=== PATIENT | female | born 1935 | race Caucasian/White ===

== ENCOUNTER 2017-05-05 11:01 | Day surgery (SDC) | payer MEDICARE, OTHER ==
[2017-05-01 17:53] VITALS: BMI 24.1
[~2017-05-05 11:01] MED LIST: ALPRAZolam 0.25 MG TAB PO PRN; ALPRAZolam 0.5 MG TAB PO PRN; ASPIRIN 325 MG TAB PO STA; ATORVASTATIN 80 MG TAB PO STA; NITROGLYCERIN SL TABS 0.4 MG TAB SUBLINGUAL PRN; SODIUM CHLORIDE 0.9% 1,000 ML in EMPTY BAG 1 BAG IV ONE
[2017-05-05 11:21] VITALS: TEMP 98.4
[2017-05-05] MEDS ORDERED: MIDAZOLAM 2 MG/2 ML VIAL ONE (11:44)
[2017-05-05] MEDS ORDERED: MIDAZOLAM 2 MG/2 ML VIAL IV ONE ×3 (12:19→12:28)
[2017-05-05] MEDS ORDERED: diphenhydrAMINE 50 MG/ML 1 ML VIAL ONE (12:19)
[2017-05-05] MEDS ORDERED: LIDOCAINE 2% INJ 20 MG/ML (20 ML MDV) ONE (12:19)
[2017-05-05] MEDS ORDERED: BENZOCAINE SPRAY 1 CAN MUCOUS MEM ONE (12:21)
[2017-05-05] MEDS ORDERED: diphenhydrAMINE 50 MG/ML 1 ML VIAL IVP ONE (12:21)
[2017-05-05] MEDS ORDERED: VERAPAMIL 2.5 MG/ML 2 ML AMP ONE (12:24)
[2017-05-05] MEDS ORDERED: LIDOCAINE 2% INJ 20 MG/ML SQ ONE (13:00)
[2017-05-05] MEDS ORDERED: IOHEXOL 350 MG/ML 125ML BOTTLE INJ ONE (13:12)
[2017-05-05] MEDS ORDERED: RX INFO: IV CONTRAST WAS GIVEN 1 EACH MISC MISCELLANE PRN (13:21)
[2017-05-05] MEDS ORDERED: SODIUM CHLORIDE 0.9% 1,000 ML IV SCH (13:30)
--- NOTE | 2017-05-05 13:58 | ECHOT ---
TRANSESOPHAGEAL ECHOCARDIOGRAM DATE OF SERVICE: 05/05/2017 PERFORMING PHYSICIAN: Michael Leon MD, Manufacturers Service Representative. PROCEDURE PERFORMED: Transesophageal echocardiogram. INDICATION: This is a pleasant 81-year-old female patient who was diagnosed recently with symptomatic mitral regurgitation. The transthoracic echocardiogram revealed severe MR. She was brought today to undergo transesophageal echocardiogram. COMPLICATION: None. LEVEL OF SEDATION: Moderate with sedation length of 10 minutes. PROCEDURE DESCRIPTION: After obtaining an informed consent, the patient was brought to the Cardiac Associate School Psychologist. The patient was turned into left lateral position. A pulse oximetry and heart rate monitors were attached to the patient. Subsequently, I did give the patient a total of 3 mg of Versed and 25 mg of Benadryl on divided doses. After that, transesophageal echocardiogram probe was advanced to the mid esophagus where a 2D echocardiogram images as well as color Doppler images of various cardiac structures were obtained. Particular attention was paid to the mitral valve. The procedure was completed without any complication. FINDINGS: The left ventricular dimension and systolic function appeared to be within normal limits. There was mild to moderate concentric left ventricular hypertrophy. The right ventricle is of normal size and function. The left atrium appeared to be dilated. The aortic valve is trileaflet valve without stenosis or regurgitation. The aortic valve appeared to be trileaflet valve without any evidence of aortic stenosis or aortic regurgitation. 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 The tricuspid valve and pulmonic valve appear to be within normal limits. The left atrial appendage appeared to be free from any thrombus. The interatrial septum appeared to be intact. CONCLUSION: 1. 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 2. Normal left ventricular dimension and systolic function. 3. Overall normal cardiac chamber sizes. 4. Trileaflet aortic valve without stenosis or regurgitation. 5. Normal tricuspid valve and pulmonic valve. 6. Normal aortic root dimension. 7. Intact interatrial septum without any evidence of shunt. 8. Normal left atrial appendage without any evidence of thrombus. 9. No evidence of pericardial effusion. MMODL / IJN: [id number] /
--- NOTE | 2017-05-05 14:58 | CC ---
CARDIAC CATHETERIZATION REPORT DATE OF PROCEDURE: 05/05/2017 PERFORMING PHYSICIAN: Michael Leon MD, Rejector. PROCEDURE PERFORMED: 1. Selective right and left coronary angiogram. 2. Left heart catheterization. 3. Left ventriculography. INDICATION: This is a pleasant 81-year-old female patient who was diagnosed recently with severe mitral regurgitation. She underwent transesophageal echocardiogram, which revealed severe MR and she was brought today to undergo a heart catheterization looking for severe coronary artery disease to rule out any severe underlying CAD before mitral valve repair/replacement. APPROACH: Right common femoral artery. COMPLICATION: None. LEVEL OF SEDATION: Moderate with sedation length of 18 minutes. PROCEDURE DESCRIPTION: After obtaining an informed consent, the patient was brought to the Cardiac Lapel Stitcher. The right common femoral artery was cannulated using micropuncture technique. The micropuncture wire passed easily, then I placed a 6-Turkish sheath in the right common femoral artery. After that, I did selective right and left coronary angiogram using JR4 and JL4 catheters. After that, I did left heart catheterization and LV gram using 6-Turkish pigtail catheter. The procedure was completed without any complication. SELECTIVE CORONARY ANGIOGRAM: 1. The RCA is a large caliber vessel and it is a dominant vessel. The proximal and mid RCA have mild disease only. The RCA distally is tortuous but seems to be angiographically normal. It distally bifurcates into PDA and PLV branches. both are angiographically normal. 2. The left main is angiographically normal. It bifurcates into the left circumflex, ramus intermedius, and left anterior descending artery. 3. The left circumflex is a large caliber vessel and it is a nondominant vessel. The left circumflex is angiographically normal. 4. The ramus intermedius is a large caliber vessel and seems to be angiographically normal. 5. The left anterior descending artery: The LAD is angiographically normal beside being tortuous in the distal portion. In the proximal portion, it gives rise into a diagonal branch which has 50% ostial lesion. HEMODYNAMICS: The left ventricular end-diastolic pressure was 12 mmHg and no gradient was identified across the aortic valve. There was 4+ MR seen. CONCLUSION: 1. Intermediate disease involving the ostial diagonal branch of the left anterior descending artery. 2. Normal left ventricular systolic function. 3. 4+ mitral regurgitation. POSTPROCEDURE MANAGEMENT: 1. The patient will be evaluated for mitral valve repair/replacement. 2. Follow up with the patient. AIME / IJN: [id number] /
--- NOTE | 2017-05-05 14:58 | LTR ---
DATE OF SERVICE: 05/05/2017 RE: CandelarioCira patton Dear Dr. Narvaez; Ms. Cira Candelario underwent a transesophageal echocardiogram as well as a heart catheterization for further evaluation of the severe MR, which was identified on a recent transthoracic echocardiogram. The transesophageal echocardiogram revealed myxomatous mitral valve with evidence of severe MR. The heart catheterization revealed mild nonobstructive coronary artery disease. The plan at this point is to proceed with mitral valve repair/replacement down the line and in the next few months. I want to thank you for allowing me to participate in her care and please do not hesitate to call if you have any question or concern. Sincerely, Michael Leon MD MMLUKEL / IGORN: [id number] /
[2017-05-05 15:22] VITALS: PULSE 68
[2017-05-05 16:20] VITALS: BP 117/65; RESP 16
== END 2017-05-05 18:30 | disposition home or self-care (01) ==
LOC: CATHCVL 11:01
PROVIDERS: ATTEND Internal Medicine Interventional Cardiology
DX: I34.0 Nonrheumatic mitral (valve) insufficiency (principal); I25.10 Atherosclerotic heart disease of native coronary artery without angina pectoris; I51.7 Cardiomegaly; I77.1 Stricture of artery; Z87.891 Personal history of nicotine dependence; I10 Essential (primary) hypertension; E78.5 Hyperlipidemia, unspecified; Z79.82 Long term (current) use of aspirin; Z79.899 Other long term (current) drug therapy; Z88.5 Allergy status to narcotic agent
CPT/HCPCS: 93312; 93320; 93325; 93458; C1894; C1769 ×2; C1760; J2001; J2250; J1200; Q9967

== ENCOUNTER → 2017-05-16 | Outpatient (CLI) | payer MEDICARE ==
--- NOTE | 2017-05-20 09:49 | MM ---
Reason for exam: screening (asymptomatic). Last mammogram was performed 2 years ago. History: Patient is postmenopausal and has history of other cancer at age 68. Took hormonal contraceptives for 4 years beginning at age 24. Physical Findings: A clinical breast exam by your physician is recommended on an annual basis and results should be correlated with mammographic findings. MG 3D Screening Mammo W/Cad Bilateral CC and MLO view(s) were taken. Prior study comparison: May 16, 2015, bilateral MG screening mammo w CAD. May 06, 2014, bilateral MG screening mammo w CAD. The breast tissue is heterogeneously dense. This may lower the sensitivity of mammography. There is no discrete abnormality. No significant changes when compared with prior studies. ASSESSMENT: Negative, BI-RAD 1 RECOMMENDATION: Routine screening mammogram of both breasts in 1 year.
== END | disposition home or self-care (01) ==
LOC: RADMAMWWP 11:02
PROVIDERS: ATTEND Internal Medicine Geriatric Medicine
DX: Z12.31 Encounter for screening mammogram for malignant neoplasm of breast (principal)
CPT/HCPCS: 77063; G0202

== ENCOUNTER → 2017-09-25 | Outpatient (CLI) | payer MEDICARE ==
[2017-09-25 09:35] LABS: HCT 41.6 % (34.0-46.0); HGB 13.7 gm/dL (11.4-16.0); MCH 31.8 pg (25.0-35.0); MCHC 32.8 g/dL (31.0-37.0); MCV 96.9 fL (80.0-100.0); Mean Platelet Volume 7.2; Platelet Count 247 k/uL (150-450); RBC 4.29 m/uL (3.80-5.40); RDW 13.1 % (11.5-15.5)
[2017-09-25 09:37] LABS: INR 1.1 (<1.2); Partial Thromboplastin Time 23.1 sec (22.0-30.0); Prothrombin Time 10.4 sec (9.0-12.0)
[2017-09-25 09:55] LABS: Albumin 4.3 g/dL (3.5-5.0); Calcium 9.3 mg/dL (8.4-10.2); Magnesium 1.8 mg/dL (1.6-2.3); Potassium 3.8 mmol/L (3.5-5.1); Total Bilirubin 1.1 mg/dL (0.2-1.3); Total Protein 6.3 g/dL (6.3-8.2)
[2017-09-25 11:19] LABS: Appearance,Urine Cloudy (Clear); Bacteria,Urine Few /hpf; Bilirubin,Urine Negative (Negative); Blood,Urine Negative (Negative); Color,Urine Yellow; Glucose,Urine (UA) Negative (Negative); Hyaline Casts,Urine 22 /lpf (0-2); Ketones,Urine Negative (Negative); Leukocyte Esterase,Urine Large (Negative); Mucus,Urine Occasional /hpf; Nitrite,Urine Positive (Negative); PH, Urine 5.5 (5.0-8.0); Protein,Urine Negative (Negative); RBC,Urine 1 /hpf (0-5); Specific Gravity,Urine 1.007 (1.001-1.035); Squamous Epithelial Cell,Urine 5 /hpf (0-4); Urobilinogen,Urine <2.0 mg/dL (<2.0); WBC,Urine 12 /hpf (0-5)
--- NOTE | 2017-09-25 12:04 | XR ---
EXAMINATION TYPE: XR chest 2V DATE OF EXAM: 09/25/2017 COMPARISON: Chest x-ray March 18, 2017. HISTORY: Preoperative CABG. TECHNIQUE: Frontal and lateral views of the chest are obtained. FINDINGS: There is chronic parenchymal change without suspicious focal air space opacity, pleural ef fusion, or pneumothorax seen. The cardiac silhouette size is within normal limits with atherosclerot ic and slightly ectatic thoracic aorta. Multiple old left-sided rib fractures are redemonstrated. IMPRESSION: Chronic changes without acute process. No significant change from prior.
--- NOTE | 2017-09-25 13:17 | US ---
EXAMINATION TYPE: US carotid duplex BILAT DATE OF EXAM: 09/25/2017 COMPARISON: Carotid ultrasound December 13, 2011 CLINICAL HISTORY: OPEN HEART,. Pre op cardiac surgery EXAM MEASUREMENTS: RIGHT: Peak Systolic Velocity (PSV) cm/sec ----- Right CCA: 73.2 ----- Right ICA: 100.4 ----- Right ECA: 122.1 ICA/CCA ratio: 1.4 RIGHT: End Diastole cm/sec ----- Right CCA: 19.3 ----- Right ICA: 21.5 ----- Right ECA: 15.5 LEFT: Peak Systolic Velocity (PSV) cm/sec ----- Left CCA: 52.9 ----- Left ICA: 80.9 ----- Left ECA: 235.8 ICA/CCA ratio: 1.5 LEFT: End Diastole cm/sec ----- Left CCA: 14.5 ----- Left ICA: 23.7 ----- Left ECA: 18.4 VERTEBRALS (direction of flow): Right Vertebral: Antegrade Left Vertebral: Antegrade Rhythm: Normal Grayscale images redemonstrate moderate plaque at bilateral carotid bulbs. Increased peak systolic ve locity is noted in the left external carotid artery on today's study. Velocity measurements and ratio s in visualized portion of both internal carotid arteries is within normal limits. IMPRESSION: Moderate atherosclerotic change without hemodialysis significant stenosis seen in either internal carotid artery. Criteria for Assigning % of Stenosis / Diameter reduction (Estimation based on the indirect measurements of the internal carotid artery velocities (ICA PSV). 1. Normal (no stenosis)=ICA PSV < 125 cm/s: ratio < 2.0: ICA EDV<40 cm/s. 2. Less than 50% stenosis=ICA PSV < 125 cm/s: ratio < 2.0: ICA EDV<40 cm/s. 3. 50 to 69% stenosis=ICA PSV of 125 to 230 cm/s: ration 2.0 ? 4.0: ICA EDV 40-100 cm/s. 4. Greater than 70% stenosis to near occlusion= ICA PSV > 230 cm/s: ratio > 4.0: ICA EDV > 100 cm/s. 5. Near occlusion= ICA PSV velocities may be low or undetectable: variable ratio and ICA EDV. 6. Total occlusion=unable to detect flow.
[2017-09-25 17:21] LABS: Hepatitis A Antibody IgM Non-Reactive (Non-Reactive); Hepatitis B Core IgM Non-Reactive (Non-Reactive)
[2017-09-25 20:10] LABS: Hemoglobin A1C 5.4 % (4.0-6.0)
== END | disposition home or self-care (01) ==
LOC: LABPAT 08:19
PROVIDERS: ATTEND Surgery
DX: Z01.818 Encounter for other preprocedural examination (principal); I70.0 Atherosclerosis of aorta; R91.8 Other nonspecific abnormal finding of lung field; I35.1 Nonrheumatic aortic (valve) insufficiency; Z79.01 Long term (current) use of anticoagulants
CPT/HCPCS: 36415; 71046; 80053; 80061; 80074; 81001; 83036; 83735; 83880; 84443; 84484; 85027; 85610; 85730; 87070; 87086; 93005; 93880; 93970; 94150

== ENCOUNTER 2017-09-30 08:00 | Inpatient (IN) | payer MEDICARE ==
--- NOTE | 2017-10-01 13:49 | P.PN ---
Progress Note - Text Progress Note Date: 09/25/17 5 meter walk test completed 09/25/17: #1 3.96 #2 3.05 #3 3.53
[2017-10-02] MEDS ORDERED: PROPOFOL 1,000 MG/100 ML VIAL IV ONE (05:00)
[2017-10-02] MEDS ORDERED: PHENYLEPHRINE 40 MG in SODIUM CHLORIDE 0.9% 250 ML IV ONE (05:00)
[2017-10-02] MEDS ORDERED: CALCIUM CHLORIDE 100 MG/ML 10 ML SYRINGE IV ONE (05:00)
[2017-10-02] MEDS ORDERED: NITROGLYCERIN SL TABS 0.4 MG TAB SUBLINGUAL ONE (05:00)
[2017-10-02] MEDS ORDERED: ALBUMIN HUMAN 25% 50 ML IV ONE (05:00)
[2017-10-02] MEDS ORDERED: METOPROLOL TARTRATE 12.5 MG TAB PO ONE (05:00)
[2017-10-02] MEDS ORDERED: PROTAMINE SULFATE 10 MG/ML 25 ML VIAL IV ONE ×2 (05:00→08:04)
[2017-10-02] MEDS ORDERED: NITROGLYCERIN-D5W PMX 25 MG/250 ML BTL IV ONE (05:00)
[2017-10-02] MEDS ORDERED: TRANEXAMIC ACID 2,000 MG in SODIUM CHLORIDE 0.9% 180 ML IV ONE (05:00)
[2017-10-02] MEDS ORDERED: LACTATED RINGERS 1,000 ML IV ONE (05:00)
[2017-10-02] MEDS ORDERED: PHENYLEPHRINE-0.9% NACL SYG 1 MG/10 ML SYRINGE IV ONE (05:00)
[2017-10-02] MEDS ORDERED: CLEVIDIPINE BUTYRATE 25 MG in EMPTY BAG 1 BAG IV ONE (05:00)
[2017-10-02] MEDS ORDERED: HEPARIN SODIUM 1,000 UN/ML (10ML VL) IV ONE (05:00)
[2017-10-02] MEDS ORDERED: NOREPINEPHRIN 4 MG-0.9% NS PMX 4 MG/250 ML ML IV ONE (05:00)
[2017-10-02] MEDS ORDERED: ceFAZolin 1,000 MG in SODIUM CHLORIDE 0.9% IRRIGATIO 1,000 ML IRRIGATION ONE (05:00)
[2017-10-02] MEDS ORDERED: MANNITOL 25% 12.5 GM/50 ML VIAL IV ONE (05:00)
[2017-10-02] MEDS ORDERED: MAGNESIUM SULFATE MG 500 MG/ML VIAL IV ONE (05:00)
[2017-10-02] MEDS ORDERED: MUPIROCIN 2% OINT 22 GM TUBE NASAL ONE (05:00)
[2017-10-02] MEDS ORDERED: DEXTROSE 5% IN WATER 1,000 ML with POTASSIUM CHLORIDE 25 MEQ, SODIUM CHLORIDE 2.5MEQ/ML... IRRIGATION ONE ×6 (05:00)
[2017-10-02] MEDS ORDERED: ATORVASTATIN 10 MG TAB PO ONE (05:00)
[2017-10-02] MEDS ORDERED: DEXTROSE 5% IN WATER 1,000 ML with POTASSIUM CHLORIDE 110 MEQ, MAGNESIUM SULFATE 16 MEQ... IV ONE ×5 (05:00)
[2017-10-02] MEDS ORDERED: ALBUMIN HUMAN 5% 500 ML IVPB ONE (05:00)
[2017-10-02] MEDS ORDERED: CHLORHEXIDINE GLUCONATE 15 ML CUP MUCOUS MEM ONE (05:00)
[2017-10-02] MEDS ORDERED: SODIUM CHLORIDE 0.9% 1,000 ML IV ONE (05:00)
[2017-10-02] MEDS ORDERED: HEPARIN SODIUM,PORCINE 5,000 UNIT in SODIUM CHLORIDE 0.9% 500 ML IV ONE (05:00)
[2017-10-02] MEDS ORDERED: ceFAZolin 2,000 MG in SODIUM CHLORIDE 0.9% 30 ML IVPB ONE ×4 (05:00)
[2017-10-02] MEDS ORDERED: ASPIRIN 325 MG TAB PO ONE (05:00)
[2017-10-02] MEDS ORDERED: NITROGLYCERIN-D5W PMX 50 MG in DEXTROSE/WATER 1 250ML.BAG IV ONE (05:00)
[2017-10-02] MEDS ORDERED: SODIUM BICARB 8.4% 50 ML SYR (1 MEQ/ML) IV ONE (05:00)
[2017-10-02] MEDS ORDERED: INSULIN REGULAR 100 UNIT in SODIUM CHLORIDE 0.9% 100 ML IV ONE (05:00)
[2017-10-02] MEDS ORDERED: PROTAMINE SULFATE 250 MG in EMPTY BAG 1 BAG IV ONE (05:00)
[2017-10-02] MEDS ORDERED: PROPOFOL 10 MG/ML 20 ML VIAL IV ONE (08:04)
[2017-10-02] MEDS ORDERED: ALBUMIN HUMAN 5% 500 ML VIAL IVPB ONE (08:04)
[2017-10-02] MEDS ORDERED: ELECTROLYTE-R (PH 7.4) 1,000 ML IV.SOLN IV ONE (08:04)
[2017-10-02] MEDS ORDERED: SODIUM CHLORIDE 0.9% IRRIG 1,000 ML BTL IRRIGATION ONE (08:04)
[2017-10-02] MEDS ORDERED: PHENYLEPHRINE-0.9% NACL SYG 1 MG/10 ML SYRINGE ONE (08:04)
[2017-10-02] MEDS ORDERED: fentaNYL (PF) 50 MCG/ML 50 ML VIAL ONE (08:04)
[2017-10-02] MEDS ORDERED: PROTAMINE SULFATE 10 MG/ML 5 ML VIAL IV ONE (08:04)
[2017-10-02] MEDS ORDERED: SODIUM CHLORIDE 0.9% 250 ML BAG ONE (08:04)
[2017-10-02] MEDS ORDERED: LIDOCAINE 2% SYG (PF) 100 MG/5 ML ONE (08:04)
[2017-10-02] MEDS ORDERED: SODIUM BICARB 8.4% 50 ML SYR (1 MEQ/ML) ONE (08:04)
[2017-10-02] MEDS ORDERED: CALCIUM CHLORIDE 100 MG/ML 10 ML SYRINGE ONE (08:04)
[2017-10-02] MEDS ORDERED: TRANEXAMIC ACID 1,000 MG/10 ML VIAL ONE (08:04)
[2017-10-02] MEDS ORDERED: MIDAZOLAM 2 MG/2 ML VIAL ONE (08:04)
[2017-10-02] MEDS ORDERED: HEPARIN SODIUM,PORCINE 10,000 UNIT/ML 1 ML VIAL ONE (08:04)
[2017-10-02] MEDS ORDERED: VECURONIUM 10 MG VIAL IV ONE (08:04)
[2017-10-02] MEDS ORDERED: ePHEDrine SULFATE/0.9% NACL/PF 50 MG/5 ML SYRINGE IV ONE (08:04)
[2017-10-02] MEDS ORDERED: SODIUM CHLORIDE 0.9% 100 ML BAG ONE (08:04)
[2017-10-02] MEDS ORDERED: ceFAZolin 1,000 MG VIAL ONE (08:04)
[2017-10-02 08:42] LABS: ABG Base Excess 0.4 mmol/L; ABG HCO3 23 mmol/L (21-25); ABG PCO2 31 mmHg (35-45); ABG PH 7.48 (7.35-7.45); ABG PO2 236 mmHg (83-108); ABG Sodium Whole Blood 139 mmol/L (135-146); ABG TCO2 24 mmol/L (19-24)
[2017-10-02 09:33] LABS: ABG Base Excess -1.2 mmol/L; ABG HCO3 24 mmol/L (21-25); ABG Oxygen Saturation 99.8 % (94-97); ABG PCO2 42 mmHg (35-45); ABG PH 7.37 (7.35-7.45); ABG PO2 199 mmHg (83-108); ABG Potassium Whole Blood 3.6 mmol/L (3.4-4.5); ABG Sodium Whole Blood 140 mmol/L (135-146); ABG TCO2 25 mmol/L (19-24)
[2017-10-02 10:13] LABS: ABG Base Excess -2.4 mmol/L; ABG HCO3 23 mmol/L (21-25); ABG PCO2 41 mmHg (35-45); ABG PH 7.36 (7.35-7.45); ABG PO2 322 mmHg (83-108); ABG Potassium Whole Blood 4.5 mmol/L (3.4-4.5); ABG Sodium Whole Blood 135 mmol/L (135-146); ABG TCO2 24 mmol/L (19-24)
[2017-10-02 10:42] LABS: ABG Base Excess -3.1 mmol/L; ABG HCO3 24 mmol/L (21-25); ABG Oxygen Saturation 99.9 % (94-97); ABG PCO2 49 mmHg (35-45); ABG PH 7.29 (7.35-7.45); ABG PO2 285 mmHg (83-108); ABG Potassium Whole Blood 4.3 mmol/L (3.4-4.5); ABG Sodium Whole Blood 137 mmol/L (135-146); ABG TCO2 25 mmol/L (19-24)
[2017-10-02 11:09] LABS: ABG Base Excess -3.1 mmol/L; ABG HCO3 23 mmol/L (21-25); ABG PCO2 46 mmHg (35-45); ABG PH 7.31 (7.35-7.45); ABG PO2 374 mmHg (83-108); ABG Potassium Whole Blood 4.5 mmol/L (3.4-4.5); ABG Sodium Whole Blood 137 mmol/L (135-146); ABG TCO2 24 mmol/L (19-24)
[2017-10-02 12:35] LABS: ABG Base Excess -2.3 mmol/L; ABG HCO3 23 mmol/L (21-25); ABG Oxygen Saturation 99.4 % (94-97); ABG PCO2 40 mmHg (35-45); ABG PH 7.36 (7.35-7.45); ABG PO2 135 mmHg (83-108); ABG Sodium Whole Blood 140 mmol/L (135-146); ABG TCO2 24 mmol/L (19-24)
[2017-10-02] MEDS ORDERED: IPRATROPIUM-ALBUTEROL 3 ML NEB INHALATION PRN (13:30)
[2017-10-02] MEDS ORDERED: MORPHINE SULFATE 4 MG/ML SYRINGE IVP PRN (13:30)
[2017-10-02] MEDS ORDERED: DEXTROSE 5% IN WATER 100 ML with AMIODARONE 150 MG IV PRN (13:30)
[2017-10-02] MEDS ORDERED: Magnesium Replacement Protocol 1 EACH MISC MISCELLANE PRN (13:30)
[2017-10-02] MEDS ORDERED: METOCLOPRAMIDE 5 MG/ML 2 ML VIAL IVP PRN (13:30)
[2017-10-02] MEDS ORDERED: CALCIUM CHLORIDE 1,000 MG in SODIUM CHLORIDE 0.9% 100 ML IV PRN (13:30)
[2017-10-02] MEDS ORDERED: Potassium Replacement Protocol 1 EACH MISC MISCELLANE PRN (13:30)
[2017-10-02] MEDS ORDERED: Phosphorus Replacement Protoco 1 EACH MISC MISCELLANE PRN (13:30)
[2017-10-02 14:06] LABS: Glucose,Whole Blood 128 mg/dL (75-99)
[2017-10-02 14:22] LABS: ABG Base Excess -1.5 mmol/L; ABG HCO3 24 mmol/L (21-25); ABG PCO2 43 mmHg (35-45); ABG PH 7.36 (7.35-7.45); ABG PO2 215 mmHg (83-108); ABG TCO2 25 mmol/L (19-24)
[2017-10-02 14:24] LABS: Ionized Calcium 4.5 mg/dL (4.5-5.3)
--- NOTE | 2017-10-02 14:25 | XR ---
EXAMINATION TYPE: XR chest 1V portable DATE OF EXAM: 10/02/2017 CLINICAL HISTORY: Post open cardiac surgery. TECHNIQUE: Single AP portable frontal view of the chest is obtained. COMPARISON: Chest x-ray from one week earlier. FINDINGS: There is new endotracheal tube tip terminating at aortic knob level, approximately 2-3 cm above the kay. There is new orogastric tube projecting below left hemidiaphragm. There is new righ t internal jugular [place]-Manasa catheter terminating at expected level of pulmonary outflow track. There there are new right apical chest tube and mediastinal drainage catheter. New sternal wires as well as closure device superior left heart border and metallic cardiac valvular ring are present. Cardiac silhouette size is now mildly enlarged with new mild central vascular congestion and atherosc lerotic and ectatic aorta. There is chronic parenchymal change with new patchy left basilar atelectas is. No pleural effusion or sizable pneumothorax is seen bilaterally. Old posterior left apical and le ft midlung lateral rib fractures are redemonstrated. IMPRESSION: 1. New Tubes and lines overall satisfactory in position as noted above. 2. New mild cardiomegaly and central vascular congestion with patchy left basilar atelectasis on back ground of chronic parenchymal change.
[2017-10-02 14:28] LABS: Basophils % (A) 0 %; Eosinophils % (A) 1 %; HCT 23.7 % (34.0-46.0); Lymphocytes # (A) 0.9 k/uL (1.0-4.8); Lymphocytes % (A) 18 %; MCH 32.2 pg (25.0-35.0); MCHC 32.7 g/dL (31.0-37.0); MCV 98.7 fL (80.0-100.0); Mean Platelet Volume 6.9; Monocytes # (A) 0.2 k/uL (0-1.0); Monocytes % (A) 4 %; Neutrophils # (A) 3.8 k/uL (1.3-7.7); Neutrophils % (A) 77 %; RDW 13.5 % (11.5-15.5); WBC 4.9 k/uL (3.8-10.6)
[2017-10-02 14:30] LABS: HGB 7.7 gm/dL (11.4-16.0)
[2017-10-02 14:36] LABS: ALT 36 U/L (9-52); AST 38 U/L (14-36); Albumin 3.2 g/dL (3.5-5.0); Alkaline Phosphatase 33 U/L (38-126); Anion Gap 8 mmol/L; Blood Urea Nitrogen 13 mg/dL (7-17); Calcium 7.5 mg/dL (8.4-10.2); Carbon Dioxide 25 mmol/L (22-30); Chloride 108 mmol/L (98-107); Glucose 111 mg/dL (74-99); INR 1.5 (<1.2); Magnesium 2.5 mg/dL (1.6-2.3); Partial Thromboplastin Time 34.3 sec (22.0-30.0); Potassium 4.4 mmol/L (3.5-5.1); Prothrombin Time 14.3 sec (9.0-12.0); Sodium 141 mmol/L (137-145); Total Bilirubin 1.1 mg/dL (0.2-1.3); Total Protein 4.3 g/dL (6.3-8.2)
--- NOTE | 2017-10-02 14:39 | OP ---
OPERATIVE REPORT DATE OF THE PROCEDURE: 10/02/2017 SURGEON: Dr. Froy Castro. CUSTOMER ENERGY SPECIALIST: 1. MIRANDA Doss. 2. MIRANDA Chaudhary. PREOPERATIVE DIAGNOSES: 1. 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 2. Mild coronary artery disease. 3. Hypertension. 4. Hyperlipidemia. POSTOPERATIVE DIAGNOSES: 1. 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 2. Mild coronary artery disease. 3. Hypertension. 4. Hyperlipidemia. 5. Flail P3 of the mitral valve PROCEDURE: 1. Complex mitral valve repair with taylor-chord construction to P3 x2 with complete ring annuloplasty using a 30 mm physio ring. 2. Excision of the left atrial appendage using a 40 mm AtriClip. 3. Intraoperative transesophageal echocardiogram and epiaortic scanning. INDICATION FOR SURGERY: The patient is an 82-year-old lady of Dr. Leon, referred for mitral valve surgery. She has decreased functional status mainly over the last 3 months. She was found to have severe mitral valve regurgitation and myxomatous mitral valve on YARA. Cardiac catheterization showed some proximal diagonal artery disease. No history of AFIB. The STS risk was discussed with the patient and her . She understood it and agreed to proceed. DESCRIPTION OF THE PROCEDURE: Patient had a right internal jugular Bynum-Amnasa catheter and a right radial arterial line inserted in the preoperative holding area. She was brought to the operating room where general endotracheal anesthesia was induced uneventfully. The Naranjo catheter was inserted. The patient has been treated for 3 days with Bactrim for an ESBL asymptomatic bacteriuria. The chest, abdomen and both lower extremities were prepped and draped using ChloraPrep. Ioban was used to cover the skin. Transesophageal echocardiogram confirmed the preoperative finding of severe mitral valve regurgitation directed anteriorly and myxomatous mitral valve with prolapse of the posterior leaflet at the level of P2 and ? P3 . The left atrial appendage was clear. A midline sternotomy was performed and no bone wax was used. The right pleura was intentionally opened in this process and was drained with a 28-Russian chest tube. Mediastinal fat was transected between 2 ties and epiaortic scanning revealed concentric intimal thickening but no protruding atheroma. The pericardium was opened in an inverted T-fashion and a pericardial cradle was created. Findings included a normal size heart and a normal size and soft aorta except around the takeoff of the innominate artery where there was a calcified plaque. After systemic heparinization, after placement of respective pledgeted pursestring, aortic cannulation with a 21-Russian soft flow cannula, direct SVC cannulation with a 28- Russian right angle venous cannula and IVC cannulation via a right atrial appendage pursestring using a 30-Russian cannula was performed. Antegrade as well as retrograde cardioplegia catheters were placed. Both cava were encircled and not tightened. Cardioplegia bypass was initiated and patient temperature was allowed to drift down to 34 degrees Celsius. The aorta was clamped and during 85 minutes of aortic clamping, myocardial protection was achieved with initial dose of antegrade cold blood cardioplegia followed by dose of retrograde cold blood cardioplegia. All subsequent doses were given retrograde at 15 minutes interval. We initially started by excluding the left atrial appendage using a 40 mm AtriClip at its base. Subsequently, the interatrial groove was developed and a standard left atriotomy was performed. The Tripp mitral retractor was used to help in exposure. We had a reasonable exposure of the valve. In order to help examining the valve, I passed several Tycron 2-0 nonpledgeted annuloplasty suture along the posterior anulus and that helped opening the valve. At this point, exploration revealed a ruptured cord of the P3 segment. There were no prolapse of P2 or any of the segment of the anterior leaflet. The anulus was mildly dilated. Decision was made to proceed with repair of the valve by constructing taylor chords. One pair of taylor cord using GoreTex 4-0 was taken off the posterior papillary muscle and anchored to the P3 segment and another pair of cords using another Gilman-Robbie 4-0 was taken from the anterior papillary muscle and anchored more medially closer to the commissure. Those were not tied at this point. Subsequently, I completed passing the Tycron 2-0 nonpledgeted sutures all around the perimeter of the mitral ring. The anterior leaflet was sized to a 30 mm physio ring, which was selected and brought into the field. All the sutures were passed symmetrically into the ring, which seated nicely. All the needles were cut and the suture tied using the cor-knot device. Subsequently, we tested the valve and with basically no leak, we proceeded at knotting the 2 pairs of taylor cords with at least 12 knots on each. Testing of the valve again revealed excellent seal. With that, rewarming was started and the left atriotomy was closed using 3-0 pledgeted on each corner in an [id number] technique and meeting in the midline. CO2 was flowing over the field as long as the left atrial cavities were opened. De-airing maneuvers were performed before completely closing the atrium. Warm blood had been infused. Patient was given lidocaine and magnesium. De-airing maneuvers were followed before unclamping the aorta. Patient regained a very slow junctional rhythm. For that, two monopolar atrial pacing wires were affixed to the respective pledgeted pursestring on the right atrial wall and 1 bipolar ventricular pacing wires was driven via the inferior aspect of the right ventricle. We started a dual-chamber pacing. After a period of reperfusion, we were able to wean off cardiopulmonary bypass with a need for low dose of Levophed. YARA at this point, performed by Dr. Valencia from Cardiology showed basically trivial mitral valve regurgitation and no VIBHA. De-airing was adequate. With that test dose and full dose protamine was given. Decannulation followed. We had to pass several pledgeted Prolene at the level of the aortic cannulation site in view of the very thin and friable aorta at that level. But that was very satisfactory. However, I sprayed some additional CoSeal for added security. One 32F substernal chest tube was placed. Hemodynamics were good. After ensuring adequate hemostasis and hemodynamic and after correct sponge, instrument, and needle count, the sternum was approximated using a combination of 4 mnkfpa-[id number]-yjjhr stainless steel wires and 1 simple stainless steel wire after interposing fibrillar between the sternal edges. Thorough irrigation with cefazolin followed. The rest of the closure proceeded in layers. Skin glue was applied. Patient did not receive any blood bank product but received but received 750 cc of Cell Saver blood. She was transferred to the ICU on low-dose Levophed, dual chamber paced at 70 with a cardiac index of 2.3 and normal PA pressure. SPECIMEN: Sent for pathology consisted a part of the ruptured chord of P3. MMODL / IJN: [id number] / MTDD
[2017-10-02] MEDS: CLEVIDIPINE BUTYRATE 25 MG in EMPTY BAG 1 BAG IV SCH ×2 (14:45→22:42)
[2017-10-02 14:46] LABS: Platelet Count 84 k/uL (150-450)
[2017-10-02 14:55] LABS: Glucose,Whole Blood 131 mg/dL (75-99)
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
[2017-10-02] MEDS: IPRATROPIUM-ALBUTEROL 3 ML NEB INHALATION SCH ×2 (15:26→19:51)
[2017-10-02] MEDS: LACTATED RINGERS 1,000 ML IV SCH (15:29)
[2017-10-02] MEDS: ceFAZolin IN SWFI 2 GM/20 ML SYRINGE IVP SCH (15:30)
[2017-10-02] MEDS: INSULIN REGULAR 100 UNIT in SODIUM CHLORIDE 0.9% 100 ML IV SCH (15:31)
--- NOTE | 2017-10-02 15:37 | P.CONS ---
History of Present Illness - Reason for Consult Consult date: 10/02/17 Requesting physician: Froy Castro - History of Present Illness 82 years old female with past medical history mitral valve prolapse, hypertension, osteoarthritis, coronary artery disease with cath from 2017 suggested intermediate disease in the ostial diagonal branch of LAD, depression , irritable bowel syndrome, hyperlipidemia presented for an electivemitral valve repair. Patient was evaluated postoperatively. Currently intubated, and assist control mode on 100% FiO2, PEEP of 5, tidal volume 450. Patient had symptoms of dyspnea on exertion for the past few months for which she was definitely cardiothoracic surgery for mitral valve surgery. Last vital signs suggestive pulses are 139, blood pressure 141/65, FiO2 100% on mechanical ventilation. Labs suggestive hemoglobin of 7.7, platelet 84, INR 1.5. ABG suggests an oxygen of 215, CO2 25, glucose 131, calcium 7.5. Chest x-ray suggestive of mild vascular congestion, chronic parenchymal changes with new patchy left basilar atelectasis, with right apical chest tube and mediastinal drainage catheter Review of Systems ROS unobtainable: due to endotracheal tube Past Medical History Past Medical History: Cancer, Hyperlipidemia, Hypertension, Mitral Valve Prolapse (MVP), Osteoarthritis (OA) Additional Past Medical History / Comment(s): IBS, SKIN CANCER, SOB w/exertion History of Any Multi-Drug Resistant Organisms: None Reported Past Surgical History: Heart Catheterization, Joint Replacement Additional Past Surgical History / Comment(s): REGAN TOTAL KNEES. Past Anesthesia/Blood Transfusion Reactions: No Reported Reaction Smoking Status: Former smoker (Crit a year ago) - Past Family History Sister(s) Family Medical History: Cancer Additional Family Medical History / Comment(s): BOWEL CANCER Medications and Allergies Home Medications Medication Instructions Recorded Confirmed Type Aspirin [Adult Low Dose Aspirin EC] 81 mg PO HS 05/01/17 10/02/17 History L.acidoph,Paracasei, B.lactis 1 cap PO DAILY 05/01/17 10/02/17 History [Probiotic] Losartan Potassium 100 mg PO HS 05/01/17 10/02/17 History Opc Antioxidant 1 tab PO DAILY 05/01/17 10/02/17 History Simvastatin [Zocor] 20 mg PO HS 05/01/17 10/02/17 History amLODIPine [Norvasc] 5 mg PO BID 05/01/17 10/02/17 History clonazePAM [KlonoPIN] 0.5 mg PO HS 05/01/17 10/02/17 History Amitriptyline HCl [Elavil] 12.5 mg PO HS 09/25/17 10/02/17 History Mupirocin 2% Nasal Oint [Bactroban 1 applic NASAL BID 10/01/17 10/02/17 History 2% Nasal Oint] Sulfamethox-Tmp 800-160Mg [Bactrim 1 tab PO Q12HR 10/01/17 10/02/17 History DS 800-160 mg] Allergies Allergy/AdvReac Type Severity Reaction Status Date / Time fentanyl AdvReac Unknown COULDNT Verified 10/02/17 14:21 EAT. Physical Exam Vitals: Vital Signs Temp Pulse Pulse Resp BP BP Pulse Ox 10/02/17 14:15 139 H 20 100 10/02/17 14:00 139 H 20 100 10/02/17 13:30 99 10/02/17 06:10 97.7 F 79 18 142/72 148/74 94 L Intake and Output 10/02/17 10/02/17 10/02/17 06:59 14:59 22:59 Intake Total 32 Output Total 2000 Balance -1967 Intake: IV 32 Output: Urine 800 Estimated Blood Loss 1200 ABP, PAP, CO, CI - Last 8 Hours Arterial Blood Pressure 126/62 Arterial Blood Pressure 141/65 Pulmonary Artery Pressure 38/20 Pulmonary Artery Pressure 40/26 Cardiac Output 4.2 Cardiac Output 4.2 Cardiac Index 2.4 - Constitutional General appearance: Sedated, intubated - EENT Eyes: anicteric sclerae, PERRLA, normal appearance - Neck Neck: no lymphadenopathy, no JVD, ET tube intact and oral gastric tube is intact - Respiratory Respiratory: bilateral: CTA, negative: diminished, dullness, rales, rhonchi, mediastinal tissue, chest tube from suction - Cardiovascular Rhythm: regular Heart sounds: normal: S1, S2 Abnormal Heart Sounds: systolic murmur, no diastolic murmur, no rub, no S3 Gallop, no S4 Gallop, no click, no other - Gastrointestinal General gastrointestinal: normal bowel sounds, soft, nondistended - Integumentary Integumentary: no rash - Neurologic Neurologic: CNII-XII intact - Musculoskeletal Musculoskeletal: , no edema, no cyanosis no clubbing - Psychiatric Psychiatric: Could not be assessed Results CBC & Chem 7: 10/02/17 14:05 10/02/17 14:05 Labs: Abnormal Lab Results - Last 24 Hours (Table) 09/25/17 10/02/17 10/02/17 Range/Units 08:24 08:42 09:34 RBC (3.80-5.40) m/uL Hgb (11.4-16.0) gm/dL Hct (34.0-46.0) % Plt Count (150-450) k/uL Lymphocytes # (1.0-4.8) k/uL PT (9.0-12.0) sec INR (<1.2) APTT (22.0-30.0) sec ABG pH 7.48 H (7.35-7.45) ABG pCO2 31 L (35-45) mmHg ABG pO2 236 H 199 H (83-108) mmHg ABG Total CO2 25 H (19-24) mmol/L ABG O2 Saturation 100.0 H 99.8 H (94-97) % ABG Hematocrit (34.0-46.0) % ABG Ionized Calcium (4.5-5.3) mg/dL ABG Glucose 114 H (75-99) mg/dL Hemoglobin 11.0 L (11.4-16.0) gm/dL Chloride (98-107) mmol/L Glucose (74-99) mg/dL POC Glucose (mg/dL) (75-99) mg/dL Calcium (8.4-10.2) mg/dL Magnesium (1.6-2.3) mg/dL AST (14-36) U/L Alkaline Phosphatase (38-126) U/L Total Protein (6.3-8.2) g/dL Albumin (3.5-5.0) g/dL Arterial Blood Glucose 114 H (75-99) mg/dL Crossmatch See Detail 10/02/17 10/02/17 10/02/17 Range/Units 10:13 10:43 11:10 RBC (3.80-5.40) m/uL Hgb (11.4-16.0) gm/dL Hct (34.0-46.0) % Plt Count (150-450) k/uL Lymphocytes # (1.0-4.8) k/uL PT (9.0-12.0) sec INR (<1.2) APTT (22.0-30.0) sec ABG pH 7.29 L 7.31 L (7.35-7.45) ABG pCO2 49 H 46 H (35-45) mmHg ABG pO2 322 H 285 H 374 H (83-108) mmHg ABG Total CO2 25 H (19-24) mmol/L ABG O2 Saturation 100.0 H 99.9 H 100.0 H (94-97) % ABG Hematocrit 22 L 23 L 24 L (34.0-46.0) % ABG Ionized Calcium 4.0 L 4.2 L 4.1 L (4.5-5.3) mg/dL ABG Glucose 188 H 164 H 149 H (75-99) mg/dL Hemoglobin 7.2 L 7.5 L 7.8 L (11.4-16.0) gm/dL Chloride (98-107) mmol/L Glucose (74-99) mg/dL POC Glucose (mg/dL) (75-99) mg/dL Calcium (8.4-10.2) mg/dL Magnesium (1.6-2.3) mg/dL AST (14-36) U/L Alkaline Phosphatase (38-126) U/L Total Protein (6.3-8.2) g/dL Albumin (3.5-5.0) g/dL Arterial Blood Glucose 188 H 164 H 149 H (75-99) mg/dL Crossmatch 10/02/17 10/02/17 10/02/17 Range/Units 12:35 14:04 14:05 RBC 2.40 L (3.80-5.40) m/uL Hgb 7.7 L D (11.4-16.0) gm/dL Hct 23.7 L (34.0-46.0) % Plt Count 84 L D (150-450) k/uL Lymphocytes # 0.9 L (1.0-4.8) k/uL PT (9.0-12.0) sec INR (<1.2) APTT (22.0-30.0) sec ABG pH (7.35-7.45) ABG pCO2 (35-45) mmHg ABG pO2 135 H (83-108) mmHg ABG Total CO2 (19-24) mmol/L ABG O2 Saturation 99.4 H (94-97) % ABG Hematocrit 25 L (34.0-46.0) % ABG Ionized Calcium 4.3 L (4.5-5.3) mg/dL ABG Glucose 129 H (75-99) mg/dL Hemoglobin 8.0 L (11.4-16.0) gm/dL Chloride (98-107) mmol/L Glucose (74-99) mg/dL POC Glucose (mg/dL) 128 H (75-99) mg/dL Calcium (8.4-10.2) mg/dL Magnesium (1.6-2.3) mg/dL AST (14-36) U/L Alkaline Phosphatase (38-126) U/L Total Protein (6.3-8.2) g/dL Albumin (3.5-5.0) g/dL Arterial Blood Glucose 129 H (75-99) mg/dL Crossmatch 10/02/17 10/02/17 10/02/17 Range/Units 14:05 14:05 14:21 RBC (3.80-5.40) m/uL Hgb (11.4-16.0) gm/dL Hct (34.0-46.0) % Plt Count (150-450) k/uL Lymphocytes # (1.0-4.8) k/uL PT 14.3 H (9.0-12.0) sec INR 1.5 H (<1.2) APTT 34.3 H (22.0-30.0) sec ABG pH (7.35-7.45) ABG pCO2 (35-45) mmHg ABG pO2 215 H (83-108) mmHg ABG Total CO2 25 H (19-24) mmol/L ABG O2 Saturation 100.0 H (94-97) % ABG Hematocrit (34.0-46.0) % ABG Ionized Calcium (4.5-5.3) mg/dL ABG Glucose (75-99) mg/dL Hemoglobin (11.4-16.0) gm/dL Chloride 108 H (98-107) mmol/L Glucose 111 H (74-99) mg/dL POC Glucose (mg/dL) (75-99) mg/dL Calcium 7.5 L (8.4-10.2) mg/dL Magnesium 2.5 H (1.6-2.3) mg/dL AST 38 H (14-36) U/L Alkaline Phosphatase 33 L (38-126) U/L Total Protein 4.3 L (6.3-8.2) g/dL Albumin 3.2 L (3.5-5.0) g/dL Arterial Blood Glucose (75-99) mg/dL Crossmatch 10/02/17 Range/Units 14:53 RBC (3.80-5.40) m/uL Hgb (11.4-16.0) gm/dL Hct (34.0-46.0) % Plt Count (150-450) k/uL Lymphocytes # (1.0-4.8) k/uL PT (9.0-12.0) sec INR (<1.2) APTT (22.0-30.0) sec ABG pH (7.35-7.45) ABG pCO2 (35-45) mmHg ABG pO2 (83-108) mmHg ABG Total CO2 (19-24) mmol/L ABG O2 Saturation (94-97) % ABG Hematocrit (34.0-46.0) % ABG Ionized Calcium (4.5-5.3) mg/dL ABG Glucose (75-99) mg/dL Hemoglobin (11.4-16.0) gm/dL Chloride (98-107) mmol/L Glucose (74-99) mg/dL POC Glucose (mg/dL) 131 H (75-99) mg/dL Calcium (8.4-10.2) mg/dL Magnesium (1.6-2.3) mg/dL AST (14-36) U/L Alkaline Phosphatase (38-126) U/L Total Protein (6.3-8.2) g/dL Albumin (3.5-5.0) g/dL Arterial Blood Glucose (75-99) mg/dL Crossmatch Assessment and Plan Plan: #1 mitral valve prolapse with severe mitral regurgitation status post operative day 0 mitral valve repair. Currently mechanically intubated. Coronary managing the vent. Plan for extubation in the next few hours. Continue incentive spirometry. Physical therapy once patient stabilizes and is responding to commands. #2 coronary artery disease. Continue daily aspirin #3 hypertension. Hold Norvasc for losartan #4 hypercholesterolemia hold Zocor as patient is intubated. Plan to extubate, Can be resumed for swallow evaluation #5 hyperglycemia. Continue insulin drip. No history of diabetes. HbA1c ordered #6 anemia with thrombocytopenia secondary to blood loss expected outcome of the surgery. CBC daily. Transfusion for hemoglobin less than 7 postop #7 history of anxiety. Hold Klonopin as patient is sedated. #8 history of depression amitriptyline can be initiated post extubation #9 GI prophylaxis: Protonix 40 IV once a day as Patient is intubated to prevent stress ulcers #10 code status full code Thank you for letting us being part of patient's care. We will follow along to manage patient's medical needs
[2017-10-02 16:27] LABS: Glucose,Whole Blood 141 mg/dL (75-99)
[2017-10-02 17:04] LABS: Glucose,Whole Blood 143 mg/dL (75-99)
[2017-10-02] MEDS: ACETAMINOPHEN IV (For NPO) 1,000 MG in EMPTY BAG 1 BAG IVPB SCH (17:05)
[2017-10-02 17:09] LABS: Basophils % (A) 0 %; Eosinophils % (A) 0 %; HCT 25.2 % (34.0-46.0); HGB 8.3 gm/dL (11.4-16.0); Lymphocytes # (A) 0.5 k/uL (1.0-4.8); Lymphocytes % (A) 8 %; MCH 32.7 pg (25.0-35.0); MCHC 32.9 g/dL (31.0-37.0); MCV 99.5 fL (80.0-100.0); Mean Platelet Volume 6.7; Monocytes # (A) 0.3 k/uL (0-1.0); Monocytes % (A) 5 %; Neutrophils # (A) 5.9 k/uL (1.3-7.7); Neutrophils % (A) 87 %; Platelet Count 102 k/uL (150-450); RBC 2.54 m/uL (3.80-5.40); RDW 13.6 % (11.5-15.5); WBC 6.8 k/uL (3.8-10.6)
[2017-10-02 18:02] LABS: Glucose,Whole Blood 133 mg/dL (75-99)
[2017-10-02 18:03] LABS: ABG Base Excess -1.1 mmol/L; ABG HCO3 24 mmol/L (21-25); ABG Oxygen Saturation 97.2 % (94-97); ABG PCO2 43 mmHg (35-45); ABG PH 7.36 (7.35-7.45); ABG PO2 79 mmHg (83-108); ABG TCO2 26 mmol/L (19-24)
[2017-10-02 19:13] LABS: Glucose,Whole Blood 112 mg/dL (75-99)
[2017-10-02 20:11] LABS: Glucose,Whole Blood 112 mg/dL (75-99)
[2017-10-02] MEDS: SULFAMETHOX-TMP 800-160MG 1 EACH TAB PO SCH (20:17)
[2017-10-02 20:18] LABS: Basophils % (A) 0 %; Eosinophils % (A) 0 %; HCT 25.3 % (34.0-46.0); HGB 8.2 gm/dL (11.4-16.0); Lymphocytes # (A) 0.4 k/uL (1.0-4.8); Lymphocytes % (A) 6 %; MCH 31.9 pg (25.0-35.0); MCHC 32.5 g/dL (31.0-37.0); MCV 98.4 fL (80.0-100.0); Mean Platelet Volume 8.4; Monocytes # (A) 0.3 k/uL (0-1.0); Monocytes % (A) 4 %; Neutrophils # (A) 6.2 k/uL (1.3-7.7); Neutrophils % (A) 89 %; Platelet Count 101 k/uL (150-450); RBC 2.57 m/uL (3.80-5.40); RDW 13.4 % (11.5-15.5)
[2017-10-02 21:11] LABS: Glucose,Whole Blood 126 mg/dL (75-99)
[2017-10-02] MEDS: MUPIROCIN 2% OINT 22 GM TUBE NASAL SCH (22:08)
[2017-10-02 22:10] LABS: Glucose,Whole Blood 127 mg/dL (75-99)
[2017-10-02 22:59] LABS: Glucose,Whole Blood 120 mg/dL (75-99)
[2017-10-03] MEDS: ACETAMINOPHEN IV (For NPO) 1,000 MG in EMPTY BAG 1 BAG IVPB SCH ×4 (00:15→18:07)
[2017-10-03] MEDS: HEPARIN SODIUM,PORCINE 5,000 UNIT/ML 1 ML VIAL SQ SCH ×4 (00:15→23:05)
[2017-10-03] MEDS: ceFAZolin IN SWFI 2 GM/20 ML SYRINGE IVP SCH ×2 (00:15→08:28)
[2017-10-03 01:05] LABS: Glucose,Whole Blood 122 mg/dL (75-99)
[2017-10-03 01:54] LABS: Hemoglobin A1C 5.4 % (4.0-6.0)
[2017-10-03 02:12] LABS: Glucose,Whole Blood 123 mg/dL (75-99)
[2017-10-03 03:07] LABS: Glucose,Whole Blood 121 mg/dL (75-99)
[2017-10-03 04:04] LABS: Glucose,Whole Blood 111 mg/dL (75-99)
[2017-10-03 04:16] LABS: Basophils % (A) 0 %; Eosinophils % (A) 0 %; HCT 24.1 % (34.0-46.0); HGB 7.8 gm/dL (11.4-16.0); Ionized Calcium 4.8 mg/dL (4.5-5.3); Lymphocytes # (A) 0.9 k/uL (1.0-4.8); Lymphocytes % (A) 11 %; MCH 32.1 pg (25.0-35.0); MCHC 32.2 g/dL (31.0-37.0); MCV 99.8 fL (80.0-100.0); Mean Platelet Volume 8.2; Monocytes # (A) 0.3 k/uL (0-1.0); Monocytes % (A) 4 %; Neutrophils # (A) 6.3 k/uL (1.3-7.7); Neutrophils % (A) 84 %; Platelet Count 105 k/uL (150-450); RBC 2.41 m/uL (3.80-5.40); RDW 13.5 % (11.5-15.5); WBC 7.5 k/uL (3.8-10.6)
[2017-10-03 04:20] LABS: INR 1.3 (<1.2); Partial Thromboplastin Time 29.9 sec (22.0-30.0); Prothrombin Time 11.9 sec (9.0-12.0)
[2017-10-03 04:26] LABS: ALT 39 U/L (9-52); AST 56 U/L (14-36); Albumin 3.1 g/dL (3.5-5.0); Alkaline Phosphatase 33 U/L (38-126); Anion Gap 9 mmol/L; Blood Urea Nitrogen 13 mg/dL (7-17); Calcium 8.1 mg/dL (8.4-10.2); Carbon Dioxide 24 mmol/L (22-30); Chloride 106 mmol/L (98-107); Glucose 102 mg/dL (74-99); Magnesium 2.2 mg/dL (1.6-2.3); Potassium 4.3 mmol/L (3.5-5.1); Sodium 139 mmol/L (137-145); Total Bilirubin 0.8 mg/dL (0.2-1.3); Total Protein 4.4 g/dL (6.3-8.2)
[2017-10-03 05:24] LABS: Glucose,Whole Blood 107 mg/dL (75-99)
[2017-10-03] MEDS: ONDANSETRON 4 MG/2 ML VIAL IVP PRN ×2 (06:35→16:15)
[2017-10-03] MEDS: ALBUMIN HUMAN 5% 250 ML in EMPTY BAG 1 BAG IVPB PRN ×2 (06:49→11:35)
[2017-10-03 07:14] LABS: Glucose,Whole Blood 129 mg/dL (75-99)
--- NOTE | 2017-10-03 07:21 | XR ---
EXAMINATION TYPE: XR chest 1V portable DATE OF EXAM: 10/03/2017 COMPARISON: 10/02/2017 HISTORY: Postoperative cardiac surgery. Follow-up examination. TECHNIQUE: Single frontal view of the chest is obtained. FINDINGS: Orange-Manasa catheter has been advanced in the interim and appears within the right main pulm onary artery. Mediastinal drain, right apical chest tube, closure device, prosthetic cardiac valve, a nd median sternotomy wires are unchanged. There is been interval removal of the endotracheal and ente eugene tubes. There is redemonstration of patchy linear bibasilar atelectasis. Minimal pulmonary vascula r congestion. No pneumothorax. Generalized osseous demineralization with old left healed rib fracture s in probable old healed left clavicular fracture. There is mild enlargement of the cardia mediastina l silhouette. IMPRESSION: Interval extubation and removal of the enteric tube with persistent mild pulmonary vascu lar congestion and bibasilar airspace disease, likely atelectasis.
[2017-10-03] MEDS: IPRATROPIUM-ALBUTEROL 3 ML NEB INHALATION SCH ×4 (07:40→19:45)
[2017-10-03 08:07] LABS: Glucose,Whole Blood 120 mg/dL (75-99)
[2017-10-03] MEDS: SULFAMETHOX-TMP 800-160MG 1 EACH TAB PO SCH ×2 (08:25→20:40)
[2017-10-03] MEDS: MUPIROCIN 2% OINT 22 GM TUBE NASAL SCH ×2 (08:26→20:40)
[2017-10-03] MEDS: ASPIRIN 325 MG TAB PO SCH (08:26)
[2017-10-03] MEDS: ATORVASTATIN 40 MG TAB PO SCH (08:26)
[2017-10-03] MEDS: METOPROLOL TARTRATE 12.5 MG TAB PO SCH ×3 (08:26→20:36)
[2017-10-03] MEDS: KETOROLAC 30 MG/ML 1 ML VIAL IVP SCH ×3 (08:29→18:04)
[2017-10-03 08:50] LABS: Glucose,Whole Blood 110 mg/dL (75-99)
[2017-10-03] MEDS ORDERED: PANTOPRAZOLE 40 MG/10 ML VIAL IVP SCH (09:00)
[2017-10-03] MEDS ORDERED: FUROSEMIDE 10 MG/ML 2 ML VIAL IV ONE (09:08)
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
[2017-10-03 09:53] LABS: Glucose,Whole Blood 114 mg/dL (75-99)
[2017-10-03] MEDS: LOSARTAN 50 MG TAB PO SCH (09:53)
[2017-10-03 11:15] LABS: Glucose,Whole Blood 117 mg/dL (75-99)
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
[2017-10-03] MEDS: CLOPIDOGREL 75 MG TAB PO SCH (11:34)
[2017-10-03] MEDS: PANTOPRAZOLE 40 MG TABLET PO SCH (11:34)
[2017-10-03 12:01] LABS: Glucose,Whole Blood 113 mg/dL (75-99)
[2017-10-03] MEDS ORDERED: HYDROcodone/APAP 5-325MG 1 EACH TAB PO PRN ×2 (12:15)
[2017-10-03] MEDS ORDERED: BISACODYL 10 MG SUPP RECTAL PRN (12:16)
[2017-10-03] MEDS ORDERED: MAGNESIUM HYDROXIDE 2,400 MG/10 ML CUP PO PRN (12:16)
[2017-10-03 12:23] LABS: Glucose,Whole Blood 124 mg/dL (75-99)
[2017-10-03 13:09] LABS: Glucose,Whole Blood 112 mg/dL (75-99)
[2017-10-03 14:03] LABS: Glucose,Whole Blood 115 mg/dL (75-99)
--- NOTE | 2017-10-03 14:24 | P.PN ---
Subjective Progress Note Date: 10/03/17 82 years old female patient of Dr. Crain with past medical history mitral valve prolapse, hypertension, osteoarthritis, coronary artery disease with cath from 2017 suggested intermediate disease in the ostial diagonal branch of LAD, depression, irritable bowel syndrome, hyperlipidemia presented for an electivemitral valve repair. Patient was evaluated postoperatively. Currently intubated, and assist control mode on 100% FiO2, PEEP of 5, tidal volume 450. Patient had symptoms of dyspnea on exertion for the past few months for which she was definitely cardiothoracic surgery for mitral valve surgery. Last vital signs suggestive pulses are 139, blood pressure 141/65, FiO2 100% on mechanical ventilation. Labs suggestive hemoglobin of 7.7, platelet 84, INR 1.5. ABG suggests an oxygen of 215, CO2 25, glucose 131, calcium 7.5. Chest x-ray suggestive of mild vascular congestion, chronic parenchymal changes with new patchy left basilar atelectasis, with right apical chest tube and mediastinal drainage catheter. 10/03: Patient remains in intensive care unit. She has been successfully extubated. Patient does complain of some chest discomfort. No significant shortness of breath. But sugars are running 1 tender 117. Objective - Vital Signs Vital signs: Vital Signs Temp 97.7 F 10/02/17 06:10 Pulse 68 10/03/17 08:00 Resp 27 H 10/03/17 08:00 BP 148/74 10/02/17 06:10 Pulse Ox 94 L 10/03/17 08:00 Intake & Output 10/02/17 10/03/17 10/03/17 18:59 06:59 18:59 Intake Total 550.885 1993.000 138 Output Total 3476 1345 105 Balance -2846.440 -75.000 33 Weight 71.6 kg 71.6 kg Intake: IV 627 1218 138 ACETAMINOPHEN IV (For NPO 100 200 ) 1,000 mg In Empty Bag 1 bag @ 400 mls/hr IVPB Q6HR ISS[facility] Rx#:[id number] Calcium Chloride 1,000 mg 100 In Sodium Chloride 0.9% 100 ml @ 100 mls/hr IV ONCE PRN Rx#:[id number] Lactated Ringers 1,000 ml 250 600 100 @ 20 mls/hr IV .Q24H ISSAC Rx#:[id number] ceFAZolin 2,000 mg In 20 Sodium Chloride 0.9% 30 ml @ Per Protocol IVPB ONCE ONE Rx#:[id number] co/ci 100 290 20 pressure bag 45 108 18 Intake, IV Titration 2.560 52.000 0 Amount Clevidipine Butyrate 25 1.567 44.7 mg In Empty Bag 1 bag @ 1 MG/HR 2 mls/hr IV .Q24H ISSAC Rx#:[id number] Insulin Regular 100 unit 0.993 7.300 0 In Sodium Chloride 0.9% 100 ml @ Per Protocol IV .Q0M ISSAC Rx#:[id number] Output: Chest Tube Drainage 186 187 30 Chest Tube Mediastinal 76 107 10 Right Pleural Chest Tube 110 80 20 Urine 2090 1158 75 Estimated Blood Loss 1200 Other: Voiding Method Indwelling Catheter Indwelling Catheter # Bowel Movements 0 ABP, PAP, CO, CI - Last Documented Arterial Blood Pressure 123/38 Pulmonary Artery Pressure 27/9 Cardiac Output 5.9 Cardiac Index 3.3 - Exam General appearance: Awake and alert, appears comfortable - EENT Eyes: anicteric sclerae, PERRLA, normal appearance - Neck Neck: no lymphadenopathy, no JVD, ET tube intact and oral gastric tube is intact - Respiratory Respiratory: bilateral: CTA, negative: diminished, dullness, rales, rhonchi, mediastinal tissue, chest tube from suction - Cardiovascular Rhythm: regular Heart sounds: normal: S1, S2 Abnormal Heart Sounds: systolic murmur, no diastolic murmur, no rub, no S3 Gallop, no S4 Gallop, no click, no other - Gastrointestinal General gastrointestinal: normal bowel sounds, soft, nondistended - Integumentary Integumentary: no rash - Neurologic Neurologic: CNII-XII intact - Musculoskeletal Musculoskeletal: , no edema, no cyanosis no clubbing - Psychiatric Psychiatric: Alert and oriented 3, - Labs CBC & Chem 7: 10/03/17 04:00 10/03/17 04:00 Labs: Abnormal Lab Results - Last 24 Hours (Table) 09/25/17 10/02/17 10/02/17 Range/Units 08:24 08:42 09:34 RBC (3.80-5.40) m/uL Hgb (11.4-16.0) gm/dL Hct (34.0-46.0) % Plt Count (150-450) k/uL Lymphocytes # (1.0-4.8) k/uL PT (9.0-12.0) sec INR (<1.2) APTT (22.0-30.0) sec ABG pH 7.48 H (7.35-7.45) ABG pCO2 31 L (35-45) mmHg ABG pO2 236 H 199 H (83-108) mmHg ABG Total CO2 25 H (19-24) mmol/L ABG O2 Saturation 100.0 H 99.8 H (94-97) % ABG Hematocrit (34.0-46.0) % ABG Ionized Calcium (4.5-5.3) mg/dL ABG Glucose 114 H (75-99) mg/dL Hemoglobin 11.0 L (11.4-16.0) gm/dL Chloride (98-107) mmol/L Glucose (74-99) mg/dL POC Glucose (mg/dL) (75-99) mg/dL Calcium (8.4-10.2) mg/dL Magnesium (1.6-2.3) mg/dL AST (14-36) U/L Alkaline Phosphatase (38-126) U/L Total Protein (6.3-8.2) g/dL Albumin (3.5-5.0) g/dL Arterial Blood Glucose 114 H (75-99) mg/dL Crossmatch See Detail 10/02/17 10/02/17 10/02/17 Range/Units 10:13 10:43 11:10 RBC (3.80-5.40) m/uL Hgb (11.4-16.0) gm/dL Hct (34.0-46.0) % Plt Count (150-450) k/uL Lymphocytes # (1.0-4.8) k/uL PT (9.0-12.0) sec INR (<1.2) APTT (22.0-30.0) sec ABG pH 7.29 L 7.31 L (7.35-7.45) ABG pCO2 49 H 46 H (35-45) mmHg ABG pO2 322 H 285 H 374 H (83-108) mmHg ABG Total CO2 25 H (19-24) mmol/L ABG O2 Saturation 100.0 H 99.9 H 100.0 H (94-97) % ABG Hematocrit 22 L 23 L 24 L (34.0-46.0) % ABG Ionized Calcium 4.0 L 4.2 L 4.1 L (4.5-5.3) mg/dL ABG Glucose 188 H 164 H 149 H (75-99) mg/dL Hemoglobin 7.2 L 7.5 L 7.8 L (11.4-16.0) gm/dL Chloride (98-107) mmol/L Glucose (74-99) mg/dL POC Glucose (mg/dL) (75-99) mg/dL Calcium (8.4-10.2) mg/dL Magnesium (1.6-2.3) mg/dL AST (14-36) U/L Alkaline Phosphatase (38-126) U/L Total Protein (6.3-8.2) g/dL Albumin (3.5-5.0) g/dL Arterial Blood Glucose 188 H 164 H 149 H (75-99) mg/dL Crossmatch 10/02/17 10/02/17 10/02/17 Range/Units 12:35 14:04 14:05 RBC 2.40 L (3.80-5.40) m/uL Hgb 7.7 L D (11.4-16.0) gm/dL Hct 23.7 L (34.0-46.0) % Plt Count 84 L D (150-450) k/uL Lymphocytes # 0.9 L (1.0-4.8) k/uL PT (9.0-12.0) sec INR (<1.2) APTT (22.0-30.0) sec ABG pH (7.35-7.45) ABG pCO2 (35-45) mmHg ABG pO2 135 H (83-108) mmHg ABG Total CO2 (19-24) mmol/L ABG O2 Saturation 99.4 H (94-97) % ABG Hematocrit 25 L (34.0-46.0) % ABG Ionized Calcium 4.3 L (4.5-5.3) mg/dL ABG Glucose 129 H (75-99) mg/dL Hemoglobin 8.0 L (11.4-16.0) gm/dL Chloride (98-107) mmol/L Glucose (74-99) mg/dL POC Glucose (mg/dL) 128 H (75-99) mg/dL Calcium (8.4-10.2) mg/dL Magnesium (1.6-2.3) mg/dL AST (14-36) U/L Alkaline Phosphatase (38-126) U/L Total Protein (6.3-8.2) g/dL Albumin (3.5-5.0) g/dL Arterial Blood Glucose 129 H (75-99) mg/dL Crossmatch 10/02/17 10/02/17 10/02/17 Range/Units 14:05 14:05 14:21 RBC (3.80-5.40) m/uL Hgb (11.4-16.0) gm/dL Hct (34.0-46.0) % Plt Count (150-450) k/uL Lymphocytes # (1.0-4.8) k/uL PT 14.3 H (9.0-12.0) sec INR 1.5 H (<1.2) APTT 34.3 H (22.0-30.0) sec ABG pH (7.35-7.45) ABG pCO2 (35-45) mmHg ABG pO2 215 H (83-108) mmHg ABG Total CO2 25 H (19-24) mmol/L ABG O2 Saturation 100.0 H (94-97) % ABG Hematocrit (34.0-46.0) % ABG Ionized Calcium (4.5-5.3) mg/dL ABG Glucose (75-99) mg/dL Hemoglobin (11.4-16.0) gm/dL Chloride 108 H (98-107) mmol/L Glucose 111 H (74-99) mg/dL POC Glucose (mg/dL) (75-99) mg/dL Calcium 7.5 L (8.4-10.2) mg/dL Magnesium 2.5 H (1.6-2.3) mg/dL AST 38 H (14-36) U/L Alkaline Phosphatase 33 L (38-126) U/L Total Protein 4.3 L (6.3-8.2) g/dL Albumin 3.2 L (3.5-5.0) g/dL Arterial Blood Glucose (75-99) mg/dL Crossmatch 10/02/17 10/02/17 10/02/17 Range/Units 14:53 16:25 17:00 RBC 2.54 L (3.80-5.40) m/uL Hgb 8.3 L (11.4-16.0) gm/dL Hct 25.2 L (34.0-46.0) % Plt Count 102 L (150-450) k/uL Lymphocytes # 0.5 L (1.0-4.8) k/uL PT (9.0-12.0) sec INR (<1.2) APTT (22.0-30.0) sec ABG pH (7.35-7.45) ABG pCO2 (35-45) mmHg ABG pO2 (83-108) mmHg ABG Total CO2 (19-24) mmol/L ABG O2 Saturation (94-97) % ABG Hematocrit (34.0-46.0) % ABG Ionized Calcium (4.5-5.3) mg/dL ABG Glucose (75-99) mg/dL Hemoglobin (11.4-16.0) gm/dL Chloride (98-107) mmol/L Glucose (74-99) mg/dL POC Glucose (mg/dL) 131 H 141 H (75-99) mg/dL Calcium (8.4-10.2) mg/dL Magnesium (1.6-2.3) mg/dL AST (14-36) U/L Alkaline Phosphatase (38-126) U/L Total Protein (6.3-8.2) g/dL Albumin (3.5-5.0) g/dL Arterial Blood Glucose (75-99) mg/dL Crossmatch 10/02/17 10/02/17 10/02/17 Range/Units 17:02 17:55 18:00 RBC (3.80-5.40) m/uL Hgb (11.4-16.0) gm/dL Hct (34.0-46.0) % Plt Count (150-450) k/uL Lymphocytes # (1.0-4.8) k/uL PT (9.0-12.0) sec INR (<1.2) APTT (22.0-30.0) sec ABG pH (7.35-7.45) ABG pCO2 (35-45) mmHg ABG pO2 79 L (83-108) mmHg ABG Total CO2 26 H (19-24) mmol/L ABG O2 Saturation 97.2 H (94-97) % ABG Hematocrit (34.0-46.0) % ABG Ionized Calcium (4.5-5.3) mg/dL ABG Glucose (75-99) mg/dL Hemoglobin (11.4-16.0) gm/dL Chloride (98-107) mmol/L Glucose (74-99) mg/dL POC Glucose (mg/dL) 143 H 133 H (75-99) mg/dL Calcium (8.4-10.2) mg/dL Magnesium (1.6-2.3) mg/dL AST (14-36) U/L Alkaline Phosphatase (38-126) U/L Total Protein (6.3-8.2) g/dL Albumin (3.5-5.0) g/dL Arterial Blood Glucose (75-99) mg/dL Crossmatch 10/02/17 10/02/17 10/02/17 Range/Units 19:12 20:08 20:10 RBC 2.57 L (3.80-5.40) m/uL Hgb 8.2 L (11.4-16.0) gm/dL Hct 25.3 L (34.0-46.0) % Plt Count 101 L (150-450) k/uL Lymphocytes # 0.4 L (1.0-4.8) k/uL PT (9.0-12.0) sec INR (<1.2) APTT (22.0-30.0) sec ABG pH (7.35-7.45) ABG pCO2 (35-45) mmHg ABG pO2 (83-108) mmHg ABG Total CO2 (19-24) mmol/L ABG O2 Saturation (94-97) % ABG Hematocrit (34.0-46.0) % ABG Ionized Calcium (4.5-5.3) mg/dL ABG Glucose (75-99) mg/dL Hemoglobin (11.4-16.0) gm/dL Chloride (98-107) mmol/L Glucose (74-99) mg/dL POC Glucose (mg/dL) 112 H 112 H (75-99) mg/dL Calcium (8.4-10.2) mg/dL Magnesium (1.6-2.3) mg/dL AST (14-36) U/L Alkaline Phosphatase (38-126) U/L Total Protein (6.3-8.2) g/dL Albumin (3.5-5.0) g/dL Arterial Blood Glucose (75-99) mg/dL Crossmatch 10/02/17 10/02/17 10/02/17 Range/Units 21:05 22:07 22:58 RBC (3.80-5.40) m/uL Hgb (11.4-16.0) gm/dL Hct (34.0-46.0) % Plt Count (150-450) k/uL Lymphocytes # (1.0-4.8) k/uL PT (9.0-12.0) sec INR (<1.2) APTT (22.0-30.0) sec ABG pH (7.35-7.45) ABG pCO2 (35-45) mmHg ABG pO2 (83-108) mmHg ABG Total CO2 (19-24) mmol/L ABG O2 Saturation (94-97) % ABG Hematocrit (34.0-46.0) % ABG Ionized Calcium (4.5-5.3) mg/dL ABG Glucose (75-99) mg/dL Hemoglobin (11.4-16.0) gm/dL Chloride (98-107) mmol/L Glucose (74-99) mg/dL POC Glucose (mg/dL) 126 H 127 H 120 H (75-99) mg/dL Calcium (8.4-10.2) mg/dL Magnesium (1.6-2.3) mg/dL AST (14-36) U/L Alkaline Phosphatase (38-126) U/L Total Protein (6.3-8.2) g/dL Albumin (3.5-5.0) g/dL Arterial Blood Glucose (75-99) mg/dL Crossmatch 10/03/17 10/03/17 10/03/17 Range/Units 01:01 02:10 03:04 RBC (3.80-5.40) m/uL Hgb (11.4-16.0) gm/dL Hct (34.0-46.0) % Plt Count (150-450) k/uL Lymphocytes # (1.0-4.8) k/uL PT (9.0-12.0) sec INR (<1.2) APTT (22.0-30.0) sec ABG pH (7.35-7.45) ABG pCO2 (35-45) mmHg ABG pO2 (83-108) mmHg ABG Total CO2 (19-24) mmol/L ABG O2 Saturation (94-97) % ABG Hematocrit (34.0-46.0) % ABG Ionized Calcium (4.5-5.3) mg/dL ABG Glucose (75-99) mg/dL Hemoglobin (11.4-16.0) gm/dL Chloride (98-107) mmol/L Glucose (74-99) mg/dL POC Glucose (mg/dL) 122 H 123 H 121 H (75-99) mg/dL Calcium (8.4-10.2) mg/dL Magnesium (1.6-2.3) mg/dL AST (14-36) U/L Alkaline Phosphatase (38-126) U/L Total Protein (6.3-8.2) g/dL Albumin (3.5-5.0) g/dL Arterial Blood Glucose (75-99) mg/dL Crossmatch 10/03/17 10/03/17 10/03/17 Range/Units 03:59 04:00 04:00 RBC 2.41 L (3.80-5.40) m/uL Hgb 7.8 L (11.4-16.0) gm/dL Hct 24.1 L (34.0-46.0) % Plt Count 105 L (150-450) k/uL Lymphocytes # 0.9 L (1.0-4.8) k/uL PT (9.0-12.0) sec INR 1.3 H (<1.2) APTT (22.0-30.0) sec ABG pH (7.35-7.45) ABG pCO2 (35-45) mmHg ABG pO2 (83-108) mmHg ABG Total CO2 (19-24) mmol/L ABG O2 Saturation (94-97) % ABG Hematocrit (34.0-46.0) % ABG Ionized Calcium (4.5-5.3) mg/dL ABG Glucose (75-99) mg/dL Hemoglobin (11.4-16.0) gm/dL Chloride (98-107) mmol/L Glucose (74-99) mg/dL POC Glucose (mg/dL) 111 H (75-99) mg/dL Calcium (8.4-10.2) mg/dL Magnesium (1.6-2.3) mg/dL AST (14-36) U/L Alkaline Phosphatase (38-126) U/L Total Protein (6.3-8.2) g/dL Albumin (3.5-5.0) g/dL Arterial Blood Glucose (75-99) mg/dL Crossmatch 10/03/17 10/03/17 10/03/17 Range/Units 04:00 05:22 06:59 RBC (3.80-5.40) m/uL Hgb (11.4-16.0) gm/dL Hct (34.0-46.0) % Plt Count (150-450) k/uL Lymphocytes # (1.0-4.8) k/uL PT (9.0-12.0) sec INR (<1.2) APTT (22.0-30.0) sec ABG pH (7.35-7.45) ABG pCO2 (35-45) mmHg ABG pO2 (83-108) mmHg ABG Total CO2 (19-24) mmol/L ABG O2 Saturation (94-97) % ABG Hematocrit (34.0-46.0) % ABG Ionized Calcium (4.5-5.3) mg/dL ABG Glucose (75-99) mg/dL Hemoglobin (11.4-16.0) gm/dL Chloride (98-107) mmol/L Glucose 102 H (74-99) mg/dL POC Glucose (mg/dL) 107 H 129 H (75-99) mg/dL Calcium 8.1 L (8.4-10.2) mg/dL Magnesium (1.6-2.3) mg/dL AST 56 H (14-36) U/L Alkaline Phosphatase 33 L (38-126) U/L Total Protein 4.4 L (6.3-8.2) g/dL Albumin 3.1 L (3.5-5.0) g/dL Arterial Blood Glucose (75-99) mg/dL Crossmatch 05/10/03/17 10/03/17 Range/Units 08:06 08:48 09:52 RBC (3.80-5.40) m/uL Hgb (11.4-16.0) gm/dL Hct (34.0-46.0) % Plt Count (150-450) k/uL Lymphocytes # (1.0-4.8) k/uL PT (9.0-12.0) sec INR (<1.2) APTT (22.0-30.0) sec ABG pH (7.35-7.45) ABG pCO2 (35-45) mmHg ABG pO2 (83-108) mmHg ABG Total CO2 (19-24) mmol/L ABG O2 Saturation (94-97) % ABG Hematocrit (34.0-46.0) % ABG Ionized Calcium (4.5-5.3) mg/dL ABG Glucose (75-99) mg/dL Hemoglobin (11.4-16.0) gm/dL Chloride (98-107) mmol/L Glucose (74-99) mg/dL POC Glucose (mg/dL) 120 H 110 H 114 H (75-99) mg/dL Calcium (8.4-10.2) mg/dL Magnesium (1.6-2.3) mg/dL AST (14-36) U/L Alkaline Phosphatase (38-126) U/L Total Protein (6.3-8.2) g/dL Albumin (3.5-5.0) g/dL Arterial Blood Glucose (75-99) mg/dL Crossmatch Assessment and Plan Plan: #1 mitral valve prolapse with severe mitral regurgitation status post operative day 0 mitral valve repair. Successfully extubated. Continue incentive spirometry. Physical therapy once patient stabilizes and is responding to commands. #2 coronary artery disease. Continue daily aspirin #3 hypertension. Hold Norvasc for losartan #4 hypercholesterolemia hold Zocor as patient is intubated. Plan to extubate, Can be resumed for swallow evaluation #5 hyperglycemia. Continue insulin drip. No history of diabetes. HbA1c ordered #6 anemia with thrombocytopenia secondary to blood loss expected outcome of the surgery. CBC daily. Transfusion for hemoglobin less than 7 postop #7 history of anxiety. Hold Klonopin as patient is sedated. #8 history of depression amitriptyline can be initiated post extubation #9 GI prophylaxis: Protonix 40 IV once a day as Patient is intubated to prevent stress ulcers #10 code status full code Discharge plan: To be determined. Impression and plan of care have been directed as dictated by the signing physician. Dominga Pinto nurse practitioner acting as scribe for signing physician.
--- NOTE | 2017-10-03 14:58 | P.CRDCN ---
History of Present Illness Consult date: 10/03/17 History of present illness: Mrs. Candelario is a pleasant 82-year-old female past medical history significant for mitral valve prolapse with severe regurgitation, intermediate coronary artery disease involving the proximal diagonal branch of the LAD, hypertension, dyslipidemia, former nicotine dependence with mild COPD and arthritis. She follows with Dr. Leon in the office. She underwent planned mitral valve repair with taylor-chord construction with complete ring annuloplasty with Dr. Castro yesterday. She is seen and examined today in ICU. She was extubated yesterday without incident and has been tolerating on oxygen via nasal cannula. She states she has been up in the chair with minimal discomfort. She had an episode of upper back discomfort last night that has resolved. She denies symptoms of chest pain, shortness of breath, dizziness, palpitations, nausea, vomiting or diaphoresis. She also denies PND or orthopnea. EKG reveals atrial paced with underlying junctional rhythm. Laboratory data reviewed, hemoglobin 7.8, platelets 105, INR 1.3, sodium 139, potassium 4.3, creatinine 0.7. She is currently maintained on aspirin 325, atorvastatin 40 mg daily, Plavix 75 mg daily, losartan 50 mg daily and metoprolol 12.5 mg twice a day. Review of Systems At the time of my exam: CONSTITUTIONAL: Denies fever. Denies chills. EYES: Denies blurred vision. Denies vision changes. Denies eye pain. EARS, NOSE, MOUTH & THROAT: Denies headache. Complains of sore throat. Denies ear pain. CARDIOVASCULAR: Denies chest pain. Denies shortness of breath. Denies orthopnea. Denies PND. Denies palpitations. RESPIRATORY: Denies cough. GASTROINTESTINAL: Denies abdominal pain. Denies diarrhea. Denies constipation. Denies nausea. Denies vomiting. MUSCULOSKELETAL: Complains of pleuritic chest pain associated with recent sternotomy. INTEGUMENTARY: Denies pruitis. Denies rash. NEUROLOGIC: Denies numbness. Denies tingling. Denies weakness. PSYCHIATRIC: Denies anxiety. Denies depression. ENDOCRINE: Denies fatigue. Denies weight change. Denies polydipsia. Denies polyurina. GENITOURINARY: Denies burning, hematuria or urgency with micturation. HEMATOLOGIC: Denies history of anemia. Denies bleeding. Past Medical History Past Medical History: Cancer, Hyperlipidemia, Hypertension, Mitral Valve Prolapse (MVP), Osteoarthritis (OA) Additional Past Medical History / Comment(s): IBS, SKIN CANCER, SOB w/exertion History of Any Multi-Drug Resistant Organisms: None Reported Past Surgical History: Heart Catheterization, Joint Replacement Additional Past Surgical History / Comment(s): REGAN TOTAL KNEES. Past Anesthesia/Blood Transfusion Reactions: No Reported Reaction Smoking Status: Former smoker (Crit a year ago) - Past Family History Sister(s) Family Medical History: Cancer Additional Family Medical History / Comment(s): BOWEL CANCER Medications and Allergies Home Medications Medication Instructions Recorded Confirmed Type Aspirin [Adult Low Dose Aspirin EC] 81 mg PO HS 05/01/17 10/02/17 History L.acidoph,Paracasei, B.lactis 1 cap PO DAILY 05/01/17 10/02/17 History [Probiotic] Losartan Potassium 100 mg PO HS 05/01/17 10/02/17 History Opc Antioxidant 1 tab PO DAILY 05/01/17 10/02/17 History Simvastatin [Zocor] 20 mg PO HS 05/01/17 10/02/17 History amLODIPine [Norvasc] 5 mg PO BID 05/01/17 10/02/17 History clonazePAM [KlonoPIN] 0.5 mg PO HS 05/01/17 10/02/17 History Amitriptyline HCl [Elavil] 12.5 mg PO HS 09/25/17 10/02/17 History Mupirocin 2% Nasal Oint [Bactroban 1 applic NASAL BID 10/01/17 10/02/17 History 2% Nasal Oint] Sulfamethox-Tmp 800-160Mg [Bactrim 1 tab PO Q12HR 10/01/17 10/02/17 History DS 800-160 mg] Allergies Allergy/AdvReac Type Severity Reaction Status Date / Time fentanyl AdvReac Unknown COULDNT Verified 10/02/17 14:21 EAT. Physical Exam Vitals: Vital Signs Pulse Pulse Resp Pulse Ox 10/03/17 11:38 87 10/03/17 11:30 89 10/03/17 08:00 68 27 H 94 L 10/03/17 07:54 72 10/03/17 07:42 69 94 L 10/03/17 07:30 69 27 H 93 L 05/18/18 07:00 70 16 90 L 05/18/18 06:30 70 27 H 91 L 05/18/18 06:00 70 19 91 L 05/18/18 05:30 70 14 91 L 05/18/18 05:00 70 11 L 94 L 05/18/18 04:30 70 12 94 L 05/18/18 04:00 70 19 93 L 05/18/18 03:30 70 13 94 L 05/18/18 03:00 70 13 95 05/18/18 02:30 70 13 95 05/18/18 02:15 70 14 92 L 05/18/18 02:00 70 13 92 L 05/18/18 01:45 70 15 93 L 05/18/18 01:30 70 13 93 L 05/18/18 01:15 70 14 93 L 05/18/18 01:00 70 13 92 L 05/18/18 00:45 70 15 91 L 05/18/18 00:30 70 16 90 L 05/18/18 00:15 70 16 90 L 05/18/18 00:00 70 14 92 L 05/17/18 23:45 70 16 91 L 05/17/18 23:30 70 18 90 L 05/17/18 23:15 70 15 90 L 05/17/18 23:00 70 18 91 L 05/17/18 22:45 70 17 90 L 05/17/18 22:30 70 15 91 L 05/17/18 22:22 70 17 91 L 05/17/18 22:15 70 13 91 L 05/17/18 22:00 70 17 91 L 05/17/18 21:45 70 18 90 L 05/17/18 21:30 70 15 91 L 05/17/18 21:15 70 16 91 L 05/17/18 21:00 70 16 91 L 05/17/18 20:45 70 17 93 L 05/17/18 20:30 70 15 94 L 05/17/18 20:15 70 17 94 L 05/17/18 20:10 93 L 05/17/18 20:08 70 05/17/18 20:00 70 79 17 91 L 05/17/18 19:52 70 05/17/18 19:45 70 13 91 L 05/17/18 19:30 69 12 94 L 05/17/18 19:15 69 14 93 L 05/17/18 19:00 69 18 93 L 10/02/17 18:45 69 11 L 94 L 10/02/17 18:30 69 12 94 L 10/02/17 18:15 69 35 H 95 10/02/17 18:00 69 16 98 18 17:45 139 H 22 99 10/02/17 17:30 69 24 97 10/02/17 17:15 71 21 98 10/02/17 17:00 72 18 100 10/02/17 16:45 72 18 98 10/02/17 16:30 69 17 100 10/02/17 16:15 69 18 100 10/02/17 16:00 69 18 95 10/02/17 15:49 74 10/02/17 15:45 74 32 H 93 L 10/02/17 15:30 69 14 95 18 15:27 70 10/02/17 15:15 69 14 95 10/02/17 15:00 69 17 94 L 10/02/17 14:45 69 18 97 10/02/17 14:30 69 20 95 10/02/17 14:15 139 H 20 100 Intake and Output 10/02/1718 10/03/17 22:59 06:59 14:59 Intake Total 891.835 896.725 138 Output Total 1993 623 105 Balance -1101.165 273.725 33 Intake: IV 862 872 138 ACETAMINOPHEN IV (For NPO 100 200 ) 1,000 mg In Empty Bag 1 bag @ 400 mls/hr IVPB Q6HR [facility] Rx#:[id number] Calcium Chloride 1,000 mg 100 In Sodium Chloride 0.9% 100 ml @ 100 mls/hr IV ONCE PRN Rx#:[id number] Lactated Ringers 1,000 ml 400 400 100 @ 20 mls/hr IV .Q24H [facility] Rx#:[id number] ceFAZolin 2,000 mg In 20 Sodium Chloride 0.9% 30 ml @ Per Protocol IVPB ONCE ONE Rx#:[id number] co/ci 190 180 20 pressure bag 72 72 18 Intake, IV Titration 29.835 24.725 0 Amount Clevidipine Butyrate 25 25.067 21.2 mg In Empty Bag 1 bag @ 1 MG/HR 2 mls/hr IV .Q24H [facility] Rx#:[id number] Insulin Regular 100 unit 4.768 3.525 0 In Sodium Chloride 0.9% 100 ml @ Per Protocol IV .Q0M [facility] Rx#:[id number] Output: Chest Tube Drainage 248 100 30 Chest Tube Mediastinal 119 54 10 Right Pleural Chest Tube 129 46 20 Urine 1745 523 75 Other: Voiding Method Indwelling Catheter Indwelling Catheter Indwelling Catheter # Bowel Movements 0 Weight 71.6 kg 71.6 kg ABP, PAP, CO, CI - Last 8 Hours Arterial Blood Pressure 123/38 Arterial Blood Pressure 111/38 Arterial Blood Pressure 110/28 Arterial Blood Pressure 124/78 Pulmonary Artery Pressure 27/9 Pulmonary Artery Pressure 26/9 Pulmonary Artery Pressure 23/7 Pulmonary Artery Pressure 67/26 Cardiac Output 5.9 Cardiac Output 4.7 Cardiac Output 4.7 Cardiac Index 3.3 Cardiac Index 2.7 Blood pressure 123/38 heart rate 68 afebrile maintaining oxygen saturation on nasal cannula GENERAL: This is a 82-year-old female in no apparent distress at the time of my examination. HEENT: Head is atraumatic, normocephalic. Pupils are equal, round. Sclerae anicteric. Conjunctivae are clear. Mucous membranes of the mouth are moist. Neck is supple. There is no jugular venous distention. No carotid bruit is heard. LUNGS: Clear to auscultation no wheezes, rales or rhonchi. Diminished secondary to poor inspiratory effort. Mediastinal and right pleural chest tubes in place to suction. HEART: Regular rate and rhythm without murmurs, rubs or gallops. S1 and S2 heard. Heart hugger in place. ABDOMEN: Soft, nontender. Bowel sounds are heard. No organomegaly noted. EXTREMITIES: No evidence of peripheral edema and no calf tenderness noted. VASCULAR: Radial and dorsalis pedis pulses palpated, no evidence of clubbing. NEUROLOGIC: Patient is awake, alert and oriented x3. Results 10/03/17 04:00 10/03/17 04:00 Cardiac Enzymes 10/02/17 10/03/17 Range/Units 14:05 04:00 AST 38 H 56 H (14-36) U/L Coagulation 10/02/17 10/03/17 Range/Units 14:05 04:00 PT 14.3 H 11.9 (9.0-12.0) sec APTT 34.3 H 29.9 (22.0-30.0) sec CBC 10/02/17 10/02/17 10/02/17 Range/Units 14:05 17:00 20:10 WBC 4.9 6.8 7.0 (3.8-10.6) k/uL RBC 2.40 L 2.54 L 2.57 L (3.80-5.40) m/uL Hgb 7.7 L D 8.3 L 8.2 L (11.4-16.0) gm/dL Hct 23.7 L 25.2 L 25.3 L (34.0-46.0) % Plt Count 84 L D 102 L 101 L (150-450) k/uL 10/03/17 Range/Units 04:00 WBC 7.5 (3.8-10.6) k/uL RBC 2.41 L (3.80-5.40) m/uL Hgb 7.8 L (11.4-16.0) gm/dL Hct 24.1 L (34.0-46.0) % Plt Count 105 L (150-450) k/uL Comprehensive Metabolic Panel 10/02/17 10/03/17 Range/Units 14:05 04:00 Sodium 141 139 (137-145) mmol/L Potassium 4.4 4.3 (3.5-5.1) mmol/L Chloride 108 H 106 (98-107) mmol/L Carbon Dioxide 25 24 (22-30) mmol/L BUN 13 13 (7-17) mg/dL Creatinine 0.63 0.70 (0.52-1.04) mg/dL Glucose 111 H 102 H (74-99) mg/dL Calcium 7.5 L 8.1 L (8.4-10.2) mg/dL AST 38 H 56 H (14-36) U/L ALT 36 39 (9-52) U/L Alkaline Phosphatase 33 L 33 L (38-126) U/L Total Protein 4.3 L 4.4 L (6.3-8.2) g/dL Albumin 3.2 L 3.1 L (3.5-5.0) g/dL Current Medications Generic Name Dose Route Start Last Admin Trade Name Freq PRN Reason Stop Dose Admin Hydrocodone Bitart/Acetaminophen 2 each 10/03/17 12:15 [place] 5-325 PO Q4HR PRN Severe Pain Hydrocodone Bitart/Acetaminophen 1 each 10/03/17 12:15 [place] 5-325 PO Q4HR PRN Moderate Pain Albuterol/Ipratropium 3 ml 10/02/17 13:30 Duoneb 0.5 Mg-3 Mg/3 Ml Soln INHALATION RT-Q2H PRN Shortness Of Breath Or Wheezing Albuterol/Ipratropium 3 ml 10/03/17 12:00 10/03/17 11:31 Duoneb 0.5 Mg-3 Mg/3 Ml Soln INHALATION 3 ml RT-QID [facility] Administration Amitriptyline HCl 12.5 mg 10/03/17 21:00 Elavil PO HS [facility] Aspirin 325 mg 10/03/17 09:00 10/03/17 08:26 Aspirin PO 325 mg DAILY [facility] Administration Atorvastatin Calcium 40 mg 10/03/17 09:00 10/03/17 08:26 Lipitor PO 40 mg DAILY [facility] Administration Benzocaine/Menthol 1 each 10/02/17 13:30 Cepacol Lozenge MUCOUS MEM Q2H PRN Sore Throat Bisacodyl 10 mg 10/03/17 12:16 Dulcolax RECTAL DAILY PRN Constipation Clonazepam 0.5 mg 10/03/17 21:00 Klonopin PO HS [facility] Clopidogrel Bisulfate 75 mg 10/03/17 09:15 10/03/17 11:34 Plavix PO 75 mg DAILY [facility] Administration Heparin Sodium (Porcine) 5,000 unit 10/03/17 00:00 10/03/17 08:25 Heparin SQ 5,000 unit Q8HR [facility] Administration Acetaminophen 1,000 mg/ IV 100 mls @ 400 mls/hr 10/02/17 18:00 10/03/17 13:10 Solution IVPB 10/03/17 18:01 400 mls/hr Q6HR [facility] Administration Albumin Human 250 ml/ IV 250 mls @ 250 mls/hr 10/02/17 13:30 10/03/17 11:35 Solution IVPB 10/04/17 13:31 250 mls/hr Q1HR PRN Administration For Volume Amiodarone HCl 150 mg/ 103 mls @ 618 mls/hr 10/02/17 13:30 Dextrose/Water IV .Q10M PRN Per protocol Protocol Amiodarone HCl 450 mg/ 259 mls @ 34.53 mls/hr 10/02/17 13:30 Dextrose/Water IV .Q7H31M PRN Per Protocol Protocol 1 MG/MIN Clevidipine 25 mg/ IV Solution 50 mls @ 2 mls/hr 10/02/17 13:30 10/03/17 01: 57 IV 0 mg/hr .Q24H [facility] 0 mls/hr Protocol Titration 1 MG/HR Insulin Human Regular 100 unit 101 mls @ 0 mls/hr 10/02/17 13:30 10/03/17 07: 29 / Sodium Chloride IV 0 units/hr .Q0M [facility] 0 mls/hr Protocol Titration Per Protocol Lactated Ringer's 1,000 mls @ 20 mls/hr 10/02/17 13:30 10/02/17 15:29 Lactated Ringers IV 50 mls/hr .Q24H [facility] Administration Ketorolac Tromethamine 15 mg 10/03/17 08:00 10/03/17 08:29 Toradol IVP 10/07/17 07:59 15 mg Q6HR [facility] Administration Losartan Potassium 50 mg 10/03/17 09:15 10/03/17 09:53 Cozaar PO 50 mg DAILY [facility] Administration Magnesium Hydroxide 2,400 mg 10/03/17 12:16 Milk Of Magnesia PO BID PRN Constipation Metoclopramide HCl 10 mg 10/02/17 13:30 Reglan IVP Q4H PRN Nausea And Vomiting Metoprolol Tartrate 12.5 mg 10/03/17 09:00 10/03/17 08:33 Lopressor PO Not Given BID [facility] Miscellaneous Information 1 each 10/02/17 13:30 Magnesium Per Protocol MISCELLANE DAILY PRN Per Protocol Protocol Miscellaneous Information 1 each 10/02/17 13:30 Phosphorus Per Protocol MISCELLANE DAILY PRN Per Protocol Protocol Miscellaneous Information 1 each 10/02/17 13:30 Potassium Per Protocol MISCELLANE DAILY PRN Per Protocol Protocol Mupirocin 1 applic 10/02/17 21:00 10/03/17 08:26 Bactroban Oint NASAL 10/05/17 21:01 1 applic BID [facility] Administration Ondansetron HCl 4 mg 10/02/17 13:30 10/03/17 06:35 Zofran IVP 4 mg Q6HR PRN Administration Nausea And Vomiting Pantoprazole Sodium 40 mg 10/03/17 07:30 10/03/17 11:34 Protonix PO 40 mg [id number] [facility] Administration Senna/Docusate Sodium 2 each 10/03/17 21:00 Senokot-S PO HS [facility] Sodium Chloride 10 ml 10/02/17 21:00 10/03/17 08:27 Saline Flush IV 10 ml BID [facility] Administration Trimethoprim/Sulfamethoxazole 1 each 10/02/17 21:00 10/03/17 08:25 Bactrim Ds PO 1 each BID [facility] Administration Intake and Output 10/02/17 10/03/17 10/03/17 22:59 06:59 14:59 Intake Total 891.835 896.725 138 Output Total 1993 623 105 Balance -1101.165 273.725 33 Intake: IV 862 872 138 ACETAMINOPHEN IV (For NPO 100 200 ) 1,000 mg In Empty Bag 1 bag @ 400 mls/hr IVPB Q6HR [facility] Rx#:[id number] Calcium Chloride 1,000 mg 100 In Sodium Chloride 0.9% 100 ml @ 100 mls/hr IV ONCE PRN Rx#:[id number] Lactated Ringers 1,000 ml 400 400 100 @ 20 mls/hr IV .Q24H [facility] Rx#:[id number] ceFAZolin 2,000 mg In 20 Sodium Chloride 0.9% 30 ml @ Per Protocol IVPB ONCE ONE Rx#:[id number] co/ci 190 180 20 pressure bag 72 72 18 Intake, IV Titration 29.835 24.725 0 Amount Clevidipine Butyrate 25 25.067 21.2 mg In Empty Bag 1 bag @ 1 MG/HR 2 mls/hr IV .Q24H [facility] Rx#:[id number] Insulin Regular 100 unit 4.768 3.525 0 In Sodium Chloride 0.9% 100 ml @ Per Protocol IV .Q0M [facility] Rx#:[id number] Output: Chest Tube Drainage 248 100 30 Chest Tube Mediastinal 119 54 10 Right Pleural Chest Tube 129 46 20 Urine 1745 523 75 Other: Voiding Method Indwelling Catheter Indwelling Catheter Indwelling Catheter # Bowel Movements 0 Weight 71.6 kg 71.6 kg Patient Weight 10/04/17 06:59 Weight 71.6 kg 10/03/17 04:00 10/03/17 04:00 Assessment and Plan Assessment: ASSESSMENT 1. Nonrheumatic mitral valve insufficiency status post complex mitral valve repair with taylor-chord player with [place] construction to P3 2 with complete ring annuloplasty POD#1 2. History of coronary artery disease, intermittent disease in the diagonal branch of the LAD 3. Hypertension 4. Dyslipidemia 5. History of nicotine dependence, quit 2017 PLAN From cardiology's perspective we recommend continuing current medical therapy. Recommend regular use of incentive spirometer. Increase activity as tolerated. We will continue to follow. Thank you kindly for allowing us to participate in her care while in the hospital. Nurse Practitioner note has been reviewed, I agree with a documented findings and plan of care. Patient was seen and examined.
[2017-10-03 15:08] LABS: Glucose,Whole Blood 125 mg/dL (75-99)
[2017-10-03 16:06] LABS: Glucose,Whole Blood 122 mg/dL (75-99)
[2017-10-03] MEDS: LACTATED RINGERS 1,000 ML IV SCH (16:13)
[2017-10-03 16:56] LABS: Glucose,Whole Blood 122 mg/dL (75-99)
[2017-10-03 18:01] LABS: Glucose,Whole Blood 143 mg/dL (75-99)
[2017-10-03] MEDS: INSULIN REGULAR 100 UNIT in SODIUM CHLORIDE 0.9% 100 ML IV SCH (18:04)
[2017-10-03 19:21] LABS: Glucose,Whole Blood 153 mg/dL (75-99)
[2017-10-03 20:24] LABS: Glucose,Whole Blood 142 mg/dL (75-99)
[2017-10-03] MEDS: SENNOSIDES-DOCUSATE SODIUM 1 EACH TAB PO SCH (20:40)
[2017-10-03] MEDS: AMITRIPTYLINE HCL 25 MG TAB PO SCH (23:04)
[2017-10-03] MEDS: clonazePAM 0.5 MG TAB PO SCH (23:04)
[2017-10-03 23:08] LABS: Glucose,Whole Blood 131 mg/dL (75-99)
[2017-10-04 00:19] LABS: Glucose,Whole Blood 112 mg/dL (75-99)
[2017-10-04] MEDS: KETOROLAC 30 MG/ML 1 ML VIAL IVP SCH ×4 (00:35→17:02)
[2017-10-04 01:47] LABS: Glucose,Whole Blood 135 mg/dL (75-99)
[2017-10-04 02:35] LABS: Glucose,Whole Blood 124 mg/dL (75-99)
[2017-10-04 03:32] LABS: Glucose,Whole Blood 113 mg/dL (75-99)
[2017-10-04 04:33] LABS: Glucose,Whole Blood 102 mg/dL (75-99)
[2017-10-04 04:56] LABS: Basophils % (A) 0 %; Eosinophils % (A) 1 %; HCT 22.1 % (34.0-46.0); Lymphocytes # (A) 1.1 k/uL (1.0-4.8); Lymphocytes % (A) 14 %; MCH 31.7 pg (25.0-35.0); MCHC 31.4 g/dL (31.0-37.0); MCV 100.9 fL (80.0-100.0); Macrocytosis Slight; Mean Platelet Volume 7.6; Monocytes # (A) 0.3 k/uL (0-1.0); Monocytes % (A) 4 %; Neutrophils # (A) 6.5 k/uL (1.3-7.7); Neutrophils % (A) 80 %; Platelet Count 106 k/uL (150-450); RBC 2.19 m/uL (3.80-5.40); RDW 13.6 % (11.5-15.5); WBC 8.1 k/uL (3.8-10.6)
[2017-10-04 05:01] LABS: Ionized Calcium 4.9 mg/dL (4.5-5.3)
[2017-10-04 05:09] LABS: Calcium 8.4 mg/dL (8.4-10.2); Magnesium 2.3 mg/dL (1.6-2.3); Potassium 4.1 mmol/L (3.5-5.1); Total Bilirubin 0.7 mg/dL (0.2-1.3); Total Protein 4.4 g/dL (6.3-8.2)
[2017-10-04 06:26] LABS: Glucose,Whole Blood 91 mg/dL (75-99)
[2017-10-04 07:37] LABS: Glucose,Whole Blood 122 mg/dL (75-99)
--- NOTE | 2017-10-04 07:38 | XR ---
EXAMINATION TYPE: XR chest 1V portable DATE OF EXAM: 10/04/2017 COMPARISON: Prior chest x-ray 10/03/2017 HISTORY: Chest tube, postop TECHNIQUE: Single frontal view of the chest is obtained. FINDINGS: Central venous catheter has been removed, sheath remains in place overlying the internal j ugular vein. Patient is post median sternotomy and the heart remains enlarged, atrial appendage clipp ing is noted as well as probable mitral valve replacement change. Right-sided chest tube and median s ternal drain are in place, lung volumes are low. No evident pneumothorax. Interstitium is increased. Bibasilar increased density again noted. There are overlying cardiac leads. Rib deformities in the le ft upper chest are stable. IMPRESSION: Interval catheter removal. Probable basilar effusions and associated atelectasis. There may be a component of volume overload, pulmonary venous hypertension and interstitial edema. Addition al follow-up recommended.
[2017-10-04] MEDS ORDERED: METOCLOPRAMIDE 5 MG/ML 2 ML VIAL IVP STA (07:58)
[2017-10-04 08:13] LABS: Glucose,Whole Blood 174 mg/dL (75-99)
[2017-10-04] MEDS ORDERED: FUROSEMIDE 10 MG/ML 2 ML VIAL IV ONE (08:15)
[2017-10-04] MEDS: IPRATROPIUM-ALBUTEROL 3 ML NEB INHALATION SCH ×4 (08:18→20:00)
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
[2017-10-04] MEDS: MUPIROCIN 2% OINT 22 GM TUBE NASAL SCH ×2 (08:28→20:53)
[2017-10-04] MEDS: FERROUS SULFATE 325 MG TAB PO SCH ×2 (08:29→17:02)
[2017-10-04] MEDS: PANTOPRAZOLE 40 MG TABLET PO SCH (08:29)
[2017-10-04] MEDS: HEPARIN SODIUM,PORCINE 5,000 UNIT/ML 1 ML VIAL SQ SCH ×2 (08:29→15:26)
[2017-10-04] MEDS: LOSARTAN 50 MG TAB PO SCH (08:29)
[2017-10-04] MEDS: ASCORBIC ACID 500 MG TAB PO SCH ×2 (08:29→17:02)
[2017-10-04] MEDS: ATORVASTATIN 40 MG TAB PO SCH (08:29)
[2017-10-04] MEDS: ASPIRIN 325 MG TAB PO SCH (08:29)
[2017-10-04] MEDS: SULFAMETHOX-TMP 800-160MG 1 EACH TAB PO SCH ×2 (08:29→20:52)
[2017-10-04] MEDS: CLOPIDOGREL 75 MG TAB PO SCH (08:29)
[2017-10-04] MEDS: METOPROLOL TARTRATE 12.5 MG TAB PO SCH (08:30)
[2017-10-04 09:06] LABS: Glucose,Whole Blood 150 mg/dL (75-99)
[2017-10-04 10:04] LABS: Glucose,Whole Blood 112 mg/dL (75-99)
[2017-10-04 11:07] LABS: Glucose,Whole Blood 103 mg/dL (75-99)
--- NOTE | 2017-10-04 11:40 | XR ---
EXAMINATION TYPE: XR chest 1V portable DATE OF EXAM: 10/04/2017 COMPARISON: Prior chest x-ray same date earlier time. HISTORY: Status post chest tube removal TECHNIQUE: Single frontal view of the chest is obtained. FINDINGS: There is been interval removal of the median sternal drain and right chest tube. Minimal a pical pneumothorax suspected on the right. No other interval change. IMPRESSION: Minimal residual apical pneumothorax on the right. Follow-up recommended.
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
[2017-10-04 12:08] LABS: Glucose,Whole Blood 103 mg/dL (75-99)
[2017-10-04 12:59] LABS: Glucose,Whole Blood 140 mg/dL (75-99)
--- NOTE | 2017-10-04 13:40 | P.PN ---
Subjective Progress Note Date: 10/04/17 Principal diagnosis: Mitral valve repair continued to be hemodynamically stable. No major events reported by nursing staff. Chest tube was removed this morning with residual pneumothorax but patient is asymptomatic area patient is denying chest pain, shortness breath , abdominal pain, nausea, vomiting, dumping or dizziness Objective - Vital Signs Vital signs: Vital Signs Temp 99.1 F 10/04/17 12:00 Pulse 69 10/04/17 13:26 Resp 17 10/04/17 12:00 BP 148/74 10/02/17 06:10 Pulse Ox 96 10/04/17 12:00 Intake & Output 10/03/17 10/04/17 10/04/17 18:59 06:59 18:59 Intake Total 1014 536.996 612.862 Output Total 856 502 535 Balance 158 34.996 77.862 Weight 71.6 kg 68.5 kg 68.5 kg Intake: IV 764 432 210 ACETAMINOPHEN IV (For NPO 100 ) 1,000 mg In Empty Bag 1 bag @ 400 mls/hr IVPB Q6HR [facility] Rx#:[id number] Lactated Ringers 1,000 ml 520 360 180 @ 20 mls/hr IV .Q24H [facility] Rx#:[id number] co/ci 60 pressure bag 84 72 30 Intake, IV Titration 0 4.996 2.862 Amount Insulin Regular 100 unit 0 4.996 2.862 In Sodium Chloride 0.9% 100 ml @ Per Protocol IV .Q0M [facility] Rx#:[id number] Oral 250 400 Tube Feeding 100 Output: Chest Tube Drainage 180 110 40 Chest Tube Mediastinal 90 50 20 Right Pleural Chest Tube 90 60 20 Urine 676 392 495 Uretheral ([place]) 95 Other: Voiding Method Indwelling Catheter Indwelling Catheter Indwelling Catheter ABP, PAP, CO, CI - Last Documented Arterial Blood Pressure 112/37 Pulmonary Artery Pressure 45/6 Cardiac Output 5.2 Cardiac Index 2.9 - Exam Gen.: in stated age, no acute distress Heart: Normal S1-S2 Lungs: Clear to auscultation bilaterally Abdomen: Soft, no tenderness, positive bowel sounds in all 4 quadrant no guarding or rebound Skin: No new rash Psych: Alert and oriented 3 Neuro: No focal deficit Patient has arterial line and her left upper extremity in the radial area Patient has [place] catheter with clear urine in the bag - Labs CBC & Chem 7: 10/04/17 04:30 10/04/17 04:30 Labs: Abnormal Lab Results - Last 24 Hours (Table) 10/03/17 10/03/17 10/03/17 Range/Units 14:02 15:07 16:02 RBC (3.80-5.40) m/uL Hgb (11.4-16.0) gm/dL Hct (34.0-46.0) % MCV (80.0-100.0) fL Plt Count (150-450) k/uL BUN (7-17) mg/dL POC Glucose (mg/dL) 115 H 125 H 122 H (75-99) mg/dL AST (14-36) U/L Total Protein (6.3-8.2) g/dL Albumin (3.5-5.0) g/dL 10/03/17 10/03/17 10/03/17 Range/Units 16:54 17:59 19:20 RBC (3.80-5.40) m/uL Hgb (11.4-16.0) gm/dL Hct (34.0-46.0) % MCV (80.0-100.0) fL Plt Count (150-450) k/uL BUN (7-17) mg/dL POC Glucose (mg/dL) 122 H 143 H 153 H (75-99) mg/dL AST (14-36) U/L Total Protein (6.3-8.2) g/dL Albumin (3.5-5.0) g/dL 10/03/17 10/03/17 10/04/17 Range/Units 20:21 23:02 00:16 RBC (3.80-5.40) m/uL Hgb (11.4-16.0) gm/dL Hct (34.0-46.0) % MCV (80.0-100.0) fL Plt Count (150-450) k/uL BUN (7-17) mg/dL POC Glucose (mg/dL) 142 H 131 H 112 H (75-99) mg/dL AST (14-36) U/L Total Protein (6.3-8.2) g/dL Albumin (3.5-5.0) g/dL 0510/04/17 10/04/17 Range/Units 01:43 02:34 03:30 RBC (3.80-5.40) m/uL Hgb (11.4-16.0) gm/dL Hct (34.0-46.0) % MCV (80.0-100.0) fL Plt Count (150-450) k/uL BUN (7-17) mg/dL POC Glucose (mg/dL) 135 H 124 H 113 H (75-99) mg/dL AST (14-36) U/L Total Protein (6.3-8.2) g/dL Albumin (3.5-5.0) g/dL 10/04/17 10/04/17 10/04/17 Range/Units 04:30 04:30 04:31 RBC 2.19 L (3.80-5.40) m/uL Hgb 7.0 L* (11.4-16.0) gm/dL Hct 22.1 L (34.0-46.0) % MCV 100.9 H (80.0-100.0) fL Plt Count 106 L (150-450) k/uL BUN 18 H (7-17) mg/dL POC Glucose (mg/dL) 102 H (75-99) mg/dL AST 54 H (14-36) U/L Total Protein 4.4 L (6.3-8.2) g/dL Albumin 3.0 L (3.5-5.0) g/dL 10/04/17 10/04/17 10/04/17 Range/Units 07:35 08:11 09:05 RBC (3.80-5.40) m/uL Hgb (11.4-16.0) gm/dL Hct (34.0-46.0) % MCV (80.0-100.0) fL Plt Count (150-450) k/uL BUN (7-17) mg/dL POC Glucose (mg/dL) 122 H 174 H 150 H (75-99) mg/dL AST (14-36) U/L Total Protein (6.3-8.2) g/dL Albumin (3.5-5.0) g/dL 10/04/17 10/04/17 10/04/17 Range/Units 10:02 11:05 12:06 RBC (3.80-5.40) m/uL Hgb (11.4-16.0) gm/dL Hct (34.0-46.0) % MCV (80.0-100.0) fL Plt Count (150-450) k/uL BUN (7-17) mg/dL POC Glucose (mg/dL) 112 H 103 H 103 H (75-99) mg/dL AST (14-36) U/L Total Protein (6.3-8.2) g/dL Albumin (3.5-5.0) g/dL 10/04/17 Range/Units 12:57 RBC (3.80-5.40) m/uL Hgb (11.4-16.0) gm/dL Hct (34.0-46.0) % MCV (80.0-100.0) fL Plt Count (150-450) k/uL BUN (7-17) mg/dL POC Glucose (mg/dL) 140 H (75-99) mg/dL AST (14-36) U/L Total Protein (6.3-8.2) g/dL Albumin (3.5-5.0) g/dL Assessment and Plan Plan: 1. Status post mitral valve repair. 2. Minimal coronary artery disease. 3. Pneumothorax, small likely secondary to chest tube removal. 4. Hypertension. 5. Hyperlipidemia. 6. Mild hypertension. Plan discussed with the nursing staff at the bedside would like to provide patients with 500 mL bolus avoid hypertensive medication and introduce blood pressure medication only one holding parameters and we'll hold Lasix at this point encourage spirometer use and discontinue insulin drip and placed patient' s on before meals at bedtime regimen and avoid coverage unless glucoses above 180. We'll repeat blood work in the morning to ensure stability.
[2017-10-04] MEDS: LACTATED RINGERS 1,000 ML IV SCH (15:29)
--- NOTE | 2017-10-04 15:56 | P.PN ---
Subjective Progress Note Date: 10/11/17 This is a 82-year-old female who had a mitral valve repair. Patient seemed to be hemodynamically stable. Patient seemed to be either low atrial or junctional rhythm. Patient is still atrial paced. When patient is on unknown rhythm. Blood pressure is dropping. Mediastinal chest tube was taken out. Admit possibility Orrick-Manasa will pulled out later today. Denies any significant chest pain. Denies any shortness of breath. Increase activity as tolerated. Incentive spirometry Objective - Vital Signs Vital signs: Vital Signs Temp 99.1 F 10/04/17 12:00 Pulse 69 10/04/17 15:40 Resp 11 L 10/04/17 15:00 BP 95/42 10/04/17 14:00 Pulse Ox 93 L 10/04/17 15:00 Intake & Output 10/03/17 10/04/17 10/04/17 18:59 06:59 18:59 Intake Total 1014 536.996 926.862 Output Total 856 502 615 Balance 158 34.996 311.862 Weight 71.6 kg 68.5 kg 68.5 kg Intake: IV 764 432 324 0.9 NS kvo 80 ACETAMINOPHEN IV (For NPO 100 ) 1,000 mg In Empty Bag 1 bag @ 400 mls/hr IVPB Q6HR [facility] Rx#:[id number] Lactated Ringers 1,000 ml 520 360 190 @ 20 mls/hr IV .Q24H [facility] Rx#:[id number] co/ci 60 pressure bag 84 72 54 Intake, IV Titration 0 4.996 2.862 Amount Insulin Regular 100 unit 0 4.996 2.862 In Sodium Chloride 0.9% 100 ml @ Per Protocol IV .Q0M ISS[facility] Rx#:[id number] Oral 250 600 Tube Feeding 100 Output: Chest Tube Drainage 180 110 40 Chest Tube Mediastinal 90 50 20 Right Pleural Chest Tube 90 60 20 Urine 676 392 575 Uretheral ([place]) 135 Other: Voiding Method Indwelling Catheter Indwelling Catheter Indwelling Catheter ABP, PAP, CO, CI - Last Documented Arterial Blood Pressure 103/40 Pulmonary Artery Pressure 45/6 Cardiac Output 5.2 Cardiac Index 2.9 - Exam GENERAL EXAM: Patient is alert and oriented and doesn't appear to be in any acute distress HEENT: Normocephalic. Normal reaction of pupils, equal size, normal range of extraocular motion. No erythema or exudates in the throat. NECK: No masses, no nuchal rigidity. CHEST: Postsurgical LUNGS: Diminished breath sounds at bases HEART: S1 and S2 normal with no audible mumurs or gallops. Regular rhythm, femorals equal on both sides.. ABDOMEN: No hepatosplenomegaly, normal bowel sounds, no guarding or rigidity. SKIN: No rashes CENTRAL NERVOUS SYSTEM: No focal deficits. EXTREMITIES: No cyanosis, clubbing or edema. - Labs CBC & Chem 7: 10/04/17 04:30 10/04/17 04:30 Labs: Abnormal Lab Results - Last 24 Hours (Table) 10/03/17 10/03/17 10/03/17 Range/Units 16:02 16:54 17:59 RBC (3.80-5.40) m/uL Hgb (11.4-16.0) gm/dL Hct (34.0-46.0) % MCV (80.0-100.0) fL Plt Count (150-450) k/uL BUN (7-17) mg/dL POC Glucose (mg/dL) 122 H 122 H 143 H (75-99) mg/dL AST (14-36) U/L Total Protein (6.3-8.2) g/dL Albumin (3.5-5.0) g/dL 10/03/17 10/03/17 10/03/17 Range/Units 19:20 20:21 23:02 RBC (3.80-5.40) m/uL Hgb (11.4-16.0) gm/dL Hct (34.0-46.0) % MCV (80.0-100.0) fL Plt Count (150-450) k/uL BUN (7-17) mg/dL POC Glucose (mg/dL) 153 H 142 H 131 H (75-99) mg/dL AST (14-36) U/L Total Protein (6.3-8.2) g/dL Albumin (3.5-5.0) g/dL 10/04/17 10/04/17 10/04/17 Range/Units 00:16 01:43 02:34 RBC (3.80-5.40) m/uL Hgb (11.4-16.0) gm/dL Hct (34.0-46.0) % MCV (80.0-100.0) fL Plt Count (150-450) k/uL BUN (7-17) mg/dL POC Glucose (mg/dL) 112 H 135 H 124 H (75-99) mg/dL AST (14-36) U/L Total Protein (6.3-8.2) g/dL Albumin (3.5-5.0) g/dL 10/04/17 10/04/17 10/04/17 Range/Units 03:30 04:30 04:30 RBC 2.19 L (3.80-5.40) m/uL Hgb 7.0 L* (11.4-16.0) gm/dL Hct 22.1 L (34.0-46.0) % MCV 100.9 H (80.0-100.0) fL Plt Count 106 L (150-450) k/uL BUN 18 H (7-17) mg/dL POC Glucose (mg/dL) 113 H (75-99) mg/dL AST 54 H (14-36) U/L Total Protein 4.4 L (6.3-8.2) g/dL Albumin 3.0 L (3.5-5.0) g/dL 10/04/17 10/04/17 10/04/17 Range/Units 04:31 07:35 08:11 RBC (3.80-5.40) m/uL Hgb (11.4-16.0) gm/dL Hct (34.0-46.0) % MCV (80.0-100.0) fL Plt Count (150-450) k/uL BUN (7-17) mg/dL POC Glucose (mg/dL) 102 H 122 H 174 H (75-99) mg/dL AST (14-36) U/L Total Protein (6.3-8.2) g/dL Albumin (3.5-5.0) g/dL 10/04/17 10/04/17 10/04/17 Range/Units 09:05 10:02 11:05 RBC (3.80-5.40) m/uL Hgb (11.4-16.0) gm/dL Hct (34.0-46.0) % MCV (80.0-100.0) fL Plt Count (150-450) k/uL BUN (7-17) mg/dL POC Glucose (mg/dL) 150 H 112 H 103 H (75-99) mg/dL AST (14-36) U/L Total Protein (6.3-8.2) g/dL Albumin (3.5-5.0) g/dL 10/04/17 10/04/17 Range/Units 12:06 12:57 RBC (3.80-5.40) m/uL Hgb (11.4-16.0) gm/dL Hct (34.0-46.0) % MCV (80.0-100.0) fL Plt Count (150-450) k/uL BUN (7-17) mg/dL POC Glucose (mg/dL) 103 H 140 H (75-99) mg/dL AST (14-36) U/L Total Protein (6.3-8.2) g/dL Albumin (3.5-5.0) g/dL Assessment and Plan (1) Status post mitral valve repair Current Visit: Yes Status: Acute Code(s): Z98.890 - OTHER SPECIFIED POSTPROCEDURAL STATES SNOMED Code(s): 407465858 (2) CAD (coronary artery disease) Current Visit: Yes Status: Chronic Code(s): I25.10 - ATHSCL HEART DISEASE OF [place] CORONARY ARTERY W/O ANG PCTRS SNOMED Code(s): 30399815 (3) Mitral valve regurgitation Current Visit: Yes Status: Chronic Code(s): I34.0 - NONRHEUMATIC MITRAL ( VALVE) INSUFFICIENCY SNOMED Code(s): 23111903 Plan: Patient is doing very well clinically. Having some junctional rhythm and currently atrial paced. Increase activity. Incentive spirometry. Continue rest of the medical management
[2017-10-04] MEDS: INSULIN ASPART 100 UNIT/ML 1 ML 10 ML VIAL SQ SCH ×2 (17:04→20:53)
[2017-10-04 17:12] LABS: Glucose,Whole Blood 109 mg/dL (75-99)
--- NOTE | 2017-10-04 18:41 | P.CONS ---
History of Present Illness - Reason for Consult Consult date: 10/04/17 - Chief Complaint Shortness of breath - History of Present Illness Pleasant 82-year-old woman with a long-standing history of mitral valve prolapse who over the last year has been having increasing difficulties with fatigue and dyspnea on exertion. She had outpatient evaluation including a YARA showed the severe mitral valve regurgitation. Because her symptomatology she was referred to cardiovascular surgery and outpatient valuation revealed that she was a candidate for mitral valve repair. Consequently she was brought into hospital and 10/02/2017 for the elective aortic valve repair. In the days before her surgery routine evaluation revealed the patient was feeling well without fevers or chills with no urinary symptoms however she did have a positive urine culture with E. coli. It was an ESBL organism. At that time the question was posed with infectious disease as to what should be done. Given the patient had asymptomatic bacteriuria there was no specific reason to withhold her surgery and it was prudent to treat before surgery and for 3 days after surgery with appropriate antibiotic therapy. The patient is now had her mitral valve repair and is recovering well. Surprisingly she is denying any significant amounts of pain. Remains without fevers or chills. Denies any urinary symptoms. Review of Systems Patient relates that she's feeling modestly well but fatigued and tired she was sitting up a bit today. He has noted no fevers or chills. HEENT:Denies headache or acute visual change. Denies sinus or mouth discomforts. Denies neck stiffness or pain. Denies significant oral cavity pain. Denies difficulty on swallowing. Lungs: Denies significant shortness of breath, cough, sputum production, or hemoptysis. Cardiovascular: Denies significant shortness of breath, and does not have chest wall pain. Gastrointestinal:Denies nausea, vomiting, diarrhea, constipation, hematemesis, melena, hematochezia. No no significant change of bowel habit noticed. Musculoskeletal: denies significant myalgias or arthralgias. No new joint swelling. Denies new back pain. Skin: Denies new rash or lesions. No new ulcers or wounds are related.. Neuro: Denies headache or visual change. Denies any new onset weakness or difficulty with ambulation. Denies falls or seizures. Psychiatric:Denies anxiety or depression. Endocrine does have fatigue but weight has been stable Past Medical History Past Medical History: Cancer, Hyperlipidemia, Hypertension, Mitral Valve Prolapse (MVP), Osteoarthritis (OA) Additional Past Medical History / Comment(s): IBS, SKIN CANCER, SOB w/exertion History of Any Multi-Drug Resistant Organisms: None Reported Past Surgical History: Heart Catheterization, Joint Replacement Additional Past Surgical History / Comment(s): REGAN TOTAL KNEES. Past Anesthesia/Blood Transfusion Reactions: No Reported Reaction Smoking Status: Former smoker (Crit a year ago) - Past Family History Sister(s) Family Medical History: Cancer Additional Family Medical History / Comment(s): BOWEL CANCER Medications and Allergies Home Medications and Allergies Comment(s): Current Medications Hydrocodone Bitart/Acetaminophen ([place] 5-325) 2 each PO Q4HR PRN PRN Reason: Severe Pain Hydrocodone Bitart/Acetaminophen ([place] 5-325) 1 each PO Q4HR PRN PRN Reason: Moderate Pain Albuterol/Ipratropium (Duoneb 0.5 Mg-3 Mg/3 Ml Soln) 3 ml INHALATION RT-Q2H PRN PRN Reason: Shortness Of Breath Or Wheezing Albuterol/Ipratropium (Duoneb 0.5 Mg-3 Mg/3 Ml Soln) 3 ml INHALATION RT-QID [facility] Last Admin: 10/04/17 15:27 Dose: 3 ml Amitriptyline HCl (Elavil) 12.5 mg PO [facility] Last Admin: 10/03/17 23:04 Dose: 12.5 mg Ascorbic Acid (Vitamin C) 500 mg PO BID-W/MEALS [facility] Last Admin: 10/04/17 17:02 Dose: 500 mg Aspirin (Aspirin) 325 mg PO DAILY [facility] Last Admin: 10/04/17 08:29 Dose: 325 mg Atorvastatin Calcium (Lipitor) 40 mg PO DAILY [facility] Last Admin: 10/04/17 08:29 Dose: 40 mg Benzocaine/Menthol (Cepacol Lozenge) 1 each MUCOUS MEM Q2H PRN PRN Reason: Sore Throat Bisacodyl (Dulcolax) 10 mg RECTAL DAILY PRN PRN Reason: Constipation Budesonide/Formoterol Fumarate (Symbicort 160-4.5 Mcg Inhaler) 2 puff INHALATION RT-BID [facility] Clonazepam (Klonopin) 0.5 mg PO [facility] Last Admin: 10/03/17 23:04 Dose: 0.5 mg Clopidogrel Bisulfate (Plavix) 75 mg PO DAILY [facility] Last Admin: 10/04/17 08:29 Dose: 75 mg Ferrous Sulfate (Feosol) 325 mg PO BID-W/MEALS [facility] Last Admin: 10/04/17 17:02 Dose: 325 mg Heparin Sodium (Porcine) (Heparin) 5,000 unit SQ Q8HR [facility] Last Admin: 10/04/17 15:26 Dose: 5,000 unit Amiodarone HCl 150 mg/ (Dextrose/Water) 103 mls @ 618 mls/hr IV .Q10M PRN; Protocol PRN Reason: Per protocol Amiodarone HCl 450 mg/ (Dextrose/Water) 259 mls @ 34.53 mls/hr IV .Q7H31M PRN; Protocol; 1 MG/MIN PRN Reason: Per Protocol Lactated Ringer's (Lactated Ringers) 1,000 mls @ 20 mls/hr IV .Q24H [facility] Last Admin: 10/04/17 15:29 Dose: 20 mls/hr Insulin Aspart (Novolog) 0 unit SQ ACHS [facility] PRN Reason: Protocol Last Admin: 10/04/17 17:04 Dose: Not Given Ketorolac Tromethamine (Toradol) 15 mg IVP Q6HR [facility] Stop: 10/07/17 07:59 Last Admin: 10/04/17 17:02 Dose: 15 mg Losartan Potassium (Cozaar) 50 mg PO DAILY [facility] Last Admin: 10/04/17 08:29 Dose: 50 mg Magnesium Hydroxide (Milk Of Magnesia) 2,400 mg PO BID PRN PRN Reason: Constipation Metoclopramide HCl (Reglan) 10 mg IVP Q4H PRN PRN Reason: Nausea And Vomiting Miscellaneous Information (Magnesium Per Protocol) 1 each MISCELLANE DAILY PRN ; Protocol PRN Reason: Per Protocol Miscellaneous Information (Phosphorus Per Protocol) 1 each MISCELLANE DAILY PRN ; Protocol PRN Reason: Per Protocol Miscellaneous Information (Potassium Per Protocol) 1 each MISCELLANE DAILY PRN ; Protocol PRN Reason: Per Protocol Mupirocin (Bactroban Oint) 1 applic NASAL BID [facility] Stop: 10/05/17 21:01 Last Admin: 10/04/17 08:28 Dose: 1 applic Ondansetron HCl (Zofran) 4 mg IVP Q6HR PRN PRN Reason: Nausea And Vomiting Last Admin: 10/03/17 16:15 Dose: 4 mg Pantoprazole Sodium (Protonix) 40 mg PO AC-BRKFST [facility] Last Admin: 10/04/17 08:29 Dose: 40 mg Senna/Docusate Sodium (Senokot-S) 2 each PO HS [facility] Last Admin: 10/03/17 20:40 Dose: 2 each Sodium Chloride (Saline Flush) 10 ml IV BID [facility] Last Admin: 10/04/17 08:31 Dose: 10 ml Trimethoprim/Sulfamethoxazole (Bactrim Ds) 1 each PO BID [facility] Last Admin: 10/04/17 08:29 Dose: 1 each Home Medications Medication Instructions Recorded Confirmed Type Aspirin [Adult Low Dose Aspirin EC] 81 mg PO HS 05/01/17 10/02/17 History L.acidoph,Paracasei, B.lactis 1 cap PO DAILY 05/01/17 10/02/17 History [Probiotic] Losartan Potassium 100 mg PO HS 05/01/17 10/02/17 History Opc Antioxidant 1 tab PO DAILY 05/01/17 10/02/17 History Simvastatin [Zocor] 20 mg PO HS 05/01/17 10/02/17 History amLODIPine [Norvasc] 5 mg PO BID 05/01/17 10/02/17 History clonazePAM [KlonoPIN] 0.5 mg PO HS 05/01/17 10/02/17 History Amitriptyline HCl [Elavil] 12.5 mg PO HS 09/25/17 10/02/17 History Mupirocin 2% Nasal Oint [Bactroban 1 applic NASAL BID 10/01/17 10/02/17 History 2% Nasal Oint] Sulfamethox-Tmp 800-160Mg [Bactrim 1 tab PO Q12HR 10/01/17 10/02/17 History DS 800-160 mg] Allergies Allergy/AdvReac Type Severity Reaction Status Date / Time fentanyl AdvReac Unknown COULDNT Verified 10/02/17 14:21 EAT. Physical Exam Vitals: Vital Signs Temp Pulse Pulse Pulse Resp BP Pulse Ox 10/04/17 18:00 70 21 90 L 10/04/17 17:00 70 20 91 L 10/04/17 16:00 98.3 F 70 70 70 16 101/44 92 L 05/19/18 15:40 69 05/19/18 15:27 69 05/19/18 15:00 70 11 L 93 L 05/19/18 14:00 70 13 95/42 93 L 05/19/18 13:26 69 05/19/18 13:14 69 05/19/18 13:00 70 26 H 90 L 05/19/18 12:00 99.1 F 70 70 70 17 96 05/19/18 11:00 70 14 92 L 05/19/18 10:00 70 17 86 L 05/19/18 09:00 70 16 89 L 05/19/18 08:30 62 05/19/18 08:18 130 H 05/19/18 08:00 97.7 F 70 70 70 21 92 L 05/19/18 07:30 70 14 91 L 05/19/18 07:00 70 14 89 L 05/19/18 06:30 70 18 91 L 05/19/18 06:00 70 12 96 05/19/18 05:30 70 12 94 L 05/19/18 05:00 70 11 L 93 L 05/19/18 04:30 70 13 94 L 05/19/18 04:00 98.4 F 70 10 L 94 L 05/19/18 03:30 69 10 L 92 L 05/19/18 03:00 70 11 L 93 L 05/19/18 02:30 70 10 L 93 L 05/19/18 02:00 70 9 L 93 L 05/19/18 01:30 70 12 94 L 05/19/18 01:00 70 11 L 95 05/19/18 00:30 70 13 92 L 05/19/18 00:00 98.4 F 70 11 L 93 L 05/18/18 23:30 70 12 92 L 05/18/18 23:00 70 13 93 L 05/18/18 22:30 70 10 L 92 L 05/18/18 22:00 70 13 91 L 05/18/18 21:30 70 11 L 94 L 05/18/18 21:00 70 12 96 05/18/18 20:30 70 14 92 L 05/18/18 20:00 98 F 70 18 93 L 05/18/18 19:56 69 05/18/18 19:46 69 15 91 L 05/18/18 19:30 70 20 90 L 10/03/17 19:00 111 H 19 92 L 10/03/17 18:30 69 14 92 L Intake and Output 10/04/17 10/04/17 10/04/17 06:59 14:59 22:59 Intake Total 392.354 890.862 614 Output Total 322 615 Balance 70.354 275.862 614 Intake: IV 288 288 114 0.9 NS kvo 70 10 Lactated Ringers 1,000 ml 240 170 80 @ 20 mls/hr IV .Q24H [facility] Rx#:[id number] pressure bag 48 48 24 Intake, IV Titration 4.354 2.862 Amount Insulin Regular 100 unit 4.354 2.862 In Sodium Chloride 0.9% 100 ml @ Per Protocol IV .Q0M [facility] Rx#:[id number] Oral 600 500 Tube Feeding 100 Output: Chest Tube Drainage 80 40 Chest Tube Mediastinal 40 20 Right Pleural Chest Tube 40 20 Urine 242 575 Uretheral ([place]) 135 Other: Voiding Method Indwelling Catheter Indwelling Catheter Bedpan Weight 68.5 kg 68.5 kg 68.5 kg ABP, PAP, CO, CI - Last 8 Hours Arterial Blood Pressure 100/34 Arterial Blood Pressure 112/42 Arterial Blood Pressure 112/42 Arterial Blood Pressure 103/40 Arterial Blood Pressure 90/38 Arterial Blood Pressure 112/35 Arterial Blood Pressure 112/37 Arterial Blood Pressure 113/36 Pleasant 82-year-old female status post surgery is comfortable HEENT: Anicteric conjunctiva are pink and moist nasal mucosa grossly intact without significant lesions, there is no thrush. Neck: The neck is supple without significant lymphadenopathy or thyromegaly. Lungs Symmetrical air entry with few basilar crackles Heart Regular with a rate of about 70 she's being paced no significant murmur was noted Abdomen: Positive bowel sounds soft and nontender without palpable masses or organomegaly. There was no guarding or rebound.No bladder tenderness Extremities: The upper extremities have excellent pulses they are symmetric, no significant petechiae or telangiectasia. No splinter hemorrhages were noted. The lower extremities are free from significant edema. The peripheral pulses were 2+ and symmetric. Neuro: Awake alert oriented to person place and time. There are no acute new gross focal sensory motor deficits. Skin is without lesions Results CBC & Chem 7: 10/04/17 04:30 10/04/17 04:30 Labs: Abnormal Lab Results - Last 24 Hours (Table) 10/03/17 10/03/17 10/03/17 Range/Units 19:20 20:21 23:02 RBC (3.80-5.40) m/uL Hgb (11.4-16.0) gm/dL Hct (34.0-46.0) % MCV (80.0-100.0) fL Plt Count (150-450) k/uL BUN (7-17) mg/dL POC Glucose (mg/dL) 153 H 142 H 131 H (75-99) mg/dL AST (14-36) U/L Total Protein (6.3-8.2) g/dL Albumin (3.5-5.0) g/dL 10/04/17 10/04/17 10/04/17 Range/Units 00:16 01:43 02:34 RBC (3.80-5.40) m/uL Hgb (11.4-16.0) gm/dL Hct (34.0-46.0) % MCV (80.0-100.0) fL Plt Count (150-450) k/uL BUN (7-17) mg/dL POC Glucose (mg/dL) 112 H 135 H 124 H (75-99) mg/dL AST (14-36) U/L Total Protein (6.3-8.2) g/dL Albumin (3.5-5.0) g/dL 10/04/17 10/04/17 10/04/17 Range/Units 03:30 04:30 04:30 RBC 2.19 L (3.80-5.40) m/uL Hgb 7.0 L* (11.4-16.0) gm/dL Hct 22.1 L (34.0-46.0) % MCV 100.9 H (80.0-100.0) fL Plt Count 106 L (150-450) k/uL BUN 18 H (7-17) mg/dL POC Glucose (mg/dL) 113 H (75-99) mg/dL AST 54 H (14-36) U/L Total Protein 4.4 L (6.3-8.2) g/dL Albumin 3.0 L (3.5-5.0) g/dL 10/04/17 10/04/17 10/04/17 Range/Units 04:31 07:35 08:11 RBC (3.80-5.40) m/uL Hgb (11.4-16.0) gm/dL Hct (34.0-46.0) % MCV (80.0-100.0) fL Plt Count (150-450) k/uL BUN (7-17) mg/dL POC Glucose (mg/dL) 102 H 122 H 174 H (75-99) mg/dL AST (14-36) U/L Total Protein (6.3-8.2) g/dL Albumin (3.5-5.0) g/dL 10/04/17 10/04/17 10/04/17 Range/Units 09:05 10:02 11:05 RBC (3.80-5.40) m/uL Hgb (11.4-16.0) gm/dL Hct (34.0-46.0) % MCV (80.0-100.0) fL Plt Count (150-450) k/uL BUN (7-17) mg/dL POC Glucose (mg/dL) 150 H 112 H 103 H (75-99) mg/dL AST (14-36) U/L Total Protein (6.3-8.2) g/dL Albumin (3.5-5.0) g/dL 10/04/17 10/04/17 10/04/17 Range/Units 12:06 12:57 17:00 RBC (3.80-5.40) m/uL Hgb (11.4-16.0) gm/dL Hct (34.0-46.0) % MCV (80.0-100.0) fL Plt Count (150-450) k/uL BUN (7-17) mg/dL POC Glucose (mg/dL) 103 H 140 H 109 H (75-99) mg/dL AST (14-36) U/L Total Protein (6.3-8.2) g/dL Albumin (3.5-5.0) g/dL Laboratory Results WBC 8.1 k/uL (3.8-10.6) 10/04/17 04:30 RBC 2.19 m/uL (3.80-5.40) L 10/04/17 04:30 Hgb 7.0 gm/dL (11.4-16.0) L* 10/04/17 04:30 Hct 22.1 % (34.0-46.0) L 10/04/17 04:30 MCV 100.9 fL (80.0-100.0) H 10/04/17 04:30 MCH 31.7 pg (25.0-35.0) 10/04/17 04:30 MCHC 31.4 g/dL (31.0-37.0) 10/04/17 04:30 RDW 13.6 % (11.5-15.5) 10/04/17 04:30 Plt Count 106 k/uL (150-450) L 10/04/17 04:30 Neutrophils % 80 % 10/04/17 04:30 Lymphocytes % 14 % 10/04/17 04:30 Monocytes % 4 % 10/04/17 04:30 Eosinophils % 1 % 10/04/17 04:30 Basophils % 0 % 10/04/17 04:30 Neutrophils # 6.5 k/uL (1.3-7.7) 10/04/17 04:30 Lymphocytes # 1.1 k/uL (1.0-4.8) 10/04/17 04:30 Monocytes # 0.3 k/uL (0-1.0) 10/04/17 04:30 Eosinophils # 0.0 k/uL (0-0.7) 10/04/17 04:30 Basophils # 0.0 k/uL (0-0.2) 10/04/17 04:30 Manual Slide Review Performed 10/02/17 14:05 RBC Morphology Normal 10/02/17 14:05 Macrocytosis Slight 10/04/17 04:30 PT 11.9 sec (9.0-12.0) 10/03/17 04:00 INR 1.3 (<1.2) H 10/03/17 04:00 APTT 29.9 sec (22.0-30.0) 10/03/17 04:00 Sample Site [place] 10/02/17 17:55 ABG pH 7.36 (7.35-7.45) 10/02/17 17:55 ABG pCO2 43 mmHg (35-45) 10/02/17 17:55 ABG pO2 79 mmHg (83-108) L 10/02/17 17:55 ABG HCO3 24 mmol/L (21-25) 10/02/17 17:55 ABG Total CO2 26 mmol/L (19-24) H 10/02/17 17:55 ABG O2 Saturation 97.2 % (94-97) H 10/02/17 17:55 ABG Base Excess -1.1 mmol/L 10/02/17 17:55 ABG Hematocrit 25 % (34.0-46.0) L 10/02/17 12:35 Elfego Test Yes 10/02/17 17:55 ABG Sodium 140 mmol/L (135-146) 10/02/17 12:35 ABG Potassium 4.0 mmol/L (3.4-4.5) 10/02/17 12:35 ABG Ionized Calcium 4.3 mg/dL (4.5-5.3) L 10/02/17 12:35 ABG Glucose 129 mg/dL (75-99) H 10/02/17 12:35 ABG Lactic Acid 1.0 mmol/L (0.5-1.6) 10/02/17 12:35 Hemoglobin 8.0 gm/dL (11.4-16.0) L 10/02/17 12:35 FiO2 50 % 10/02/17 17:55 Sodium 137 mmol/L (137-145) 10/04/17 04:30 Potassium 4.1 mmol/L (3.5-5.1) 10/04/17 04:30 Chloride 103 mmol/L (98-107) 10/04/17 04:30 Carbon Dioxide 26 mmol/L (22-30) 10/04/17 04:30 Anion Gap 8 mmol/L 10/04/17 04:30 BUN 18 mg/dL (7-17) H 10/04/17 04:30 Creatinine 1.00 mg/dL (0.52-1.04) 10/04/17 04:30 Est GFR (CKD-EPI)AfAm 62 (>60 ml/min/1.73 sqM) 10/04/17 04:30 Est GFR (CKD-EPI)NonAf 53 (>60 ml/min/1.73 sqM) 10/04/17 04:30 Glucose 90 mg/dL (74-99) 10/04/17 04:30 POC Glucose (mg/dL) 109 mg/dL (75-99) H 10/04/17 17:00 POC Glu Mechanical Inspector ID Terri Anglin 10/04/17 17:[address] Glu mg/dL 108 10/02/17 14:05 Hemoglobin A1c 5.4 % (4.0-6.0) 10/02/17 14:05 Calcium 8.4 mg/dL (8.4-10.2) 10/04/17 04:30 Ionized Calcium Ivan 4.9 mg/dL (4.5-5.3) 10/04/17 04:30 Magnesium 2.3 mg/dL (1.6-2.3) 10/04/17 04:30 Total Bilirubin 0.7 mg/dL (0.2-1.3) 10/04/17 04:30 AST 54 U/L (14-36) H 10/04/17 04:30 ALT 29 U/L (9-52) 10/04/17 04:30 Alkaline Phosphatase 39 U/L (38-126) 10/04/17 04:30 Total Protein 4.4 g/dL (6.3-8.2) L 10/04/17 04:30 Albumin 3.0 g/dL (3.5-5.0) L 10/04/17 04:30 Arterial Blood Potassium 4.0 mmol/L (3.4-4.5) 10/02/17 12:35 Arterial Blood Glucose 129 mg/dL (75-99) H 10/02/17 12:35 Blood Type A Positive 09/25/17 08:24 Blood Type Recheck No 09/25/17 08:24 Antibody Screen NEGATIVE 09/25/17 08:24 Crossmatch See Detail 09/25/17 08:24 Transfuse Platelets 10/02/2017 09/25/17 08:24 Spec Expiration Date 10/04/2017232309/25/17 08:24 Outpatient urine culture with ESBL E. coli Assessment and Plan (1) Mitral valve regurgitation Current Visit: Yes Status: Chronic Code(s): I34.0 - NONRHEUMATIC MITRAL ( VALVE) INSUFFICIENCY SNOMED Code(s): 07887080 (2) S/P mitral valve repair Current Visit: Yes Status: Acute Code(s): Z98.890 - OTHER SPECIFIED POSTPROCEDURAL STATES SNOMED Code(s): 914459223 (3) 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 Narrative/Plan: Pleasant 82-year-old female presents to Hospital for her elective mitral valve repair for her significant and symptomatic mitral valve regurgitation. The patient's surgery is been successful and she is recovering well. Preoperatively there was evidence of a urine culture that was positive for ESBL E. coli. Fortunately the patient is asymptomatic and does have asymptomatic bacteriuria. Given the complexity of the cardiovascular surgery should be treated for 3 days after her surgery with Bactrim which fortunately the E. coli is susceptible to. Patient is improving with no evidence of any other infection at this time. Current Visit: Yes Status: Chronic Code(s): Z86.19 - PERSONAL HISTORY OF OTHER INFECTIOUS AND PARASITIC DISEASES SNOMED Code(s): 447516148
[2017-10-04] MEDS: SYMBICORT 160-4.5 MCG INHALER INHALATION SCH (19:59)
[2017-10-04 20:51] LABS: Glucose,Whole Blood 136 mg/dL (75-99)
[2017-10-04] MEDS: AMITRIPTYLINE HCL 25 MG TAB PO SCH (20:52)
[2017-10-04] MEDS: clonazePAM 0.5 MG TAB PO SCH (20:58)
[2017-10-04] MEDS: SENNOSIDES-DOCUSATE SODIUM 1 EACH TAB PO SCH (20:58)
[2017-10-05] MEDS: KETOROLAC 30 MG/ML 1 ML VIAL IVP SCH ×3 (00:11→14:07)
[2017-10-05] MEDS: HEPARIN SODIUM,PORCINE 5,000 UNIT/ML 1 ML VIAL SQ SCH ×3 (00:11→16:13)
[2017-10-05] MEDS ORDERED: ALBUMIN HUMAN 5% 250 ML IVPB ONE (01:57)
[2017-10-05 05:51] LABS: Basophils % (A) 0 %; Eosinophils # (A) 0.1 k/uL (0-0.7); Eosinophils % (A) 1 %; Lymphocytes % (A) 18 %; MCH 32.5 pg (25.0-35.0); MCHC 32.4 g/dL (31.0-37.0); MCV 100.2 fL (80.0-100.0); Macrocytosis Slight; Mean Platelet Volume 7.8; Monocytes # (A) 0.3 k/uL (0-1.0); Monocytes % (A) 5 %; Neutrophils # (A) 4.2 k/uL (1.3-7.7); Neutrophils % (A) 74 %; Platelet Count 112 k/uL (150-450); RBC 1.97 m/uL (3.80-5.40); RDW 13.6 % (11.5-15.5); WBC 5.7 k/uL (3.8-10.6)
[2017-10-05 06:01] LABS: Albumin 2.8 g/dL (3.5-5.0); Calcium 8.1 mg/dL (8.4-10.2); Magnesium 2.3 mg/dL (1.6-2.3); Phosphorus 3.2 mg/dL (2.5-4.5); Total Bilirubin 0.4 mg/dL (0.2-1.3); Total Protein 4.3 g/dL (6.3-8.2)
[2017-10-05 06:39] LABS: HGB 6.4 gm/dL (11.4-16.0)
[2017-10-05 06:42] LABS: HCT 19.7 % (34.0-46.0)
[2017-10-05 06:56] LABS: Glucose,Whole Blood 108 mg/dL (75-99)
--- NOTE | 2017-10-05 07:42 | XR ---
EXAMINATION TYPE: XR chest 1V portable DATE OF EXAM: 10/05/2017 COMPARISON: Prior chest x-ray 10/04/2017 HISTORY: Status post cardiac surgery, abnormal chest x-ray TECHNIQUE: Single frontal view of the chest is obtained. FINDINGS: Right jugular central venous sheath has been removed. There are overlying cardiac leads. P ostop changes are stable. Patchy bibasilar density persists. No evident pneumothorax. Heart remains e nlarged. Central vascularity and interstitium are increased. Perihilar atelectatic changes suspected on the right. There are overlying cardiac leads. IMPRESSION: Basilar atelectasis, correlate for volume overload, congestive heart failure with associ ated effusions, pneumonia not excluded.
[2017-10-05] MEDS: IPRATROPIUM-ALBUTEROL 3 ML NEB INHALATION SCH ×4 (08:10→20:06)
[2017-10-05] MEDS: SYMBICORT 160-4.5 MCG INHALER INHALATION SCH ×2 (08:10→20:06)
--- NOTE | 2017-10-05 08:44 | P.PN ---
Subjective Progress Note Date: 10/05/17 This is a 82-year-old female who had a mitral valve repair. Patient seemed to be hemodynamically stable. Patient seemed to be either low atrial or junctional rhythm. Patient is still atrial paced. When patient is on unknown rhythm. Blood pressure is dropping. Mediastinal chest tube was taken out. Admit possibility [place] will pulled out later today. Denies any significant chest pain. Denies any shortness of breath. Increase activity as tolerated. Incentive spiromet 10/05/2017: Patient is sitting in the chair in ICU. Complaints of being fatigued and tired. No Sigmund chest pain. Her blood pressures running about 100 systolic. Patient is atrial paced. Underlying rhythm seemed to be ectopic atrial rhythm and bradycardic. Urine output is fair. Chest x-ray showed some bilateral atelectasis. Her hemoglobin is down. Patient is getting blood transfusion. Patient is unable to urinate and has been straight cathed. No arrhythmias are noted except for bradycardia. We'll continue current medical therapy. Objective - Vital Signs Vital signs: Vital Signs Temp 98.9 F 10/05/17 04:00 Pulse 75 10/05/17 08:27 Resp 14 10/05/17 08:00 BP 103/51 10/05/17 03:30 Pulse Ox 94 L 10/05/17 08:00 Intake & Output 10/04/17 10/05/17 10/05/17 18:59 06:59 18:59 Intake Total 1504.862 532 26 Output Total 615 480 Balance 889.862 52 26 Weight 68.5 kg 67.4 kg Intake: IV 402 312 26 0.9 NS kvo 80 Lactated Ringers 1,000 ml 250 240 20 @ 20 mls/hr IV .Q24H ISSAC Rx#:[id number] pressure bag 72 72 6 Intake, IV Titration 2.862 Amount Insulin Regular 100 unit 2.862 In Sodium Chloride 0.9% 100 ml @ Per Protocol IV .Q0M ISSAC Rx#:[id number] Oral 1100 220 Output: Chest Tube Drainage 40 Chest Tube Mediastinal 20 Right Pleural Chest Tube 20 Urine 575 480 Uretheral ([place]) 135 Other: Voiding Method Bedpan ABP, PAP, CO, CI - Last Documented Arterial Blood Pressure 112/42 Pulmonary Artery Pressure 45/6 Cardiac Output 5.2 Cardiac Index 2.9 - Exam GENERAL EXAM: Patient is alert and oriented and doesn't appear to be in any acute distress HEENT: Normocephalic. Normal reaction of pupils, equal size, normal range of extraocular motion. No erythema or exudates in the throat. NECK: No masses, no nuchal rigidity. CHEST: Postsurgical LUNGS: Diminished breath sounds at bases HEART: S1 and S2 normal with no audible mumurs or gallops. Regular rhythm, femorals equal on both sides.. ABDOMEN: No hepatosplenomegaly, normal bowel sounds, no guarding or rigidity. SKIN: No rashes CENTRAL NERVOUS SYSTEM: No focal deficits. EXTREMITIES: No cyanosis, clubbing or edema. - Labs CBC & Chem 7: 10/05/17 05:26 10/05/17 05:26 Labs: Abnormal Lab Results - Last 24 Hours (Table) 10/04/17 10/04/17 10/04/17 Range/Units 09:05 10:02 11:05 RBC (3.80-5.40) m/uL Hgb (11.4-16.0) gm/dL Hct (34.0-46.0) % MCV (80.0-100.0) fL Plt Count (150-450) k/uL BUN (7-17) mg/dL Creatinine (0.52-1.04) mg/dL POC Glucose (mg/dL) 150 H 112 H 103 H (75-99) mg/dL Calcium (8.4-10.2) mg/dL Total Protein (6.3-8.2) g/dL Albumin (3.5-5.0) g/dL Crossmatch 10/04/17 10/04/17 10/04/17 Range/Units 12:06 12:57 17:00 RBC (3.80-5.40) m/uL Hgb (11.4-16.0) gm/dL Hct (34.0-46.0) % MCV (80.0-100.0) fL Plt Count (150-450) k/uL BUN (7-17) mg/dL Creatinine (0.52-1.04) mg/dL POC Glucose (mg/dL) 103 H 140 H 109 H (75-99) mg/dL Calcium (8.4-10.2) mg/dL Total Protein (6.3-8.2) g/dL Albumin (3.5-5.0) g/dL Crossmatch 10/04/17 10/05/17 10/05/17 Range/Units 20:50 05:26 05:26 RBC 1.97 L (3.80-5.40) m/uL Hgb 6.4 L* (11.4-16.0) gm/dL Hct 19.7 L* (34.0-46.0) % MCV 100.2 H (80.0-100.0) fL Plt Count 112 L (150-450) k/uL BUN 18 H (7-17) mg/dL Creatinine 1.10 H (0.52-1.04) mg/dL POC Glucose (mg/dL) 136 H (75-99) mg/dL Calcium 8.1 L (8.4-10.2) mg/dL Total Protein 4.3 L (6.3-8.2) g/dL Albumin 2.8 L (3.5-5.0) g/dL Crossmatch 10/05/17 10/05/17 Range/Units 06:54 06:55 RBC (3.80-5.40) m/uL Hgb (11.4-16.0) gm/dL Hct (34.0-46.0) % MCV (80.0-100.0) fL Plt Count (150-450) k/uL BUN (7-17) mg/dL Creatinine (0.52-1.04) mg/dL POC Glucose (mg/dL) 108 H (75-99) mg/dL Calcium (8.4-10.2) mg/dL Total Protein (6.3-8.2) g/dL Albumin (3.5-5.0) g/dL Crossmatch See Detail Assessment and Plan (1) Status post mitral valve repair Current Visit: Yes Status: Acute Code(s): Z98.890 - OTHER SPECIFIED POSTPROCEDURAL STATES SNOMED Code(s): 341499860 (2) CAD (coronary artery disease) Current Visit: Yes Status: Chronic Code(s): I25.10 - ATHSCL HEART DISEASE OF [place] CORONARY ARTERY W/O ANG PCTRS SNOMED Code(s): 08054700 (3) Mitral valve regurgitation Current Visit: Yes Status: Chronic Code(s): I34.0 - NONRHEUMATIC MITRAL ( VALVE) INSUFFICIENCY SNOMED Code(s): 35659547 Plan: Continue with current management. Continue with atrial pacing. Patient is becoming hypotensive with underlying atrial rhythm. Patient is going to get blood transfusion.
[2017-10-05] MEDS: PANTOPRAZOLE 40 MG TABLET PO SCH (09:25)
[2017-10-05] MEDS: INSULIN ASPART 100 UNIT/ML 1 ML 10 ML VIAL SQ SCH ×4 (09:25→21:09)
[2017-10-05] MEDS: ATORVASTATIN 40 MG TAB PO SCH (09:26)
[2017-10-05] MEDS: ASCORBIC ACID 500 MG TAB PO SCH ×2 (09:26→17:43)
[2017-10-05] MEDS: ASPIRIN 325 MG TAB PO SCH (09:26)
[2017-10-05] MEDS: MUPIROCIN 2% OINT 22 GM TUBE NASAL SCH ×2 (09:26→21:08)
[2017-10-05] MEDS: CLOPIDOGREL 75 MG TAB PO SCH (09:26)
[2017-10-05] MEDS: FERROUS SULFATE 325 MG TAB PO SCH ×2 (09:26→17:43)
[2017-10-05] MEDS: SULFAMETHOX-TMP 800-160MG 1 EACH TAB PO SCH (09:27)
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
[2017-10-05] MEDS ORDERED: FUROSEMIDE 10 MG/ML 2 ML VIAL IV ONE (10:00)
--- NOTE | 2017-10-05 12:17 | P.PN ---
Subjective Progress Note Date: 10/05/17 Principal diagnosis: Mitral valve repair GEN continued to have urinary retention and received straight cath 2 in the last 24 hours. Patient is at baseline mental status and has had 4 bowel movements since providing bowel regimen. No major events reported by nursing staff and this morning was decreased and patient was ordered 1 unit to be transfused per general surgery recommendation Objective - Vital Signs Vital signs: Vital Signs Temp 97.9 F 10/05/17 11:42 Pulse 69 10/05/17 12:03 Resp 17 10/05/17 11:42 BP 117/36 10/05/17 11:42 Pulse Ox 93 L 10/05/17 11:42 Intake & Output 10/04/17 10/05/17 10/05/17 18:59 06:59 18:59 Intake Total 1504.862 532 440 Output Total 615 480 Balance 889.862 52 440 Weight 68.5 kg 67.4 kg Intake: IV 402 312 130 0.9 NS kvo 80 Lactated Ringers 1,000 ml 250 240 100 @ 20 mls/hr IV .Q24H [facility] Rx#:[id number] pressure bag 72 72 30 Intake, IV Titration 2.862 Amount Insulin Regular 100 unit 2.862 In Sodium Chloride 0.9% 100 ml @ Per Protocol IV .Q0M [facility] Rx#:[id number] Oral 1100 220 Blood Product 310 Rc As-1 Unit 310 [id number] Output: Chest Tube Drainage 40 Chest Tube Mediastinal 20 Right Pleural Chest Tube 20 Urine 575 480 Uretheral ([place]) 135 Other: Voiding Method Bedpan # Bowel Movements 2 ABP, PAP, CO, CI - Last Documented Arterial Blood Pressure 120/41 Pulmonary Artery Pressure 45/6 Cardiac Output 5.2 Cardiac Index 2.9 - Exam Gen.: in stated age, no acute distress Heart: Normal S1-S2 Lungs: Clear to auscultation bilaterally Abdomen: Soft, no tenderness, positive bowel sounds in all 4 quadrant no guarding or rebound Skin: No new rash Psych: Alert and oriented 3 Neuro: No focal deficit Patient has arterial line and her left upper extremity in the radial area Patient has [place] catheter with clear urine in the bag - Labs CBC & Chem 7: 10/05/17 05:26 10/05/17 05:26 Labs: Abnormal Lab Results - Last 24 Hours (Table) 10/04/17 10/04/1710/04/18 Range/Units 12:57 17:00 20:50 RBC (3.80-5.40) m/uL Hgb (11.4-16.0) gm/dL Hct (34.0-46.0) % MCV (80.0-100.0) fL Plt Count (150-450) k/uL BUN (7-17) mg/dL Creatinine (0.52-1.04) mg/dL POC Glucose (mg/dL) 140 H 109 H 136 H (75-99) mg/dL Calcium (8.4-10.2) mg/dL Total Protein (6.3-8.2) g/dL Albumin (3.5-5.0) g/dL Crossmatch 10/05/17 10/05/17 10/05/17 Range/Units 05:26 05:26 06:54 RBC 1.97 L (3.80-5.40) m/uL Hgb 6.4 L* (11.4-16.0) gm/dL Hct 19.7 L* (34.0-46.0) % MCV 100.2 H (80.0-100.0) fL Plt Count 112 L (150-450) k/uL BUN 18 H (7-17) mg/dL Creatinine 1.10 H (0.52-1.04) mg/dL POC Glucose (mg/dL) 108 H (75-99) mg/dL Calcium 8.1 L (8.4-10.2) mg/dL Total Protein 4.3 L (6.3-8.2) g/dL Albumin 2.8 L (3.5-5.0) g/dL Crossmatch 10/05/17 Range/Units 06:55 RBC (3.80-5.40) m/uL Hgb (11.4-16.0) gm/dL Hct (34.0-46.0) % MCV (80.0-100.0) fL Plt Count (150-450) k/uL BUN (7-17) mg/dL Creatinine (0.52-1.04) mg/dL POC Glucose (mg/dL) (75-99) mg/dL Calcium (8.4-10.2) mg/dL Total Protein (6.3-8.2) g/dL Albumin (3.5-5.0) g/dL Crossmatch See Detail Assessment and Plan Plan: 1. Status post mitral valve repair. 2. Minimal coronary artery disease. 3. Pneumothorax, small likely secondary to chest tube removal. 4. Hypertension. 5. Hyperlipidemia. 6. Mild hypertension. 7. Acute urinary retention. Could be related postsurgical versus Hypotension resolved yesterday after providing the bolus and patient's currently receiving Lasix 20 mg IV push per general surgery recommendation I discussed with the nursing staff to hold Cozaar and avoid further blood pressure medication unless her systolic above 1 daily. Patient is having for bowel movement and we will hold stool softener at this point. Will encourage oral intake and have physical and acute patient will therapy evaluated the patient's continue with straight cath for retention and ambulate patients in the room as tolerated we will consider further workup for retention if patient still having the same issue in the next 24 hours. A shunt received 1 unit of packed red blood cells and we will repeat CBC in the morning.
[2017-10-05 12:35] LABS: Glucose,Whole Blood 196 mg/dL (75-99)
[2017-10-05 12:52] LABS: Glucose,Whole Blood 233 mg/dL (75-99)
[2017-10-05] MEDS: LOSARTAN 50 MG TAB PO SCH (14:05)
--- NOTE | 2017-10-05 16:11 | P.PN ---
Subjective Progress Note Date: 10/05/17 Principal diagnosis: Shortness of breath Pleasant 82-year-old woman with a long-standing history of mitral valve prolapse who over the last year has been having increasing difficulties with fatigue and dyspnea on exertion. She had outpatient evaluation including a YARA showed the severe mitral valve regurgitation. Because her symptomatology she was referred to cardiovascular surgery and outpatient valuation revealed that she was a candidate for mitral valve repair. Consequently she was brought into hospital and 10/02/2017 for the elective aortic valve repair. In the days before her surgery routine evaluation revealed the patient was feeling well without fevers or chills with no urinary symptoms however she did have a positive urine culture with E. coli. It was an ESBL organism. At that time the question was posed with infectious disease as to what should be done. Given the patient had asymptomatic bacteriuria there was no specific reason to withhold her surgery and it was prudent to treat before surgery and for 3 days after surgery with appropriate antibiotic therapy. The patient is now had her mitral valve repair and is recovering well. Surprisingly she is denying any significant amounts of pain. Remains without fevers or chills. Denies any urinary symptoms. On 10/05/2017 she sitting up in the chair, has been having some of her lunch, pain is under good control but is upset because she's had several loose stools. She relates she does have IBS and often does have bouts of diarrhea. She is very embarrassed that she's had incontinent stool, she is denying abdominal pain she has no nausea or emesis but with her diarrhea her appetite is poor. She has no urinary symptoms. Her shortness of breath is improved. Objective - Vital Signs Vital signs: Vital Signs Temp 97.9 F 10/05/17 11:42 Pulse 72 10/05/17 16:00 Resp 29 H 10/05/17 16:00 BP 122/52 10/05/17 13:00 Pulse Ox 92 L 10/05/17 16:00 Intake & Output 10/04/17 10/05/17 10/05/17 18:59 06:59 18:59 Intake Total 1504.862 532 486 Output Total 615 480 2 Balance 889.862 52 484 Weight 68.5 kg 67.4 kg Intake: IV 402 312 176 0.9 NS kvo 80 Lactated Ringers 1,000 ml 250 240 140 @ 20 mls/hr IV .Q24H [facility] Rx#:[id number] pressure bag 72 72 36 Intake, IV Titration 2.862 Amount Insulin Regular 100 unit 2.862 In Sodium Chloride 0.9% 100 ml @ Per Protocol IV .Q0M [facility] Rx#:[id number] Oral 1100 220 Blood Product 310 Rc As-1 Unit 310 [id number] Output: Chest Tube Drainage 40 Chest Tube Mediastinal 20 Right Pleural Chest Tube 20 Urine 575 480 Uretheral ([place]) 135 Stool 2 Other: Voiding Method Bedpan # Bowel Movements 2 ABP, PAP, CO, CI - Last Documented Arterial Blood Pressure 103/43 Pulmonary Artery Pressure 45/6 Cardiac Output 5.2 Cardiac Index 2.9 - Exam Pleasant 82-year-old female status post surgery is comfortable HEENT: Anicteric conjunctiva are pink and moist nasal mucosa grossly intact without significant lesions, there is no thrush. Neck: The neck is supple without significant lymphadenopathy or thyromegaly. Lungs Symmetrical air entry with few basilar crackles Heart Regular with a rate of about 70 she's being paced no significant murmur was noted Abdomen: Positive bowel sounds soft and nontender without palpable masses or organomegaly. There was no guarding or rebound.No bladder tenderness Extremities: The upper extremities have excellent pulses they are symmetric, no significant petechiae or telangiectasia. No splinter hemorrhages were noted. The lower extremities are free from significant edema. The peripheral pulses were 2+ and symmetric. Neuro: Awake alert oriented to person place and time. There are no acute new gross focal sensory motor deficits. Skin is without lesions - Labs CBC & Chem 7: 10/05/17 05:26 10/05/17 14:18 Labs: Abnormal Lab Results - Last 24 Hours (Table) 10/04/17 10/04/17 10/05/17 Range/Units 17:00 20:50 05:26 RBC (3.80-5.40) m/uL Hgb (11.4-16.0) gm/dL Hct (34.0-46.0) % MCV (80.0-100.0) fL Plt Count (150-450) k/uL BUN 18 H (7-17) mg/dL Creatinine 1.10 H (0.52-1.04) mg/dL POC Glucose (mg/dL) 109 H 136 H (75-99) mg/dL Calcium 8.1 L (8.4-10.2) mg/dL Total Protein 4.3 L (6.3-8.2) g/dL Albumin 2.8 L (3.5-5.0) g/dL Crossmatch 10/05/17 10/05/17 10/05/17 Range/Units 05:26 06:54 06:55 RBC 1.97 L (3.80-5.40) m/uL Hgb 6.4 L* (11.4-16.0) gm/dL Hct 19.7 L* (34.0-46.0) % MCV 100.2 H (80.0-100.0) fL Plt Count 112 L (150-450) k/uL BUN (7-17) mg/dL Creatinine (0.52-1.04) mg/dL POC Glucose (mg/dL) 108 H (75-99) mg/dL Calcium (8.4-10.2) mg/dL Total Protein (6.3-8.2) g/dL Albumin (3.5-5.0) g/dL Crossmatch See Detail 10/05/17 10/05/17 Range/Units 12:33 12:47 RBC (3.80-5.40) m/uL Hgb (11.4-16.0) gm/dL Hct (34.0-46.0) % MCV (80.0-100.0) fL Plt Count (150-450) k/uL BUN (7-17) mg/dL Creatinine (0.52-1.04) mg/dL POC Glucose (mg/dL) 196 H 233 H (75-99) mg/dL Calcium (8.4-10.2) mg/dL Total Protein (6.3-8.2) g/dL Albumin (3.5-5.0) g/dL Crossmatch Laboratory Results WBC 5.7 k/uL (3.8-10.6) 10/05/17 05:26 RBC 1.97 m/uL (3.80-5.40) L 10/05/17 05:26 Hgb 6.4 gm/dL (11.4-16.0) L* 10/05/17 05:26 Hct 19.7 % (34.0-46.0) L* 10/05/17 05:26 MCV 100.2 fL (80.0-100.0) H 10/05/17 05:26 MCH 32.5 pg (25.0-35.0) 10/05/17 05:26 MCHC 32.4 g/dL (31.0-37.0) 10/05/17 05:26 RDW 13.6 % (11.5-15.5) 10/05/17 05:26 Plt Count 112 k/uL (150-450) L 10/05/17 05:26 Neutrophils % 74 % 10/05/17 05:26 Lymphocytes % 18 % 10/05/17 05:26 Monocytes % 5 % 10/05/17 05:26 Eosinophils % 1 % 10/05/17 05:26 Basophils % 0 % 10/05/17 05:26 Neutrophils # 4.2 k/uL (1.3-7.7) 10/05/17 05:26 Lymphocytes # 1.0 k/uL (1.0-4.8) 10/05/17 05:26 Monocytes # 0.3 k/uL (0-1.0) 10/05/17 05:26 Eosinophils # 0.1 k/uL (0-0.7) 10/05/17 05:26 Basophils # 0.0 k/uL (0-0.2) 10/05/17 05:26 Manual Slide Review Performed 10/02/17 14:05 RBC Morphology Normal 10/02/17 14:05 Macrocytosis Slight 10/05/17 05:26 PT 11.9 sec (9.0-12.0) 10/03/17 04:00 INR 1.3 (<1.2) H 10/03/17 04:00 APTT 29.9 sec (22.0-30.0) 10/03/17 04:00 Sample Site gurpreet 10/02/17 17:55 ABG pH 7.36 (7.35-7.45) 10/02/17 17:55 ABG pCO2 43 mmHg (35-45) 10/02/17 17:55 ABG pO2 79 mmHg (83-108) L 10/02/17 17:55 ABG HCO3 24 mmol/L (21-25) 10/02/17 17:55 ABG Total CO2 26 mmol/L (19-24) H 10/02/17 17:55 ABG O2 Saturation 97.2 % (94-97) H 10/02/17 17:55 ABG Base Excess -1.1 mmol/L 10/02/17 17:55 ABG Hematocrit 25 % (34.0-46.0) L 10/02/17 12:35 Elfego Test Yes 10/02/17 17:55 ABG Sodium 140 mmol/L (135-146) 10/02/17 12:35 ABG Potassium 4.0 mmol/L (3.4-4.5) 10/02/17 12:35 ABG Ionized Calcium 4.3 mg/dL (4.5-5.3) L 10/02/17 12:35 ABG Glucose 129 mg/dL (75-99) H 10/02/17 12:35 ABG Lactic Acid 1.0 mmol/L (0.5-1.6) 10/02/17 12:35 Hemoglobin 8.0 gm/dL (11.4-16.0) L 10/02/17 12:35 FiO2 50 % 10/02/17 17:55 Sodium 138 mmol/L (137-145) 10/05/17 05:26 Potassium 3.7 mmol/L (3.5-5.1) 10/05/17 14:18 Chloride 103 mmol/L (98-107) 10/05/17 05:26 Carbon Dioxide 26 mmol/L (22-30) 10/05/17 05:26 Anion Gap 9 mmol/L 10/05/17 05:26 BUN 18 mg/dL (7-17) H 10/05/17 05:26 Creatinine 1.10 mg/dL (0.52-1.04) H 10/05/17 05:26 Est GFR (CKD-EPI)AfAm 54 (>60 ml/min/1.73 sqM) 10/05/17 05:26 Est GFR (CKD-EPI)NonAf 47 (>60 ml/min/1.73 sqM) 10/05/17 05:26 Glucose 85 mg/dL (74-99) 10/05/17 05:26 POC Glucose (mg/dL) 233 mg/dL (75-99) H 10/05/17 12:47 POC Glu Clinical Rehabilitation Aide ID Darrel Hilario 10/05/17 12:[address] Glu mg/dL 108 10/02/17 14:05 Hemoglobin A1c 5.4 % (4.0-6.0) 10/02/17 14:05 Calcium 8.1 mg/dL (8.4-10.2) L 10/05/17 05:26 Ionized Calcium Ivan 4.9 mg/dL (4.5-5.3) 10/04/17 04:30 Phosphorus 3.2 mg/dL (2.5-4.5) 10/05/17 05:26 Magnesium 2.3 mg/dL (1.6-2.3) 10/05/17 05:26 Total Bilirubin 0.4 mg/dL (0.2-1.3) 10/05/17 05:26 AST 35 U/L (14-36) 10/05/17 05:26 ALT 28 U/L (9-52) 10/05/17 05:26 Alkaline Phosphatase 45 U/L (38-126) 10/05/17 05:26 Total Protein 4.3 g/dL (6.3-8.2) L 10/05/17 05:26 Albumin 2.8 g/dL (3.5-5.0) L 10/05/17 05:26 Arterial Blood Potassium 4.0 mmol/L (3.4-4.5) 10/02/17 12:35 Arterial Blood Glucose 129 mg/dL (75-99) H 10/02/17 12:35 Blood Type A Positive 10/05/17 06:55 Blood Type Recheck No 10/05/17 06:55 Antibody Screen NEGATIVE 10/05/17 06:55 Crossmatch See Detail 10/05/17 06:55 Transfuse Platelets 10/02/2017 09/25/17 08:24 Spec Expiration Date 10/08/2017 - 8859 10/05/17 06:55 Assessment and Plan (1) Mitral valve regurgitation Current Visit: Yes Status: Chronic Code(s): I34.0 - NONRHEUMATIC MITRAL ( VALVE) INSUFFICIENCY SNOMED Code(s): 17007458 (2) S/P mitral valve repair Current Visit: Yes Status: Acute Code(s): Z98.890 - OTHER SPECIFIED POSTPROCEDURAL STATES SNOMED Code(s): 255225428 (3) 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 Narrative/Plan: Pleasant 82-year-old female presents to Hospital for her elective mitral valve repair for her significant and symptomatic mitral valve regurgitation. The patient's surgery is been successful and she is recovering well. Preoperatively there was evidence of a urine culture that was positive for ESBL E. coli. Fortunately the patient is asymptomatic and does have asymptomatic bacteriuria. Given the complexity of the cardiovascular surgery should be treated for 3 days after her surgery with Bactrim which fortunately the E. coli is susceptible to. Patient is improving with no evidence of any other infection at this time. 10/05/2017 will complete her course of oral Bactrim today. She developed multiple loose stools, nursing staff and not related at that there is characteristic C. diff stool. Patient relates that she has diarrhea like this she normally takes some probiotic and some Imodium which will be given. Hopefully discontinuation of antibiotic therapy and improved diet her gastric intestinal function will improve. She's had some worsening anemia that is potential that the trimethoprim sulfamethoxazole has impacted this and hopefully with its removal will allow rapid recovery of her hemoglobin. Current Visit: Yes Status: Chronic Code(s): Z86.19 - PERSONAL HISTORY OF OTHER INFECTIOUS AND PARASITIC DISEASES SNOMED Code(s): 322729588
[2017-10-05] MEDS ORDERED: LOPERAMIDE 2 MG CAP PO PRN (16:12)
[2017-10-05] MEDS: LACTATED RINGERS 1,000 ML IV SCH (16:13)
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
[2017-10-05] MEDS ORDERED: POTASSIUM CHLORIDE ER 20 MEQ TAB.ER PO SCH (17:00)
[2017-10-05 17:43] LABS: Glucose,Whole Blood 194 mg/dL (75-99)
[2017-10-05] MEDS: LACTOBACILLUS ACIDOPH & BULGAR 1 EACH PACKET PO SCH ×2 (17:43→21:07)
[2017-10-05] MEDS ORDERED: FUROSEMIDE 10 MG/ML 2 ML VIAL IV SCH (18:00)
[2017-10-05 20:54] LABS: Glucose,Whole Blood 116 mg/dL (75-99)
[2017-10-05] MEDS: AMITRIPTYLINE HCL 25 MG TAB PO SCH (21:08)
[2017-10-05] MEDS: clonazePAM 0.5 MG TAB PO SCH (21:08)
[2017-10-06] MEDS: HEPARIN SODIUM,PORCINE 5,000 UNIT/ML 1 ML VIAL SQ SCH ×4 (01:05→23:00)
[2017-10-06] MEDS: BENZOCAINE/MENTHOL LOZENG 1 EACH LOZENGE MUCOUS MEM PRN ×2 (02:36→15:49)
[2017-10-06 05:28] LABS: Basophils % (A) 0 %; Eosinophils # (A) 0.1 k/uL (0-0.7); Eosinophils % (A) 1 %; HCT 24.7 % (34.0-46.0); Lymphocytes # (A) 1.1 k/uL (1.0-4.8); Lymphocytes % (A) 19 %; MCH 32.4 pg (25.0-35.0); MCV 98.4 fL (80.0-100.0); Mean Platelet Volume 7.6; Monocytes # (A) 0.3 k/uL (0-1.0); Monocytes % (A) 6 %; Neutrophils # (A) 4.3 k/uL (1.3-7.7); Neutrophils % (A) 72 %; Platelet Count 157 k/uL (150-450); RBC 2.51 m/uL (3.80-5.40); RDW 14.2 % (11.5-15.5); WBC 5.9 k/uL (3.8-10.6)
[2017-10-06 05:30] LABS: HGB 8.2 gm/dL (11.4-16.0)
[2017-10-06 05:54] LABS: Albumin 2.9 g/dL (3.5-5.0); Calcium 8.4 mg/dL (8.4-10.2); Phosphorus 2.5 mg/dL (2.5-4.5); Total Bilirubin 0.7 mg/dL (0.2-1.3); Total Protein 4.6 g/dL (6.3-8.2)
[2017-10-06 07:06] LABS: Glucose,Whole Blood 118 mg/dL (75-99)
--- NOTE | 2017-10-06 07:27 | XR ---
EXAMINATION TYPE: XR chest 1V portable DATE OF EXAM: 10/06/2017 Comparison: 10/05/2017 Clinical History: 82-year-old female post cardiac surgery Findings: Median sternotomy wires. Annuloplasty ring is present. Heart borderline enlarged with elongation of t he thoracic aorta. Relative upper lung lucencies but with diffuse interstitial prominence and small b ilateral pleural effusions with prominent bibasilar opacities. Old healed left-sided rib fracture def ormities. Impression: 1. Correlate for continued mild CHF on a background of COPD. 2. Persistent small pleural effusions with prominent adjacent bibasilar atelectasis and/or consolidat ion.
[2017-10-06] MEDS: SYMBICORT 160-4.5 MCG INHALER INHALATION SCH ×2 (07:39→19:15)
[2017-10-06] MEDS: IPRATROPIUM-ALBUTEROL 3 ML NEB INHALATION SCH ×4 (07:39→19:15)
[2017-10-06] MEDS ORDERED: FUROSEMIDE 10 MG/ML 2 ML VIAL IV ONE (07:41)
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
[2017-10-06] MEDS ORDERED: POTASSIUM CHLORIDE ER 20 MEQ TAB.ER PO SCH (08:00)
[2017-10-06] MEDS: INSULIN ASPART 100 UNIT/ML 1 ML 10 ML VIAL SQ SCH ×4 (08:52→20:33)
[2017-10-06] MEDS: MAGNESIUM SULFATE-D5W PMX 1 GM in DEXTROSE/WATER 1 100ML.BAG IVPB SCH ×2 (08:52→10:43)
[2017-10-06] MEDS: ATORVASTATIN 40 MG TAB PO SCH (08:52)
[2017-10-06] MEDS: ASCORBIC ACID 500 MG TAB PO SCH ×2 (08:52→17:35)
[2017-10-06] MEDS: ASPIRIN 325 MG TAB PO SCH (08:53)
[2017-10-06] MEDS: FERROUS SULFATE 325 MG TAB PO SCH ×2 (08:53→17:35)
[2017-10-06] MEDS: PANTOPRAZOLE 40 MG TABLET PO SCH (08:53)
[2017-10-06] MEDS: CLOPIDOGREL 75 MG TAB PO SCH (08:53)
[2017-10-06] MEDS: OXYMETAZOLINE 0.05% NASL SPRAY 1 SPRAY BOTTLE NASAL SCH ×2 (08:54→20:09)
[2017-10-06] MEDS: LACTOBACILLUS ACIDOPH & BULGAR 1 EACH PACKET PO SCH ×3 (08:54→20:06)
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
--- NOTE | 2017-10-06 10:52 | P.PN ---
Subjective Progress Note Date: 10/06/17 This is a 82-year-old female status post mitral repair. Patient is doing much better. No complaints of any chest pain. Her heart rhythm is sinus. Vital signs are stable. Having difficulty with voiding and patient has Naranjo catheter. Patient most probably be transferred to telemetry unit Objective - Vital Signs Vital signs: Vital Signs Temp 98.6 F 10/06/17 08:00 Pulse 81 10/06/17 10:00 Resp 24 10/06/17 10:00 BP 122/52 10/05/17 13:00 Pulse Ox 93 L 10/06/17 10:00 Intake & Output 10/05/17 10/06/17 10/06/17 18:59 06:59 18:59 Intake Total 745 386 212 Output Total 502 1116 580 Balance 243 -170 -368 Weight 67.4 kg 70.1 kg Intake: IV 185 36 212 Lactated Ringers 1,000 ml 140 @ 20 mls/hr IV .Q24H [facility] Rx#:[id number] Magnesium Sulfate-D5w Pmx 200 1 gm In Dextrose/Water 1 100ml.bag @ 100 mls/hr IVPB Q1H [facility] Rx#: [id number] pressure bag 45 36 12 Oral 250 350 Blood Product 310 Rc As-1 Unit 310 [id number] Output: Urine 500 1115 580 Stool 2 1 Other: Voiding Method Bedpan Indwelling Catheter # Voids 1 # Bowel Movements 2 ABP, PAP, CO, CI - Last Documented Arterial Blood Pressure 124/40 Pulmonary Artery Pressure 45/6 Cardiac Output 5.2 Cardiac Index 2.9 - Exam GENERAL EXAM: Patient is alert and oriented and doesn't appear to be in any acute distress HEENT: Normocephalic. Normal reaction of pupils, equal size, normal range of extraocular motion. No erythema or exudates in the throat. NECK: No masses, no nuchal rigidity. CHEST: Postsurgical LUNGS: Diminished breath sounds at bases HEART: S1 and S2 normal with no audible mumurs or gallops. Regular rhythm, femorals equal on both sides.. ABDOMEN: No hepatosplenomegaly, normal bowel sounds, no guarding or rigidity. SKIN: No rashes CENTRAL NERVOUS SYSTEM: No focal deficits. EXTREMITIES: No cyanosis, clubbing or edema. - Labs CBC & Chem 7: 10/06/17 04:55 10/06/17 04:55 Labs: Abnormal Lab Results - Last 24 Hours (Table) 10/05/17 10/05/17 10/05/17 Range/Units 06:55 12:33 12:47 RBC (3.80-5.40) m/uL Hgb (11.4-16.0) gm/dL Hct (34.0-46.0) % Glucose (74-99) mg/dL POC Glucose (mg/dL) 196 H 233 H (75-99) mg/dL Total Protein (6.3-8.2) g/dL Albumin (3.5-5.0) g/dL Crossmatch See Detail 10/05/17 10/05/17 10/06/17 Range/Units 17:41 20:52 04:55 RBC 2.51 L (3.80-5.40) m/uL Hgb 8.2 L D (11.4-16.0) gm/dL Hct 24.7 L (34.0-46.0) % Glucose (74-99) mg/dL POC Glucose (mg/dL) 194 H 116 H (75-99) mg/dL Total Protein (6.3-8.2) g/dL Albumin (3.5-5.0) g/dL Crossmatch 10/06/17 10/06/17 Range/Units 04:55 07:03 RBC (3.80-5.40) m/uL Hgb (11.4-16.0) gm/dL Hct (34.0-46.0) % Glucose 111 H (74-99) mg/dL POC Glucose (mg/dL) 118 H (75-99) mg/dL Total Protein 4.6 L (6.3-8.2) g/dL Albumin 2.9 L (3.5-5.0) g/dL Crossmatch Assessment and Plan (1) Status post mitral valve repair Current Visit: Yes Status: Acute Code(s): Z98.890 - OTHER SPECIFIED POSTPROCEDURAL STATES SNOMED Code(s): 338138644 (2) CAD (coronary artery disease) Current Visit: Yes Status: Chronic Code(s): I25.10 - ATHSCL HEART DISEASE OF [place] CORONARY ARTERY W/O ANG PCTRS SNOMED Code(s): 50362403 (3) Mitral valve regurgitation Current Visit: Yes Status: Chronic Code(s): I34.0 - NONRHEUMATIC MITRAL ( VALVE) INSUFFICIENCY SNOMED Code(s): 72423532 Plan: Patient is stable. She has regained sinus rhythm. Heart rate in the 70s. Blood pressure stable. Patient having any difficulties with urination. Patient is being transferred to telemetry unit.
--- NOTE | 2017-10-06 12:14 | P.PN ---
Subjective Progress Note Date: 10/06/17 Principal diagnosis: Post mitral valve repair, CAD, hypertension, hyperlipidemia, hyperglycemia and anemia 82 years old female patient of Dr. Crain with past medical history mitral valve prolapse, hypertension, osteoarthritis, coronary artery disease with cath from 2017 suggested intermediate disease in the ostial diagonal branch of LAD, depression, irritable bowel syndrome, hyperlipidemia presented for an electivemitral valve repair. Patient was evaluated postoperatively. Currently intubated, and assist control mode on 100% FiO2, PEEP of 5, tidal volume 450. Patient had symptoms of dyspnea on exertion for the past few months for which she was definitely cardiothoracic surgery for mitral valve surgery. Last vital signs suggestive pulses are 139, blood pressure 141/65, FiO2 100% on mechanical ventilation. Labs suggestive hemoglobin of 7.7, platelet 84, INR 1.5. ABG suggests an oxygen of 215, CO2 25, glucose 131, calcium 7.5. Chest x-ray suggestive of mild vascular congestion, chronic parenchymal changes with new patchy left basilar atelectasis, with right apical chest tube and mediastinal drainage catheter. 10/03: Patient remains in intensive care unit. She has been successfully extubated. Patient does complain of some chest discomfort. No significant shortness of breath. But sugars are running 1 tender 117. 10/06: Patient is doing much better had to reinsert Naranjo catheter because of urinary retention otherwise patient probably stable to be out of the ICU her chest tube is out so far patient is on O2 only along with updraft treatment rating oral diet and oral medication. Objective - Vital Signs Vital signs: Vital Signs Temp 98.6 F 10/06/17 08:00 Pulse 76 10/06/17 11:04 Resp 24 10/06/17 10:00 BP 122/52 10/05/17 13:00 Pulse Ox 93 L 10/06/17 10:00 Intake & Output 10/05/17 10/06/17 10/06/17 18:59 06:59 18:59 Intake Total 745 386 212 Output Total 442 1816 668 Balance 486 -871 -580 Weight 67.4 kg 70.1 kg Intake: IV 185 36 212 Lactated Ringers 1,000 ml 140 @ 20 mls/hr IV .Q24H [facility] Rx#:[id number] Magnesium Sulfate-D5w Pmx 200 1 gm In Dextrose/Water 1 100ml.bag @ 100 mls/hr IVPB Q1H [facility] Rx#: [id number] pressure bag 45 36 12 Oral 250 350 Blood Product 310 Rc As-1 Unit 310 [id number] Output: Urine 500 1115 580 Stool 2 1 Other: Voiding Method Bedpan Indwelling Catheter # Voids 1 # Bowel Movements 2 ABP, PAP, CO, CI - Last Documented Arterial Blood Pressure 124/40 Pulmonary Artery Pressure 45/6 Cardiac Output 5.2 Cardiac Index 2.9 - Constitutional General appearance: Present: cooperative, disheveled, no acute distress. Absent : average body habitus, mild distress, morbidly obese, obese, severe distress, thin - EENT Eyes: Present: normal appearance. Absent: abnormal pupil, anicteric sclerae, disc margins sharp, edentulous, EOMI, PERRLA, fundus normal, photophobia, dentition normal, poor dentition, ptosis, scleral icterus ENT: Present: normal oropharynx, pharyngeal erythema. Absent: hard of hearing, hearing grossly normal, NA/AT, other, thrush, tonsillar exudates, tonsillar swelling Ears: bilateral: normal - Neck Neck: Present: normal ROM. Absent: lymphadenopathy, other, rigidity, stridor, thyromegaly Carotids: bilateral: upstroke normal Thyroid: bilateral: normal size - Respiratory Respiratory: left: dullness, rales, bilateral: CTA, diminished - Cardiovascular Rhythm: regular Heart sounds: normal: S1, S2 Abnormal Heart Sounds: Present: systolic murmur, S3 Gallop - Gastrointestinal General gastrointestinal: Present: distended, tenderness. Absent: absent bowel sounds, decreased bowel sounds, hepatomegaly, hyperactive bowel sounds, normal bowel sounds, organomegaly, rigid, scaphoid, soft, splenomegaly, umbilical hernia, ventral hernia - Integumentary Integumentary: Present: normal, pale. Absent: calor, cellulitis, cyanotic, decreased turgor, flushed, jaundiced, normal turgor, rash, ulcer - Neurologic Neurologic: Present: CNII-XII intact - Musculoskeletal Musculoskeletal: Present: gait normal, generalized weakness, strength equal bilaterally. Absent: right sided weakness, left sided weakness - Psychiatric Psychiatric: Present: A&O x's 3, appropriate affect - Labs CBC & Chem 7: 10/06/17 04:55 10/06/17 04:55 Labs: Abnormal Lab Results - Last 24 Hours (Table) 10/05/17 10/05/17 10/05/17 Range/Units 12:33 12:47 17:41 RBC (3.80-5.40) m/uL Hgb (11.4-16.0) gm/dL Hct (34.0-46.0) % Glucose (74-99) mg/dL POC Glucose (mg/dL) 196 H 233 H 194 H (75-99) mg/dL Total Protein (6.3-8.2) g/dL Albumin (3.5-5.0) g/dL 10/05/17 10/06/17 10/06/17 Range/Units 20:52 04:55 04:55 RBC 2.51 L (3.80-5.40) m/uL Hgb 8.2 L D (11.4-16.0) gm/dL Hct 24.7 L (34.0-46.0) % Glucose 111 H (74-99) mg/dL POC Glucose (mg/dL) 116 H (75-99) mg/dL Total Protein 4.6 L (6.3-8.2) g/dL Albumin 2.9 L (3.5-5.0) g/dL 10/06/17 Range/Units 07:03 RBC (3.80-5.40) m/uL Hgb (11.4-16.0) gm/dL Hct (34.0-46.0) % Glucose (74-99) mg/dL POC Glucose (mg/dL) 118 H (75-99) mg/dL Total Protein (6.3-8.2) g/dL Albumin (3.5-5.0) g/dL Assessment and Plan Plan: #1 mitral valve prolapse with severe mitral regurgitation status post operative day 4 , mitral valve repair, doing well still in the ICU hopefully will be transfer to the floor today, she has no NG tube ET tube or chest tube currently we'll advance activity and physical therapy. #2 coronary artery disease. Continue daily aspirin and medical management only. #3 hypertension. Hold Norvasc for losartan #4 hypercholesterolemia hold Zocor as patient is intubated. Plan to extubate, Can be resumed for swallow evaluation #5 hyperglycemia. Continue insulin drip. No history of diabetes. HbA1c ordered #6 anemia with thrombocytopenia secondary to blood loss expected outcome of the surgery. CBC daily. Transfusion for hemoglobin less than 7 postop #7 history of anxiety. Hold Klonopin as patient is sedated. #8 history of depression amitriptyline can be initiated post extubation
[2017-10-06 12:27] LABS: Glucose,Whole Blood 156 mg/dL (75-99)
[2017-10-06] MEDS: AMIODARONE 450 MG in DEXTROSE 5% IN WATER 250 ML IV PRN ×4 (15:20→23:00)
--- NOTE | 2017-10-06 16:43 | P.CONS ---
History of Present Illness - Chief Complaint Cardiac debility - History of Present Illness I had the opportunity to see patient for inpatient rehab consultation with regard to cardiac debility. She was admitted to [facility] October 02 with known mitral valve disease, elective MVR performed by Dr. Castro. Also seen and consultations by Elvia Jacobson Brooks. Dr. Snyder outpatient for ESBL E. coli. Chest x-rays followed for mild CHF and small effusions as well as COPD. PT reports two-person total assistance for functional mobility and transfer. Patient reports a 2 person assistance for transfer from bed to Claudine chair. OT prescribed. Previous functional history as elicited from patient: 63-year-old right-handed white female who is lives and 2 floor home with . Retired. Describes independent with cooking, laundry, driving, standing shower and gait without device. History smoking but doesn't smoke currently. Perhaps a nightly drink. Dr. Crain is regular doctor. Family history of cardiac disease in father. Review of Systems Review of systems: ENT: Denies sneezes or discharge. Eyes: Denies discharge or photophobia. Cardiac: Denies chest pain or palpitation. Midline or sternal chest discomfort. Pulmonary: Mild shortness of breath. Breast: Denies discharge or lumps. Gastrointestinal: Denies nausea, emesis, constipation, diarrhea. Genitourinary: Denies discharge or frequency. Musculoskeletal: Denies muscle or bone aches. Neurologic: Generalized weakness. Endocrine: Denies shakes or sweats. Oncology: Denies cancers. Dermatologic: Denies rash, itching, pruritus. ALLERGY/immunology: Denies sneezes, rashes. Past Medical History Past Medical History: Cancer, Hyperlipidemia, Hypertension, Mitral Valve Prolapse (MVP), Osteoarthritis (OA) Additional Past Medical History / Comment(s): IBS, SKIN CANCER, SOB w/exertion History of Any Multi-Drug Resistant Organisms: None Reported Past Surgical History: Heart Catheterization, Joint Replacement Additional Past Surgical History / Comment(s): REGAN TOTAL KNEES. Past Anesthesia/Blood Transfusion Reactions: No Reported Reaction Smoking Status: Former smoker (Crit a year ago) - Past Family History Sister(s) Family Medical History: Cancer Additional Family Medical History / Comment(s): BOWEL CANCER Medications and Allergies Home Medications Medication Instructions Recorded Confirmed Type Aspirin [Adult Low Dose Aspirin EC] 81 mg PO HS 05/01/17 10/02/17 History L.acidoph,Paracasei, B.lactis 1 cap PO DAILY 05/01/17 10/02/17 History [Probiotic] Losartan Potassium 100 mg PO HS 05/01/17 10/02/17 History Opc Antioxidant 1 tab PO DAILY 05/01/17 10/02/17 History Simvastatin [Zocor] 20 mg PO HS 05/01/17 10/02/17 History amLODIPine [Norvasc] 5 mg PO BID 05/01/17 10/02/17 History clonazePAM [KlonoPIN] 0.5 mg PO HS 05/01/17 10/02/17 History Amitriptyline HCl [Elavil] 12.5 mg PO HS 09/25/17 10/02/17 History Mupirocin 2% Nasal Oint [Bactroban 1 applic NASAL BID 10/01/17 10/02/17 History 2% Nasal Oint] Sulfamethox-Tmp 800-160Mg [Bactrim 1 tab PO Q12HR 10/01/17 10/02/17 History DS 800-160 mg] Allergies Allergy/AdvReac Type Severity Reaction Status Date / Time fentanyl AdvReac Unknown COULDNT Verified 10/02/17 14:21 EAT. Physical Exam Vitals: Vital Signs Temp Pulse Resp BP Pulse Ox 10/06/17 16:00 99.1 F 85 24 157/52 94 L 10/06/17 15:32 81 10/06/17 15:20 84 91 L 10/06/17 13:00 80 25 H 119/57 96 10/06/17 12:33 93 L 10/06/17 12:00 98.4 F 88 22 118/48 93 L 10/06/17 11:04 76 10/06/17 10:53 77 10/06/17 10:00 81 24 93 L 10/06/17 09:00 79 24 93 L 10/06/17 08:00 98.6 F 76 28 H 96 10/06/17 07:55 77 10/06/17 07:43 72 10/06/17 07:00 64 19 96 10/06/17 06:30 66 22 96 10/06/17 06:00 70 22 96 10/06/17 05:30 70 22 96 10/06/17 05:00 70 24 95 10/06/17 04:30 99 F 73 22 94 L 10/06/17 04:00 70 22 95 10/06/17 03:30 76 21 97 10/06/17 03:00 75 27 H 95 10/06/17 02:30 79 29 H 92 L 10/06/17 02:00 75 25 H 96 10/06/17 01:53 95 10/06/17 01:45 75 25 H 87 L 10/06/17 01:30 80 39 H 84 L 10/06/17 01:00 100 F H 92 20 90 L 10/06/17 00:01 91 L 10/06/17 00:00 77 21 91 L 10/05/17 23:00 80 22 91 L 10/05/17 22:30 80 20 90 L 10/05/17 22:00 99.4 F 80 23 91 L 10/05/17 21:00 81 24 91 L 10/05/17 20:22 82 10/05/17 20:09 76 93 L 10/05/17 20:00 99.6 F 85 24 91 L 10/05/17 19:00 70 21 88 L 10/05/17 18:00 76 21 92 L 10/05/17 17:00 97.8 F 77 25 H 90 L 10/05/17 16:49 77 10/05/17 16:42 72 Intake and Output 10/06/17 10/06/17 10/06/17 06:59 14:59 22:59 Intake Total 24 215 Output Total 490 770 Balance -466 -555 Intake: IV 24 215 Magnesium Sulfate-D5w Pmx 200 1 gm In Dextrose/Water 1 100ml.bag @ 100 mls/hr IVPB Q1H [facility] Rx#: [id number] pressure bag 24 15 Output: Urine 490 770 Other: Voiding Method Indwelling Catheter Indwelling Catheter Weight 70.1 kg ABP, PAP, CO, CI - Last 8 Hours Arterial Blood Pressure 124/40 Arterial Blood Pressure 116/34 Skin: Good color, texture, turgor. General: Medium to overweight build and comfortable appearance. Head: Normocephalic, atraumatic. Eyes: Symmetric. Pupils equal round. Ears: Symmetric. Hearing within normal limits. Mouth: Clear. Neck: Supple. Carotid without bruit. Cardiac: Regular rate and rhythm. Tenotomy scar clean and dressed. Wearing harness. Lungs: Clear anteriorly and posteriorly. Abdomen: Soft active nontender. Extremities: Normal tone. Neurological: Mental status: Alert, cooperative, pleasant. Cranial nerves: Symmetric facial tone and trapezius. Motor: Active movement all 4 limbs. Sensation: Intact throughout. DTRs: Symmetric and equal throughout. Mobility: 2 person transfer for functional mobility. Results CBC & Chem 7: 10/06/17 04:55 10/06/17 04:55 Labs: Abnormal Lab Results - Last 24 Hours (Table) 10/05/17 10/05/17 10/06/17 Range/Units 17:41 20:52 04:55 RBC 2.51 L (3.80-5.40) m/uL Hgb 8.2 L D (11.4-16.0) gm/dL Hct 24.7 L (34.0-46.0) % Glucose (74-99) mg/dL POC Glucose (mg/dL) 194 H 116 H (75-99) mg/dL Total Protein (6.3-8.2) g/dL Albumin (3.5-5.0) g/dL 10/06/17 10/06/17 10/06/17 Range/Units 04:55 07:03 12:26 RBC (3.80-5.40) m/uL Hgb (11.4-16.0) gm/dL Hct (34.0-46.0) % Glucose 111 H (74-99) mg/dL POC Glucose (mg/dL) 118 H 156 H (75-99) mg/dL Total Protein 4.6 L (6.3-8.2) g/dL Albumin 2.9 L (3.5-5.0) g/dL Chest x-ray: report reviewed (Chest x-rays followed for mild CHF and small effusions as well as COPD.) Assessment and Plan (1) S/P mitral valve repair Current Visit: Yes Status: Acute Code(s): Z98.890 - OTHER SPECIFIED POSTPROCEDURAL STATES SNOMED Code(s): 604387296 (2) 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 Medical debility. 2. Mitral valve repair. 3. ESBL E. coli. 4. Hypertension. 5. Dyslipidemia. 6. Osteoarthritis. 7. History of cancer. Comments and plan: At this time PT ongoing and OT prescribed. Follow therapies with yourself. Have discussed possible inpatient rehabilitation needed with patient.
[2017-10-06 17:28] LABS: Glucose,Whole Blood 193 mg/dL (75-99)
[2017-10-06] MEDS: FUROSEMIDE 10 MG/ML 2 ML VIAL IV SCH (17:34)
[2017-10-06] MEDS: clonazePAM 0.5 MG TAB PO SCH (20:08)
[2017-10-06] MEDS: AMITRIPTYLINE HCL 25 MG TAB PO SCH (20:09)
[2017-10-06 20:33] LABS: Glucose,Whole Blood 212 mg/dL (75-99)
--- NOTE | 2017-10-06 22:41 | P.PN ---
Subjective Progress Note Date: 10/06/17 Principal diagnosis: Shortness of breath Pleasant 82-year-old woman with a long-standing history of mitral valve prolapse who over the last year has been having increasing difficulties with fatigue and dyspnea on exertion. She had outpatient evaluation including a YARA showed the severe mitral valve regurgitation. Because her symptomatology she was referred to cardiovascular surgery and outpatient valuation revealed that she was a candidate for mitral valve repair. Consequently she was brought into hospital and 10/02/2017 for the elective aortic valve repair. In the days before her surgery routine evaluation revealed the patient was feeling well without fevers or chills with no urinary symptoms however she did have a positive urine culture with E. coli. It was an ESBL organism. At that time the question was posed with infectious disease as to what should be done. Given the patient had asymptomatic bacteriuria there was no specific reason to withhold her surgery and it was prudent to treat before surgery and for 3 days after surgery with appropriate antibiotic therapy. The patient is now had her mitral valve repair and is recovering well. Surprisingly she is denying any significant amounts of pain. Remains without fevers or chills. Denies any urinary symptoms. On 10/05/2017 she sitting up in the chair, has been having some of her lunch, pain is under good control but is upset because she's had several loose stools. She relates she does have IBS and often does have bouts of diarrhea. She is very embarrassed that she's had incontinent stool, she is denying abdominal pain she has no nausea or emesis but with her diarrhea her appetite is poor. She has no urinary symptoms. Her shortness of breath is improved. 10/06/2017 the patient is working further with and is feeling better today. Her diarrhea has now resolved and she is able to eat without difficulty.he is denying significant amounts of pain and is doing well overall and denies any urinary symptoms. Objective - Vital Signs Vital signs: Vital Signs Temp 99.1 F 10/06/17 16:00 Pulse 88 10/06/17 19:33 Resp 25 H 10/06/17 17:00 BP 114/55 10/06/17 17:00 Pulse Ox 95 10/06/17 17:00 Intake & Output 10/06/17 10/06/17 10/07/17 06:59 18:59 06:59 Intake Total 386 360 220.992 Output Total 1116 950 Balance -730 -590 220.992 Weight 70.1 kg Intake: IV 36 360 Amiodarone 450 mg In 100 Dextrose 5% in Water 250 ml @ 1 MG/MIN 34.53 mls/ hr IV .Q7H31M PRN Rx#: [id number] Lactated Ringers 1,000 ml 30 @ 20 mls/hr IV .Q24H [facility] Rx#:[id number] Magnesium Sulfate-D5w Pmx 200 1 gm In Dextrose/Water 1 100ml.bag @ 100 mls/hr IVPB Q1H [facility] Rx#: [id number] pressure bag 36 30 Intake, IV Titration 220.992 Amount Amiodarone 450 mg In 220.992 Dextrose 5% in Water 250 ml @ 1 MG/MIN 34.53 mls/ hr IV .Q7H31M PRN Rx#: [id number] Oral 350 Output: Urine 1115 950 Stool 1 Other: Voiding Method Indwelling Catheter Indwelling Catheter # Voids 1 ABP, PAP, CO, CI - Last Documented Arterial Blood Pressure 124/40 Pulmonary Artery Pressure 45/6 Cardiac Output 5.2 Cardiac Index 2.9 - Exam Pleasant 82-year-old female status post surgery is comfortable HEENT: Anicteric conjunctiva are pink and moist nasal mucosa grossly intact without significant lesions, there is no thrush. Neck: The neck is supple without significant lymphadenopathy or thyromegaly. Lungs Symmetrical air entry with few basilar crackles Heart Regular with a rate of about 70 she's being paced no significant murmur was noted Abdomen: Positive bowel sounds soft and nontender without palpable masses or organomegaly. There was no guarding or rebound.No bladder tenderness Extremities: The upper extremities have excellent pulses they are symmetric, no significant petechiae or telangiectasia. No splinter hemorrhages were noted. The lower extremities are free from significant edema. The peripheral pulses were 2+ and symmetric. Neuro: Awake alert oriented to person place and time. There are no acute new gross focal sensory motor deficits. Skin is without lesions - Labs CBC & Chem 7: 10/06/17 04:55 10/06/17 04:55 Labs: Abnormal Lab Results - Last 24 Hours (Table) 10/06/17 10/06/17 10/06/17 Range/Units 04:55 04:55 07:03 RBC 2.51 L (3.80-5.40) m/uL Hgb 8.2 L D (11.4-16.0) gm/dL Hct 24.7 L (34.0-46.0) % Glucose 111 H (74-99) mg/dL POC Glucose (mg/dL) 118 H (75-99) mg/dL Total Protein 4.6 L (6.3-8.2) g/dL Albumin 2.9 L (3.5-5.0) g/dL 10/06/17 10/06/17 10/06/17 Range/Units 12:26 17:26 20:30 RBC (3.80-5.40) m/uL Hgb (11.4-16.0) gm/dL Hct (34.0-46.0) % Glucose (74-99) mg/dL POC Glucose (mg/dL) 156 H 193 H 212 H (75-99) mg/dL Total Protein (6.3-8.2) g/dL Albumin (3.5-5.0) g/dL Laboratory Results WBC 5.9 k/uL (3.8-10.6) 10/06/17 04:55 RBC 2.51 m/uL (3.80-5.40) L 10/06/17 04:55 Hgb 8.2 gm/dL (11.4-16.0) L D 10/06/17 04:55 Hct 24.7 % (34.0-46.0) L 10/06/17 04:55 MCV 98.4 fL (80.0-100.0) 10/06/17 04:55 MCH 32.4 pg (25.0-35.0) 10/06/17 04:55 MCHC 33.0 g/dL (31.0-37.0) 10/06/17 04:55 RDW 14.2 % (11.5-15.5) 10/06/17 04:55 Plt Count 157 k/uL (150-450) 10/06/17 04:55 Neutrophils % 72 % 10/06/17 04:55 Lymphocytes % 19 % 10/06/17 04:55 Monocytes % 6 % 10/06/17 04:55 Eosinophils % 1 % 10/06/17 04:55 Basophils % 0 % 10/06/17 04:55 Neutrophils # 4.3 k/uL (1.3-7.7) 10/06/17 04:55 Lymphocytes # 1.1 k/uL (1.0-4.8) 10/06/17 04:55 Monocytes # 0.3 k/uL (0-1.0) 10/06/17 04:55 Eosinophils # 0.1 k/uL (0-0.7) 10/06/17 04:55 Basophils # 0.0 k/uL (0-0.2) 10/06/17 04:55 Manual Slide Review Performed 10/02/17 14:05 RBC Morphology Normal 10/02/17 14:05 Macrocytosis Slight 10/05/17 05:26 PT 11.9 sec (9.0-12.0) 10/03/17 04:00 INR 1.3 (<1.2) H 10/03/17 04:00 APTT 29.9 sec (22.0-30.0) 10/03/17 04:00 Sample Site [email or web address] 10/02/17 17:55 ABG pH 7.36 (7.35-7.45) 10/02/17 17:55 ABG pCO2 43 mmHg (35-45) 10/02/17 17:55 ABG pO2 79 mmHg (83-108) L 10/02/17 17:55 ABG HCO3 24 mmol/L (21-25) 10/02/17 17:55 ABG Total CO2 26 mmol/L (19-24) H 10/02/17 17:55 ABG O2 Saturation 97.2 % (94-97) H 10/02/17 17:55 ABG Base Excess -1.1 mmol/L 10/02/17 17:55 ABG Hematocrit 25 % (34.0-46.0) L 10/02/17 12:35 [place] Test Yes 10/02/17 17:55 ABG Sodium 140 mmol/L (135-146) 10/02/17 12:35 ABG Potassium 4.0 mmol/L (3.4-4.5) 10/02/17 12:35 ABG Ionized Calcium 4.3 mg/dL (4.5-5.3) L 10/02/17 12:35 ABG Glucose 129 mg/dL (75-99) H 10/02/17 12:35 ABG Lactic Acid 1.0 mmol/L (0.5-1.6) 10/02/17 12:35 Hemoglobin 8.0 gm/dL (11.4-16.0) L 10/02/17 12:35 FiO2 50 % 10/02/17 17:55 Sodium 141 mmol/L (137-145) 10/06/17 04:55 Potassium 4.0 mmol/L (3.5-5.1) 10/06/17 04:55 Chloride 104 mmol/L (98-107) 10/06/17 04:55 Carbon Dioxide 27 mmol/L (22-30) 10/06/17 04:55 Anion Gap 10 mmol/L 10/06/17 04:55 BUN 13 mg/dL (7-17) 10/06/17 04:55 Creatinine 0.90 mg/dL (0.52-1.04) 10/06/17 04:55 Est GFR (CKD-EPI)AfAm 70 (>60 ml/min/1.73 sqM) 10/06/17 04:55 Est GFR (CKD-EPI)NonAf 60 (>60 ml/min/1.73 sqM) 10/06/17 04:55 Glucose 111 mg/dL (74-99) H 10/06/17 04:55 POC Glucose (mg/dL) 212 mg/dL (75-99) H 10/06/17 20:30 POC Glu [employer] PERLITA Mary Jane Mohan 10/06/17 20:[address] Glu mg/dL 108 10/02/17 14:05 Hemoglobin A1c 5.4 % (4.0-6.0) 10/02/17 14:05 Calcium 8.4 mg/dL (8.4-10.2) 10/06/17 04:55 Ionized Calcium Ivan 4.9 mg/dL (4.5-5.3) 10/04/17 04:30 Phosphorus 2.5 mg/dL (2.5-4.5) 10/06/17 04:55 Magnesium 2.0 mg/dL (1.6-2.3) 10/06/17 04:55 Total Bilirubin 0.7 mg/dL (0.2-1.3) 10/06/17 04:55 AST 36 U/L (14-36) 10/06/17 04:55 ALT 33 U/L (9-52) 10/06/17 04:55 Alkaline Phosphatase 60 U/L (38-126) 10/06/17 04:55 Total Protein 4.6 g/dL (6.3-8.2) L 10/06/17 04:55 Albumin 2.9 g/dL (3.5-5.0) L 10/06/17 04:55 Arterial Blood Potassium 4.0 mmol/L (3.4-4.5) 10/02/17 12:35 Arterial Blood Glucose 129 mg/dL (75-99) H 10/02/17 12:35 Blood Type A Positive 10/05/17 06:55 Blood Type Recheck No 10/05/17 06:55 Antibody Screen NEGATIVE 10/05/17 06:55 Crossmatch See Detail 10/05/17 06:55 Transfuse Platelets 10/02/2017 09/25/17 08:24 Spec Expiration Date 10/08/2017235410/05/17 06:55 Assessment and Plan (1) Mitral valve regurgitation Current Visit: Yes Status: Chronic Code(s): I34.0 - NONRHEUMATIC MITRAL ( VALVE) INSUFFICIENCY SNOMED Code(s): 96966343 (2) S/P mitral valve repair Current Visit: Yes Status: Acute Code(s): Z98.890 - OTHER SPECIFIED POSTPROCEDURAL STATES SNOMED Code(s): 134122489 (3) 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 Narrative/Plan: Pleasant 82-year-old female presents to Hospital for her elective mitral valve repair for her significant and symptomatic mitral valve regurgitation. The patient's surgery is been successful and she is recovering well. Preoperatively there was evidence of a urine culture that was positive for ESBL E. coli. Fortunately the patient is asymptomatic and does have asymptomatic bacteriuria. Given the complexity of the cardiovascular surgery should be treated for 3 days after her surgery with Bactrim which fortunately the E. coli is susceptible to. Patient is improving with no evidence of any other infection at this time. 10/05/2017 will complete her course of oral Bactrim today. She developed multiple loose stools, nursing staff and not related at that there is characteristic C. diff stool. Patient relates that she has diarrhea like this she normally takes some probiotic and some Imodium which will be given. Hopefully discontinuation of antibiotic therapy and improved diet her gastric intestinal function will improve. She's had some worsening anemia that is potential that the trimethoprim sulfamethoxazole has impacted this and hopefully with its removal will allow rapid recovery of her hemoglobin. 10/06/2017 patient is now further improved and is cooperating with physical therapy There is a potential for her to be transferred to inpatient rehab in the near future.she has completed her course of antibiotic therapy today. Fortunately her diarrhea is also resolving and she is feeling better. She denies any urinary symptoms and remains without fever. She did receive packed red cells and should continue to improve now that sulfa is removed. Current Visit: Yes Status: Chronic Code(s): Z86.19 - PERSONAL HISTORY OF OTHER INFECTIOUS AND PARASITIC DISEASES SNOMED Code(s): 292213642
[2017-10-06] MEDS ORDERED: ZOLPIDEM 5 MG TAB PO PRN (22:45)
[2017-10-07 05:17] LABS: HGB 8.7 gm/dL (11.4-16.0); MCH 31.8 pg (25.0-35.0); MCHC 32.3 g/dL (31.0-37.0); MCV 98.5 fL (80.0-100.0); Mean Platelet Volume 7.2; Platelet Count 213 k/uL (150-450); RBC 2.74 m/uL (3.80-5.40); RDW 14.1 % (11.5-15.5); WBC 6.1 k/uL (3.8-10.6)
[2017-10-07 05:43] LABS: Albumin 3.1 g/dL (3.5-5.0); Calcium 8.2 mg/dL (8.4-10.2); Potassium 4.2 mmol/L (3.5-5.1); Total Bilirubin 0.8 mg/dL (0.2-1.3); Total Protein 4.9 g/dL (6.3-8.2)
[2017-10-07] MEDS: FUROSEMIDE 10 MG/ML 2 ML VIAL IV SCH ×2 (06:25→17:24)
[2017-10-07] MEDS ORDERED: MELATONIN 5 MG TABLET PO PRN (07:33)
--- NOTE | 2017-10-07 07:44 | XR ---
EXAMINATION TYPE: XR chest 1V DATE OF EXAM: 10/07/2017 COMPARISON: NONE INDICATION: Post cardiac surgery TECHNIQUE: Single frontal view of the chest is obtained. FINDINGS: The heart size is normal. The pulmonary vasculature is normal. There is a mild infiltrate at the left base. Small bilateral pleural effusions are present. Sternotom y wires are present from previous cardiac valve surgery. EKG leads overlie the chest. Some opacity ov erlies the right chest. This may be overlying artifact or an infiltrate. IMPRESSION: 1. Multiple artifacts overlie the chest limiting the evaluation. 2. Mild infiltrate is suspected at the left base and small bilateral pleural effusions are present. C ontinued follow-up is recommended.
[2017-10-07] MEDS: IPRATROPIUM-ALBUTEROL 3 ML NEB INHALATION SCH ×4 (07:52→20:16)
[2017-10-07] MEDS: SYMBICORT 160-4.5 MCG INHALER INHALATION SCH ×2 (07:52→20:16)
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
[2017-10-07] MEDS: INSULIN ASPART 100 UNIT/ML 1 ML 10 ML VIAL SQ SCH ×4 (08:11→20:45)
[2017-10-07 08:12] LABS: Glucose,Whole Blood 139 mg/dL (75-99)
[2017-10-07] MEDS: AMIODARONE 200 MG TAB PO SCH ×2 (08:12→20:44)
[2017-10-07] MEDS: HEPARIN SODIUM,PORCINE 5,000 UNIT/ML 1 ML VIAL SQ SCH ×3 (08:13→23:31)
[2017-10-07] MEDS: ATORVASTATIN 40 MG TAB PO SCH (08:13)
[2017-10-07] MEDS: OXYMETAZOLINE 0.05% NASL SPRAY 1 SPRAY BOTTLE NASAL SCH ×2 (08:13→20:46)
[2017-10-07] MEDS: PANTOPRAZOLE 40 MG TABLET PO SCH (08:13)
[2017-10-07] MEDS: ASPIRIN 325 MG TAB PO SCH (08:13)
[2017-10-07] MEDS: LACTOBACILLUS ACIDOPH & BULGAR 1 EACH PACKET PO SCH ×3 (08:13→20:46)
[2017-10-07] MEDS: CLOPIDOGREL 75 MG TAB PO SCH (08:14)
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
--- NOTE | 2017-10-07 09:19 | P.PN ---
Subjective Progress Note Date: 10/07/17 This is a 82-year-old female status post mitral repair. Patient is doing much better. No complaints of any chest pain. Her heart rhythm is sinus. Vital signs are stable. Having difficulty with voiding and patient has Naranjo catheter. Patient most probably be transferred to telemetry unit. 10/07/2017: The patient is status post mitral repair. Patient went into atrial fibrillation, yesterday. Patient was started on IV amiodarone. She is back in sinus rhythm. Her blood pressures in the range of 140. Patient is on by mouth amiodarone. Patient is also being started on beta tariq. Patient also has postoperative anemia. Having issues with the urinary retention. Waiting to have urology input. Patient also needs incentive spirometry. Increase activity as tolerated. Possible transfer to telemetry unit Objective - Vital Signs Vital signs: Vital Signs Temp 98.6 F 10/07/17 08:00 Pulse 77 10/07/17 08:05 Resp 22 10/07/17 08:00 BP 136/61 10/07/17 08:00 Pulse Ox 97 10/07/17 08:00 Intake & Output 10/06/17 10/07/17 10/07/17 18:59 06:59 18:59 Intake Total 360 412.855 276.7 Output Total 950 1600 1000 Balance -590 -1187.145 -723.3 Weight 75.1 kg Intake: IV 360 170 36.7 Amiodarone 450 mg In 100 16.7 Dextrose 5% in Water 250 ml @ 1 MG/MIN 34.53 mls/ hr IV .Q7H31M PRN Rx#: [id number] Lactated Ringers 1,000 ml 30 170 20 @ 20 mls/hr IV .Q24H [facility] Rx#:[id number] Magnesium Sulfate-D5w Pmx 200 1 gm In Dextrose/Water 1 100ml.bag @ 100 mls/hr IVPB Q1H [facility] Rx#: [id number] pressure bag 30 Intake, IV Titration 242.855 Amount Amiodarone 450 mg In 242.855 Dextrose 5% in Water 250 ml @ 1 MG/MIN 34.53 mls/ hr IV .Q7H31M PRN Rx#: [id number] Oral 240 Output: Urine 950 1600 1000 Other: Voiding Method Indwelling Catheter Indwelling Catheter ABP, PAP, CO, CI - Last Documented Arterial Blood Pressure 124/40 Pulmonary Artery Pressure 45/6 Cardiac Output 5.2 Cardiac Index 2.9 - Exam GENERAL EXAM: Patient is alert and oriented and doesn't appear to be in any acute distress HEENT: Normocephalic. Normal reaction of pupils, equal size, normal range of extraocular motion. No erythema or exudates in the throat. NECK: No masses, no nuchal rigidity. CHEST: Postsurgical LUNGS: Diminished breath sounds at bases HEART: S1 and S2 normal with no audible mumurs or gallops. Regular rhythm, femorals equal on both sides.. ABDOMEN: No hepatosplenomegaly, normal bowel sounds, no guarding or rigidity. SKIN: No rashes CENTRAL NERVOUS SYSTEM: No focal deficits. EXTREMITIES: No cyanosis, clubbing or edema. - Labs CBC & Chem 7: 10/07/17 04:27 10/07/17 04:27 Labs: Abnormal Lab Results - Last 24 Hours (Table) 10/06/17 10/06/17 10/06/17 Range/Units 12:26 17:26 20:30 RBC (3.80-5.40) m/uL Hgb (11.4-16.0) gm/dL Hct (34.0-46.0) % Carbon Dioxide (22-30) mmol/L Glucose (74-99) mg/dL POC Glucose (mg/dL) 156 H 193 H 212 H (75-99) mg/dL Calcium (8.4-10.2) mg/dL AST (14-36) U/L Total Protein (6.3-8.2) g/dL Albumin (3.5-5.0) g/dL 10/07/17 10/07/17 10/07/17 Range/Units 04:27 04:27 08:10 RBC 2.74 L (3.80-5.40) m/uL Hgb 8.7 L (11.4-16.0) gm/dL Hct 27.0 L (34.0-46.0) % Carbon Dioxide 31 H (22-30) mmol/L Glucose 129 H (74-99) mg/dL POC Glucose (mg/dL) 139 H (75-99) mg/dL Calcium 8.2 L (8.4-10.2) mg/dL AST 54 H (14-36) U/L Total Protein 4.9 L (6.3-8.2) g/dL Albumin 3.1 L (3.5-5.0) g/dL Assessment and Plan (1) Status post mitral valve repair Current Visit: Yes Status: Acute Code(s): Z98.890 - OTHER SPECIFIED POSTPROCEDURAL STATES SNOMED Code(s): 117366713 (2) CAD (coronary artery disease) Current Visit: Yes Status: Chronic Code(s): I25.10 - ATHSCL HEART DISEASE OF [place] CORONARY ARTERY W/O ANG PCTRS SNOMED Code(s): 38698639 (3) Mitral valve regurgitation Current Visit: Yes Status: Chronic Code(s): I34.0 - NONRHEUMATIC MITRAL ( VALVE) INSUFFICIENCY SNOMED Code(s): 63353390 Plan: Patient is clinically stable with sinus rhythm at this time. Being initiated on beta tariq along with by mouth amiodarone. She is also getting IV Lasix. Possible transfer to telemetry.
[2017-10-07] MEDS: METOPROLOL TARTRATE 12.5 MG TAB PO SCH ×2 (09:43→20:45)
[2017-10-07 12:03] LABS: Glucose,Whole Blood 174 mg/dL (75-99)
[2017-10-07] MEDS: ESCITALOPRAM 10 MG TAB PO SCH (12:55)
--- NOTE | 2017-10-07 14:38 | P.PN ---
Subjective Progress Note Date: 10/07/17 82 years old female patient of Dr. Crain with past medical history mitral valve prolapse, hypertension, osteoarthritis, coronary artery disease with cath from 2017 suggested intermediate disease in the ostial diagonal branch of LAD, depression, irritable bowel syndrome, hyperlipidemia presented for an electivemitral valve repair. Patient was evaluated postoperatively. Currently intubated, and assist control mode on 100% FiO2, PEEP of 5, tidal volume 450. Patient had symptoms of dyspnea on exertion for the past few months for which she was definitely cardiothoracic surgery for mitral valve surgery. Last vital signs suggestive pulses are 139, blood pressure 141/65, FiO2 100% on mechanical ventilation. Labs suggestive hemoglobin of 7.7, platelet 84, INR 1.5. ABG suggests an oxygen of 215, CO2 25, glucose 131, calcium 7.5. Chest x-ray suggestive of mild vascular congestion, chronic parenchymal changes with new patchy left basilar atelectasis, with right apical chest tube and mediastinal drainage catheter. 10/03: Patient remains in intensive care unit. She has been successfully extubated. Patient does complain of some chest discomfort. No significant shortness of breath. But sugars are running 1 tender 117. 10/06: Patient is doing much better had to reinsert Naranjo catheter because of urinary retention otherwise patient probably stable to be out of the ICU her chest tube is out so far patient is on O2 only along with updraft treatment rating oral diet and oral medication. 10/07: Patient is somewhat sleepy today and did have difficulty sleeping. She received Ambien last night and she is also on melatonin. Patient did have a short period of atrial fibrillation and started on IV amiodarone which is to be transitioned to oral. Patient is to be transferred to [facility] care today. Discharge plan will be to [facility]. Objective - Vital Signs Vital signs: Vital Signs Temp 98.6 F 10/07/17 08:00 Pulse 77 10/07/17 08:05 Resp 22 10/07/17 08:00 BP 136/61 10/07/17 08:00 Pulse Ox 97 10/07/17 08:00 Intake & Output 10/06/17 10/07/17 10/07/17 18:59 06:59 18:59 Intake Total 360 412.855 276.7 Output Total 950 1600 1000 Balance -590 -1187.145 -723.3 Weight 75.1 kg Intake: IV 360 170 36.7 Amiodarone 450 mg In 100 16.7 Dextrose 5% in Water 250 ml @ 1 MG/MIN 34.53 mls/ hr IV .Q7H31M PRN Rx#: [id number] Lactated Ringers 1,000 ml 30 170 20 @ 20 mls/hr IV .Q24H [facility] Rx#:[id number] Magnesium Sulfate-D5w Pmx 200 1 gm In Dextrose/Water 1 100ml.bag @ 100 mls/hr IVPB Q1H [facility] Rx#: [id number] pressure bag 30 Intake, IV Titration 242.855 Amount Amiodarone 450 mg In 242.855 Dextrose 5% in Water 250 ml @ 1 MG/MIN 34.53 mls/ hr IV .Q7H31M PRN Rx#: [id number] Oral 240 Output: Urine 950 1600 1000 Other: Voiding Method Indwelling Catheter Indwelling Catheter ABP, PAP, CO, CI - Last Documented Arterial Blood Pressure 124/40 Pulmonary Artery Pressure 45/6 Cardiac Output 5.2 Cardiac Index 2.9 - Exam General appearance: Present: cooperative, disheveled, no acute distress. Absent : average body habitus, mild distress, morbidly obese, obese, severe distress, thin - EENT Eyes: Present: normal appearance. Absent: abnormal pupil, anicteric sclerae, disc margins sharp, edentulous, EOMI, PERRLA, fundus normal, photophobia, dentition normal, poor dentition, ptosis, scleral icterus ENT: Present: normal oropharynx, pharyngeal erythema. Absent: hard of hearing, hearing grossly normal, NA/AT, other, thrush, tonsillar exudates, tonsillar swelling Ears: bilateral: normal - Neck Neck: Present: normal ROM. Absent: lymphadenopathy, other, rigidity, stridor, thyromegaly Carotids: bilateral: upstroke normal Thyroid: bilateral: normal size - Respiratory Respiratory: left: dullness, rales, bilateral: CTA, diminished - Cardiovascular Rhythm: regular Heart sounds: normal: S1, S2 Abnormal Heart Sounds: Present: systolic murmur, S3 Gallop - Gastrointestinal General gastrointestinal: Present: distended, tenderness. Absent: absent bowel sounds, decreased bowel sounds, hepatomegaly, hyperactive bowel sounds, normal bowel sounds, organomegaly, rigid, scaphoid, soft, splenomegaly, umbilical hernia, ventral hernia - Integumentary Integumentary: Present: normal, pale. Absent: calor, cellulitis, cyanotic, decreased turgor, flushed, jaundiced, normal turgor, rash, ulcer - Neurologic Neurologic: Present: CNII-XII intact - Musculoskeletal Musculoskeletal: Present: gait normal, generalized weakness, strength equal bilaterally. Absent: right sided weakness, left sided weakness - Psychiatric Psychiatric: Present: A&O x's 3, appropriate affect - Labs CBC & Chem 7: 10/07/17 04:27 10/07/17 04:27 Labs: Abnormal Lab Results - Last 24 Hours (Table) 10/06/17 10/06/17 10/06/17 Range/Units 12:26 17:26 20:30 RBC (3.80-5.40) m/uL Hgb (11.4-16.0) gm/dL Hct (34.0-46.0) % Carbon Dioxide (22-30) mmol/L Glucose (74-99) mg/dL POC Glucose (mg/dL) 156 H 193 H 212 H (75-99) mg/dL Calcium (8.4-10.2) mg/dL AST (14-36) U/L Total Protein (6.3-8.2) g/dL Albumin (3.5-5.0) g/dL 10/07/17 10/07/17 10/07/17 Range/Units 04:27 04:27 08:10 RBC 2.74 L (3.80-5.40) m/uL Hgb 8.7 L (11.4-16.0) gm/dL Hct 27.0 L (34.0-46.0) % Carbon Dioxide 31 H (22-30) mmol/L Glucose 129 H (74-99) mg/dL POC Glucose (mg/dL) 139 H (75-99) mg/dL Calcium 8.2 L (8.4-10.2) mg/dL AST 54 H (14-36) U/L Total Protein 4.9 L (6.3-8.2) g/dL Albumin 3.1 L (3.5-5.0) g/dL Assessment and Plan Plan: #1 mitral valve prolapse with severe mitral regurgitation status post mitral valve repair. Successfully extubated. Continue incentive spirometry. Physical therapy once patient stabilizes and is responding to commands. Continue DuoNeb treatments, Symbicort #2 coronary artery disease. Continue daily aspirin, Lipitor, Plavix, Lopressor #3 hypertension. Hold Norvasc for losartan #4 hypercholesterolemia hold Zocor as patient is intubated. Plan to extubate, Can be resumed for swallow evaluation #5 hyperglycemia. Continue insulin drip. No history of diabetes. HbA1c ordered #6 anemia with thrombocytopenia secondary to blood loss expected outcome of the surgery. CBC daily. Transfusion for hemoglobin less than 7 postop #7 history of anxiety. Hold Klonopin as patient is sedated. #8 history of depression amitriptyline can be initiated post extubation #9 GI prophylaxis: Protonix 40 once a day #10 post op paroxysmal atrial fibrillation on amiodarone. 11. Postoperative urinary retention requiring Naranjo catheter. Urology consult. code status full code Discharge plan: Most likely to [facility]. Impression and plan of care have been directed as dictated by the signing physician. Dominga Pinto nurse practitioner acting as scribe for signing physician.
[2017-10-07 16:58] LABS: Glucose,Whole Blood 122 mg/dL (75-99)
[2017-10-07 20:06] LABS: Glucose,Whole Blood 193 mg/dL (75-99)
[2017-10-07] MEDS: AMITRIPTYLINE HCL 25 MG TAB PO SCH (20:45)
[2017-10-07] MEDS: clonazePAM 0.5 MG TAB PO SCH (20:45)
[2017-10-07] MEDS ORDERED: MELATONIN 5 MG TABLET PO SCH (21:00)
--- NOTE | 2017-10-07 21:49 | P.PN ---
Subjective Progress Note Date: 10/07/17 Principal diagnosis: Shortness of breath Pleasant 82-year-old woman with a long-standing history of mitral valve prolapse who over the last year has been having increasing difficulties with fatigue and dyspnea on exertion. She had outpatient evaluation including a YARA showed the severe mitral valve regurgitation. Because her symptomatology she was referred to cardiovascular surgery and outpatient valuation revealed that she was a candidate for mitral valve repair. Consequently she was brought into hospital and 10/02/2017 for the elective aortic valve repair. In the days before her surgery routine evaluation revealed the patient was feeling well without fevers or chills with no urinary symptoms however she did have a positive urine culture with E. coli. It was an ESBL organism. At that time the question was posed with infectious disease as to what should be done. Given the patient had asymptomatic bacteriuria there was no specific reason to withhold her surgery and it was prudent to treat before surgery and for 3 days after surgery with appropriate antibiotic therapy. The patient is now had her mitral valve repair and is recovering well. Surprisingly she is denying any significant amounts of pain. Remains without fevers or chills. Denies any urinary symptoms. On 10/05/2017 she sitting up in the chair, has been having some of her lunch, pain is under good control but is upset because she's had several loose stools. She relates she does have IBS and often does have bouts of diarrhea. She is very embarrassed that she's had incontinent stool, she is denying abdominal pain she has no nausea or emesis but with her diarrhea her appetite is poor. She has no urinary symptoms. Her shortness of breath is improved. 10/06/2017 the patient is working further with and is feeling better today. Her diarrhea has now resolved and she is able to eat without difficulty.he is denying significant amounts of pain and is doing well overall and denies any urinary symptoms. 09/30/2017 the patient continues to improve. Sitting up in a chair and eating well today. She's having no pain or shortness of breath is improving. Objective - Vital Signs Vital signs: Vital Signs Temp 98.5 F 10/07/17 16:00 Pulse 78 10/07/17 20:32 Resp 21 10/07/17 16:00 BP 105/58 10/07/17 16:00 Pulse Ox 95 10/07/17 16:00 Intake & Output 10/07/17 10/07/17 10/08/17 06:59 18:59 06:59 Intake Total 412.855 350.1 Output Total 1600 1300 Balance -1187.145 -949.9 Weight 75.1 kg Intake: IV 170 110.1 Amiodarone 450 mg In 50.1 Dextrose 5% in Water 250 ml @ 1 MG/MIN 34.53 mls/ hr IV .Q7H31M PRN Rx#: [id number] Lactated Ringers 1,000 ml 170 60 @ 20 mls/hr IV .Q24H [facility] Rx#:[id number] Intake, IV Titration 242.855 Amount Amiodarone 450 mg In 242.855 Dextrose 5% in Water 250 ml @ 1 MG/MIN 34.53 mls/ hr IV .Q7H31M PRN Rx#: [id number] Oral 240 Output: Urine 1600 1300 Other: Voiding Method Indwelling Catheter Indwelling Catheter ABP, PAP, CO, CI - Last Documented Arterial Blood Pressure 124/40 Pulmonary Artery Pressure 45/6 Cardiac Output 5.2 Cardiac Index 2.9 - Exam Pleasant 82-year-old female status post surgery is comfortable HEENT: Anicteric conjunctiva are pink and moist nasal mucosa grossly intact without significant lesions, there is no thrush. Neck: The neck is supple without significant lymphadenopathy or thyromegaly. Lungs Symmetrical air entry with few basilar crackles Heart Regular with a rate of about 70 she's being paced no significant murmur was noted Abdomen: Positive bowel sounds soft and nontender without palpable masses or organomegaly. There was no guarding or rebound.No bladder tenderness Extremities: The upper extremities have excellent pulses they are symmetric, no significant petechiae or telangiectasia. No splinter hemorrhages were noted. The lower extremities are free from significant edema. The peripheral pulses were 2+ and symmetric. Neuro: Awake alert oriented to person place and time. There are no acute new gross focal sensory motor deficits. Skin is without lesions - Labs CBC & Chem 7: 10/07/17 04:27 10/07/17 04:27 Labs: Abnormal Lab Results - Last 24 Hours (Table) 10/07/17 10/07/17 10/07/17 Range/Units 04:27 04:27 08:10 RBC 2.74 L (3.80-5.40) m/uL Hgb 8.7 L (11.4-16.0) gm/dL Hct 27.0 L (34.0-46.0) % Carbon Dioxide 31 H (22-30) mmol/L Glucose 129 H (74-99) mg/dL POC Glucose (mg/dL) 139 H (75-99) mg/dL Calcium 8.2 L (8.4-10.2) mg/dL AST 54 H (14-36) U/L Total Protein 4.9 L (6.3-8.2) g/dL Albumin 3.1 L (3.5-5.0) g/dL 10/07/17 10/07/17 10/07/17 Range/Units 12:01 16:56 20:04 RBC (3.80-5.40) m/uL Hgb (11.4-16.0) gm/dL Hct (34.0-46.0) % Carbon Dioxide (22-30) mmol/L Glucose (74-99) mg/dL POC Glucose (mg/dL) 174 H 122 H 193 H (75-99) mg/dL Calcium (8.4-10.2) mg/dL AST (14-36) U/L Total Protein (6.3-8.2) g/dL Albumin (3.5-5.0) g/dL Laboratory Results WBC 6.1 k/uL (3.8-10.6) 10/07/17 04: RBC 2.74 m/uL (3.80-5.40) L 10/07/17 04:27 Hgb 8.7 gm/dL (11.4-16.0) L 10/07/17 04:27 Hct 27.0 % (34.0-46.0) L 10/07/17 04:27 MCV 98.5 fL (80.0-100.0) 10/07/17 04:27 MCH 31.8 pg (25.0-35.0) 10/07/17 04: MCHC 32.3 g/dL (31.0-37.0) 10/07/17 04:27 RDW 14.1 % (11.5-15.5) 10/07/17 04:27 Plt Count 213 k/uL (150-450) 10/07/17 04:27 Neutrophils % 72 % 10/06/17 04:55 Lymphocytes % 19 % 10/06/17 04:55 Monocytes % 6 % 10/06/17 04:55 Eosinophils % 1 % 10/06/17 04:55 Basophils % 0 % 10/06/17 04:55 Neutrophils # 4.3 k/uL (1.3-7.7) 10/06/17 04:55 Lymphocytes # 1.1 k/uL (1.0-4.8) 10/06/17 04:55 Monocytes # 0.3 k/uL (0-1.0) 10/06/17 04:55 Eosinophils # 0.1 k/uL (0-0.7) 10/06/17 04:55 Basophils # 0.0 k/uL (0-0.2) 10/06/17 04:55 Manual Slide Review Performed 10/02/17 14:05 RBC Morphology Normal 10/02/17 14:05 Macrocytosis Slight 10/05/17 05:26 PT 11.9 sec (9.0-12.0) 10/03/17 04:00 INR 1.3 (<1.2) H 10/03/17 04:00 APTT 29.9 sec (22.0-30.0) 10/03/17 04:00 Sample Site gurpreet 10/02/17 17:55 ABG pH 7.36 (7.35-7.45) 10/02/17 17:55 ABG pCO2 43 mmHg (35-45) 10/02/17 17:55 ABG pO2 79 mmHg (83-108) L 10/02/17 17:55 ABG HCO3 24 mmol/L (21-25) 10/02/17 17:55 ABG Total CO2 26 mmol/L (19-24) H 10/02/17 17:55 ABG O2 Saturation 97.2 % (94-97) H 10/02/17 17:55 ABG Base Excess -1.1 mmol/L 10/02/17 17:55 ABG Hematocrit 25 % (34.0-46.0) L 10/02/17 12:35 Elfego Test Yes 10/02/17 17:55 ABG Sodium 140 mmol/L (135-146) 10/02/17 12:35 ABG Potassium 4.0 mmol/L (3.4-4.5) 10/02/17 12:35 ABG Ionized Calcium 4.3 mg/dL (4.5-5.3) L 10/02/17 12:35 ABG Glucose 129 mg/dL (75-99) H 10/02/17 12:35 ABG Lactic Acid 1.0 mmol/L (0.5-1.6) 10/02/17 12:35 Hemoglobin 8.0 gm/dL (11.4-16.0) L 10/02/17 12:35 FiO2 50 % 10/02/17 17:55 Sodium 140 mmol/L (137-145) 10/07/17 04:27 Potassium 4.2 mmol/L (3.5-5.1) 10/07/17 04:27 Chloride 100 mmol/L (98-107) 10/07/17 04:27 Carbon Dioxide 31 mmol/L (22-30) H 10/07/17 04:27 Anion Gap 9 mmol/L 10/07/17 04:27 BUN 9 mg/dL (7-17) 10/07/17 04:27 Creatinine 0.75 mg/dL (0.52-1.04) 10/07/17 04:27 Est GFR (CKD-EPI)AfAm 87 (>60 ml/min/1.73 sqM) 10/07/17 04:27 Est GFR (CKD-EPI)NonAf 75 (>60 ml/min/1.73 sqM) 10/07/17 04:27 Glucose 129 mg/dL (74-99) H 10/07/17 04:27 POC Glucose (mg/dL) 193 mg/dL (75-99) H 10/07/17 20:04 POC Glu Senior Research Fellow ID 10/07/17 20:[address] Glu mg/dL 108 10/02/17 14:05 Hemoglobin A1c 5.4 % (4.0-6.0) 10/02/17 14:05 Calcium 8.2 mg/dL (8.4-10.2) L 10/07/17 04:27 Ionized Calcium Ivan 4.9 mg/dL (4.5-5.3) 10/04/17 04:30 Phosphorus 2.5 mg/dL (2.5-4.5) 10/06/17 04:55 Magnesium 2.0 mg/dL (1.6-2.3) 10/06/17 04:55 Total Bilirubin 0.8 mg/dL (0.2-1.3) 10/07/17 04:27 AST 54 U/L (14-36) H 10/07/17 04:27 ALT 44 U/L (9-52) 10/07/17 04:27 Alkaline Phosphatase 65 U/L (38-126) 10/07/17 04:27 Total Protein 4.9 g/dL (6.3-8.2) L 10/07/17 04:27 Albumin 3.1 g/dL (3.5-5.0) L 10/07/17 04:27 Arterial Blood Potassium 4.0 mmol/L (3.4-4.5) 10/02/17 12:35 Arterial Blood Glucose 129 mg/dL (75-99) H 10/02/17 12:35 Blood Type A Positive 10/05/17 06:55 Blood Type Recheck No 10/05/17 06:55 Antibody Screen NEGATIVE 10/05/17 06:55 Crossmatch See Detail 10/05/17 06:55 Transfuse Platelets 10/02/2017 09/25/17 08:24 Spec Expiration Date 10/08/2017 1972 10/05/17 06:55 Assessment and Plan (1) Mitral valve regurgitation Current Visit: Yes Status: Chronic Code(s): I34.0 - NONRHEUMATIC MITRAL ( VALVE) INSUFFICIENCY SNOMED Code(s): 76387237 (2) S/P mitral valve repair Current Visit: Yes Status: Acute Code(s): Z98.890 - OTHER SPECIFIED POSTPROCEDURAL STATES SNOMED Code(s): 685495069 (3) 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 Narrative/Plan: Pleasant 82-year-old female presents to Hospital for her elective mitral valve repair for her significant and symptomatic mitral valve regurgitation. The patient's surgery is been successful and she is recovering well. Preoperatively there was evidence of a urine culture that was positive for ESBL E. coli. Fortunately the patient is asymptomatic and does have asymptomatic bacteriuria. Given the complexity of the cardiovascular surgery should be treated for 3 days after her surgery with Bactrim which fortunately the E. coli is susceptible to. Patient is improving with no evidence of any other infection at this time. 10/05/2017 will complete her course of oral Bactrim today. She developed multiple loose stools, nursing staff and not related at that there is characteristic C. diff stool. Patient relates that she has diarrhea like this she normally takes some probiotic and some Imodium which will be given. Hopefully discontinuation of antibiotic therapy and improved diet her gastric intestinal function will improve. She's had some worsening anemia that is potential that the trimethoprim sulfamethoxazole has impacted this and hopefully with its removal will allow rapid recovery of her hemoglobin. 10/06/2017 patient is now further improved and is cooperating with physical therapy There is a potential for her to be transferred to inpatient rehab in the near future.she has completed her course of antibiotic therapy today. Fortunately her diarrhea is also resolving and she is feeling better. She denies any urinary symptoms and remains without fever. She did receive packed red cells and should continue to improve now that sulfa is removed. 10/05/2017 the patient has further improvement. She has completed her antibiotic therapy. She's having no urinary symptoms at all. Her anemia is resolving and overall she showing marked recovery from her valve repair. No evidence of any infections this time no need for further antibiotic therapy. Current Visit: Yes Status: Chronic Code(s): Z86.19 - PERSONAL HISTORY OF OTHER INFECTIOUS AND PARASITIC DISEASES SNOMED Code(s): 989816494
[2017-10-08 04:55] LABS: HCT 27.2 % (34.0-46.0); HGB 8.8 gm/dL (11.4-16.0); MCH 32.1 pg (25.0-35.0); MCHC 32.5 g/dL (31.0-37.0); MCV 98.8 fL (80.0-100.0); Mean Platelet Volume 7.3; Platelet Count 269 k/uL (150-450); RBC 2.75 m/uL (3.80-5.40); RDW 14.3 % (11.5-15.5); WBC 6.5 k/uL (3.8-10.6)
[2017-10-08 05:04] LABS: Albumin 3.2 g/dL (3.5-5.0); Calcium 8.6 mg/dL (8.4-10.2); Magnesium 2.1 mg/dL (1.6-2.3); Potassium 4.7 mmol/L (3.5-5.1); Total Bilirubin 0.7 mg/dL (0.2-1.3)
[2017-10-08] MEDS: FUROSEMIDE 10 MG/ML 2 ML VIAL IV SCH ×2 (06:07→17:53)
[2017-10-08 07:12] LABS: Glucose,Whole Blood 124 mg/dL (75-99)
[2017-10-08] MEDS: IPRATROPIUM-ALBUTEROL 3 ML NEB INHALATION SCH ×4 (07:27→19:06)
[2017-10-08] MEDS: SYMBICORT 160-4.5 MCG INHALER INHALATION SCH ×2 (07:27→19:06)
[2017-10-08] MEDS: INSULIN ASPART 100 UNIT/ML 1 ML 10 ML VIAL SQ SCH ×4 (07:50→23:01)
--- NOTE | 2017-10-08 07:51 | XR ---
EXAMINATION TYPE: XR chest 1V portable DATE OF EXAM: 10/08/2017 HISTORY: Shortness of breath. COMPARISON: 10/07/2017 TECHNIQUE: Single view of the chest is submitted. FINDINGS: Demonstrated are scattered senescent parenchymal change. Small bilateral pleural effusions as well as basilar patchy densities mildly improved from prior stud y. The heart is stable. Hilar and mediastinal structures are within normal limits. Degenerative changes are seen of the dorsal spine. Multiple left-sided rib deformities are chronic in nature. IMPRESSION: 1. Small bilateral pleural effusions as well as basilar patchy densities mildly improved from prior study.
[2017-10-08] MEDS: HEPARIN SODIUM,PORCINE 5,000 UNIT/ML 1 ML VIAL SQ SCH ×2 (08:45→17:28)
[2017-10-08] MEDS: PANTOPRAZOLE 40 MG TABLET PO SCH (08:45)
[2017-10-08] MEDS: ATORVASTATIN 40 MG TAB PO SCH (08:46)
[2017-10-08] MEDS: CLOPIDOGREL 75 MG TAB PO SCH (08:46)
[2017-10-08] MEDS: AMIODARONE 200 MG TAB PO SCH ×2 (08:46→20:39)
[2017-10-08] MEDS: ASPIRIN 325 MG TAB PO SCH (08:46)
[2017-10-08] MEDS: ESCITALOPRAM 10 MG TAB PO SCH (09:05)
[2017-10-08] MEDS: LACTOBACILLUS ACIDOPH & BULGAR 1 EACH PACKET PO SCH ×2 (09:05→17:28)
[2017-10-08] MEDS: OXYMETAZOLINE 0.05% NASL SPRAY 1 SPRAY BOTTLE NASAL SCH ×2 (09:05→20:38)
[2017-10-08] MEDS: METOPROLOL TARTRATE 12.5 MG TAB PO SCH ×2 (09:05→20:40)
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
[2017-10-08 12:26] LABS: Glucose,Whole Blood 149 mg/dL (75-99)
--- NOTE | 2017-10-08 15:04 | P.GSCN ---
History of Present Illness Consult date: 10/08/17 History of present illness: This is an 82-year-old female I been asked to see for urine retention. He is postop ventral valve repair. She has had 2 episodes retention most recently an approximate 500 mL. He is interviewed at the bedside. She is awake alert and oriented. He states she has a history of urgency and urgency incontinence. I saw her many years ago for the same problem but she is emptying her bladder well at that time. Also has irritable bowel syndrome. She does have a history of urinary tract infections. Review of Systems - Gastrointestinal Reports as per HPI - Genitourinary Genitourinary: Reports as per HPI - Neurological Denies headaches, Denies syncope Past Medical History Past Medical History: Cancer, Hyperlipidemia, Hypertension, Mitral Valve Prolapse (MVP), Osteoarthritis (OA) Additional Past Medical History / Comment(s): IBS, SKIN CANCER, SOB w/exertion History of Any Multi-Drug Resistant Organisms: None Reported Past Surgical History: Heart Catheterization, Joint Replacement Additional Past Surgical History / Comment(s): REGAN TOTAL KNEES. Past Anesthesia/Blood Transfusion Reactions: No Reported Reaction Smoking Status: Former smoker (Crit a year ago) - Past Family History Sister(s) Family Medical History: Cancer Additional Family Medical History / Comment(s): BOWEL CANCER Medications and Allergies Home Medications Medication Instructions Recorded Confirmed Type Aspirin [Adult Low Dose Aspirin EC] 81 mg PO HS 05/01/17 10/02/17 History L.acidoph,Paracasei, B.lactis 1 cap PO DAILY 05/01/17 10/02/17 History [Probiotic] Losartan Potassium 100 mg PO HS 05/01/17 10/02/17 History Opc Antioxidant 1 tab PO DAILY 05/01/17 10/02/17 History Simvastatin [Zocor] 20 mg PO HS 05/01/17 10/02/17 History amLODIPine [Norvasc] 5 mg PO BID 05/01/17 10/02/17 History clonazePAM [KlonoPIN] 0.5 mg PO HS 05/01/17 10/02/17 History Amitriptyline HCl [Elavil] 12.5 mg PO HS 09/25/17 10/02/17 History Mupirocin 2% Nasal Oint [Bactroban 1 applic NASAL BID 10/01/17 10/02/17 History 2% Nasal Oint] Sulfamethox-Tmp 800-160Mg [Bactrim 1 tab PO Q12HR 10/01/17 10/02/17 History DS 800-160 mg] Allergies Allergy/AdvReac Type Severity Reaction Status Date / Time fentanyl AdvReac Unknown COULDNT Verified 10/02/17 14:21 EAT. Surgical - Exam Vital Signs Temp Pulse Resp BP Pulse Ox 97.7 F 79 18 148/74 94 L 10/02/17 06:10 10/02/17 06:10 10/02/17 06:10 10/02/17 06:10 10/02/17 06:10 - General well developed, well nourished, no distress - Eyes PERRL - ENT no hearing loss - Neck trachea midline - Respiratory normal expansion, normal respiratory effort - Cardiovascular Rhythm: regular - Abdomen Abdomen: soft, non tender - Genitourinary normal external genitalia, normal perineum - Integumentary no rash, no growths - Neurologic normal coordination, normal sensation - Musculoskeletal normal posture - Psychiatric oriented to time, oriented to person, oriented to place, speech is normal, memory intact Results - Labs 10/08/17 04:04 10/08/17 04:04 Abnormal Lab Results - Last 24 Hours (Table) 10/07/17 10/07/17 10/08/17 Range/Units 16:56 20:04 04:04 RBC 2.75 L (3.80-5.40) m/uL Hgb 8.8 L (11.4-16.0) gm/dL Hct 27.2 L (34.0-46.0) % Chloride (98-107) mmol/L Carbon Dioxide (22-30) mmol/L Glucose (74-99) mg/dL POC Glucose (mg/dL) 122 H 193 H (75-99) mg/dL AST (14-36) U/L ALT (9-52) U/L Total Protein (6.3-8.2) g/dL Albumin (3.5-5.0) g/dL 10/08/17 10/08/17 10/08/17 Range/Units 04:04 07:10 12:24 RBC (3.80-5.40) m/uL Hgb (11.4-16.0) gm/dL Hct (34.0-46.0) % Chloride 97 L (98-107) mmol/L Carbon Dioxide 33 H (22-30) mmol/L Glucose 118 H (74-99) mg/dL POC Glucose (mg/dL) 124 H 149 H (75-99) mg/dL AST 84 H (14-36) U/L ALT 67 H (9-52) U/L Total Protein 5.0 L (6.3-8.2) g/dL Albumin 3.2 L (3.5-5.0) g/dL Diabetes panel 10/08/17 Range/Units 04:04 Sodium 137 (137-145) mmol/L Potassium 4.7 (3.5-5.1) mmol/L Chloride 97 L (98-107) mmol/L Carbon Dioxide 33 H (22-30) mmol/L BUN 16 (7-17) mg/dL Creatinine 0.81 (0.52-1.04) mg/dL Glucose 118 H (74-99) mg/dL Calcium 8.6 (8.4-10.2) mg/dL AST 84 H (14-36) U/L ALT 67 H (9-52) U/L Alkaline Phosphatase 61 (38-126) U/L Total Protein 5.0 L (6.3-8.2) g/dL Albumin 3.2 L (3.5-5.0) g/dL Calcium panel 10/08/17 Range/Units 04:04 Calcium 8.6 (8.4-10.2) mg/dL Albumin 3.2 L (3.5-5.0) g/dL Pituitary panel 10/08/17 Range/Units 04:04 Sodium 137 (137-145) mmol/L Potassium 4.7 (3.5-5.1) mmol/L Chloride 97 L (98-107) mmol/L Carbon Dioxide 33 H (22-30) mmol/L BUN 16 (7-17) mg/dL Creatinine 0.81 (0.52-1.04) mg/dL Glucose 118 H (74-99) mg/dL Calcium 8.6 (8.4-10.2) mg/dL Adrenal panel 10/08/17 Range/Units 04:04 Sodium 137 (137-145) mmol/L Potassium 4.7 (3.5-5.1) mmol/L Chloride 97 L (98-107) mmol/L Carbon Dioxide 33 H (22-30) mmol/L BUN 16 (7-17) mg/dL Creatinine 0.81 (0.52-1.04) mg/dL Glucose 118 H (74-99) mg/dL Calcium 8.6 (8.4-10.2) mg/dL Total Bilirubin 0.7 (0.2-1.3) mg/dL AST 84 H (14-36) U/L ALT 67 H (9-52) U/L Alkaline Phosphatase 61 (38-126) U/L Total Protein 5.0 L (6.3-8.2) g/dL Albumin 3.2 L (3.5-5.0) g/dL Assessment and Plan Assessment: Impression: Postoperative urinary retention most likely due to muscular weakness , temporary running urgency and urgency incontinence, chronic irritable bowel syndrome. Indications: I would replace the [place]jo she is unable to void this afternoon. I would wait until she is close to being discharged home and give her another voiding trial. If at that time she is unable to void on her own she'll need to learn how to self cath. Unfortunately there is nothing surgical that can be done as she does not have any vaginal prolapse that would contribute to this problem.
--- NOTE | 2017-10-08 15:27 | P.PN ---
Subjective Progress Note Date: 10/08/17 This is a 82-year-old female status post mitral repair. Patient is doing much better. No complaints of any chest pain. Her heart rhythm is sinus. Vital signs are stable. Having difficulty with voiding and patient has Naranjo catheter. Patient most probably be transferred to telemetry unit. 10/07/2017: The patient is status post mitral repair. Patient went into atrial fibrillation, yesterday. Patient was started on IV amiodarone. She is back in sinus rhythm. Her blood pressures in the range of 140. Patient is on by mouth amiodarone. Patient is also being started on beta atriq. Patient also has postoperative anemia. Having issues with the urinary retention. Waiting to have urology input. Patient also needs incentive spirometry. Increase activity as tolerated. Possible transfer to telemetry unit . 10/08/2017: This patient is status post mitral repair. Maintaining sinus rhythm. Tolerating activity. Having problem with urination and is being evaluated by urology. Patient appetite is poor. Patient was doing well. Most probably be transferred to telemetry unit. Patient may be transferred to inpatient cardiac rehab Objective - Vital Signs Vital signs: Vital Signs Temp 97.9 F 10/08/17 12:00 Pulse 75 10/08/17 15:22 Resp 20 10/08/17 12:00 BP 106/54 10/08/17 12:00 Pulse Ox 94 L 10/08/17 12:00 Intake & Output 10/07/17 10/08/17 10/08/17 18:59 06:59 18:59 Intake Total 350.1 240 480 Output Total 1300 378 440 Balance -949.9 -138 40 Weight 68.9 kg Intake: IV 110.1 Amiodarone 450 mg In 50.1 Dextrose 5% in Water 250 ml @ 1 MG/MIN 34.53 mls/ hr IV .Q7H31M PRN Rx#: [id number] Lactated Ringers 1,000 ml 60 @ 20 mls/hr IV .Q24H ISSAC Rx#:[id number] Oral 240 480 Tube Feeding 240 Output: Urine 1300 375 440 Stool 3 Other: Voiding Method Indwelling Catheter Indwelling Catheter Indwelling Catheter ABP, PAP, CO, CI - Last Documented Arterial Blood Pressure 124/40 Pulmonary Artery Pressure 45/6 Cardiac Output 5.2 Cardiac Index 2.9 - Exam GENERAL EXAM: Patient is alert and oriented and doesn't appear to be in any acute distress HEENT: Normocephalic. Normal reaction of pupils, equal size, normal range of extraocular motion. No erythema or exudates in the throat. NECK: No masses, no nuchal rigidity. CHEST: Postsurgical LUNGS: Diminished breath sounds at bases HEART: S1 and S2 normal with no audible mumurs or gallops. Regular rhythm, femorals equal on both sides.. ABDOMEN: No hepatosplenomegaly, normal bowel sounds, no guarding or rigidity. SKIN: No rashes CENTRAL NERVOUS SYSTEM: No focal deficits. EXTREMITIES: No cyanosis, clubbing or edema. - Labs CBC & Chem 7: 10/08/17 04:04 10/08/17 04:04 Labs: Abnormal Lab Results - Last 24 Hours (Table) 10/07/17 10/07/17 10/08/17 Range/Units 16:56 20:04 04:04 RBC 2.75 L (3.80-5.40) m/uL Hgb 8.8 L (11.4-16.0) gm/dL Hct 27.2 L (34.0-46.0) % Chloride (98-107) mmol/L Carbon Dioxide (22-30) mmol/L Glucose (74-99) mg/dL POC Glucose (mg/dL) 122 H 193 H (75-99) mg/dL AST (14-36) U/L ALT (9-52) U/L Total Protein (6.3-8.2) g/dL Albumin (3.5-5.0) g/dL 10/08/17 10/08/17 10/08/17 Range/Units 04:04 07:10 12:24 RBC (3.80-5.40) m/uL Hgb (11.4-16.0) gm/dL Hct (34.0-46.0) % Chloride 97 L (98-107) mmol/L Carbon Dioxide 33 H (22-30) mmol/L Glucose 118 H (74-99) mg/dL POC Glucose (mg/dL) 124 H 149 H (75-99) mg/dL AST 84 H (14-36) U/L ALT 67 H (9-52) U/L Total Protein 5.0 L (6.3-8.2) g/dL Albumin 3.2 L (3.5-5.0) g/dL Assessment and Plan (1) Status post mitral valve repair Current Visit: Yes Status: Acute Code(s): Z98.890 - OTHER SPECIFIED POSTPROCEDURAL STATES SNOMED Code(s): 462604112 (2) CAD (coronary artery disease) Current Visit: Yes Status: Chronic Code(s): I25.10 - ATHSCL HEART DISEASE OF [place] CORONARY ARTERY W/O ANG PCTRS SNOMED Code(s): 45825797 (3) Mitral valve regurgitation Current Visit: Yes Status: Chronic Code(s): I34.0 - NONRHEUMATIC MITRAL ( VALVE) INSUFFICIENCY SNOMED Code(s): 95174560 Plan: Clinically stable. Tolerating activity. Maintaining sinus rhythm. No arrhythmias. Possible transfer to inpatient rehab.
[2017-10-08 17:25] LABS: Glucose,Whole Blood 137 mg/dL (75-99)
--- NOTE | 2017-10-08 20:21 | P.PN ---
Subjective Progress Note Date: 10/08/17 82 years old female patient of Dr. Crain with past medical history mitral valve prolapse, hypertension, osteoarthritis, coronary artery disease with cath from 2017 suggested intermediate disease in the ostial diagonal branch of LAD, depression, irritable bowel syndrome, hyperlipidemia presented for an electivemitral valve repair. Patient was evaluated postoperatively. Currently intubated, and assist control mode on 100% FiO2, PEEP of 5, tidal volume 450. Patient had symptoms of dyspnea on exertion for the past few months for which she was definitely cardiothoracic surgery for mitral valve surgery. Last vital signs suggestive pulses are 139, blood pressure 141/65, FiO2 100% on mechanical ventilation. Labs suggestive hemoglobin of 7.7, platelet 84, INR 1.5. ABG suggests an oxygen of 215, CO2 25, glucose 131, calcium 7.5. Chest x-ray suggestive of mild vascular congestion, chronic parenchymal changes with new patchy left basilar atelectasis, with right apical chest tube and mediastinal drainage catheter. 10/03: Patient remains in intensive care unit. She has been successfully extubated. Patient does complain of some chest discomfort. No significant shortness of breath. But sugars are running 1 tender 117. 10/06: Patient is doing much better had to reinsert Lozano catheter because of urinary retention otherwise patient probably stable to be out of the ICU her chest tube is out so far patient is on O2 only along with updraft treatment rating oral diet and oral medication. 10/07: Patient is somewhat sleepy today and did have difficulty sleeping. She received Ambien last night and she is also on melatonin. Patient did have a short period of atrial fibrillation and started on IV amiodarone which is to be transitioned to oral. Patient is to be transferred to selective care today. Discharge plan will be to [facility]. 10/08:Patient is still waiting for a select care bed. Patient states she is less depressed today. She has been resumed on Elavil and Klonopin. She has been seen by urology for urinary retention with recommendations for lozano and voiding trial close to discharge time which can be managed at INpatient rehab. Objective - Vital Signs Vital signs: Vital Signs Temp 97.7 F 10/08/17 04:00 Pulse 72 10/08/17 07:45 Resp 18 10/08/17 04:00 BP 97/47 10/08/17 04:00 Pulse Ox 98 10/08/17 04:00 Intake & Output 10/07/17 10/08/17 10/08/17 18:59 06:59 18:59 Intake Total 350.1 240 Output Total 1300 378 Balance -949.9 -138 Weight 68.9 kg Intake: IV 110.1 Amiodarone 450 mg In 50.1 Dextrose 5% in Water 250 ml @ 1 MG/MIN 34.53 mls/ hr IV .Q7H31M PRN Rx#: [id number] Lactated Ringers 1,000 ml 60 @ 20 mls/hr IV .Q24H ISSAC Rx#:[id number] Oral 240 Tube Feeding 240 Output: Urine 1300 375 Stool 3 Other: Voiding Method Indwelling Catheter Indwelling Catheter ABP, PAP, CO, CI - Last Documented Arterial Blood Pressure 124/40 Pulmonary Artery Pressure 45/6 Cardiac Output 5.2 Cardiac Index 2.9 - Exam General appearance: Present: cooperative, disheveled, no acute distress. Absent : average body habitus, mild distress, morbidly obese, obese, severe distress, thin - EENT Eyes: Present: normal appearance. Absent: abnormal pupil, anicteric sclerae, disc margins sharp, edentulous, EOMI, PERRLA, fundus normal, photophobia, dentition normal, poor dentition, ptosis, scleral icterus ENT: Present: normal oropharynx, pharyngeal erythema. Absent: hard of hearing, hearing grossly normal, NA/AT, other, thrush, tonsillar exudates, tonsillar swelling Ears: bilateral: normal - Neck Neck: Present: normal ROM. Absent: lymphadenopathy, other, rigidity, stridor, thyromegaly Carotids: bilateral: upstroke normal Thyroid: bilateral: normal size - Respiratory Respiratory: left: dullness, rales, bilateral: CTA, diminished - Cardiovascular Rhythm: regular Heart sounds: normal: S1, S2 Abnormal Heart Sounds: Present: systolic murmur, S3 Gallop - Gastrointestinal General gastrointestinal: Present: distended, tenderness. Absent: absent bowel sounds, decreased bowel sounds, hepatomegaly, hyperactive bowel sounds, normal bowel sounds, organomegaly, rigid, scaphoid, soft, splenomegaly, umbilical hernia, ventral hernia - Integumentary Integumentary: Present: normal, pale. Absent: calor, cellulitis, cyanotic, decreased turgor, flushed, jaundiced, normal turgor, rash, ulcer - Neurologic Neurologic: Present: CNII-XII intact - Musculoskeletal Musculoskeletal: Present: gait normal, generalized weakness, strength equal bilaterally. Absent: right sided weakness, left sided weakness - Psychiatric Psychiatric: Present: A&O x's 3, appropriate affect - Labs CBC & Chem 7: 10/08/17 04:04 10/08/17 04:04 Labs: Abnormal Lab Results - Last 24 Hours (Table) 10/07/17 10/07/17 10/07/17 Range/Units 12:01 16:56 20:04 RBC (3.80-5.40) m/uL Hgb (11.4-16.0) gm/dL Hct (34.0-46.0) % Chloride (98-107) mmol/L Carbon Dioxide (22-30) mmol/L Glucose (74-99) mg/dL POC Glucose (mg/dL) 174 H 122 H 193 H (75-99) mg/dL AST (14-36) U/L ALT (9-52) U/L Total Protein (6.3-8.2) g/dL Albumin (3.5-5.0) g/dL 10/08/17 10/08/17 10/08/17 Range/Units 04:04 04:04 07:10 RBC 2.75 L (3.80-5.40) m/uL Hgb 8.8 L (11.4-16.0) gm/dL Hct 27.2 L (34.0-46.0) % Chloride 97 L (98-107) mmol/L Carbon Dioxide 33 H (22-30) mmol/L Glucose 118 H (74-99) mg/dL POC Glucose (mg/dL) 124 H (75-99) mg/dL AST 84 H (14-36) U/L ALT 67 H (9-52) U/L Total Protein 5.0 L (6.3-8.2) g/dL Albumin 3.2 L (3.5-5.0) g/dL Assessment and Plan Plan: #1 mitral valve prolapse with severe mitral regurgitation status post mitral valve repair. Successfully extubated. Continue incentive spirometry. Physical therapy once patient stabilizes and is responding to commands. Continue DuoNeb treatments, Symbicort #2 coronary artery disease. Continue daily aspirin, Lipitor, Plavix, Lopressor #3 hypertension. Hold Norvasc for losartan #4 hypercholesterolemia hold Zocor as patient is intubated. Plan to extubate, Can be resumed for swallow evaluation #5 hyperglycemia. Continue insulin drip. No history of diabetes. HbA1c ordered #6 anemia with thrombocytopenia secondary to blood loss expected outcome of the surgery. CBC daily. Transfusion for hemoglobin less than 7 postop #7 history of anxiety. Hold Klonopin as patient is sedated. #8 history of depression amitriptyline can be initiated post extubation #9 GI prophylaxis: Protonix 40 once a day #10 post op paroxysmal atrial fibrillation on amiodarone. 11. Postoperative urinary retention requiring Lozano catheter. Urology consult. code status full code Discharge plan: Most likely to [facility]. Impression and plan of care have been directed as dictated by the signing physician. Dominga Pinto nurse practitioner acting as scribe for signing physician.
[2017-10-08] MEDS: clonazePAM 0.5 MG TAB PO SCH (20:38)
[2017-10-08] MEDS: AMITRIPTYLINE HCL 25 MG TAB PO SCH (20:39)
--- NOTE | 2017-10-08 20:46 | P.PN ---
Subjective Progress Note Date: 10/08/17 Principal diagnosis: Shortness of breath Pleasant 82-year-old woman with a long-standing history of mitral valve prolapse who over the last year has been having increasing difficulties with fatigue and dyspnea on exertion. She had outpatient evaluation including a YARA showed the severe mitral valve regurgitation. Because her symptomatology she was referred to cardiovascular surgery and outpatient valuation revealed that she was a candidate for mitral valve repair. Consequently she was brought into hospital and 10/02/2017 for the elective aortic valve repair. In the days before her surgery routine evaluation revealed the patient was feeling well without fevers or chills with no urinary symptoms however she did have a positive urine culture with E. coli. It was an ESBL organism. At that time the question was posed with infectious disease as to what should be done. Given the patient had asymptomatic bacteriuria there was no specific reason to withhold her surgery and it was prudent to treat before surgery and for 3 days after surgery with appropriate antibiotic therapy. The patient is now had her mitral valve repair and is recovering well. Surprisingly she is denying any significant amounts of pain. Remains without fevers or chills. Denies any urinary symptoms. On 10/05/2017 she sitting up in the chair, has been having some of her lunch, pain is under good control but is upset because she's had several loose stools. She relates she does have IBS and often does have bouts of diarrhea. She is very embarrassed that she's had incontinent stool, she is denying abdominal pain she has no nausea or emesis but with her diarrhea her appetite is poor. She has no urinary symptoms. Her shortness of breath is improved. 10/06/2017 the patient is working further with and is feeling better today. Her diarrhea has now resolved and she is able to eat without difficulty.he is denying significant amounts of pain and is doing well overall and denies any urinary symptoms. 09/30/2017 the patient continues to improve. Sitting up in a chair and eating well today. She's having no pain or shortness of breath is improving. 10/08/2017 reveals the patient be feeling better. Sitting up in the chair having no new acute complaints. Continues to participate with therapy. Is having some ongoing intermittent difficulties with urinary retention. May require intermittent straight catheterization. Objective - Vital Signs Vital signs: Vital Signs Temp 98.5 F 10/08/17 20:00 Pulse 85 05/23/18 20:00 Resp 21 10/08/17 20:00 BP 117/47 10/08/17 20:00 Pulse Ox 92 L 10/08/17 20:00 Intake & Output 10/08/17 10/08/17 10/09/17 06:59 18:59 06:59 Intake Total 240 480 Output Total 378 440 Balance -138 40 Weight 68.9 kg 68.9 kg Intake: Oral 480 Tube Feeding 240 Output: Urine 375 440 Stool 3 Other: Voiding Method Indwelling Catheter Bedside Commode Toilet ABP, PAP, CO, CI - Last Documented Arterial Blood Pressure 124/40 Pulmonary Artery Pressure 45/6 Cardiac Output 5.2 Cardiac Index 2.9 - Exam Pleasant 82-year-old female status post surgery is comfortable HEENT: Anicteric conjunctiva are pink and moist nasal mucosa grossly intact without significant lesions, there is no thrush. Neck: The neck is supple without significant lymphadenopathy or thyromegaly. Lungs Symmetrical air entry with few basilar crackles Heart Regular with a rate of about 70 she's being paced no significant murmur was noted Abdomen: Positive bowel sounds soft and nontender without palpable masses or organomegaly. There was no guarding or rebound.No bladder tenderness Extremities: The upper extremities have excellent pulses they are symmetric, no significant petechiae or telangiectasia. No splinter hemorrhages were noted. The lower extremities are free from significant edema. The peripheral pulses were 2+ and symmetric. Neuro: Awake alert oriented to person place and time. There are no acute new gross focal sensory motor deficits. Skin is without lesions - Labs CBC & Chem 7: 10/08/17 04:04 10/08/17 04:04 Labs: Abnormal Lab Results - Last 24 Hours (Table) 10/08/17 10/08/17 10/08/17 Range/Units 04:04 04:04 07:10 RBC 2.75 L (3.80-5.40) m/uL Hgb 8.8 L (11.4-16.0) gm/dL Hct 27.2 L (34.0-46.0) % Chloride 97 L (98-107) mmol/L Carbon Dioxide 33 H (22-30) mmol/L Glucose 118 H (74-99) mg/dL POC Glucose (mg/dL) 124 H (75-99) mg/dL AST 84 H (14-36) U/L ALT 67 H (9-52) U/L Total Protein 5.0 L (6.3-8.2) g/dL Albumin 3.2 L (3.5-5.0) g/dL 10/08/17 10/08/17 Range/Units 12:24 17:24 RBC (3.80-5.40) m/uL Hgb (11.4-16.0) gm/dL Hct (34.0-46.0) % Chloride (98-107) mmol/L Carbon Dioxide (22-30) mmol/L Glucose (74-99) mg/dL POC Glucose (mg/dL) 149 H 137 H (75-99) mg/dL AST (14-36) U/L ALT (9-52) U/L Total Protein (6.3-8.2) g/dL Albumin (3.5-5.0) g/dL Laboratory Results WBC 6.5 k/uL (3.8-10.6) 10/08/17 04:04 RBC 2.75 m/uL (3.80-5.40) L 10/08/17 04:04 Hgb 8.8 gm/dL (11.4-16.0) L 10/08/17 04:04 Hct 27.2 % (34.0-46.0) L 10/08/17 04:04 MCV 98.8 fL (80.0-100.0) 10/08/17 04:04 MCH 32.1 pg (25.0-35.0) 10/08/17 04:04 MCHC 32.5 g/dL (31.0-37.0) 10/08/17 04:04 RDW 14.3 % (11.5-15.5) 10/08/17 04:04 Plt Count 269 k/uL (150-450) 10/08/17 04:04 Neutrophils % 72 % 10/06/17 04:55 Lymphocytes % 19 % 10/06/17 04:55 Monocytes % 6 % 10/06/17 04:55 Eosinophils % 1 % 10/06/17 04:55 Basophils % 0 % 10/06/17 04:55 Neutrophils # 4.3 k/uL (1.3-7.7) 10/06/17 04:55 Lymphocytes # 1.1 k/uL (1.0-4.8) 10/06/17 04:55 Monocytes # 0.3 k/uL (0-1.0) 10/06/17 04:55 Eosinophils # 0.1 k/uL (0-0.7) 10/06/17 04:55 Basophils # 0.0 k/uL (0-0.2) 10/06/17 04:55 Manual Slide Review Performed 10/02/17 14:05 RBC Morphology Normal 10/02/17 14:05 Macrocytosis Slight 10/05/17 05:26 PT 11.9 sec (9.0-12.0) 10/03/17 04:00 INR 1.3 (<1.2) H 10/03/17 04:00 APTT 29.9 sec (22.0-30.0) 10/03/17 04:00 Sample Site [place] 10/02/17 17:55 ABG pH 7.36 (7.35-7.45) 10/02/17 17:55 ABG pCO2 43 mmHg (35-45) 10/02/17 17:55 ABG pO2 79 mmHg (83-108) L 10/02/17 17:55 ABG HCO3 24 mmol/L (21-25) 10/02/17 17:55 ABG Total CO2 26 mmol/L (19-24) H 10/02/17 17:55 ABG O2 Saturation 97.2 % (94-97) H 10/02/17 17:55 ABG Base Excess -1.1 mmol/L 10/02/17 17:55 ABG Hematocrit 25 % (34.0-46.0) L 10/02/17 12:35 Elfego Test Yes 10/02/17 17:55 ABG Sodium 140 mmol/L (135-146) 10/02/17 12:35 ABG Potassium 4.0 mmol/L (3.4-4.5) 10/02/17 12:35 ABG Ionized Calcium 4.3 mg/dL (4.5-5.3) L 10/02/17 12:35 ABG Glucose 129 mg/dL (75-99) H 10/02/17 12:35 ABG Lactic Acid 1.0 mmol/L (0.5-1.6) 10/02/17 12:35 Hemoglobin 8.0 gm/dL (11.4-16.0) L 10/02/17 12:35 FiO2 50 % 10/02/17 17:55 Sodium 137 mmol/L (137-145) 10/08/17 04:04 Potassium 4.7 mmol/L (3.5-5.1) 10/08/17 04:04 Chloride 97 mmol/L (98-107) L 10/08/17 04:04 Carbon Dioxide 33 mmol/L (22-30) H 10/08/17 04:04 Anion Gap 7 mmol/L 10/08/17 04:04 BUN 16 mg/dL (7-17) 10/08/17 04:04 Creatinine 0.81 mg/dL (0.52-1.04) 10/08/17 04:04 Est GFR (CKD-EPI)AfAm 79 (>60 ml/min/1.73 sqM) 10/08/17 04:04 Est GFR (CKD-EPI)NonAf 69 (>60 ml/min/1.73 sqM) 10/08/17 04:04 Glucose 118 mg/dL (74-99) H 10/08/17 04:04 POC Glucose (mg/dL) 137 mg/dL (75-99) H 10/08/17 17:24 POC Glu Label Press Operator ID Shauna Blank 10/08/17 17:[address] Glu mg/dL 108 10/02/17 14:05 Hemoglobin A1c 5.4 % (4.0-6.0) 10/02/17 14:05 Calcium 8.6 mg/dL (8.4-10.2) 10/08/17 04:04 Ionized Calcium Ivan 4.9 mg/dL (4.5-5.3) 10/04/17 04:30 Phosphorus 2.5 mg/dL (2.5-4.5) 10/06/17 04:55 Magnesium 2.1 mg/dL (1.6-2.3) 10/08/17 04:04 Total Bilirubin 0.7 mg/dL (0.2-1.3) 10/08/17 04:04 AST 84 U/L (14-36) H 10/08/17 04:04 ALT 67 U/L (9-52) H 10/08/17 04:04 Alkaline Phosphatase 61 U/L (38-126) 10/08/17 04:04 Total Protein 5.0 g/dL (6.3-8.2) L 10/08/17 04:04 Albumin 3.2 g/dL (3.5-5.0) L 10/08/17 04:04 Arterial Blood Potassium 4.0 mmol/L (3.4-4.5) 10/02/17 12:35 Arterial Blood Glucose 129 mg/dL (75-99) H 10/02/17 12:35 Blood Type A Positive 10/05/17 06:55 Blood Type Recheck No 10/05/17 06:55 Antibody Screen NEGATIVE 10/05/17 06:55 Crossmatch See Detail 10/05/17 06:55 Transfuse Platelets 10/02/2017 09/25/17 08:24 Spec Expiration Date 10/08/2017 - 3967 10/05/17 06:55 Assessment and Plan (1) Mitral valve regurgitation Current Visit: Yes Status: Chronic Code(s): I34.0 - NONRHEUMATIC MITRAL ( VALVE) INSUFFICIENCY SNOMED Code(s): 31705692 (2) S/P mitral valve repair Current Visit: Yes Status: Acute Code(s): Z98.890 - OTHER SPECIFIED POSTPROCEDURAL STATES SNOMED Code(s): 558954714 (3) 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 Narrative/Plan: Pleasant 82-year-old female presents to Hospital for her elective mitral valve repair for her significant and symptomatic mitral valve regurgitation. The patient's surgery is been successful and she is recovering well. Preoperatively there was evidence of a urine culture that was positive for ESBL E. coli. Fortunately the patient is asymptomatic and does have asymptomatic bacteriuria. Given the complexity of the cardiovascular surgery should be treated for 3 days after her surgery with Bactrim which fortunately the E. coli is susceptible to. Patient is improving with no evidence of any other infection at this time. 10/05/2017 will complete her course of oral Bactrim today. She developed multiple loose stools, nursing staff and not related at that there is characteristic C. diff stool. Patient relates that she has diarrhea like this she normally takes some probiotic and some Imodium which will be given. Hopefully discontinuation of antibiotic therapy and improved diet her gastric intestinal function will improve. She's had some worsening anemia that is potential that the trimethoprim sulfamethoxazole has impacted this and hopefully with its removal will allow rapid recovery of her hemoglobin. 10/06/2017 patient is now further improved and is cooperating with physical therapy There is a potential for her to be transferred to inpatient rehab in the near future.she has completed her course of antibiotic therapy today. Fortunately her diarrhea is also resolving and she is feeling better. She denies any urinary symptoms and remains without fever. She did receive packed red cells and should continue to improve now that sulfa is removed. 10/05/2017 the patient has further improvement. She has completed her antibiotic therapy. She's having no urinary symptoms at all. Her anemia is resolving and overall she showing marked recovery from her valve repair. No evidence of any infections this time no need for further antibiotic therapy. 10/08/2017 shows ongoing improvement. Other than urinary retention is having no new acute symptoms. Overall showing marked improvement and likely will go to rehab. Agree that if she continues to have difficulties with urinary retention given straight catheterization is superior to maintain a [place] catheter to reduce her risk of ongoing urinary infections. No evidence of urine infection at this time. Current Visit: Yes Status: Chronic Code(s): Z86.19 - PERSONAL HISTORY OF OTHER INFECTIOUS AND PARASITIC DISEASES SNOMED Code(s): 363588588
[2017-10-08 22:43] LABS: Glucose,Whole Blood 181 mg/dL (75-99)
[2017-10-09] MEDS: LACTOBACILLUS ACIDOPH & BULGAR 1 EACH PACKET PO SCH ×4 (00:33→20:56)
[2017-10-09] MEDS: HEPARIN SODIUM,PORCINE 5,000 UNIT/ML 1 ML VIAL SQ SCH ×4 (00:34→23:58)
[2017-10-09 02:07] LABS: Glucose,Whole Blood 110 mg/dL (75-99)
[2017-10-09 04:39] LABS: HCT 28.9 % (34.0-46.0); HGB 9.3 gm/dL (11.4-16.0); MCH 31.7 pg (25.0-35.0); MCHC 32.1 g/dL (31.0-37.0); MCV 98.8 fL (80.0-100.0); Mean Platelet Volume 6.9; Platelet Count 344 k/uL (150-450); RBC 2.93 m/uL (3.80-5.40); RDW 14.1 % (11.5-15.5); WBC 7.4 k/uL (3.8-10.6)
[2017-10-09 04:54] LABS: Albumin 3.3 g/dL (3.5-5.0); Potassium 4.4 mmol/L (3.5-5.1); Total Bilirubin 0.6 mg/dL (0.2-1.3); Total Protein 5.1 g/dL (6.3-8.2)
[2017-10-09] MEDS: FUROSEMIDE 10 MG/ML 2 ML VIAL IV SCH (06:35)
[2017-10-09 07:06] LABS: Glucose,Whole Blood 129 mg/dL (75-99)
[2017-10-09] MEDS: INSULIN ASPART 100 UNIT/ML 1 ML 10 ML VIAL SQ SCH ×4 (07:07→21:04)
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
--- NOTE | 2017-10-09 07:57 | XR ---
EXAMINATION TYPE: XR chest 1V portable DATE OF EXAM: 10/09/2017 COMPARISON: 10/08/2017 HISTORY: Post cardiac surgery. Shortness of breath. Follow-up exam. TECHNIQUE: Single frontal view of the chest is obtained. FINDINGS: There is continued improvement of the trace pleural effusions and bibasilar opacities, wit h pleural effusions now radiopaque likely resolved. Chronic fracture deformities are seen of multiple left-sided ribs. Chronic right hemidiaphragm elevation is also identified. Postsurgical changes of t he chest are noted with prosthetic cardiac valvular replacement. Old left mid clavicular fracture is also seen. Epicardial pacing leads are noted. Osseous demineralization is generalized. IMPRESSION: Resolved bibasilar opacities and trace residual pleural effusions status post cardiac decker rgery. No pulmonary vascular congestion.
[2017-10-09] MEDS: SYMBICORT 160-4.5 MCG INHALER INHALATION SCH ×2 (07:58→20:15)
[2017-10-09] MEDS: IPRATROPIUM-ALBUTEROL 3 ML NEB INHALATION SCH ×4 (07:58→20:15)
[2017-10-09] MEDS: AMIODARONE 200 MG TAB PO SCH ×2 (08:50→20:51)
[2017-10-09] MEDS: PANTOPRAZOLE 40 MG TABLET PO SCH (08:51)
[2017-10-09] MEDS: ATORVASTATIN 40 MG TAB PO SCH (08:51)
[2017-10-09] MEDS: ASPIRIN 325 MG TAB PO SCH (08:51)
[2017-10-09] MEDS: CLOPIDOGREL 75 MG TAB PO SCH (08:51)
[2017-10-09] MEDS: METOPROLOL TARTRATE 12.5 MG TAB PO SCH (08:51)
[2017-10-09] MEDS: OXYMETAZOLINE 0.05% NASL SPRAY 1 SPRAY BOTTLE NASAL SCH ×2 (08:52→20:55)
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
[2017-10-09 12:15] LABS: Glucose,Whole Blood 120 mg/dL (75-99)
--- NOTE | 2017-10-09 12:42 | P.PN ---
Subjective Progress Note Date: 10/09/17 82 years old female patient of Dr. Crain with past medical history mitral valve prolapse, hypertension, osteoarthritis, coronary artery disease with cath from 2017 suggested intermediate disease in the ostial diagonal branch of LAD, depression, irritable bowel syndrome, hyperlipidemia presented for an electivemitral valve repair. Patient was evaluated postoperatively. Currently intubated, and assist control mode on 100% FiO2, PEEP of 5, tidal volume 450. Patient had symptoms of dyspnea on exertion for the past few months for which she was definitely cardiothoracic surgery for mitral valve surgery. Last vital signs suggestive pulses are 139, blood pressure 141/65, FiO2 100% on mechanical ventilation. Labs suggestive hemoglobin of 7.7, platelet 84, INR 1.5. ABG suggests an oxygen of 215, CO2 25, glucose 131, calcium 7.5. Chest x-ray suggestive of mild vascular congestion, chronic parenchymal changes with new patchy left basilar atelectasis, with right apical chest tube and mediastinal drainage catheter. 10/03: Patient remains in intensive care unit. She has been successfully extubated. Patient does complain of some chest discomfort. No significant shortness of breath. But sugars are running 1 tender 117. 10/06: Patient is doing much better had to reinsert Lozano catheter because of urinary retention otherwise patient probably stable to be out of the ICU her chest tube is out so far patient is on O2 only along with updraft treatment rating oral diet and oral medication. 10/07: Patient is somewhat sleepy today and did have difficulty sleeping. She received Ambien last night and she is also on melatonin. Patient did have a short period of atrial fibrillation and started on IV amiodarone which is to be transitioned to oral. Patient is to be transferred to selective care today. Discharge plan will be to [facility]. 10/08:Patient is still waiting for a select care bed. Patient states she is less depressed today. She has been resumed on Elavil and Klonopin. She has been seen by urology for urinary retention with recommendations for lozano discontinued retention and voiding trial close to discharge time which can be managed at INpatient rehab. 10/09: Patient did require straight cath 1 during the night. Cardiothoracic surgery is trying to transfer patient to inpatient rehab today. Patient denies any new complaints. Objective - Vital Signs Vital signs: Vital Signs Temp 98.8 F 10/09/17 08:00 Pulse 81 10/09/17 08:14 Resp 22 10/09/17 08:00 BP 107/59 10/09/17 08:00 Pulse Ox 95 10/09/17 08:00 Intake & Output 10/08/17 10/09/17 10/09/17 18:59 06:59 18:59 Intake Total 480 50 Output Total 440 100 Balance 40 -50 Weight 67.8 kg Intake: Oral 480 50 Output: Urine 440 100 Other: Voiding Method Bedside Commode Toilet Toilet # Voids 1 ABP, PAP, CO, CI - Last Documented Arterial Blood Pressure 124/40 Pulmonary Artery Pressure 45/6 Cardiac Output 5.2 Cardiac Index 2.9 - Exam General appearance: Present: cooperative, disheveled, no acute distress. Absent : average body habitus, mild distress, morbidly obese, obese, severe distress, thin - EENT Eyes: Present: normal appearance. Absent: abnormal pupil, anicteric sclerae, disc margins sharp, edentulous, EOMI, PERRLA, fundus normal, photophobia, dentition normal, poor dentition, ptosis, scleral icterus ENT: Present: normal oropharynx, pharyngeal erythema. Absent: hard of hearing, hearing grossly normal, NA/AT, other, thrush, tonsillar exudates, tonsillar swelling Ears: bilateral: normal - Neck Neck: Present: normal ROM. Absent: lymphadenopathy, other, rigidity, stridor, thyromegaly Carotids: bilateral: upstroke normal Thyroid: bilateral: normal size - Respiratory Respiratory: left: dullness, rales, bilateral: CTA, diminished - Cardiovascular Rhythm: regular Heart sounds: normal: S1, S2 Abnormal Heart Sounds: Present: systolic murmur, S3 Gallop - Gastrointestinal General gastrointestinal: Present: distended, tenderness. Absent: absent bowel sounds, decreased bowel sounds, hepatomegaly, hyperactive bowel sounds, normal bowel sounds, organomegaly, rigid, scaphoid, soft, splenomegaly, umbilical hernia, ventral hernia - Integumentary Integumentary: Present: normal, pale. Absent: calor, cellulitis, cyanotic, decreased turgor, flushed, jaundiced, normal turgor, rash, ulcer - Neurologic Neurologic: Present: CNII-XII intact - Musculoskeletal Musculoskeletal: Present: gait normal, generalized weakness, strength equal bilaterally. Absent: right sided weakness, left sided weakness - Psychiatric Psychiatric: Present: A&O x's 3, appropriate affect - Labs CBC & Chem 7: 10/09/17 04:05 10/09/17 04:05 Labs: Abnormal Lab Results - Last 24 Hours (Table) 10/08/17 10/08/17 10/08/17 Range/Units 12:24 17:24 22:40 RBC (3.80-5.40) m/uL Hgb (11.4-16.0) gm/dL Hct (34.0-46.0) % Chloride (98-107) mmol/L Carbon Dioxide (22-30) mmol/L BUN (7-17) mg/dL Glucose (74-99) mg/dL POC Glucose (mg/dL) 149 H 137 H 181 H (75-99) mg/dL AST (14-36) U/L ALT (9-52) U/L Total Protein (6.3-8.2) g/dL Albumin (3.5-5.0) g/dL 10/09/17 10/09/17 10/09/17 Range/Units 02:04 04:05 04:05 RBC 2.93 L (3.80-5.40) m/uL Hgb 9.3 L (11.4-16.0) gm/dL Hct 28.9 L (34.0-46.0) % Chloride 95 L (98-107) mmol/L Carbon Dioxide 32 H (22-30) mmol/L BUN 19 H (7-17) mg/dL Glucose 116 H (74-99) mg/dL POC Glucose (mg/dL) 110 H (75-99) mg/dL AST 91 H (14-36) U/L ALT 86 H (9-52) U/L Total Protein 5.1 L (6.3-8.2) g/dL Albumin 3.3 L (3.5-5.0) g/dL 10/09/17 Range/Units 07:05 RBC (3.80-5.40) m/uL Hgb (11.4-16.0) gm/dL Hct (34.0-46.0) % Chloride (98-107) mmol/L Carbon Dioxide (22-30) mmol/L BUN (7-17) mg/dL Glucose (74-99) mg/dL POC Glucose (mg/dL) 129 H (75-99) mg/dL AST (14-36) U/L ALT (9-52) U/L Total Protein (6.3-8.2) g/dL Albumin (3.5-5.0) g/dL Assessment and Plan Plan: #1 mitral valve prolapse with severe mitral regurgitation status post mitral valve repair. Successfully extubated. Continue incentive spirometry. Physical therapy once patient stabilizes and is responding to commands. Continue DuoNeb treatments, Symbicort #2 coronary artery disease. Continue daily aspirin, Lipitor, Plavix, Lopressor #3 hypertension. Hold Norvasc for losartan #4 hypercholesterolemia hold Zocor as patient is intubated. Plan to extubate, Can be resumed for swallow evaluation #5 hyperglycemia. Continue insulin drip. No history of diabetes. HbA1c ordered #6 anemia with thrombocytopenia secondary to blood loss expected outcome of the surgery. CBC daily. Transfusion for hemoglobin less than 7 postop #7 history of anxiety. Continue Klonopin and Elavil. #8 history of depression continue Elavil #9 GI prophylaxis: Protonix 40 once a day #10 post op paroxysmal atrial fibrillation on amiodarone. 11. Postoperative urinary retention requiring Lozano catheter. Patient is being straight cathed. Urology consult. code status full code Discharge plan: Most likely to [facility]. Impression and plan of care have been directed as dictated by the signing physician. Dominga Pinto nurse practitioner acting as scribe for signing physician.
[2017-10-09 16:51] LABS: Glucose,Whole Blood 139 mg/dL (75-99)
[2017-10-09] MEDS: AMITRIPTYLINE HCL 25 MG TAB PO SCH (20:51)
[2017-10-09] MEDS: clonazePAM 0.5 MG TAB PO SCH (20:52)
[2017-10-09] MEDS: METOPROLOL TARTRATE 25 MG TAB PO SCH (20:55)
[2017-10-09 20:58] LABS: Glucose,Whole Blood 177 mg/dL (75-99)
[2017-10-09] MEDS ORDERED: METOPROLOL TARTRATE 12.5 MG TAB PO SCH (21:00)
[2017-10-10 01:51] LABS: Glucose,Whole Blood 131 mg/dL (75-99)
[2017-10-10 06:06] LABS: HCT 29.4 % (34.0-46.0); HGB 9.6 gm/dL (11.4-16.0); MCH 31.9 pg (25.0-35.0); MCHC 32.5 g/dL (31.0-37.0); MCV 98.1 fL (80.0-100.0); Mean Platelet Volume 6.8; Platelet Count 419 k/uL (150-450); RDW 13.9 % (11.5-15.5); WBC 7.4 k/uL (3.8-10.6)
[2017-10-10 06:17] LABS: Albumin 3.5 g/dL (3.5-5.0); Calcium 8.9 mg/dL (8.4-10.2); Magnesium 2.1 mg/dL (1.6-2.3); Potassium 4.4 mmol/L (3.5-5.1); Total Bilirubin 0.6 mg/dL (0.2-1.3); Total Protein 5.6 g/dL (6.3-8.2)
[2017-10-10 06:24] LABS: Glucose,Whole Blood 123 mg/dL (75-99)
[2017-10-10] MEDS: INSULIN ASPART 100 UNIT/ML 1 ML 10 ML VIAL SQ SCH ×4 (06:26→21:44)
[2017-10-10] MEDS: PANTOPRAZOLE 40 MG TABLET PO SCH (06:54)
[2017-10-10] MEDS: IPRATROPIUM-ALBUTEROL 3 ML NEB INHALATION SCH ×4 (07:14→21:17)
[2017-10-10] MEDS: SYMBICORT 160-4.5 MCG INHALER INHALATION SCH ×2 (07:14→21:17)
[2017-10-10] MEDS: METOPROLOL TARTRATE 25 MG TAB PO SCH ×2 (07:29→21:32)
[2017-10-10] MEDS: LACTOBACILLUS ACIDOPH & BULGAR 1 EACH PACKET PO SCH ×3 (07:29→21:33)
[2017-10-10] MEDS: ATORVASTATIN 40 MG TAB PO SCH (07:29)
[2017-10-10] MEDS: CLOPIDOGREL 75 MG TAB PO SCH (07:29)
[2017-10-10] MEDS: ASPIRIN 325 MG TAB PO SCH (07:29)
[2017-10-10] MEDS: AMIODARONE 200 MG TAB PO SCH ×2 (07:29→21:32)
[2017-10-10] MEDS: HEPARIN SODIUM,PORCINE 5,000 UNIT/ML 1 ML VIAL SQ SCH ×3 (07:30→22:58)
[2017-10-10] MEDS: FUROSEMIDE 10 MG/ML 2 ML VIAL IV SCH (07:30)
[2017-10-10] MEDS: OXYMETAZOLINE 0.05% NASL SPRAY 1 SPRAY BOTTLE NASAL SCH ×2 (07:30→21:32)
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
--- NOTE | 2017-10-10 08:09 | XR ---
EXAMINATION TYPE: XR chest 2V DATE OF EXAM: 10/10/2017 COMPARISON: 10/09/2017 INDICATION: Post cardiac surgery valve replacement TECHNIQUE: Frontal and lateral views of the chest are obtained. FINDINGS: The heart size is normal. The pulmonary vasculature is normal. Some atelectasis is likely present at the right lung base. Sternotomy wires are present from cardiac valve surgery. Minimal blunting left costophrenic angle is noted. IMPRESSION: 1. Small left pleural effusion. 2. Atelectasis right lung base
[2017-10-10] MEDS: FERROUS SULFATE 325 MG TAB PO SCH (09:13)
[2017-10-10] MEDS: ASCORBIC ACID 500 MG TAB PO SCH (09:13)
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
[2017-10-10 11:19] VITALS: BMI 24.6
[2017-10-10 11:37] LABS: Glucose,Whole Blood 114 mg/dL (75-99)
--- NOTE | 2017-10-10 12:22 | P.PN ---
Subjective Progress Note Date: 10/10/17 82 years old female patient of Dr. Crain with past medical history mitral valve prolapse, hypertension, osteoarthritis, coronary artery disease with cath from 2017 suggested intermediate disease in the ostial diagonal branch of LAD, depression, irritable bowel syndrome, hyperlipidemia presented for an electivemitral valve repair. Patient was evaluated postoperatively. Currently intubated, and assist control mode on 100% FiO2, PEEP of 5, tidal volume 450. Patient had symptoms of dyspnea on exertion for the past few months for which she was definitely cardiothoracic surgery for mitral valve surgery. Last vital signs suggestive pulses are 139, blood pressure 141/65, FiO2 100% on mechanical ventilation. Labs suggestive hemoglobin of 7.7, platelet 84, INR 1.5. ABG suggests an oxygen of 215, CO2 25, glucose 131, calcium 7.5. Chest x-ray suggestive of mild vascular congestion, chronic parenchymal changes with new patchy left basilar atelectasis, with right apical chest tube and mediastinal drainage catheter. 10/03: Patient remains in intensive care unit. She has been successfully extubated. Patient does complain of some chest discomfort. No significant shortness of breath. But sugars are running 1 tender 117. 10/06: Patient is doing much better had to reinsert Lozano catheter because of urinary retention otherwise patient probably stable to be out of the ICU her chest tube is out so far patient is on O2 only along with updraft treatment rating oral diet and oral medication. 10/07: Patient is somewhat sleepy today and did have difficulty sleeping. She received Ambien last night and she is also on melatonin. Patient did have a short period of atrial fibrillation and started on IV amiodarone which is to be transitioned to oral. Patient is to be transferred to selective care today. Discharge plan will be to [facility]. 10/08:Patient is still waiting for a select care bed. Patient states she is less depressed today. She has been resumed on Elavil and Klonopin. She has been seen by urology for urinary retention with recommendations for lozano discontinued retention and voiding trial close to discharge time which can be managed at INpatient rehab. 10/09: Patient did require straight cath 1 during the night. Cardiothoracic surgery is trying to transfer patient to inpatient rehab today. Patient denies any new complaints. 10/10: Patient denies any new complaints. Her pulse ox is running 95-96% on room air at rest. Patient is scheduled for discharge to inpatient rehab today. Objective - Vital Signs Vital signs: Vital Signs Temp 97.5 F L 10/10/17 08:00 Pulse 80 10/10/17 08:00 Resp 18 10/10/17 08:00 BP 113/61 10/10/17 08:00 Pulse Ox 95 10/10/17 08:00 Intake & Output 10/09/17 10/10/17 10/10/17 18:59 06:59 18:59 Intake Total 260 Balance 260 Weight 69.2 kg Intake: Oral 260 Other: Voiding Method Toilet Toilet # Voids 0 1 ABP, PAP, CO, CI - Last Documented Arterial Blood Pressure 124/40 Pulmonary Artery Pressure 45/6 Cardiac Output 5.2 Cardiac Index 2.9 - Exam General appearance: Present: cooperative, disheveled, no acute distress. Absent : average body habitus, mild distress, morbidly obese, obese, severe distress, thin - EENT Eyes: Present: normal appearance. Absent: abnormal pupil, anicteric sclerae, disc margins sharp, edentulous, EOMI, PERRLA, fundus normal, photophobia, dentition normal, poor dentition, ptosis, scleral icterus ENT: Present: normal oropharynx, pharyngeal erythema. Absent: hard of hearing, hearing grossly normal, NA/AT, other, thrush, tonsillar exudates, tonsillar swelling Ears: bilateral: normal - Neck Neck: Present: normal ROM. Absent: lymphadenopathy, other, rigidity, stridor, thyromegaly Carotids: bilateral: upstroke normal Thyroid: bilateral: normal size - Respiratory Respiratory: left: dullness, rales, bilateral: CTA, diminished - Cardiovascular Rhythm: regular Heart sounds: normal: S1, S2 Abnormal Heart Sounds: Present: systolic murmur, S3 Gallop - Gastrointestinal General gastrointestinal: Present: distended, tenderness. Absent: absent bowel sounds, decreased bowel sounds, hepatomegaly, hyperactive bowel sounds, normal bowel sounds, organomegaly, rigid, scaphoid, soft, splenomegaly, umbilical hernia, ventral hernia - Integumentary Integumentary: Present: normal, pale. Absent: calor, cellulitis, cyanotic, decreased turgor, flushed, jaundiced, normal turgor, rash, ulcer - Neurologic Neurologic: Present: CNII-XII intact - Musculoskeletal Musculoskeletal: Present: gait normal, generalized weakness, strength equal bilaterally. Absent: right sided weakness, left sided weakness - Psychiatric Psychiatric: Present: A&O x's 3, appropriate affect - Labs CBC & Chem 7: 10/10/17 05:18 10/10/17 05:18 Labs: Abnormal Lab Results - Last 24 Hours (Table) 10/09/17 10/09/17 10/09/17 Range/Units 12:13 16:48 20:57 RBC (3.80-5.40) m/uL Hgb (11.4-16.0) gm/dL Hct (34.0-46.0) % Chloride (98-107) mmol/L Carbon Dioxide (22-30) mmol/L Glucose (74-99) mg/dL POC Glucose (mg/dL) 120 H 139 H 177 H (75-99) mg/dL AST (14-36) U/L ALT (9-52) U/L Total Protein (6.3-8.2) g/dL 10/10/17 10/10/17 10/10/17 Range/Units 01:48 05:18 05:18 RBC 3.00 L (3.80-5.40) m/uL Hgb 9.6 L (11.4-16.0) gm/dL Hct 29.4 L (34.0-46.0) % Chloride 96 L (98-107) mmol/L Carbon Dioxide 33 H (22-30) mmol/L Glucose 112 H (74-99) mg/dL POC Glucose (mg/dL) 131 H (75-99) mg/dL AST 73 H (14-36) U/L ALT 89 H (9-52) U/L Total Protein 5.6 L (6.3-8.2) g/dL 10/10/17 Range/Units 06:21 RBC (3.80-5.40) m/uL Hgb (11.4-16.0) gm/dL Hct (34.0-46.0) % Chloride (98-107) mmol/L Carbon Dioxide (22-30) mmol/L Glucose (74-99) mg/dL POC Glucose (mg/dL) 123 H (75-99) mg/dL AST (14-36) U/L ALT (9-52) U/L Total Protein (6.3-8.2) g/dL Assessment and Plan Plan: #1 mitral valve prolapse with severe mitral regurgitation status post mitral valve repair. Successfully extubated. Continue incentive spirometry. Physical therapy once patient stabilizes and is responding to commands. Continue DuoNeb treatments, Symbicort #2 coronary artery disease. Continue daily aspirin, Lipitor, Plavix, Lopressor #3 hypertension. Hold Norvasc for losartan #4 hypercholesterolemia hold Zocor as patient is intubated. Plan to extubate, Can be resumed for swallow evaluation #5 hyperglycemia. Continue insulin drip. No history of diabetes. HbA1c ordered #6 anemia with thrombocytopenia secondary to blood loss expected outcome of the surgery. CBC daily. Transfusion for hemoglobin less than 7 postop #7 history of anxiety. Continue Klonopin and Elavil. #8 history of depression continue Elavil #9 GI prophylaxis: Protonix 40 once a day #10 post op paroxysmal atrial fibrillation on amiodarone. 11. Postoperative urinary retention requiring Lozano catheter. Patient is being straight cathed. Urology consult. code status full code Discharge plan: Inpatient rehab. Impression and plan of care have been directed as dictated by the signing physician. Dominga Pinto nurse practitioner acting as scribe for signing physician.
--- NOTE | 2017-10-10 14:43 | P.PN ---
Subjective Progress Note Date: 10/10/17 Principal diagnosis: Shortness of breath Pleasant 82-year-old woman with a long-standing history of mitral valve prolapse who over the last year has been having increasing difficulties with fatigue and dyspnea on exertion. She had outpatient evaluation including a YARA showed the severe mitral valve regurgitation. Because her symptomatology she was referred to cardiovascular surgery and outpatient valuation revealed that she was a candidate for mitral valve repair. Consequently she was brought into hospital and 10/02/2017 for the elective aortic valve repair. In the days before her surgery routine evaluation revealed the patient was feeling well without fevers or chills with no urinary symptoms however she did have a positive urine culture with E. coli. It was an ESBL organism. At that time the question was posed with infectious disease as to what should be done. Given the patient had asymptomatic bacteriuria there was no specific reason to withhold her surgery and it was prudent to treat before surgery and for 3 days after surgery with appropriate antibiotic therapy. The patient is now had her mitral valve repair and is recovering well. Surprisingly she is denying any significant amounts of pain. Remains without fevers or chills. Denies any urinary symptoms. On 10/05/2017 she sitting up in the chair, has been having some of her lunch, pain is under good control but is upset because she's had several loose stools. She relates she does have IBS and often does have bouts of diarrhea. She is very embarrassed that she's had incontinent stool, she is denying abdominal pain she has no nausea or emesis but with her diarrhea her appetite is poor. She has no urinary symptoms. Her shortness of breath is improved. 10/06/2017 the patient is working further with and is feeling better today. Her diarrhea has now resolved and she is able to eat without difficulty.he is denying significant amounts of pain and is doing well overall and denies any urinary symptoms. 09/30/2017 the patient continues to improve. Sitting up in a chair and eating well today. She's having no pain or shortness of breath is improving. 10/08/2017 reveals the patient be feeling better. Sitting up in the chair having no new acute complaints. Continues to participate with therapy. Is having some ongoing intermittent difficulties with urinary retention. May require intermittent straight catheterization. 10/10/2017 patient shows remarkable improvement of her walking without difficulties. More comfortable. No fevers or chills. Denies urinary symptoms. Objective - Vital Signs Vital signs: Vital Signs Temp 97.5 F L 10/10/17 08:00 Pulse 80 10/10/17 11:07 Resp 18 10/10/17 08:00 BP 113/61 10/10/17 08:00 Pulse Ox 95 10/10/17 08:00 Intake & Output 10/09/17 10/10/17 10/10/17 18:59 06:59 18:59 Intake Total 260 240 Output Total 0 Balance 260 240 Weight 69.2 kg 69.2 kg Intake: Oral 260 240 Output: Urine 0 Other: Voiding Method Toilet Toilet # Voids 0 1 ABP, PAP, CO, CI - Last Documented Arterial Blood Pressure 124/40 Pulmonary Artery Pressure 45/6 Cardiac Output 5.2 Cardiac Index 2.9 - Exam Pleasant 82-year-old female status post surgery is comfortable HEENT: Anicteric conjunctiva are pink and moist nasal mucosa grossly intact without significant lesions, there is no thrush. Neck: The neck is supple without significant lymphadenopathy or thyromegaly. Lungs Symmetrical air entry with few basilar crackles Heart Regular with a rate of about 70 she's being paced no significant murmur was noted Abdomen: Positive bowel sounds soft and nontender without palpable masses or organomegaly. There was no guarding or rebound.No bladder tenderness Extremities: The upper extremities have excellent pulses they are symmetric, no significant petechiae or telangiectasia. No splinter hemorrhages were noted. The lower extremities are free from significant edema. The peripheral pulses were 2+ and symmetric. Neuro: Awake alert oriented to person place and time. There are no acute new gross focal sensory motor deficits. Skin is without lesions - Labs CBC & Chem 7: 10/10/17 05:18 10/10/17 05:18 Labs: Abnormal Lab Results - Last 24 Hours (Table) 10/09/17 10/09/17 10/10/17 Range/Units 16:48 20:57 01:48 RBC (3.80-5.40) m/uL Hgb (11.4-16.0) gm/dL Hct (34.0-46.0) % Chloride (98-107) mmol/L Carbon Dioxide (22-30) mmol/L Glucose (74-99) mg/dL POC Glucose (mg/dL) 139 H 177 H 131 H (75-99) mg/dL AST (14-36) U/L ALT (9-52) U/L Total Protein (6.3-8.2) g/dL 10/10/17 10/10/17 10/10/17 Range/Units 05:18 05:18 06:21 RBC 3.00 L (3.80-5.40) m/uL Hgb 9.6 L (11.4-16.0) gm/dL Hct 29.4 L (34.0-46.0) % Chloride 96 L (98-107) mmol/L Carbon Dioxide 33 H (22-30) mmol/L Glucose 112 H (74-99) mg/dL POC Glucose (mg/dL) 123 H (75-99) mg/dL AST 73 H (14-36) U/L ALT 89 H (9-52) U/L Total Protein 5.6 L (6.3-8.2) g/dL 10/10/17 Range/Units 11:36 RBC (3.80-5.40) m/uL Hgb (11.4-16.0) gm/dL Hct (34.0-46.0) % Chloride (98-107) mmol/L Carbon Dioxide (22-30) mmol/L Glucose (74-99) mg/dL POC Glucose (mg/dL) 114 H (75-99) mg/dL AST (14-36) U/L ALT (9-52) U/L Total Protein (6.3-8.2) g/dL Laboratory Results WBC 7.4 k/uL (3.8-10.6) 10/10/17:18 RBC 3.00 m/uL (3.80-5.40) L 10/10/17 05:18 Hgb 9.6 gm/dL (11.4-16.0) L 10/10/17 05:18 Hct 29.4 % (34.0-46.0) L 10/10/17:18 MCV 98.1 fL (80.0-100.0) 10/10/17 05:18 MCH 31.9 pg (25.0-35.0) 10/10/17 05:18 MCHC 32.5 g/dL (31.0-37.0) 05/25/18 05:18 RDW 13.9 % (11.5-15.5) 10/10/17 05:18 Plt Count 419 k/uL (150-450) 10/10/17 05:18 Neutrophils % 72 % 10/06/17 04:55 Lymphocytes % 19 % 10/06/17 04:55 Monocytes % 6 % 10/06/17 04:55 Eosinophils % 1 % 10/06/17 04:55 Basophils % 0 % 10/06/17 04:55 Neutrophils # 4.3 k/uL (1.3-7.7) 10/06/17 04:55 Lymphocytes # 1.1 k/uL (1.0-4.8) 10/06/17 04:55 Monocytes # 0.3 k/uL (0-1.0) 10/06/17 04:55 Eosinophils # 0.1 k/uL (0-0.7) 10/06/17 04:55 Basophils # 0.0 k/uL (0-0.2) 10/06/17 04:55 Manual Slide Review Performed 10/02/17 14:05 RBC Morphology Normal 10/02/17 14:05 Macrocytosis Slight 10/05/17 05:26 PT 11.9 sec (9.0-12.0) 10/03/17 04:00 INR 1.3 (<1.2) H 10/03/17 04:00 APTT 29.9 sec (22.0-30.0) 10/03/17 04:00 Sample Site [place] 10/02/17 17:55 ABG pH 7.36 (7.35-7.45) 10/02/17 17:55 ABG pCO2 43 mmHg (35-45) 10/02/17 17:55 ABG pO2 79 mmHg (83-108) L 10/02/17 17:55 ABG HCO3 24 mmol/L (21-25) 10/02/17 17:55 ABG Total CO2 26 mmol/L (19-24) H 10/02/17 17:55 ABG O2 Saturation 97.2 % (94-97) H 10/02/17 17:55 ABG Base Excess -1.1 mmol/L 10/02/17 17:55 ABG Hematocrit 25 % (34.0-46.0) L 10/02/17 12:35 Elfego Test Yes 10/02/17 17:55 ABG Sodium 140 mmol/L (135-146) 10/02/17 12:35 ABG Potassium 4.0 mmol/L (3.4-4.5) 10/02/17 12:35 ABG Ionized Calcium 4.3 mg/dL (4.5-5.3) L 10/02/17 12:35 ABG Glucose 129 mg/dL (75-99) H 10/02/17 12:35 ABG Lactic Acid 1.0 mmol/L (0.5-1.6) 10/02/17 12:35 Hemoglobin 8.0 gm/dL (11.4-16.0) L 10/02/17 12:35 FiO2 50 % 10/02/17 17:55 Sodium 138 mmol/L (137-145) 10/10/17 05:18 Potassium 4.4 mmol/L (3.5-5.1) 10/10/17 05:18 Chloride 96 mmol/L (98-107) L 10/10/17 05:18 Carbon Dioxide 33 mmol/L (22-30) H 10/10/17 05:18 Anion Gap 9 mmol/L 10/10/17 05:18 BUN 16 mg/dL (7-17) 10/10/17 05:18 Creatinine 0.84 mg/dL (0.52-1.04) 10/10/17 05:18 Est GFR (CKD-EPI)AfAm 75 (>60 ml/min/1.73 sqM) 10/10/17 05:18 Est GFR (CKD-EPI)NonAf 65 (>60 ml/min/1.73 sqM) 10/10/17 05:18 Glucose 112 mg/dL (74-99) H 10/10/17 05:18 POC Glucose (mg/dL) 114 mg/dL (75-99) H 10/10/17 11:36 POC Glu Alarm Mechanism Adjuster PERLITA Lacie Avery 10/10/17 11:[address] Glu mg/dL 108 10/02/17 14:05 Hemoglobin A1c 5.4 % (4.0-6.0) 10/02/17 14:05 Calcium 8.9 mg/dL (8.4-10.2) 10/10/17 05:18 Ionized Calcium Ivan 4.9 mg/dL (4.5-5.3) 10/04/17 04:30 Phosphorus 2.5 mg/dL (2.5-4.5) 10/06/17 04:55 Magnesium 2.1 mg/dL (1.6-2.3) 10/10/17 05:18 Total Bilirubin 0.6 mg/dL (0.2-1.3) 10/10/17 05:18 AST 73 U/L (14-36) H 10/10/17 05:18 ALT 89 U/L (9-52) H 10/10/17 05:18 Alkaline Phosphatase 69 U/L (38-126) 10/10/17 05:18 Total Protein 5.6 g/dL (6.3-8.2) L 10/10/17 05:18 Albumin 3.5 g/dL (3.5-5.0) 10/10/17 05:18 Arterial Blood Potassium 4.0 mmol/L (3.4-4.5) 10/02/17 12:35 Arterial Blood Glucose 129 mg/dL (75-99) H 10/02/17 12:35 Blood Type A Positive 10/05/17 06:55 Blood Type Recheck No 10/05/17 06:55 Antibody Screen NEGATIVE 10/05/17 06:55 Crossmatch See Detail 10/05/17 06:55 Transfuse Platelets 10/02/2017 09/25/17 08:24 Spec Expiration Date 10/08/2017 - 7871 10/05/17 06:55 Assessment and Plan (1) Mitral valve regurgitation Current Visit: Yes Status: Chronic Code(s): I34.0 - NONRHEUMATIC MITRAL ( VALVE) INSUFFICIENCY SNOMED Code(s): 05906641 (2) S/P mitral valve repair Current Visit: Yes Status: Acute Code(s): Z98.890 - OTHER SPECIFIED POSTPROCEDURAL STATES SNOMED Code(s): 473271904 (3) 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 Narrative/Plan: Pleasant 82-year-old female presents to Hospital for her elective mitral valve repair for her significant and symptomatic mitral valve regurgitation. The patient's surgery is been successful and she is recovering well. Preoperatively there was evidence of a urine culture that was positive for ESBL E. coli. Fortunately the patient is asymptomatic and does have asymptomatic bacteriuria. Given the complexity of the cardiovascular surgery should be treated for 3 days after her surgery with Bactrim which fortunately the E. coli is susceptible to. Patient is improving with no evidence of any other infection at this time. 10/05/2017 will complete her course of oral Bactrim today. She developed multiple loose stools, nursing staff and not related at that there is characteristic C. diff stool. Patient relates that she has diarrhea like this she normally takes some probiotic and some Imodium which will be given. Hopefully discontinuation of antibiotic therapy and improved diet her gastric intestinal function will improve. She's had some worsening anemia that is potential that the trimethoprim sulfamethoxazole has impacted this and hopefully with its removal will allow rapid recovery of her hemoglobin. 10/06/2017 patient is now further improved and is cooperating with physical therapy There is a potential for her to be transferred to inpatient rehab in the near future.she has completed her course of antibiotic therapy today. Fortunately her diarrhea is also resolving and she is feeling better. She denies any urinary symptoms and remains without fever. She did receive packed red cells and should continue to improve now that sulfa is removed. 10/05/2017 the patient has further improvement. She has completed her antibiotic therapy. She's having no urinary symptoms at all. Her anemia is resolving and overall she showing marked recovery from her valve repair. No evidence of any infections this time no need for further antibiotic therapy. 10/08/2017 shows ongoing improvement. Other than urinary retention is having no new acute symptoms. Overall showing marked improvement and likely will go to rehab. Agree that if she continues to have difficulties with urinary retention given straight catheterization is superior to maintain a Naranjo catheter to reduce her risk of ongoing urinary infections. No evidence of urine infection at this time. 10/10/2017 the patient is showing further improvement. Urinary retention is showing improvement. She is up and walking and no longer has a Naranjo in place. She's having no urinary symptoms. No fevers or chills. She'll had off to the inpatient rehabilitation unit soon. Current Visit: Yes Status: Chronic Code(s): Z86.19 - PERSONAL HISTORY OF OTHER INFECTIOUS AND PARASITIC DISEASES SNOMED Code(s): 684420185
[2017-10-10 16:37] LABS: Glucose,Whole Blood 138 mg/dL (75-99)
[2017-10-10 21:25] LABS: Glucose,Whole Blood 179 mg/dL (75-99)
[2017-10-10] MEDS: clonazePAM 0.5 MG TAB PO SCH (21:32)
[2017-10-10] MEDS: AMITRIPTYLINE HCL 25 MG TAB PO SCH (21:33)
[2017-10-11 02:22] LABS: Glucose,Whole Blood 137 mg/dL (75-99)
[2017-10-11] MEDS: INSULIN ASPART 100 UNIT/ML 1 ML 10 ML VIAL SQ SCH ×2 (07:00→12:37)
[2017-10-11 07:01] LABS: Glucose,Whole Blood 122 mg/dL (75-99)
[2017-10-11] MEDS: PANTOPRAZOLE 40 MG TABLET PO SCH (07:01)
[2017-10-11] MEDS: IPRATROPIUM-ALBUTEROL 3 ML NEB INHALATION SCH ×4 (08:32→15:39)
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
[2017-10-11] MEDS: HEPARIN SODIUM,PORCINE 5,000 UNIT/ML 1 ML VIAL SQ SCH (09:52)
[2017-10-11] MEDS: FUROSEMIDE 10 MG/ML 2 ML VIAL IV SCH (09:53)
[2017-10-11] MEDS: CLOPIDOGREL 75 MG TAB PO SCH (09:53)
[2017-10-11] MEDS: ASPIRIN 325 MG TAB PO SCH (09:53)
[2017-10-11] MEDS: AMIODARONE 200 MG TAB PO SCH (09:53)
[2017-10-11] MEDS: ATORVASTATIN 40 MG TAB PO SCH (09:53)
[2017-10-11] MEDS: LACTOBACILLUS ACIDOPH & BULGAR 1 EACH PACKET PO SCH (09:54)
[2017-10-11] MEDS: METOPROLOL TARTRATE 25 MG TAB PO SCH (09:54)
[2017-10-11] MEDS: OXYMETAZOLINE 0.05% NASL SPRAY 1 SPRAY BOTTLE NASAL SCH (09:55)
--- NOTE | 2017-10-11 11:09 | P.PN ---
Subjective Progress Note Date: 10/11/17 This is a pleasant 82-year-old female who is status post mitral valve repair with complete ring annuloplasty for severe mitral valve regurgitation. Patient was seen and examined this morning, she's been up ambulating in the hallway without any difficulty. Her blood pressure 126/68 with a heart rate in the 60s, 93% on room air, temperature 98.2. Arrangements are being made for possible transferred to rehab if insurance allows. Objective - Vital Signs Vital signs: Vital Signs Temp 98.2 F 10/11/17 04:15 Pulse 77 10/11/17 08:45 Resp 17 10/11/17 04:15 BP 126/68 10/11/17 04:15 Pulse Ox 93 L 10/11/17 04:15 Intake & Output 10/10/17 10/11/17 10/11/17 18:59 06:59 18:59 Intake Total 640 240 Output Total 0 650 Balance 640 -650 240 Weight 69.2 kg 68.8 kg Intake: Oral 640 240 Output: Urine 0 650 Other: Voiding Method Toilet # Voids 1 3 ABP, PAP, CO, CI - Last Documented Arterial Blood Pressure 124/40 Pulmonary Artery Pressure 45/6 Cardiac Output 5.2 Cardiac Index 2.9 - Exam PHYSICAL EXAMINATION: GENERAL: HEENT: Head is atraumatic, normocephalic. Pupils equal, round. Sclera anicteric. Conjunctiva are clear. Mucous membranes of the mouth are moist. Neck is supple. There is no elevated jugular venous pressure.] bruit is heard. HEART EXAMINATION: Heart S1, S2 normal. No murmur or gallop heard. CHEST EXAMINATION: Lungs are clear with diminished air entry to bilateral bases. ABDOMEN: Soft, nontender. Bowel sounds are heard. No organomegaly noted. EXTREMITIES: 2+ peripheral pulses with no evidence of peripheral edema and no calf tenderness noted. Bilateral KENNY hose in place. NEUROLOGIC patient is awake, alert and oriented -3. . - Labs CBC & Chem 7: 10/10/17 05:18 10/10/17 05:18 Labs: Abnormal Lab Results - Last 24 Hours (Table) 10/10/17 10/10/17 10/10/17 Range/Units 11:36 16:35 21:13 POC Glucose (mg/dL) 114 H 138 H 179 H (75-99) mg/dL 10/11/17 10/11/17 Range/Units 02:14 06:54 POC Glucose (mg/dL) 137 H 122 H (75-99) mg/dL Assessment and Plan Plan: Assessment and plan #1 status post mitral valve repair for severe mitral regurgitation. #2 hypertension #3 hyperlipidemia #4 prior history of smoking Plan From cardiology's perspective, we will recommend to continue the patient on her current medications. She may be able to be discharged home or to rehab from cardiology's perspective. We will make her a follow-up appointment to see Dr. Del Angel in the office post discharge. DNP note has been reviewed, I agree with a documented findings and plan of care. Patient was seen and examined.
[2017-10-11 11:20] VITALS: RESP 18
[2017-10-11] MEDS: SYMBICORT 160-4.5 MCG INHALER INHALATION SCH (11:22)
[2017-10-11 11:43] LABS: Glucose,Whole Blood 119 mg/dL (75-99)
--- NOTE | 2017-10-11 11:47 | P.PN ---
Subjective Progress Note Date: 10/11/17 Principal diagnosis: Post mitral valve repair, CAD, hypertension, hyperlipidemia, hyperglycemia and anemia 82 years old female patient of Dr. Crain with past medical history mitral valve prolapse, hypertension, osteoarthritis, coronary artery disease with cath from 2017 suggested intermediate disease in the ostial diagonal branch of LAD, depression, irritable bowel syndrome, hyperlipidemia presented for an electivemitral valve repair. Patient was evaluated postoperatively. Currently intubated, and assist control mode on 100% FiO2, PEEP of 5, tidal volume 450. Patient had symptoms of dyspnea on exertion for the past few months for which she was definitely cardiothoracic surgery for mitral valve surgery. Last vital signs suggestive pulses are 139, blood pressure 141/65, FiO2 100% on mechanical ventilation. Labs suggestive hemoglobin of 7.7, platelet 84, INR 1.5. ABG suggests an oxygen of 215, CO2 25, glucose 131, calcium 7.5. Chest x-ray suggestive of mild vascular congestion, chronic parenchymal changes with new patchy left basilar atelectasis, with right apical chest tube and mediastinal drainage catheter. 10/03: Patient remains in intensive care unit. She has been successfully extubated. Patient does complain of some chest discomfort. No significant shortness of breath. But sugars are running 1 tender 117. 10/06: Patient is doing much better had to reinsert [place]jo catheter because of urinary retention otherwise patient probably stable to be out of the ICU her chest tube is out so far patient is on O2 only along with updraft treatment rating oral diet and oral medication. 10/11/2017: Patient was post to go to rehab yesterday apparently she needed preauthorization with her insurance company, PTOT and cardiothoracic are working with the patient to see if she can go home with home care. Objective - Vital Signs Vital signs: Vital Signs Temp 98.2 F 10/11/17 04:15 Pulse 77 10/11/17 08:45 Resp 18 10/11/17 08:00 BP 117/72 10/11/17 08:00 Pulse Ox 94 L 10/11/17 08:00 Intake & Output 10/10/17 10/11/17 10/11/17 18:59 06:59 18:59 Intake Total 640 240 Output Total 0 650 Balance 640 -650 240 Weight 69.2 kg 68.8 kg Intake: Oral 640 240 Output: Urine 0 650 Other: Voiding Method Toilet Toilet # Voids 1 3 ABP, PAP, CO, CI - Last Documented Arterial Blood Pressure 124/40 Pulmonary Artery Pressure 45/6 Cardiac Output 5.2 Cardiac Index 2.9 - Constitutional General appearance: Present: cooperative, no acute distress. Absent: average body habitus, disheveled, mild distress, morbidly obese, obese, severe distress , thin - EENT Eyes: Present: normal appearance. Absent: abnormal pupil, anicteric sclerae, disc margins sharp, edentulous, EOMI, PERRLA, fundus normal, photophobia, dentition normal, poor dentition, ptosis, scleral icterus ENT: Present: hard of hearing, pharyngeal erythema. Absent: hearing grossly normal, NA/AT, normal oropharynx, other, thrush, tonsillar exudates, tonsillar swelling Ears: bilateral: normal - Neck Neck: Present: normal ROM. Absent: lymphadenopathy, other, rigidity, stridor, thyromegaly Carotids: bilateral: upstroke normal, upstroke delayed Thyroid: bilateral: normal size - Respiratory Respiratory: bilateral: diminished, dullness - Cardiovascular Rhythm: regular Heart sounds: normal: S1, S2 Abnormal Heart Sounds: Present: systolic murmur, S3 Gallop - Gastrointestinal General gastrointestinal: Present: decreased bowel sounds, normal bowel sounds. Absent: absent bowel sounds, distended, hepatomegaly, hyperactive bowel sounds , organomegaly, rigid, scaphoid, soft, splenomegaly, tenderness, umbilical hernia, ventral hernia - Integumentary Integumentary: Present: normal, pale. Absent: calor, cellulitis, cyanotic, decreased turgor, flushed, jaundiced, normal turgor, rash, ulcer - Neurologic Neurologic: Present: CNII-XII intact. Absent: focal deficits - Musculoskeletal Musculoskeletal: Present: gait normal, generalized weakness, strength equal bilaterally. Absent: right sided weakness, left sided weakness - Psychiatric Psychiatric: Present: A&O x's 3, appropriate affect - Labs CBC & Chem 7: 10/10/17 05:18 10/10/17 05:18 Labs: Abnormal Lab Results - Last 24 Hours (Table) 10/10/17 10/10/17 10/11/17 Range/Units 16:35 21:13 02:14 POC Glucose (mg/dL) 138 H 179 H 137 H (75-99) mg/dL 10/11/17 10/11/17 Range/Units 06:54 11:40 POC Glucose (mg/dL) 122 H 119 H (75-99) mg/dL Assessment and Plan Plan: #1 mitral valve prolapse with severe mitral regurgitation status post operative day 4 , mitral valve repair, doing well #2 coronary artery disease. Continue daily aspirin and medical management only. #3 hypertension. Hold Norvasc for losartan #4 hypercholesterolemia hold Zocor as patient is intubated. Plan to extubate, Can be resumed for swallow evaluation #5 hyperglycemia. Continue insulin drip. No history of diabetes. HbA1c ordered #6 anemia with thrombocytopenia secondary to blood loss expected outcome of the surgery. CBC daily. Transfusion for hemoglobin less than 7 postop #7 history of anxiety. Hold Klonopin as patient is sedated. #8 history of depression amitriptyline can be initiated post extubation Discharge planning patient is doing well will be discharged today. Patient is stable medically.
[2017-10-11] MEDS ORDERED: LISINOPRIL 2.5 MG TAB PO SCH (12:00)
[2017-10-11 17:04] VITALS: BP 143/67; PULSE 60; TEMP 98
[2017-10-14] MEDS ORDERED: AMIODARONE 200 MG TAB PO SCH (09:00)
[2017-10-21] MEDS ORDERED: AMIODARONE 200 MG TAB PO SCH (09:00)
== END 2017-10-11 18:22 | DRG 220 ==
LOC: 2ORMAIN 10-02 05:33 → 6ICU 10-02 13:28 → 6SEL 10-09 16:02
PROVIDERS: ADMIT Surgery; ATTEND Surgery
PROC: 02UG0JZ Supplement Mitral Valve with Synthetic Substitute, Open Approach (ICD-10-PCS; principal; 2017-10-05)
PROC: 30230N1 Transfusion of Nonautologous Red Blood Cells into Peripheral Vein, Open Approach (ICD-10-PCS; 2017-10-05)
PROC: 02B70ZK Excision of Left Atrial Appendage, Open Approach (ICD-10-PCS; 2017-10-05)
PROC: B246ZZ4 Ultrasonography of Right and Left Heart, Transesophageal (ICD-10-PCS; 2017-10-05)
PROC: 4A133BC Monitoring of Arterial Pressure, Coronary, Percutaneous Approach (ICD-10-PCS; 2017-10-05)
PROC: 5A1221Z Performance of Cardiac Output, Continuous (ICD-10-PCS; 2017-10-05)
DX: I34.0 Nonrheumatic mitral (valve) insufficiency (principal); F33.9 Major depressive disorder, recurrent, unspecified; J98.11 Atelectasis; D62 Acute posthemorrhagic anemia; D69.59 Other secondary thrombocytopenia; I34.1 Nonrheumatic mitral (valve) prolapse; I48.0 Paroxysmal atrial fibrillation; J44.9 Chronic obstructive pulmonary disease, unspecified; R33.8 Other retention of urine; I10 Essential (primary) hypertension; R09.02 Hypoxemia; G47.9 Sleep disorder, unspecified; E78.00 Pure hypercholesterolemia, unspecified; I25.10 Atherosclerotic heart disease of native coronary artery without angina pectoris; E78.5 Hyperlipidemia, unspecified; M19.91 Primary osteoarthritis, unspecified site; R73.9 Hyperglycemia, unspecified; F41.1 Generalized anxiety disorder; K58.0 Irritable bowel syndrome with diarrhea; N39.41 Urge incontinence; Z71.6 Tobacco abuse counseling; Z79.82 Long term (current) use of aspirin; Z79.899 Other long term (current) drug therapy; F17.201 Nicotine dependence, unspecified, in remission; Z87.81 Personal history of (healed) traumatic fracture; Z96.653 Presence of artificial knee joint, bilateral; Z85.828 Personal history of other malignant neoplasm of skin; Z86.19 Personal history of other infectious and parasitic diseases; Z87.440 Personal history of urinary (tract) infections; Z88.5 Allergy status to narcotic agent; Z80.0 Family history of malignant neoplasm of digestive organs; Z82.49 Family history of ischemic heart disease and other diseases of the circulatory system
CPT/HCPCS: 71045; 71046; 80053; 82330; 82805; 83036; 83735; 84100; 84132; 85025; 85027; 85520; 85610; 85730; 86850; 86891; 86900; 86901; 86920; 88305; 94002; 94640

== ENCOUNTER 2018-04-28 04:38 | Emergency (ER) | payer MEDICARE ==
[2018-04-28 04:45] VITALS: TEMP 98.3
[2018-04-28] MEDS ORDERED: DIPH,PERTUS(ACELL)TETVAC-LF 0.5 ML VIAL IM ONE (05:00)
--- NOTE | 2018-04-28 05:29 | CT ---
EXAM: CT Head Without Intravenous Contrast CLINICAL HISTORY: ITS.REASON CT Reason: Pain TECHNIQUE: Axial computed tomography images of the head/brain without intravenous contrast. CTDI is 0.085, 0.085, 45.2, 8.8 mGy and DLP is 1274.9 mGy-cm. This CT exam was performed using one or more of the following dose reduction techniques: automated exposure control, adjustment of the mA and/or kV according to patient size, and/or use of iterative reconstruction technique. COMPARISON: 12/13/2011 FINDINGS: Brain: No acute intracranial hemorrhage, loss of sierra-white differentiation, or significant mass effect. Nonspecific areas of hypoattenuation in the periventricular white matter likely represent the sequela of chronic small vessel ischemic disease. Ventricles: Ventricular and sulcal prominence commensurate with the patient's age. Bones/joints: Unremarkable. No acute fracture. Soft tissues: Unremarkable. Sinuses: Unremarkable as visualized. No acute sinusitis. Mastoid air cells: Unremarkable. IMPRESSION: No acute intracranial hemorrhage or calvarial fracture. EXAM: CT Cervical Spine Without Intravenous Contrast CLINICAL HISTORY: ITS.REASON CT Reason: Pain TECHNIQUE: Axial computed tomography images of the cervical spine without intravenous contrast. CTDI is 0.085, 0.085, 45.2, 8.8 mGy and DLP is 1274.9 mGy-cm. This CT exam was performed using one or more of the following dose reduction techniques: automated exposure control, adjustment of the mA and/or kV according to patient size, and/or use of iterative reconstruction technique. COMPARISON: No relevant prior studies available. FINDINGS: Vertebrae: No acute fracture or malalignment. Straightening of the normal cervical lordosis. Discs/spinal canal/neural foramina: Disc height loss, osteophytes, uncovertebral spurs, and facet arthropathy. Multilevel foraminal narrowing. No significant osseous spinal stenosis. Soft tissues: Unremarkable. IMPRESSION: No acute fracture or malalignment.
--- NOTE | 2018-04-28 05:38 | ED ---
General Adult HPI - General Chief complaint: Head Injury Stated complaint: Fall,head injury Time Seen by Provider: 04/28/18 04:49 Source: patient, family, RN notes reviewed, old records reviewed Mode of arrival: wheelchair Limitations: no limitations - History of Present Illness Initial comments: 82-year-old female presenting for evaluation of head injury and laceration. Patient states she stood to go to the bathroom in the middle the night, fell striking the top of her head on a dresser. No loss consciousness. Patient is not on any anticoagulation. She is on daily aspirin. Denies significant headache. Denies vision changes. Denies focal numbness or weakness. Denies chest pain or palpitations. She has previous history of mitral valve repair. Patient states she does get lightheaded when she stands too quickly. This is not a new symptom and she believes this is why she fell today. Denies neck pain. Denies any other injury. - Related Data Home Medications Medication Instructions Recorded Confirmed ArmondacidSilvino clement B.lactis 1 cap PO DAILY 05/01/17 04/28/18 [Probiotic] Opc Antioxidant 1 tab PO DAILY 05/01/17 04/28/18 clonazePAM [KlonoPIN] 0.5 mg PO HS 05/01/17 04/28/18 Amitriptyline HCl [Elavil] 12.5 mg PO HS 09/25/17 04/28/18 Previous Rx's Medication Instructions Recorded Acetaminophen Tab [Tylenol Tab] 650 mg PO Q4H PRN #30 tablet 10/10/17 Amiodarone [Cordarone] 200 mg PO BID tab 10/11/17 Amiodarone [Cordarone] 200 mg PO DAILY tab 10/11/17 Amiodarone [Cordarone] 400 mg PO BID tab 10/11/17 Aspirin 325 mg PO DAILY tab 10/11/17 Atorvastatin [Lipitor] 40 mg PO DAILY tab 10/11/17 Insulin Aspart [NovoLOG 0 unit SQ ACHS vial 10/11/17 (formulary)] Ipratropium-Albuterol Nebulize 3 ml INHALATION RT-Q2H PRN 10/11/17 [Duoneb 0.5 mg-3 mg/3 ml Soln] ampul.neb Ipratropium-Albuterol Nebulize 3 ml INHALATION RT-QID ampul.neb 10/11/17 [Duoneb 0.5 mg-3 mg/3 ml Soln] Lisinopril [Zestril] 2.5 mg PO DAILY@1200 tab 10/11/17 Magnesium Hydroxide [Milk of 2,400 mg PO BID PRN ml 10/11/17 Magnesia Concentrate] Metoprolol Tartrate [Lopressor] 25 mg PO BID tab 10/11/17 Oxymetazoline 0.05% Nasl [place] 2 spray NASAL BID bottle 10/11/17 [Afrin 0.05% Nasal [place]] Pantoprazole [Protonix] 40 mg PO AC-[id number] tablet. 10/11/17 Allergies Allergy/AdvReac Type Severity Reaction Status Date / Time fentanyl AdvReac Unknown COULDNT Verified 04/28/18 04:45 EAT. Review of Systems ROS Statement: Those systems with pertinent positive or pertinent negative responses have been documented in the HPI. ROS Other: All systems not noted in ROS Statement are negative. Past Medical History Past Medical History: Cancer, Hyperlipidemia, Hypertension, Mitral Valve Prolapse (MVP), Osteoarthritis (OA) Additional Past Medical History / Comment(s): PROLAPSED MITRAL VALVE, IBS, SKIN CANCER, STATES SLIGHT SOB., SEE CARDIOLOGY H & P. History of Any Multi-Drug Resistant Organisms: None Reported Past Surgical History: Joint Replacement Additional Past Surgical History / Comment(s): REGAN TOTAL KNEES. Past Anesthesia/Blood Transfusion Reactions: No Reported Reaction Past Psychological History: Anxiety, Depression Smoking Status: Former smoker Past Alcohol Use History: None Reported Past Drug Use History: None Reported - Past Family History Sister(s) Family Medical History: Cancer Additional Family Medical History / Comment(s): BOWEL CANCER General Exam Limitations: no limitations General appearance: alert, in no apparent distress Head exam: Present: normocephalic. Absent: atraumatic (V-shaped laceration central parietal scalp) Eye exam: Present: normal appearance. Absent: PERRL (Mild anisocoria, left pupil just slightly larger than right pupil, both pupils equally reactive) ENT exam: Present: normal exam Neck exam: Present: normal inspection. Absent: tenderness, meningismus Respiratory exam: Present: normal lung sounds bilaterally. Absent: respiratory distress, wheezes Cardiovascular Exam: Present: regular rate, normal rhythm GI/Abdominal exam: Present: soft. Absent: distended, tenderness Extremities exam: Present: normal inspection, full ROM, normal capillary refill. Absent: pedal edema Neurological exam: Present: alert, oriented X3, CN II-XII intact. Absent: motor sensory deficit Psychiatric exam: Present: normal affect, normal mood Skin exam: Present: warm, dry, intact. Absent: cyanosis, diaphoretic Course Vital Signs 04/28/18 04:40 Temperature 98.3 F Pulse Rate 76 Respiratory 18 Rate Blood Pressure 192/94 O2 Sat by Pulse 96 Oximetry Procedures - Laceration Laceration #1 Consent Obtained: verbal consent Time Out Performed: Yes Indication: laceration Site: scalp Description: stellate, irregular Depth: [id number] Anesthetic Used: lidocaine 1% Anesthesia Technique: local infiltration Pre-repair: wound explored, irrigated extensively Type of Sutures: other (Staple) Number of Sutures: 10 Technique: simple, interrupted Patient Tolerated Procedure: well Medical Decision Making - Medical Decision Making 82-year-old female presenting with fall and head injury. No loss consciousness. No anticoagulation. She has irregular stellate laceration parietal scalp. Head CT is obtained, negative for intracranial hemorrhage. Patient's wound is cleansed, irrigated and repaired with 10 total paul. Patient will provide local wound care. She will watch for signs of infection. Return for staple removal in 10-14 days. Disposition Clinical Impression: Closed head injury, Scalp laceration Disposition: HOME SELF-CARE Condition: Good Instructions: Laceration (ED), Concussion (ED) Additional Instructions: Please return for staple removal in 10-14 days. Is patient prescribed a controlled substance at d/c from ED?: No Referrals: Joseph Crain MD [Primary Care Provider] - 1-2 days Time of Disposition: 06:15
[2018-04-28] MEDS ORDERED: LIDOCAINE 1% INJ 10MG/ML (20 ML MDV) SQ ONE (05:47)
[2018-04-28 06:42] VITALS: BP 163/100; PULSE 70; RESP 17
== END 2018-04-28 06:47 | disposition home or self-care (01) ==
LOC: EC 04:38
DX: S01.01XA Laceration without foreign body of scalp, initial encounter (principal); M19.90 Unspecified osteoarthritis, unspecified site; F41.9 Anxiety disorder, unspecified; F32.9 Major depressive disorder, single episode, unspecified; Z23 Encounter for immunization; Z87.891 Personal history of nicotine dependence; Z85.828 Personal history of other malignant neoplasm of skin; Z96.653 Presence of artificial knee joint, bilateral; Z95.2 Presence of prosthetic heart valve; Z79.899 Other long term (current) drug therapy; Z88.5 Allergy status to narcotic agent; W01.190A Fall on same level from slipping, tripping and stumbling with subsequent striking against furniture, initial encounter; Y92.009 Unspecified place in unspecified non-institutional (private) residence as the place of occurrence of the external cause
CPT/HCPCS: 72125; 70450; 90715; 99284; 12002; 90471; J2001

== ENCOUNTER 2019-02-16 06:58 | Emergency (ER) | payer MEDICARE ==
--- NOTE | 2019-02-16 07:24 | ED ---
General Adult HPI - General Chief complaint: Fall Stated complaint: Fall, Head Lac Time Seen by Provider: 02/16/19 07:14 Source: patient, RN notes reviewed, old records reviewed Mode of arrival: wheelchair Limitations: no limitations - History of Present Illness Initial comments: Patient is an 83-year-old female presents emergency department today for e valuation after trip and fall. Patient reports that she was walking to the bathroom, tripped and lost her balance. Patient states that she hit her head on a piece of furniture causing a laceration. Patient reports that her came into the room quickly after and she was alert. The question loss consciousness. Patient is not on any blood thinners. She denies any neck pain. She does report multiple skin tears over the forearms and legs. Patient states that she was able to ambulate without difficulty. She denied any chest pain, shortness of breath. - Related Data Home Medications Medication Instructions Recorded Confirmed L.acidoph,Paracasei, B.lactis 1 cap PO DAILY 05/01/17 04/28/18 [Probiotic] Opc Antioxidant 1 tab PO DAILY 05/01/17 04/28/18 clonazePAM [KlonoPIN] 0.5 mg PO HS 05/01/17 04/28/18 Amitriptyline HCl [Elavil] 12.5 mg PO HS 09/25/17 04/28/18 Previous Rx's Medication Instructions Recorded Acetaminophen Tab [Tylenol Tab] 650 mg PO Q4H PRN #30 tablet 10/10/17 Amiodarone [Cordarone] 200 mg PO BID tab 10/11/17 Amiodarone [Cordarone] 200 mg PO DAILY tab 10/11/17 Amiodarone [Cordarone] 400 mg PO BID tab 10/11/17 Aspirin 325 mg PO DAILY tab 10/11/17 Atorvastatin [Lipitor] 40 mg PO DAILY tab 10/11/17 INSULIN ASPART (NovoLOG) [NovoLOG 0 unit SQ ACHS vial 10/11/17 (formulary)] Ipratropium-Albuterol Nebulize 3 ml INHALATION RT-Q2H PRN 10/11/17 [Duoneb 0.5 mg-3 mg/3 ml Soln] ampul.neb Ipratropium-Albuterol Nebulize 3 ml INHALATION RT-QID ampul.neb 10/11/17 [Duoneb 0.5 mg-3 mg/3 ml Soln] Lisinopril [Zestril] 2.5 mg PO DAILY@1200 tab 10/11/17 Magnesium Hydroxide [Milk of 2,400 mg PO BID PRN ml 10/11/17 Magnesia Concentrate] Metoprolol Tartrate [Lopressor] 25 mg PO BID tab 10/11/17 Oxymetazoline 0.05% Nasl [place] 2 spray NASAL BID bottle 10/11/17 [Afrin 0.05% Nasal [place]] Pantoprazole [Protonix] 40 mg PO AC-BRKFST tablet. 10/11/17 Allergies Allergy/AdvReac Type Severity Reaction Status Date / Time fentanyl AdvReac Unknown COULDNT Verified 02/16/19 07:10 EAT. Review of Systems ROS Statement: Those systems with pertinent positive or pertinent negative responses have been documented in the HPI. ROS Other: All systems not noted in ROS Statement are negative. Past Medical History Past Medical History: Cancer, Hyperlipidemia, Hypertension, Mitral Valve Prolapse (MVP), Osteoarthritis (OA) Additional Past Medical History / Comment(s): PROLAPSED MITRAL VALVE, IBS, SKIN CANCER, STATES SLIGHT SOB., SEE CARDIOLOGY H & P. History of Any Multi-Drug Resistant Organisms: None Reported Past Surgical History: Joint Replacement Additional Past Surgical History / Comment(s): REGAN TOTAL KNEES. mirtal valve repair Past Anesthesia/Blood Transfusion Reactions: No Reported Reaction Past Psychological History: Anxiety, Depression Smoking Status: Former smoker Past Alcohol Use History: None Reported Past Drug Use History: None Reported - Past Family History Sister(s) Family Medical History: Cancer Additional Family Medical History / Comment(s): BOWEL CANCER General Exam - General Exam Comments Initial Comments: 83-year-old female. Alert and oriented 3. Limitations: no limitations General appearance: alert, in no apparent distress Head exam: Present: atraumatic, normocephalic, normal inspection. Absent: other (Patient is a 5 cm anterior scalp laceration.) Eye exam: Present: normal appearance, PERRL, EOMI. Absent: scleral icterus, conjunctival injection, periorbital swelling ENT exam: Present: normal exam, mucous membranes moist Neck exam: Present: normal inspection. Absent: tenderness, meningismus, lymphadenopathy Respiratory exam: Present: normal lung sounds bilaterally. Absent: respiratory distress, wheezes, rales, rhonchi, stridor Cardiovascular Exam: Present: regular rate, normal rhythm, normal heart sounds. Absent: systolic murmur, diastolic murmur, rubs, gallop, clicks GI/Abdominal exam: Present: soft, normal bowel sounds. Absent: distended, tenderness, guarding, rebound, rigid Extremities exam: Present: normal inspection, full ROM, normal capillary refill. Absent: tenderness, pedal edema, joint swelling, calf tenderness Back exam: Present: normal inspection, full ROM Neurological exam: Present: alert, oriented X3, CN II-XII intact Expanded Patient oriented to: Present: person, place, time Speech: Present: fluid speech Cranial nerves: EOM's Intact: Normal Cerebellar function: Finger to Nose: Normal Upper motor neuron: Pronator Drift: Normal Sensory exam: Upper Extremity Light Touch: Normal, Lower Extremity Light Touch: Normal Motor strength exam: RUE: 5, LUE: 5, RLE: 5, LLE: 5 Eye Response: (4) open spontaneously Motor Response: (6) obeys commands Verbal Response: (5) oriented Orient Total: 15 Psychiatric exam: Present: normal affect, normal mood Skin exam: Present: warm, dry, intact, normal color. Absent: rash Course Vital Signs 02/16/19 07:06 Temperature 98.0 F Pulse Rate 84 Respiratory 17 Rate Blood Pressure 189/106 O2 Sat by Pulse 95 Oximetry Procedures - Laceration Laceration #1 Site: scalp Size (cm): 5 Description: linear Depth: simple, single layer Anesthetic Used: lidocaine 1% Anesthesia Technique: local infiltration Amount (mls): 5 Pre-repair: wound explored, irrigated extensively Type of Sutures: other (Paul) Number of Sutures: 6 Patient Tolerated Procedure: well, no complications Medical Decision Making - Medical Decision Making 9-year-old female presents emergency department today with trip, fall and hitting her head while walking to the bathroom. Patient has a 5 cm anterior scalp laceration. Questions loss consciousness at the injury. There is no neurological deficit this time. Not on blood thinners. Patient's also has evidence of multiple 1-2 cm abrasions over the forearms and knee. These were cleaned, and the right 2cm forearm abrasion was closed with Dermabond. Patient states computed tomography scan of the brain was reviewed negative for any acute process. Patient was laceration was closed with paul. Discussed the importance of staple care. Discussed return parameters. - Radiology Data Radiology results: report reviewed Computed tomography scan of the brain shows age-related atrophic and chronic small vessel ischemic changes on any acute processes seen at this time. C-spine shows no evidence for fracture subluxation of the cervical spine. Disposition Clinical Impression: Head injury, Scalp laceration, Abrasion, multiple sites Disposition: HOME SELF-CARE Condition: Good Instructions (If sedation given, give patient instructions): Fall Prevention (E D), Head Injury (ED), Staple Care (ED) Additional Instructions: Please return to the emergency room in 8-10 days to have paul removed. Please leave wound covered for the first 24-48 hours and then leave open to air after that time. Please use clean soap and water to clean the suture area to prevent scabbing over the top of your sutures. Please watch for any signs of i nfection which may include but not limited to increased pain, swelling, redness, fever or chills. Please return to the emergency room if any signs of infection do occur. Please return to the emergency room for any other concerns or complications. Patient is to take motrin and tylenol for pain. Is patient prescribed a controlled substance at d/c from ED?: No Referrals: Joseph Crain MD [Primary Care Provider] - 1-2 days Time of Disposition: 08:19
[2019-02-16] MEDS ORDERED: LIDOCAINE 1% INJ 10MG/ML (20 ML MDV) SQ ONE (07:27)
[2019-02-16] MEDS ORDERED: DIPH,PERTUS(ACELL)TETVAC-LF 0.5 ML VIAL IM ONE (07:27)
[2019-02-16] MEDS ORDERED: TOPICAL SKIN ADHESIVE 1 EACH AMP TOPICAL ONE (07:29)
--- NOTE | 2019-02-16 08:14 | CT ---
EXAMINATION TYPE: CT brain km holloway con DATE OF EXAM: 02/16/2019 COMPARISON: 04/28/2018 HISTORY: Fall, open wound to top of head CT DLP: 1382.[address] of the brain was performed. The ventricles, basal cisterns and sulci overlying the cerebral convexities demonstrate mild to moder ate enlargement. There is no evidence for intracranial hemorrhage or sulcal effacement. There is decreased attenuatio n about the periventricular white matter and deep white matter of both cerebral hemispheres, compatib le with chronic small vessel ischemia. No mass effects are seen. If symptoms persist consider MRI. Osseous calvarium is intact. Chronic right maxillary sinusitis. IMPRESSION: 1. Age related atrophic and chronic small vessel ischemic change without acute intracranial process seen at this time. CT Cervical Spine: Unenhanced CT of the cervical spine was performed with bone and soft tissue window settings submitted . Coronal and sagittal reconstruction is obtained. There is normal alignment and prevertebral soft tissues. No evidence for acute cervical fracture . Scattered degenerative disc disease and spondylosis. Biapical scarring. IMPRESSION: 1. No evidence for acute fracture or subluxation of the cervical spine.
[2019-02-16 08:55] VITALS: PULSE 65; RESP 18; TEMP 98.2
[2019-02-16 08:57] VITALS: BP 197/104
== END 2019-02-16 08:55 | disposition home or self-care (01) ==
LOC: EC 06:58
DX: S01.01XA Laceration without foreign body of scalp, initial encounter (principal); S50.812A Abrasion of left forearm, initial encounter; S50.811A Abrasion of right forearm, initial encounter; S80.219A Abrasion, unspecified knee, initial encounter; R40.2142 Coma scale, eyes open, spontaneous, at arrival to emergency department; R40.2362 Coma scale, best motor response, obeys commands, at arrival to emergency department; R40.2252 Coma scale, best verbal response, oriented, at arrival to emergency department; M19.90 Unspecified osteoarthritis, unspecified site; F41.9 Anxiety disorder, unspecified; F32.9 Major depressive disorder, single episode, unspecified; Z87.891 Personal history of nicotine dependence; Z96.653 Presence of artificial knee joint, bilateral; Z79.899 Other long term (current) drug therapy; Z88.5 Allergy status to narcotic agent; Z85.828 Personal history of other malignant neoplasm of skin; Z23 Encounter for immunization; W01.198A Fall on same level from slipping, tripping and stumbling with subsequent striking against other object, initial encounter; Y93.01 Activity, walking, marching and hiking; Y92.009 Unspecified place in unspecified non-institutional (private) residence as the place of occurrence of the external cause
CPT/HCPCS: 72125; 70450; 90715; 99284; 12002; 90471; J2001

== ENCOUNTER 2019-09-11 13:24 | Inpatient (IN) | payer MEDICARE ==
[2019-09-11] MEDS ORDERED: ONDANSETRON 4 MG/2 ML VIAL IVP STA (13:50)
[2019-09-11] MEDS ORDERED: FAMOTIDINE 20 MG/2 ML VIAL IV STA (13:50)
--- NOTE | 2019-09-11 13:57 | ED ---
General Adult HPI - General Source: patient, RN notes reviewed Mode of arrival: ambulatory Limitations: no limitations <Jose Alejandro Kan - Last Filed: 09/11/19 15:01> <Brice Navarro - Last Filed: 09/11/19 17:18> - General Chief complaint: Fever Stated complaint: fever, nausea, vomiting Time Seen by Provider: 09/11/19 13:42 - History of Present Illness Initial comments: Patient is a pleasant 84-year-old female presenting to the emergency Department with complaints of nausea vomiting and fever. Onset of symptoms was 2 days ago. Patient has nausea and has vomited a couple of times per day. Patient is having dry heaves. Decreased oral intake. patient diarrhea. Patient has occasional mild abdominal cramping, no pain at this time. No cough or dyspnea. No upper respiratory symptoms. No history of chronic similar problems. Patient has had fevers chills and myalgias as well as fatigue. (Jose Alejandro Kan) - Related Data Home Medications Medication Instructions Recorded Confirmed Aspirin EC [Ecotrin Low Dose] 81 mg PO DAILY 09/11/19 09/11/19 Atorvastatin [Lipitor] 10 mg PO DAILY 09/11/19 09/11/19 DULoxetine HCL [Cymbalta] 60 mg PO DAILY 09/11/19 09/11/19 Furosemide [Lasix] 20 mg PO DAILY 09/11/19 09/11/19 Metoprolol Tartrate 12.5 mg PO HS 09/11/19 09/11/19 traZODone HCL [Desyrel] 100 mg PO HS PRN 09/11/19 09/11/19 Allergies Allergy/AdvReac Type Severity Reaction Status Date / Time fentanyl AdvReac Unknown COULDNT Verified 09/11/19 16:47 EAT. Review of Systems ROS Other: All systems not noted in ROS Statement are negative. Constitutional: Reports: fever, chills Eyes: Denies: eye pain ENT: Denies: ear pain Respiratory: Denies: cough, dyspnea Cardiovascular: Denies: chest pain Endocrine: Reports: fatigue Gastrointestinal: Reports: as per HPI, nausea, vomiting. Denies: diarrhea, constipation Genitourinary: Denies: dysuria Musculoskeletal: Denies: back pain Skin: Denies: rash Neurological: Denies: headache <Jose Alejandro Kan - Last Filed: 09/11/19 15:01> ROS Other: All systems not noted in ROS Statement are negative. <Brice Navarro - Last Filed: 09/11/19 17:18> ROS Statement: Those systems with pertinent positive or pertinent negative responses have been documented in the HPI. Past Medical History Past Medical History: Cancer, Hyperlipidemia, Hypertension, Mitral Valve Prolapse (MVP), Osteoarthritis (OA) Additional Past Medical History / Comment(s): PROLAPSED MITRAL VALVE, IBS, SKIN CANCER, STATES SLIGHT SOB., SEE CARDIOLOGY H & P. History of Any Multi-Drug Resistant Organisms: None Reported Past Surgical History: Joint Replacement Additional Past Surgical History / Comment(s): REGAN TOTAL KNEES. mirtal valve repair Past Anesthesia/Blood Transfusion Reactions: No Reported Reaction Past Psychological History: Anxiety, Depression Smoking Status: Former smoker Past Alcohol Use History: None Reported Past Drug Use History: None Reported - Past Family History Sister(s) Family Medical History: Cancer Additional Family Medical History / Comment(s): BOWEL CANCER <Jose Alejandro Kan - Last Filed: 09/11/19 15:01> General Exam Limitations: no limitations General appearance: alert, in no apparent distress Head exam: Present: normocephalic Eye exam: Present: normal appearance, PERRL ENT exam: Present: normal oropharynx Neck exam: Present: normal inspection Respiratory exam: Present: normal lung sounds bilaterally Cardiovascular Exam: Present: regular rate, normal rhythm GI/Abdominal exam: Present: soft, normal bowel sounds. Absent: distended, tenderness, guarding, rebound, rigid, pulsatile mass Extremities exam: Present: normal inspection Neurological exam: Present: alert Psychiatric exam: Present: normal affect, normal mood Skin exam: Present: normal color <Jose Alejandro Kan - Last Filed: 09/11/19 15:01> Course <Brice Navarro - Last Filed: 09/11/19 17:18> Vital Signs 09/11/19 09/11/19 09/11/19 13:26 13:30 14:30 Temperature 102.9 F H Pulse Rate 122 H 102 H Respiratory 20 18 18 Rate Blood Pressure 153/88 124/70 O2 Sat by Pulse 92 L 95 Oximetry 09/11/19 09/11/19 15:00 16:00 Temperature 98.9 F Pulse Rate 92 Respiratory 18 18 Rate Blood Pressure 108/88 O2 Sat by Pulse 95 Oximetry - Reevaluation(s) Reevaluation #1: 09/11/19 17:01 Patient states that her nausea has currently improved. Patient denies development of any new symptoms while in the ED. Patient is currently alert and breathing comfortably. Patient is aware of her test results, and she agrees with hospital admission for IV antibiotic treatment for suspected pyelonephritis. 09/11/19 17:06 Case, test results and ED management thus far were discussed with Dr. Crain. He accepts hospital admission. He recommends obtaining a left renal ultrasound. He also recommends urology consultation. He has no further recommendations at this time. (Brice Navarro) EKG Findings - EKG Comments: EKG Findings:: Sinus tachycardia 1:15. IA 16. QRS 148. QT 364. QTC 503. Normal axis. Right bundle branch block. Nonspecific ST-T. <Jose Alejandro Kan - Last Filed: 09/11/19 15:01> Medical Decision Making - Lab Data Result diagrams: 09/11/19 14:13 09/11/19 14:13 - Radiology Data Radiology results: image reviewed (Dental x-ray shows nonobstructive pattern. Chest x-ray shows chronic changes. Probable atelectasis.) <Jose Alejandro Kan - Last Filed: 09/11/19 15:01> - Lab Data Result diagrams: 09/11/19 14:13 09/11/19 14:13 - Radiology Data Radiology results: report reviewed (CT angiogram chest shows extensive perinephric stranding and edema around left kidney, no significant hydronephrosis, no evidence of pulmonary embolus, small hiatal hernia ), image reviewed <Brice Navarro - Last Filed: 09/11/19 17:18> - Medical Decision Making Case endorsed to Dr Navarro (Jose Alejandro Kan) Patient was endorsed to me by Dr. Kan (secondary to shift change) with the patient's CT angiogram chest is pending. Patient's CT angiogram chest showed perinephric stranding and edema around the patient's left kidney, so a UA was ordered, which is suggestive of UTI. Suspect that the patient's fever/symptoms are likely secondary to pyelonephritis. Patient's lactic acid level is within normal limits. Patient was given IV ceftriaxone in the ED. Dr. Crain has accepted hospital admission. (Brice Navarro) - Lab Data Lab Results 09/11/19 09/11/19 09/11/19 Range/Units 14:13 14:13 14:13 WBC 13.4 H (3.8-10.6) k/uL RBC 4.38 (3.80-5.40) m/uL Hgb 14.5 (11.4-16.0) gm/dL Hct 45.3 (34.0-46.0) % MCV 103.5 H (80.0-100.0) fL MCH 33.1 (25.0-35.0) pg MCHC 32.0 (31.0-37.0) g/dL RDW 13.7 (11.5-15.5) % Plt Count 188 (150-450) k/uL Neutrophils % 95 % Lymphocytes % 2 % Monocytes % 3 % Eosinophils % 0 % Basophils % 0 % Neutrophils # 12.7 H (1.3-7.7) k/uL Lymphocytes # 0.2 L (1.0-4.8) k/uL Monocytes # 0.4 (0-1.0) k/uL Eosinophils # 0.1 (0-0.7) k/uL Basophils # 0.0 (0-0.2) k/uL Macrocytosis Slight PT 10.3 (9.0-12.0) sec INR 1.0 (<1.2) APTT 22.6 (22.0-30.0) sec D-Dimer 2.82 H (<0.60) mg/L FEU Sodium 134 L (137-145) mmol/L Potassium 3.6 (3.5-5.1) mmol/L Chloride 98 (98-107) mmol/L Carbon Dioxide 25 (22-30) mmol/L Anion Gap 11 mmol/L BUN 25 H (7-17) mg/dL Creatinine 1.15 H (0.52-1.04) mg/dL Est GFR (CKD-EPI)AfAm 51 (>60 ml/min/1.73 sqM) Est GFR (CKD-EPI)NonAf 44 (>60 ml/min/1.73 sqM) Glucose 148 H (74-99) mg/dL Plasma Lactic Acid Aayush (0.7-2.0) mmol/L Calcium 8.9 (8.4-10.2) mg/dL Magnesium 1.8 (1.6-2.3) mg/dL Total Bilirubin 1.8 H (0.2-1.3) mg/dL AST 30 (14-36) U/L ALT 19 (4-34) U/L Alkaline Phosphatase 113 (38-126) U/L Lactate Dehydrogenase 633 H (313-618) U/L Troponin I (0.000-0.034) ng/mL C-Reactive Protein 240.9 H (<10.0) mg/L Total Protein 6.6 (6.3-8.2) g/dL Albumin 4.1 (3.5-5.0) g/dL Amylase 31 (30-110) U/L Lipase 19 L (23-300) U/L Urine Color Urine Appearance (Clear) Urine pH (5.0-8.0) Ur Specific [place] (1.001-1.035) Urine Protein (Negative) Urine Glucose (UA) (Negative) Urine Ketones (Negative) Urine Blood (Negative) Urine Nitrite (Negative) Urine Bilirubin (Negative) Urine Urobilinogen (<2.0) mg/dL Ur Leukocyte Esterase (Negative) Urine RBC (0-5) /hpf Urine WBC (0-5) /hpf Ur Squamous Epith Cells (0-4) /hpf Urine Bacteria (None) /hpf Urine Mucus (None) /hpf Coronavirus (PCR) (Not Detectd) 09/11/19 09/11/19 09/11/19 Range/Units 14:13 14:13 14:13 WBC (3.8-10.6) k/uL RBC (3.80-5.40) m/uL Hgb (11.4-16.0) gm/dL Hct (34.0-46.0) % MCV (80.0-100.0) fL MCH (25.0-35.0) pg MCHC (31.0-37.0) g/dL RDW (11.5-15.5) % Plt Count (150-450) k/uL Neutrophils % % Lymphocytes % % Monocytes % % Eosinophils % % Basophils % % Neutrophils # (1.3-7.7) k/uL Lymphocytes # (1.0-4.8) k/uL Monocytes # (0-1.0) k/uL Eosinophils # (0-0.7) k/uL Basophils # (0-0.2) k/uL Macrocytosis PT (9.0-12.0) sec INR (<1.2) APTT (22.0-30.0) sec D-Dimer (<0.60) mg/L FEU Sodium (137-145) mmol/L Potassium (3.5-5.1) mmol/L Chloride (98-107) mmol/L Carbon Dioxide (22-30) mmol/L Anion Gap mmol/L BUN (7-17) mg/dL Creatinine (0.52-1.04) mg/dL Est GFR (CKD-EPI)AfAm (>60 ml/min/1.73 sqM) Est GFR (CKD-EPI)NonAf (>60 ml/min/1.73 sqM) Glucose (74-99) mg/dL Plasma Lactic Acid Aayush 1.3 (0.7-2.0) mmol/L Calcium (8.4-10.2) mg/dL Magnesium (1.6-2.3) mg/dL Total Bilirubin (0.2-1.3) mg/dL AST (14-36) U/L ALT (4-34) U/L Alkaline Phosphatase (38-126) U/L Lactate Dehydrogenase (313-618) U/L Troponin I <0.012 (0.000-0.034) ng/mL C-Reactive Protein (<10.0) mg/L Total Protein (6.3-8.2) g/dL Albumin (3.5-5.0) g/dL Amylase (30-110) U/L Lipase (23-300) U/L Urine Color Urine Appearance (Clear) Urine pH (5.0-8.0) Ur Specific [place] (1.001-1.035) Urine Protein (Negative) Urine Glucose (UA) (Negative) Urine Ketones (Negative) Urine Blood (Negative) Urine Nitrite (Negative) Urine Bilirubin (Negative) Urine Urobilinogen (<2.0) mg/dL Ur Leukocyte Esterase (Negative) Urine RBC (0-5) /hpf Urine WBC (0-5) /hpf Ur Squamous Epith Cells (0-4) /hpf Urine Bacteria (None) /hpf Urine Mucus (None) /hpf Coronavirus (PCR) Not Detected (Not Detectd) 09/11/19 Range/Units 16:08 WBC (3.8-10.6) k/uL RBC (3.80-5.40) m/uL Hgb (11.4-16.0) gm/dL Hct (34.0-46.0) % MCV (80.0-100.0) fL MCH (25.0-35.0) pg MCHC (31.0-37.0) g/dL RDW (11.5-15.5) % Plt Count (150-450) k/uL Neutrophils % % Lymphocytes % % Monocytes % % Eosinophils % % Basophils % % Neutrophils # (1.3-7.7) k/uL Lymphocytes # (1.0-4.8) k/uL Monocytes # (0-1.0) k/uL Eosinophils # (0-0.7) k/uL Basophils # (0-0.2) k/uL Macrocytosis PT (9.0-12.0) sec INR (<1.2) APTT (22.0-30.0) sec D-Dimer (<0.60) mg/L FEU Sodium (137-145) mmol/L Potassium (3.5-5.1) mmol/L Chloride (98-107) mmol/L Carbon Dioxide (22-30) mmol/L Anion Gap mmol/L BUN (7-17) mg/dL Creatinine (0.52-1.04) mg/dL Est GFR (CKD-EPI)AfAm (>60 ml/min/1.73 sqM) Est GFR (CKD-EPI)NonAf (>60 ml/min/1.73 sqM) Glucose (74-99) mg/dL Plasma Lactic Acid Aayush (0.7-2.0) mmol/L Calcium (8.4-10.2) mg/dL Magnesium (1.6-2.3) mg/dL Total Bilirubin (0.2-1.3) mg/dL AST (14-36) U/L ALT (4-34) U/L Alkaline Phosphatase (38-126) U/L Lactate Dehydrogenase (313-618) U/L Troponin I (0.000-0.034) ng/mL C-Reactive Protein (<10.0) mg/L Total Protein (6.3-8.2) g/dL Albumin (3.5-5.0) g/dL Amylase (30-110) U/L Lipase (23-300) U/L Urine Color Yellow Urine Appearance Clear (Clear) Urine pH 6.0 (5.0-8.0) Ur Specific [place] >1.050 H (1.001-1.035) Urine Protein 1+ H (Negative) Urine Glucose (UA) Negative (Negative) Urine Ketones 1+ H (Negative) Urine Blood Moderate H (Negative) Urine Nitrite Positive H (Negative) Urine Bilirubin Negative (Negative) Urine Urobilinogen <2.0 (<2.0) mg/dL Ur Leukocyte Esterase Moderate H (Negative) Urine RBC 5 (0-5) /hpf Urine WBC 18 H (0-5) /hpf Ur Squamous Epith Cells 9 H (0-4) /hpf Urine Bacteria Rare H (None) /hpf Urine Mucus Rare H (None) /hpf Coronavirus (PCR) (Not Detectd) Disposition <Jose Alejandro Kan - Last Filed: 09/11/19 15:01> Is patient prescribed a controlled substance at d/c from ED?: No Time of Disposition: 17:07 <Brice Navarro - Last Filed: 09/11/19 17:18> Clinical Impression: Acute febrile illness, Vomiting Narrative: Suspected pyelonephritis (Brice Navarro) Disposition: ADMITTED IP TO THIS HOSP Condition: Stable Referrals: Joseph Crain MD [Primary Care Provider] - 1-2 days
[2019-09-11 14:32] LABS: Basophils % (A) 0 %; Eosinophils # (A) 0.1 k/uL (0-0.7); Eosinophils % (A) 0 %; HCT 45.3 % (34.0-46.0); HGB 14.5 gm/dL (11.4-16.0); Lymphocytes # (A) 0.2 k/uL (1.0-4.8); Lymphocytes % (A) 2 %; MCH 33.1 pg (25.0-35.0); MCV 103.5 fL (80.0-100.0); Macrocytosis Slight; Mean Platelet Volume 7.8; Monocytes # (A) 0.4 k/uL (0-1.0); Monocytes % (A) 3 %; Neutrophils # (A) 12.7 k/uL (1.3-7.7); Neutrophils % (A) 95 %; Platelet Count 188 k/uL (150-450); RBC 4.38 m/uL (3.80-5.40); RDW 13.7 % (11.5-15.5); WBC 13.4 k/uL (3.8-10.6)
[2019-09-11 14:46] LABS: Albumin 4.1 g/dL (3.5-5.0); Calcium 8.9 mg/dL (8.4-10.2); Magnesium 1.8 mg/dL (1.6-2.3); Potassium 3.6 mmol/L (3.5-5.1); Total Bilirubin 1.8 mg/dL (0.2-1.3); Total Protein 6.6 g/dL (6.3-8.2)
[2019-09-11 14:49] LABS: Partial Thromboplastin Time 22.6 sec (22.0-30.0); Prothrombin Time 10.3 sec (9.0-12.0)
[2019-09-11 14:56] LABS: D-Dimer 2.82 mg/L FEU (<0.60)
--- NOTE | 2019-09-11 14:56 | XR ---
EXAMINATION TYPE: XR chest 1V portable DATE OF EXAM: 09/11/2019 Comparison: 10/10/2017 Clinical History: 84-year-old female with fever, nausea, Suspected COVID-19 pneumonia Findings: Median sternotomy wires are present with annuloplasty ring. Heart borderline in size. Some strandy op acity in the lower lungs likely atelectasis. Chronic healed rib fracture deformities along the upper left thorax. No amadeo consolidation or pleural effusion seen at this time. Impression: Borderline heart size and chronic appearing changes. Some densities at the lower lungs have a more st pino appearance suggesting atelectasis. No definite acute process at this time.
--- NOTE | 2019-09-11 14:57 | XR ---
EXAMINATION TYPE: XR abdomen 1V DATE OF EXAM: 09/11/2019 Comparison: None Clinical History: 84-year-old female Vomiting Findings: Supine imaging limited for assessment of free air. Degenerative changes of the pubic symphysis, hips, and lower lumbar spine. No dilated small bowel. No significant stool burden. Impression: Nonobstructive bowel gas pattern. No significant stool burden.
[2019-09-11 14:58] LABS: C Reactive Protein 240.9 mg/L (<10.0)
[2019-09-11] MEDS ORDERED: ACETAMINOPHEN TAB 500 MG TAB PO STA (15:04)
--- NOTE | 2019-09-11 15:41 | CT ---
EXAMINATION TYPE: CT angio chest DATE OF EXAM: 09/11/2019 COMPARISON: Radiograph same day HISTORY: 84-year-old female SOB, fever TECHNIQUE: Contiguous axial scanning of the chest performed with IV Contrast, patient injected with 6 0cc mL of Isovue 370. Coronal/sagittal MIP reconstructions performed. CT DLP: 279.7 mGycm Automated exposure control for dose reduction was used. FINDINGS: Heart normal size without pericardial effusion. There may be some left ventricular myocardial thicken ing. Mitral annuloplasty ring is present. Scattered coronary artery calcifications. Median sternotomy wires. Aorta normal caliber with mild atherosclerotic arch calcifications and bovine configuration to the ao rtic arch. Satisfactory opacification of the pulmonary arterial system. Large caliber to the main right and the pulmonary arteries measuring up to 3.1 cm suggesting underlying pulmonary arterial hypertension. No e vidence for pulmonary embolus. No thoracic lymphadenopathy by CT size criteria. Some strandy areas of atelectasis in the mid and lower lungs without consolidation or pleural effusio n. Small hiatal hernia. Nonspecific 1 cm hypodensity anterior left upper lobe. Larger 1.7 cm peripheral right liver hypodensi ty, likely cysts. Extensive left perinephric stranding and edema. No significant hydronephrosis is apparent. Moderate a therosclerotic calcifications throughout the abdominal aorta. Bones: [facility] within the mid to lower thoracic spine. Osteopenia. Hypertrophic facet arthropathy visual ized lumbar spine. Superior endplate deformity of L2 appears chronic. Multiple left-sided rib fractur e deformities. IMPRESSION: 1. PARTIALLY VISUALIZED EXTENSIVE PERINEPHRIC STRANDING AND EDEMA AROUND THE LEFT KIDNEY. CORRELATE T O EXCLUDE UNDERLYING INFECTION/PYELONEPHRITIS OR PYELOSINUS BACK FLOW RELATING TO-URETERAL OBSTRUCTIO N. NO SIGNIFICANT HYDRONEPHROSIS IS APPARENT. 2. PULMONARY ARTERIAL HYPERTENSION. NO EVIDENCE FOR PULMONARY EMBOLUS. 3. SMALL HIATAL HERNIA.
[2019-09-11 16:46] LABS: Appearance,Urine Clear (Clear); Bacteria,Urine Rare /hpf; Bilirubin,Urine Negative (Negative); Blood,Urine Moderate (Negative); Color,Urine Yellow; Glucose,Urine (UA) Negative (Negative); Ketones,Urine 1+ (Negative); Leukocyte Esterase,Urine Moderate (Negative); Mucus,Urine Rare /hpf; Nitrite,Urine Positive (Negative); Protein,Urine 1+ (Negative); RBC,Urine 5 /hpf (0-5); Squamous Epithelial Cell,Urine 9 /hpf (0-4); Urobilinogen,Urine <2.0 mg/dL (<2.0); WBC,Urine 18 /hpf (0-5)
[2019-09-11 16:47] LABS: Specific Gravity,Urine >1.050 (1.001-1.035)
[2019-09-11] MEDS ORDERED: ONDANSETRON 4 MG/2 ML VIAL IVP PRN (17:14)
[2019-09-11] MEDS ORDERED: NALOXONE 0.4 MG/ML 1 ML VIAL IV PRN (17:14)
[2019-09-11] MEDS ORDERED: MORPHINE SULFATE 4 MG/ML SYRINGE IV PRN (17:14)
[2019-09-11] MEDS: SODIUM CHLORIDE 0.9% 1,000 ML IV SCH (17:34)
--- NOTE | 2019-09-11 18:17 | US ---
EXAMINATION TYPE: US kidneys/renal and bladder DATE OF EXAM: 09/11/2019 COMPARISON: CT chest 09/11/2019 CLINICAL HISTORY: 84-year-old female with LEFT renal perinephric stranding and edema on CT. TECHNIQUE: Multiple sonographic images of the kidneys and bladder are obtained. FINDINGS: EXAM MEASUREMENTS: Right Kidney: 9.7 x 4.6 x 4.1 cm Left Kidney: 9.2 x 4.3 x 4.5 cm Costume Specialist notes: Right Kidney: No hydronephrosis. Left Kidney: Mild pelvicaliectasis. Renal cortex appears slightly edematous/thickened compared to the contralateral side Bladder: Not fully distended, wnl as visualized Bilateral Jets seen: No Costume Specialist notes: Within the right adnexa and midline, superior to the bladder there are two cystic areas visualized. I n the right adnexa, a 4.3 x 3.2 x 3.5 cm cystic area is seen. Superior to the bladder, there is a cys tic area seen measuring 4.4 x 2.8 x 3.4 cm. Patient states she does still have her ovaries. IMPRESSION: 1. Mild left-sided pelvicaliectasis. The renal cortex appears slightly edematous/thickened compared t o the contralateral side. Contrast-enhanced CT as clinically indicated. 2. Two cystic areas in the pelvis one on the right and one at the midline measuring 4.4 and 4.3 cm, p ossibly of ovarian etiology. These may also be concurrently evaluated by contrast-enhanced CT versus female pelvic ultrasound.
--- NOTE | 2019-09-11 20:24 | CT ---
EXAMINATION TYPE: CT renal stones wo con DATE OF EXAM: 09/11/2019 HISTORY: left sided abdominal pain CT DLP: 469.1 mGycm. Automated Exposure Control for Dose Reduction was Utilized. TECHNIQUE: CT scan of the abdomen and pelvis is performed without oral or IV contrast. COMPARISON: 09/11/2019 FINDINGS: Within the limitations of a non-contrast study, the following observations are made. LUNG BASES: Heart is enlarged and cardiac leads are noted. Atherosclerotic change aorta. Subsegmental changes at the lung bases suggestive of atelectasis. Degree of interstitial chronic lung disease not excluded.. LIVER/GB: Hepatic dome hypodensity noted stable from CT chest 09/11/2019 measuring 1.4 cm. Additional 1 cm or less left lobe lesion also stable. 2 small to characterize.. PANCREAS: No significant abnormality is seen. SPLEEN: No significant abnormality is seen. ADRENALS: No significant abnormality is seen. KIDNEYS: There is marked abnormal enhancement of the left kidney with a striated nephrogram. This can be seen with acute pyelonephritis. Vasculitis in the differential diagnosis. Follow to resolution to exclude underlying neoplasm. No hydronephrosis. Extensive perinephric stranding noted. Residual cont rast within the collecting system from a previous contrast exam. Correlate for renal dysfunction. No definite nephrolithiasis. BOWEL: Bowel gas pattern nonspecific. Changes of diverticulosis noted. There is either residual contr ast or calcification within the appendix which is of normal caliber and no evidence of wall thickenin g. Stranding adjacent the left colon is felt most likely related to the adjacent left renal pyeloneph ritis rather than colitis correlate clinically. Secondary involvement not excluded. Small hiatal luba ia noted. LYMPH NODES: No greater than 1cm abdominal or pelvic lymph nodes are appreciated. OSSEOUS STRUCTURES: Multilevel degenerative disc disease noted. Multilevel hypertrophic changes are n oted and there is mild superior endplate compression fractures of L3 and L4 which likely are chronic. Multilevel facet arthropathy seen. Suspect multilevel neural foraminal encroachment and canal stenos is. Arthropathy of the hips bilaterally noted. Chronic appearing deformities of the pubic rami. Corre late for history of remote trauma. OTHER: Aorta of normal caliber. Atherosclerotic change of aorta and its branch vessels. 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 This extends to the level of S4 and also extends posteriorly. There are bilateral adnexal cystic masses the largest measuring 3.5 cm which should be correlated wit h serum CEA 125) somewhat atypical given the patient's age group. Correlate for previous hysterectomy . Small fat-containing periumbilical hernia noted. No definite omental thickening. Abnormal attenuation left upper quadrant is felt to be related to the acute pyelonephritis of the left kidney. Follow-up exam could be obtained in a short-term basis. Bilateral fat-containing inguinal hernias noted. IMPRESSION: 1. There is residual contrast from the recent prior exam on this noncontrast exam within the kidneys suggesting a degree of renal dysfunction. Additionally, there is striated left nephrogram with perine phric edema and stranding most compatible with severe pyelonephritis. No hydronephrosis. Follow to re solution to exclude other etiologies including vasculitis and neoplasm. 2. Abnormal attenuation surrounding the left colon is felt to be secondary to the changes involving t he kidney and pyelonephritis. Secondary involvement of the colon with colitis not excluded correlate clinically. 3. Bilateral adnexal cystic mass is atypical for the patient's age group. Correlate clinically and wi th serum CEA 125. Follow-up short-term ultrasound the pelvis could be obtained. 4. indeterminant hepatic lesions too small to characterize by noncontrast exam.
[2019-09-11] MEDS: METOPROLOL TARTRATE 12.5 MG TAB PO SCH (21:00)
[2019-09-11] MEDS: traZODone HCL 100 MG TAB PO PRN (21:00)
[2019-09-11 23:20] LABS: Ferritin 260.7 ng/mL (10.0-291.0)
[2019-09-12] MEDS: DULoxetine HCL 60 MG CAPSULE.DR PO SCH (07:10)
[2019-09-12] MEDS: ATORVASTATIN 10 MG TAB PO SCH (07:10)
[2019-09-12] MEDS: ASPIRIN 81 MG PO SCH (07:10)
[2019-09-12] MEDS: SODIUM CHLORIDE 0.9% 1,000 ML IV SCH (07:11)
[2019-09-12 08:03] LABS: HCT 38.9 % (34.0-46.0); HGB 12.3 gm/dL (11.4-16.0); MCH 32.6 pg (25.0-35.0); MCHC 31.8 g/dL (31.0-37.0); MCV 102.8 fL (80.0-100.0); Macrocytosis Slight; Mean Platelet Volume 7.7; Platelet Count 171 k/uL (150-450); RBC 3.78 m/uL (3.80-5.40); RDW 13.6 % (11.5-15.5); WBC 13.4 k/uL (3.8-10.6)
[2019-09-12 08:11] LABS: Albumin 3.3 g/dL (3.5-5.0); Calcium 8.3 mg/dL (8.4-10.2); Potassium 4.3 mmol/L (3.5-5.1); Total Bilirubin 1.1 mg/dL (0.2-1.3); Total Protein 5.6 g/dL (6.3-8.2)
[2019-09-12 10:06] LABS: Band Neutrophils % 3 %; Monocytes # (M) 0.94 k/uL (0-1.0); Neutrophils % (M) 87 %; Nucleated Red Blood Cells 0 /100 WBC (0-0); Total Cells Counted 100
--- NOTE | 2019-09-12 10:28 | P.PN ---
Progress Note - Text Progress Note Date: 09/12/19 84 yo female admitted to the hospital with Left pyelonephritis. Patient is hemodynamically stable. I reviewed the CT renal which showed no evidence of obstruction or renal abscess. -No surgical intervention needed from urology standpoint, continue antibiotics. Will await final urine culture. Full consult note to follow.
--- NOTE | 2019-09-12 10:55 | P.HPIM ---
History of Present Illness H&P Date: 09/12/19 This is an 84 years old female with past medical history mitral valve repair in 2018, hypertension, osteoarthritis, coronary artery disease with cath from 2017 suggested intermediate disease in the ostial diagonal branch of LAD, depression, irritable bowel syndrome, and hyperlipidemia. She presented to the emergency department with complaints of nausea, vomiting, and fever for a few days. Renal CT suggests severe polynephritis. Urine and blood cultures are pending at this time. Labs are reviewed WBCs 13.4 hemoglobin 12.3, neutrophils 12.0. D-dimer was slightly elevated on admission 2.8 to patient was ruled out for PE. C- reactive protein also elevated at 240. Repeat labs this morning show sodium 135 potassium 4.3, chloride 99, CO2 32, BUN 25, creatinine 1.05. Upon today's visit patient reports that she is feeling better nausea has subsided. Peak temperature was 99.7F she is afebrile this morning, heart rate 85, blood pressure 100/63, pulse ox 98% on 2 L via nasal cannula. Ultrasound of abdomen did show 2 cystic areas in the pelvis likely ovarian etiology, plan for transvag inal ultrasound for further evaluation. Patient will be admitted to the hospital with consults to pulmonary. Review of Systems ROS Other: All systems not noted in ROS Statement are negative. Constitutional: Reports: fever, chills, and nausea HEENT: No visual changes. No eye pain. No nasal symptoms. No dysphagia.No odynophagia. No ENT pain. Respiratory: Denies: cough, dyspnea Cardiovascular: Denies: chest pain, palpatations Endocrine: Reports: fatigue Gastrointestinal: Reports: as per HPI, nausea, vomiting. Denies: diarrhea, constipation Genitourinary: Denies: dysuria Musculoskeletal: Denies: back pain Skin: Denies: rash Neurological: Denies: headache Past Medical History Past Medical History: Cancer, Hyperlipidemia, Hypertension, Mitral Valve Prolapse (MVP), Osteoarthritis (OA) Additional Past Medical History / Comment(s): PROLAPSED MITRAL VALVE, IBS, SKIN CANCER, History of Any Multi-Drug Resistant Organisms: None Reported Past Surgical History: Joint Replacement Additional Past Surgical History / Comment(s): REGAN TOTAL KNEES. mirtal valve repair, cataracts Past Anesthesia/Blood Transfusion Reactions: No Reported Reaction Past Psychological History: Anxiety, Depression Smoking Status: Former smoker Past Alcohol Use History: None Reported, Occasional Additional Past Alcohol Use History / Comment(s): QUIT SMOKING 1 YEAR AGO (2016), SMOKED 1/2 PPD OR LESS. SMOKED SINCE HER 20'S. DRINKS 1 ALCOHOL DRINK DAILY Past Drug Use History: None Reported Additional History: smoked 1ppd for 50 years - Past Family History Sister(s) Family Medical History: Cancer Additional Family Medical History / Comment(s): BOWEL CANCER Medications and Allergies Home Medications Medication Instructions Recorded Confirmed Type Aspirin EC [Ecotrin Low Dose] 81 mg PO DAILY 09/11/19 09/11/19 History Atorvastatin [Lipitor] 10 mg PO DAILY 09/11/19 09/11/19 History DULoxetine HCL [Cymbalta] 60 mg PO DAILY 09/11/19 09/11/19 History Furosemide [Lasix] 20 mg PO DAILY 09/11/19 09/11/19 History Metoprolol Tartrate 12.5 mg PO HS 09/11/19 09/11/19 History traZODone HCL [Desyrel] 100 mg PO HS PRN 09/11/19 09/11/19 History Allergies Allergy/AdvReac Type Severity Reaction Status Date / Time fentanyl AdvReac Unknown COULDNT Verified 09/11/19 16:47 EAT. Physical Exam Vitals: Vital Signs Temp Pulse Pulse Resp BP BP Pulse Ox 09/12/19 07:00 97.8 F 85 18 100/63 98 09/12/19 03:00 99.7 F H 99 114/68 97 09/12/19 00:40 89 17 09/12/19 00:28 98.7 F 95 17 164/77 95 09/11/19 20:24 96 09/11/19 20:00 17 09/11/19 18:50 98.2 F 77 98/67 98 09/11/19 18:17 98.4 F 84 17 97/60 97 09/11/19 17:41 98.9 F 92 18 108/88 95 09/11/19 16:00 98.9 F 92 18 108/88 95 09/11/19 15:00 18 09/11/19 14:30 102 H 18 124/70 95 09/11/19 13:30 18 09/11/19 13:26 102.9 F H 122 H 20 153/88 92 L Intake and Output 09/11/19 09/12/1909/11/20 22:59 06:59 14:59 Other: Voiding Method Toilet Toilet Toilet Diaper Diaper Diaper # Voids 1 1 Weight 68.039 kg General Appearance: Alert, cooperative, no distress, appears stated age, resting comfortably in bed Neck HEENT: Supple, no lymphadenopathy, no thyroid enlargement, no carotid bruits. Lungs: Clear to auscultation without crackles or wheezes no rhonchi, no deformity. Chest Wall: Chest wall normal expansion with deep inspiration no tenderness and no deformity was found on exam, no costochondral pain or discomfort. Heart: Regular rate and rhythm, S1, S2 normal, systolic murmur Abdomen: Soft, nontender, nondistended, positive bowel sounds. Extremities: Extremities normal, atraumatic, no cyanosis or edema. Pulses: 2+ and symmetric. Skin: Skin color, texture, tugor normal, no rashes or lesions. Neurologic: Alert oriented x3 cranial nerves II through XII intact, no motor deficit, no abnormal balance or gait. Results CBC & Chem 7: 09/12/19 07:13 09/12/19 07:13 Labs: Abnormal Lab Results - Last 24 Hours (Table) 09/11/19 09/11/19 09/11/19 Range/Units 14:13 14:13 14:13 WBC 13.4 H (3.8-10.6) k/uL RBC (3.80-5.40) m/uL MCV 103.5 H (80.0-100.0) fL Neutrophils # 12.7 H (1.3-7.7) k/uL Lymphocytes # 0.2 L (1.0-4.8) k/uL D-Dimer 2.82 H (<0.60) mg/L FEU Sodium 134 L (137-145) mmol/L Carbon Dioxide (22-30) mmol/L BUN 25 H (7-17) mg/dL Creatinine 1.15 H (0.52-1.04) mg/dL Glucose 148 H (74-99) mg/dL Calcium (8.4-10.2) mg/dL Total Bilirubin 1.8 H (0.2-1.3) mg/dL Lactate Dehydrogenase 633 H (313-618) U/L C-Reactive Protein 240.9 H (<10.0) mg/L Total Protein (6.3-8.2) g/dL Albumin (3.5-5.0) g/dL Lipase 19 L (23-300) U/L Procalcitonin (0.02-0.09) ng/mL Ur Specific [place] (1.001-1.035) Urine Protein (Negative) Urine Ketones (Negative) Urine Blood (Negative) Urine Nitrite (Negative) Ur Leukocyte Esterase (Negative) Urine WBC (0-5) /hpf Ur Squamous Epith Cells (0-4) /hpf Urine Bacteria (None) /hpf Urine Mucus (None) /hpf 09/11/19 09/11/19 09/12/19 Range/Units 14:13 16:08 07:13 WBC 13.4 H (3.8-10.6) k/uL RBC 3.78 L (3.80-5.40) m/uL MCV 102.8 H (80.0-100.0) fL Neutrophils # (1.3-7.7) k/uL Lymphocytes # (1.0-4.8) k/uL D-Dimer (<0.60) mg/L FEU Sodium (137-145) mmol/L Carbon Dioxide (22-30) mmol/L BUN (7-17) mg/dL Creatinine (0.52-1.04) mg/dL Glucose (74-99) mg/dL Calcium (8.4-10.2) mg/dL Total Bilirubin (0.2-1.3) mg/dL Lactate Dehydrogenase (313-618) U/L C-Reactive Protein (<10.0) mg/L Total Protein (6.3-8.2) g/dL Albumin (3.5-5.0) g/dL Lipase (23-300) U/L Procalcitonin 1.87 H (0.02-0.09) ng/mL Ur Specific [place] >1.050 H (1.001-1.035) Urine Protein 1+ H (Negative) Urine Ketones 1+ H (Negative) Urine Blood Moderate H (Negative) Urine Nitrite Positive H (Negative) Ur Leukocyte Esterase Moderate H (Negative) Urine WBC 18 H (0-5) /hpf Ur Squamous Epith Cells 9 H (0-4) /hpf Urine Bacteria Rare H (None) /hpf Urine Mucus Rare H (None) /hpf 09/12/19 Range/Units 07:13 WBC (3.8-10.6) k/uL RBC (3.80-5.40) m/uL MCV (80.0-100.0) fL Neutrophils # (1.3-7.7) k/uL Lymphocytes # (1.0-4.8) k/uL D-Dimer (<0.60) mg/L FEU Sodium 135 L (137-145) mmol/L Carbon Dioxide 32 H (22-30) mmol/L BUN 25 H (7-17) mg/dL Creatinine 1.05 H (0.52-1.04) mg/dL Glucose 123 H (74-99) mg/dL Calcium 8.3 L (8.4-10.2) mg/dL Total Bilirubin (0.2-1.3) mg/dL Lactate Dehydrogenase (313-618) U/L C-Reactive Protein (<10.0) mg/L Total Protein 5.6 L (6.3-8.2) g/dL Albumin 3.3 L (3.5-5.0) g/dL Lipase (23-300) U/L Procalcitonin (0.02-0.09) ng/mL Ur Specific [place] (1.001-1.035) Urine Protein (Negative) Urine Ketones (Negative) Urine Blood (Negative) Urine Nitrite (Negative) Ur Leukocyte Esterase (Negative) Urine WBC (0-5) /hpf Ur Squamous Epith Cells (0-4) /hpf Urine Bacteria (None) /hpf Urine Mucus (None) /hpf Microbiology - Last 24 Hours (Table) 09/11/19 14:13 Blood Culture Gram Stain - Preliminary Blood 09/11/19 14:13 Blood Culture - Final Blood 09/11/19 16:08 Urine Culture - Preliminary Urine,Voided Thrombosis Risk Factor Assmnt - DVT/VTE Prophylaxis DVT/VTE Prophylaxis: Pharmacologic Prophylaxis ordered - Choose All That Apply Any of the Below Risk Factors Present?: Yes Each Factor Represents 1 point: Medical pt on bed rest Other Risk Factors: No Other congenital or acquired thrombophilia - If yes, enter type in comment: No Thrombosis Risk Factor Assessment Total Risk Factor Score: 1 Thrombosis Risk Factor Assessment Level: Low Risk Assessment and Plan Plan: 1. Acute left polynephritis with leukocytosis. Patient on IV Rocephin and urology is on the case. Urine and blood cultures are pending, will adjust antibiotics based upon results. Renal CT showed no evidence of obstruction or renal abscess. 2. Elevated d-dimer. CT was negative for PE 3. Hyponatremia. normal saline IV fluids and place. 4. Dehydration. Normal saline infusing at 80 ML's hour. 5. hx mitral valve prolapse with repair. Stable 6. coronary artery disease. Continue daily aspirin and atorvastatin 7. hypertension. Continue metoprolol 12.5 mg at bed 8. hypercholesterolemia. On atorvastatin 9. history of anxiety. Continue Cymbalta 10. history of depression. Continue Cymbalta 11. Pelvic cyst. Possible ovarian etiology we'll obtain transvaginal ultrasound for further evaluation Patient will be admitted to the hospital for minimum of 2 night stay. CODE STATUS: Full code Discharge plan: Likely home in the next 24-48 hours. Impression and plan of care have been directed as dictated by the signing physician. Marilou Magana nurse practitioner acting as scribe for signing physician.
[2019-09-12] MEDS: METOPROLOL TARTRATE 12.5 MG TAB PO SCH (22:00)
[2019-09-12] MEDS: traZODone HCL 100 MG TAB PO PRN (22:01)
[2019-09-12] MEDS: PIPERACILLIN-TAZOBACTAM 3.375 GM in SODIUM CHLORIDE 0.9% 100 ML IVPB SCH (23:50)
[2019-09-13] MEDS: SODIUM CHLORIDE 0.9% 1,000 ML IV SCH ×3 (05:23→22:56)
[2019-09-13] MEDS: ATORVASTATIN 10 MG TAB PO SCH (08:30)
[2019-09-13] MEDS: ASPIRIN 81 MG PO SCH (08:30)
[2019-09-13] MEDS: PIPERACILLIN-TAZOBACTAM 3.375 GM in SODIUM CHLORIDE 0.9% 100 ML IVPB SCH ×3 (08:30→23:50)
[2019-09-13] MEDS: DULoxetine HCL 60 MG CAPSULE.DR PO SCH (08:30)
--- NOTE | 2019-09-13 08:56 | CDI ---
Documentation Clarification Form Date: 09/13/2019 0850 CDS: China Gusman RN, CCDS Admit Date: 09/11/2019 1714 Patient Name: Cira Candelario ATTENTION: The Clinical Documentation Specialists (CDI) and [facility] Coding Staff appreciate your assistance in clarifying documentation. Please respond to the clarification below the line at the bottom and electronically sign. The CDI & [facility] Coding staff will review the response and follow-up if needed. Please note: Queries are made part of the Legal Health Record. If you have any questions, please contact the author of this message via ITS. Dr. Crain Coronavirus (PCR) testing was performed on this patient. Documentation of significance/results is required on all patients tested. Patient history/risk factors: Clinical Indicators: Chief Complaints: Nausea, Vomiting, Fever 09/10 CXR: "Borderline heart size and chronic appearing changes. Some densities at the lower lungs have a more stranding appearance suggesting atelectasis. No definite acute process at this time." 09/10 Labs: CRP 240.9, LDH 633, Ferritin 260.7 ABGs: not preformed Viral Panel:09/10 Coronavirus (PCR) Negative 09/10 1326 Admission Vital Signs: Temp 102.9, HR 122, RR 20, B/P 153/88, Spo2 92% RA Treatment: Iv Zosyn 3.375 gm IVPB Q 8 hrs Iv ceftriaxone 1gm IVPB Q 24 hrs 0.9%NS @ 80 cc/ hr In order to capture the severity of condition, please clarify if the above treatment/clinical indicators signify: COVID-19 False negative testing, confirmed based on clinical indicators (please specify) XX COVID-19 ruled out Other, please specify Please continue to document in your progress notes and discharge summary in order to capture severity of illness and risk of mortality. Include clinical findings that support your diagnosis. MTDD
--- NOTE | 2019-09-13 09:58 | P.GSCN ---
History of Present Illness Consult date: 09/13/19 Reason for Consult: Left Pyelonephritis History of present illness: 84 yo female admitted to the hospital with 2 day history of nausea vomiting and fever. Denies any flank pain or any urinary symptoms. She underwent a CT renal stone which showed severe pyelonephritis on the left, no evidence of hydronephrosis or renal abscess. Since admission patient has been hemodynamically stable. No hx of Pyelo or renal stones in the past Review of Systems - Constitutional Reports chills, Reports fever - Cardiovascular Denies chest pain, Denies shortness of breath - Respiratory Denies cough, Denies 7 - Gastrointestinal Reports abdominal pain, Reports nausea, Reports vomiting - Genitourinary Genitourinary: Denies dysuria, Denies hematuria, Denies kidney stones - Psychiatric Denies confusion Past Medical History Past Medical History: Cancer, Hyperlipidemia, Hypertension, Mitral Valve Prolapse (MVP), Osteoarthritis (OA) Additional Past Medical History / Comment(s): PROLAPSED MITRAL VALVE, IBS, SKIN CANCER, STATES SLIGHT SOB., SEE CARDIOLOGY H & P. History of Any Multi-Drug Resistant Organisms: None Reported Past Surgical History: Joint Replacement Additional Past Surgical History / Comment(s): REGAN TOTAL KNEES. mirtal valve repair Past Anesthesia/Blood Transfusion Reactions: No Reported Reaction Past Psychological History: Anxiety, Depression Smoking Status: Former smoker Past Alcohol Use History: None Reported Additional Past Alcohol Use History / Comment(s): QUIT SMOKING 1 YEAR AGO (2015), SMOKED 1/2 PPD OR LESS. SMOKED SINCE HER 20S. DRINKS 1 ALCOHOL DRINK DAILY Past Drug Use History: None Reported - Past Family History Sister(s) Family Medical History: Cancer Additional Family Medical History / Comment(s): BOWEL CANCER Medications and Allergies Home Medications Medication Instructions Recorded Confirmed Type Aspirin EC [Ecotrin Low Dose] 81 mg PO DAILY 09/11/19 09/11/19 History Atorvastatin [Lipitor] 10 mg PO DAILY 09/11/19 09/11/19 History DULoxetine HCL [Cymbalta] 60 mg PO DAILY 09/11/19 09/11/19 History Furosemide [Lasix] 20 mg PO DAILY 09/11/19 09/11/19 History Metoprolol Tartrate 12.5 mg PO HS 09/11/19 09/11/19 History traZODone HCL [Desyrel] 100 mg PO HS PRN 09/11/19 09/11/19 History Allergies Allergy/AdvReac Type Severity Reaction Status Date / Time fentanyl AdvReac Unknown COULDNT Verified 09/11/19 16:47 EAT. Surgical - Exam Vital Signs Temp Pulse Resp BP Pulse Ox 102.9 F H 122 H 20 153/88 92 L 09/11/19 13:26 09/11/19 13:26 09/11/19 13:26 09/11/19 13:26 09/11/19 13:26 - General well developed, well nourished, no distress - Eyes normal ocular movement, no pale - ENT normal mucosa - Respiratory normal expansion, normal respiratory effort - Psychiatric oriented to time, oriented to person, oriented to place Results - Labs 09/12/19 07:13 09/12/19 07:13 Abnormal Lab Results - Last 24 Hours (Table) 09/11/19 09/11/19 09/11/19 Range/Units 14:13 14:13 14:13 WBC 13.4 H (3.8-10.6) k/uL RBC (3.80-5.40) m/uL MCV 103.5 H (80.0-100.0) fL Neutrophils # 12.7 H (1.3-7.7) k/uL Neutrophils # (Manual) (1.3-7.7) k/uL Lymphocytes # 0.2 L (1.0-4.8) k/uL Lymphocytes # (Manual) (1.0-4.8) k/uL D-Dimer 2.82 H (<0.60) mg/L FEU Sodium 134 L (137-145) mmol/L Carbon Dioxide (22-30) mmol/L BUN 25 H (7-17) mg/dL Creatinine 1.15 H (0.52-1.04) mg/dL Glucose 148 H (74-99) mg/dL Calcium (8.4-10.2) mg/dL Total Bilirubin 1.8 H (0.2-1.3) mg/dL Lactate Dehydrogenase 633 H (313-618) U/L C-Reactive Protein 240.9 H (<10.0) mg/L Total Protein (6.3-8.2) g/dL Albumin (3.5-5.0) g/dL Lipase 19 L (23-300) U/L Procalcitonin (0.02-0.09) ng/mL Ur Specific Cypress (1.001-1.035) Urine Protein (Negative) Urine Ketones (Negative) Urine Blood (Negative) Urine Nitrite (Negative) Ur Leukocyte Esterase (Negative) Urine WBC (0-5) /hpf Ur Squamous Epith Cells (0-4) /hpf Urine Bacteria (None) /hpf Urine Mucus (None) /hpf 09/11/19 09/11/19 09/12/19 Range/Units 14:13 16:08 07:13 WBC 13.4 H (3.8-10.6) k/uL RBC 3.78 L (3.80-5.40) m/uL MCV 102.8 H (80.0-100.0) fL Neutrophils # (1.3-7.7) k/uL Neutrophils # (Manual) 12.00 H (1.3-7.7) k/uL Lymphocytes # (1.0-4.8) k/uL Lymphocytes # (Manual) 0.40 L (1.0-4.8) k/uL D-Dimer (<0.60) mg/L FEU Sodium (137-145) mmol/L Carbon Dioxide (22-30) mmol/L BUN (7-17) mg/dL Creatinine (0.52-1.04) mg/dL Glucose (74-99) mg/dL Calcium (8.4-10.2) mg/dL Total Bilirubin (0.2-1.3) mg/dL Lactate Dehydrogenase (313-618) U/L C-Reactive Protein (<10.0) mg/L Total Protein (6.3-8.2) g/dL Albumin (3.5-5.0) g/dL Lipase (23-300) U/L Procalcitonin 1.87 H (0.02-0.09) ng/mL Ur Specific [place] >1.050 H (1.001-1.035) Urine Protein 1+ H (Negative) Urine Ketones 1+ H (Negative) Urine Blood Moderate H (Negative) Urine Nitrite Positive H (Negative) Ur Leukocyte Esterase Moderate H (Negative) Urine WBC 18 H (0-5) /hpf Ur Squamous Epith Cells 9 H (0-4) /hpf Urine Bacteria Rare H (None) /hpf Urine Mucus Rare H (None) /hpf 0426/20 Range/Units 07:13 WBC (3.8-10.6) k/uL RBC (3.80-5.40) m/uL MCV (80.0-100.0) fL Neutrophils # (1.3-7.7) k/uL Neutrophils # (Manual) (1.3-7.7) k/uL Lymphocytes # (1.0-4.8) k/uL Lymphocytes # (Manual) (1.0-4.8) k/uL D-Dimer (<0.60) mg/L FEU Sodium 135 L (137-145) mmol/L Carbon Dioxide 32 H (22-30) mmol/L BUN 25 H (7-17) mg/dL Creatinine 1.05 H (0.52-1.04) mg/dL Glucose 123 H (74-99) mg/dL Calcium 8.3 L (8.4-10.2) mg/dL Total Bilirubin (0.2-1.3) mg/dL Lactate Dehydrogenase (313-618) U/L C-Reactive Protein (<10.0) mg/L Total Protein 5.6 L (6.3-8.2) g/dL Albumin 3.3 L (3.5-5.0) g/dL Lipase (23-300) U/L Procalcitonin (0.02-0.09) ng/mL Ur Specific Cyp[place] (1.001-1.035) Urine Protein (Negative) Urine Ketones (Negative) Urine Blood (Negative) Urine Nitrite (Negative) Ur Leukocyte Esterase (Negative) Urine WBC (0-5) /hpf Ur Squamous Epith Cells (0-4) /hpf Urine Bacteria (None) /hpf Urine Mucus (None) /hpf Microbiology - Last 24 Hours (Table) 09/11/19 14:13 Blood Culture Gram Stain - Preliminary Blood 09/11/19 14:13 Blood Culture - Final Blood 09/11/19 16:08 Urine Culture - Preliminary Urine,Voided Diabetes panel 09/11/19 09/12/19 Range/Units 14:13 07:13 Sodium 134 L 135 L (137-145) mmol/L Potassium 3.6 4.3 (3.5-5.1) mmol/L Chloride 98 99 (98-107) mmol/L Carbon Dioxide 25 32 H (22-30) mmol/L BUN 25 H 25 H (7-17) mg/dL Creatinine 1.15 H 1.05 H (0.52-1.04) mg/dL Glucose 148 H 123 H (74-99) mg/dL Calcium 8.9 8.3 L (8.4-10.2) mg/dL AST 30 31 (14-36) U/L ALT 19 20 (4-34) U/L Alkaline Phosphatase 113 86 (38-126) U/L Total Protein 6.6 5.6 L (6.3-8.2) g/dL Albumin 4.1 3.3 L (3.5-5.0) g/dL Calcium panel 09/11/19 09/12/19 Range/Units 14:13 07:13 Calcium 8.9 8.3 L (8.4-10.2) mg/dL Albumin 4.1 3.3 L (3.5-5.0) g/dL Pituitary panel 09/11/19 09/12/19 Range/Units 14:13 07:13 Sodium 134 L 135 L (137-145) mmol/L Potassium 3.6 4.3 (3.5-5.1) mmol/L Chloride 98 99 (98-107) mmol/L Carbon Dioxide 25 32 H (22-30) mmol/L BUN 25 H 25 H (7-17) mg/dL Creatinine 1.15 H 1.05 H (0.52-1.04) mg/dL Glucose 148 H 123 H (74-99) mg/dL Calcium 8.9 8.3 L (8.4-10.2) mg/dL Adrenal panel 09/11/19 09/12/19 Range/Units 14:13 07:13 Sodium 134 L 135 L (137-145) mmol/L Potassium 3.6 4.3 (3.5-5.1) mmol/L Chloride 98 99 (98-107) mmol/L Carbon Dioxide 25 32 H (22-30) mmol/L BUN 25 H 25 H (7-17) mg/dL Creatinine 1.15 H 1.05 H (0.52-1.04) mg/dL Glucose 148 H 123 H (74-99) mg/dL Calcium 8.9 8.3 L (8.4-10.2) mg/dL Total Bilirubin 1.8 H 1.1 (0.2-1.3) mg/dL AST 30 31 (14-36) U/L ALT 19 20 (4-34) U/L Alkaline Phosphatase 113 86 (38-126) U/L Total Protein 6.6 5.6 L (6.3-8.2) g/dL Albumin 4.1 3.3 L (3.5-5.0) g/dL - Imaging CT scan - abdomen: image reviewed (No evidence of renal obstruction or renal abscess) Assessment and Plan Assessment: 84 yo female with hx of severe left sided pyelonephritis. CT abd/pelvis showed no evidence of obstrution or renal abscess Plan: -No acute surgical intervention -F/U on urine culture, patient will need minimum of 14 days of abx. Ok for discharge from urology standpoint once culture susceptibilities are available. -Can f/u In Urology clinic in 4 weeks
--- NOTE | 2019-09-13 11:01 | US ---
EXAMINATION TYPE: US transvaginal DATE OF EXAM: 09/13/2019 COMPARISON: Renal ultrasound dated 09/11/2019 CLINICAL HISTORY: abnormal CT- ovarian mass. TECHNIQUE: Transvaginal (TV). Date of LMP: Patient 84/post menopausal EXAM MEASUREMENTS: Bilateral adnexal cystic mass seen on CT. During renal sonography technologist characterized 2 cysts, one on the right and one at the midline measuring 4.4 and 4.3 cm, possibly of ovarian etiology. Uterus: not visualized Endometrial Stripe: not visualized Right Ovary: not visualized Left Ovary: not visualized Bilateral Adnexa: unable to see cystic masses by transvaginal ultrasound Posterior cul-de-sac: wnl Contact precaution patient done portably, unable to visualize masses transvaginally. If follow up needed transabdominal pelvic ultrasound would be recommended. IMPRESSION: The known bilateral adnexal cystic masses seen on the prior CT of 09/11/2019 also seen on the renal ultrasound 09/11/2019 are not visualized on today's examination possibly due to overlying angelo wel gas or inflammatory change from the patient's known pyelonephritis. The CT appearance is concerni ng in a patient of this age for ovarian neoplasm. Again correlation with serum tumor markers is recom mended. PILLOW[employer] consultation is also recommended.
--- NOTE | 2019-09-13 14:01 | P.PN ---
Subjective Progress Note Date: 09/13/19 This is an 84 years old female with past medical history mitral valve repair in 2018, hypertension, osteoarthritis, coronary artery disease with cath from 2017 suggested intermediate disease in the ostial diagonal branch of LAD, depression, irritable bowel syndrome, and hyperlipidemia. She presented to the emergency department with complaints of nausea, vomiting, and fever for a few days. Renal CT suggests severe polynephritis. Urine and blood cultures are pending at this time. Labs are reviewed WBCs 13.4 hemoglobin 12.3, neutrophils 12.0. D-dimer was slightly elevated on admission 2.8 to patient was ruled out for PE. C- reactive protein also elevated at 240. Repeat labs this morning show sodium 135 potassium 4.3, chloride 99, CO2 32, BUN 25, creatinine 1.05. Upon today's visit patient reports that she is feeling better nausea has subsided. Peak temperature was 99.7F she is afebrile this morning, heart rate 85, blood pressure 100/63, pulse ox 98% on 2 L via nasal cannula. Ultrasound of abdomen did show 2 cystic areas in the pelvis likely ovarian etiology, plan for transvaginal ultrasound for further evaluation. Patient will be admitted to the hospital with consults to pulmonary. 09/12: Patient is denying any new complaints. 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 Blood cultures positive for E. coli and urine culture is still pending. Sensitivity is pending.patient is afebrile, heart rate 88, blood pressure 151/80, pulse ox 95% on 3 L nasal cannula. transvaginal ultrasound will be ordered to evaluate possible ovarian mass/cyst found on CAT scan. Anticipate probable discharge home tomorrow. Objective - Vital Signs Vital signs: Vital Signs Temp 98.6 F 09/13/19 03:15 Pulse 83 09/13/19 03:15 Resp 18 09/12/19 20:00 BP 148/86 09/13/19 03:15 Pulse Ox 96 09/13/19 03:15 Intake & Output 09/12/19 09/13/19 09/13/19 18:59 06:59 18:59 Intake Total 1380 Balance 1380 Intake: Intake, IV Titration 1380 Amount Piperacillin-Tazobactam 3 100 .375 gm In Sodium Chloride 0.9% 100 ml @ 25 mls/hr IVPB Q8HR [facility] Rx# :[id number] Sodium Chloride 0.9% 1, 1280 000 ml @ 80 mls/hr IV . [id number] [facility] Rx#:[id number] Other: Voiding Method Toilet Toilet Diaper Diaper # Voids 3 1 - Exam Review of Systems ROS Other: All systems not noted in ROS Statement are negative.denies fever. Denies chills. Constitutional: Reports: fever, chills, and nausea HEENT: No visual changes. No eye pain. No nasal symptoms. No dysphagia.No heron nophagia. No ENT pain. Respiratory: Denies: cough, dyspnea Cardiovascular: Denies: chest pain, palpatations Endocrine: Reports: fatigue Gastrointestinal: Reports: as per HPI, nausea, vomiting. Denies: diarrhea, constipation Genitourinary: Denies: dysuria Musculoskeletal: Denies: back pain Skin: Denies: rash Neurological: Denies: headache Physical Examination General Appearance: Alert, cooperative, no distress, appears stated age, resting comfortably in bed in no acute distress Neck HEENT: Supple, no lymphadenopathy, no thyroid enlargement, no carotid bruits. Lungs: Clear to auscultation without crackles or wheezes no rhonchi, no deformity. Chest Wall: Chest wall normal expansion with deep inspiration no tenderness and no deformity was found on exam, no costochondral pain or discomfort. Heart: Regular rate and rhythm, S1, S2 normal, systolic murmur Abdomen: Soft, nontender, nondistended, positive bowel sounds. Extremities: Extremities normal, atraumatic, no cyanosis or edema. Pulses: 2+ and symmetric. Skin: Skin color, texture, tugor normal, no rashes or lesions. Neurologic: Alert oriented x3 cranial nerves II through XII intact, no motor deficit, no abnormal balance or gait. - Labs CBC & Chem 7: 09/12/19 07:13 09/12/19 07:13 Labs: Abnormal Lab Results - Last 24 Hours (Table) 09/12/19 09/12/19 Range/Units 07:13 07:13 WBC 13.4 H (3.8-10.6) k/uL RBC 3.78 L (3.80-5.40) m/uL MCV 102.8 H (80.0-100.0) fL Neutrophils # (Manual) 12.00 H (1.3-7.7) k/uL Lymphocytes # (Manual) 0.40 L (1.0-4.8) k/uL Sodium 135 L (137-145) mmol/L Carbon Dioxide 32 H (22-30) mmol/L BUN 25 H (7-17) mg/dL Creatinine 1.05 H (0.52-1.04) mg/dL Glucose 123 H (74-99) mg/dL Calcium 8.3 L (8.4-10.2) mg/dL Total Protein 5.6 L (6.3-8.2) g/dL Albumin 3.3 L (3.5-5.0) g/dL Microbiology - Last 24 Hours (Table) 09/11/19 16:08 Urine Culture - Preliminary Urine,Voided Gram Neg Bacilli 09/11/19 14:13 Blood Culture Gram Stain - Preliminary Blood Blood Culture - Preliminary Escherichia coli 09/11/19 14:13 Blood Culture - Final Blood Assessment and Plan Plan: 1. Sepsis secondary to acute left polynephritis with E coli bacteremia. Continue Zosyn. Urology consult appreciated. No plan for any intervention at this time. Urine and blood cultures are pending. Renal CT showed no evidence o f obstruction or renal abscess. 2. Elevated d-dimer. CT was negative for PE 3. Hyponatremia. normal saline IV fluids and place. 4. Dehydration. Normal saline infusing at 80 ML's hour. 5. Hx mitral valve prolapse with repair. Stable 6. Coronary artery disease. Continue daily aspirin and atorvastatin 7. Hypertension. Continue metoprolol 12.5 mg at bed 8. Hypercholesterolemia. On atorvastatin 9. History of anxiety. Continue Cymbalta 10. History of depression. Continue Cymbalta 11. Pelvic cyst. Obtain transvaginal ultrasound. 12. COVID-19 ruled out CODE STATUS: Full code Discharge plan: Likely home on Friday. Impression and plan of care have been directed as dictated by the signing physician. Dominga Pinto nurse practitioner acting as scribe for signing mónica sommers.
[2019-09-13] MEDS: METOPROLOL TARTRATE 12.5 MG TAB PO SCH (20:29)
[2019-09-13] MEDS: traZODone HCL 100 MG TAB PO PRN (20:29)
[2019-09-14 07:12] LABS: HCT 34.9 % (34.0-46.0); Hypochromasia Moderate; MCHC 31.5 g/dL (31.0-37.0); MCV 104.7 fL (80.0-100.0); Macrocytosis Slight; Mean Platelet Volume 7.6; Platelet Count 179 k/uL (150-450); RBC 3.33 m/uL (3.80-5.40); RDW 13.5 % (11.5-15.5); WBC 6.4 k/uL (3.8-10.6)
[2019-09-14 07:32] LABS: Potassium 3.9 mmol/L (3.5-5.1)
[2019-09-14] MEDS: ATORVASTATIN 10 MG TAB PO SCH (09:22)
[2019-09-14] MEDS: DULoxetine HCL 60 MG CAPSULE.DR PO SCH (09:22)
[2019-09-14] MEDS: ASPIRIN 81 MG PO SCH (09:22)
--- NOTE | 2019-09-14 09:33 | P.PN ---
Subjective Progress Note Date: 09/14/19 This is an 84 years old female with past medical history mitral valve repair in 2018, hypertension, osteoarthritis, coronary artery disease with cath from 2017 suggested intermediate disease in the ostial diagonal branch of LAD, depression, irritable bowel syndrome, and hyperlipidemia. She presented to the emergency department with complaints of nausea, vomiting, and fever for a few days. Renal CT suggests severe polynephritis. Urine and blood cultures are pending at this time. Labs are reviewed WBCs 13.4 hemoglobin 12.3, neutrophils 12.0. D-dimer was slightly elevated on admission 2.8 to patient was ruled out for PE. C- reactive protein also elevated at 240. Repeat labs this morning show sodium 135 potassium 4.3, chloride 99, CO2 32, BUN 25, creatinine 1.05. Upon today's visit patient reports that she is feeling better nausea has subsided. Peak temperature was 99.7F she is afebrile this morning, heart rate 85, blood pressure 100/63, pulse ox 98% on 2 L via nasal cannula. Ultrasound of abdomen did show 2 cystic areas in the pelvis likely ovarian etiology, plan for transvaginal ultrasound for further evaluation. Patient will be admitted to the hospital with consults to pulmonary. 09/12: Patient is denying any new complaints. 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 Blood cultures positive for E. coli and urine culture is still pending. Sensitivity is pending.patient is afebrile, heart rate 88, blood pressure 151/80, pulse ox 95% on 3 L nasal cannula. transvaginal ultrasound will be ordered to evaluate possible ovarian mass/cyst found on CAT scan. Anticipate probable discharge home tomorrow. 09/13: Urine culture and blood culture finalized with E. coli pansensitive except for ampicillin, Unasyn, Augmentin. Antibiotics changed to Rocephin. Patient is been afebrile, heart rate 84, blood pressure 171/80, pulse ox 98% on 2 L nasal cannula. Transvaginal ultrasound shows known bilateral adnexal cysts or masses are not visualized on today's examination due to overlying bowel gas or inflammatory change from known pyelonephritis. Recommend correlation with serum tumor markers. CEA [address] Hsieh has been added. Patient's has been updated via phone call by Dr. Crain. Anticipate discharge home tomorrow. Objective - Vital Signs Vital signs: Vital Signs Temp 97.5 F L 09/14/19 07:00 Pulse 84 09/14/19 07:00 Resp 14 09/14/19 07:00 BP 171/80 09/14/19 07:00 Pulse Ox 98 09/14/19 07:00 Intake & Output 09/13/19 09/14/19 09/14/19 18:59 06:59 18:59 Intake Total 660 100 Balance 660 100 Intake: Intake, IV Titration 660 Amount Piperacillin-Tazobactam 3 100 .375 gm In Sodium Chloride 0.9% 100 ml @ 25 mls/hr IVPB Q8HR [facility] Rx# :[id number] Sodium Chloride 0.9% 1, 560 000 ml @ 80 mls/hr IV . [id number] [facility] Rx#:[id number] Oral 100 Other: Voiding Method Toilet Diaper # Voids 1 3 - Exam Review of Systems ROS Other: All systems not noted in ROS Statement are negative.denies fever. Denies chills. Constitutional: Reports: fever, chills, and nausea HEENT: No visual changes. No eye pain. No nasal symptoms. No dysphagia.No odynophagia. No ENT pain. Respiratory: Denies: cough, dyspnea Cardiovascular: Denies: chest pain, palpatations Endocrine: Reports: fatigue Gastrointestinal: Denies nausea, vomiting. Denies: diarrhea, constipation, denies abdominal pain Genitourinary: Denies: dysuria Musculoskeletal: Denies: back pain Skin: Denies: rash Neurological: Denies: headache Physical Examination General Appearance: Alert, cooperative, no distress, appears stated age, resting comfortably in bed in no acute distress Neck HEENT: Supple, no lymphadenopathy, no thyroid enlargement, no carotid bruits. Lungs: Clear to auscultation without crackles or wheezes no rhonchi, no deformity. Chest Wall: Chest wall normal expansion with deep inspiration no tenderness. Heart: Regular rate and rhythm, S1, S2 normal, systolic murmur Abdomen: Soft, nontender, nondistended, positive bowel sounds. Extremities: Extremities normal, atraumatic, no cyanosis or edema. Pulses: 2+ and symmetric. Skin: Skin color, texture, tugor normal, no rashes or lesions. Neurologic: Alert oriented x3 cranial nerves II through XII intact, no motor deficit, no abnormal balance or gait. - Labs CBC & Chem 7: 09/14/19 06:55 09/14/19 06:55 Labs: Abnormal Lab Results - Last 24 Hours (Table) 09/14/19 09/14/19 Range/Units 06:55 06:55 RBC 3.33 L (3.80-5.40) m/uL Hgb 11.0 L (11.4-16.0) gm/dL MCV 104.7 H (80.0-100.0) fL Carbon Dioxide 33 H (22-30) mmol/L Calcium 8.0 L (8.4-10.2) mg/dL Microbiology - Last 24 Hours (Table) 09/11/19 14:13 Blood Culture Gram Stain - Final Blood Blood Culture - Final Escherichia coli 09/11/19 16:08 Urine Culture - Final Urine,Voided Escherichia coli Assessment and Plan Plan: 1. Sepsis secondary to acute left E. coli polynephritis with E coli bacteremia. Zosyn transitioned to Rocephin. Urology consult appreciated. No plan for any intervention at this time. Urine and blood cultures are pending. Renal CT showed no evidence of obstruction or renal abscess. 2. Elevated d-dimer. CT was negative for PE 3. Hyponatremia. normal saline IV fluids and place. 4. Dehydration. Normal saline infusing at 80 ML's hour. 5. Hx mitral valve prolapse with repair. Stable 6. Coronary artery disease. Continue daily aspirin and atorvastatin 7. Hypertension. Continue metoprolol 12.5 mg at bed 8. Hypercholesterolemia. On atorvastatin 9. History of anxiety. Continue Cymbalta 10. History of depression. Continue Cymbalta 11. Pelvic cyst. CA-[address] Hsieh 12. COVID-19 ruled out CODE STATUS: Full code Discharge plan: Likely home on Friday. Impression and plan of care have been directed as dictated by the signing physician. Dominga Pinto nurse practitioner acting as scribe for signing physician.
[2019-09-14] MEDS: PIPERACILLIN-TAZOBACTAM 3.375 GM in SODIUM CHLORIDE 0.9% 100 ML IVPB SCH (10:28)
--- NOTE | 2019-09-14 14:30 | P.CON ---
Consult Note - . Consult date: 09/14/19 Assessment/Plan:: This is an 84-year-old white female 2 para 2002 last [place]. Many years ago. Patient presented to the hospital with fever and chills as well as nausea on September 10. Workup was consistent with left pyelonephritis. Incidentally on imaging studies, there is a suggestion of bilateral pelvic masses. Vaginal ultrasound this morning, is negative for adnexal masses. Patient is status post hysterectomy years ago for benign disease. Today she is asymptomatic. Her weight has been stable. Energy level is good. Appetite has been normal. She denies bloating of the abdominal wall, pelvic pain, or any other issues. She and her are still sexually active and there is no dyspareunia. No vaginal discharge, no odor, no pelvic complaints. Past medical history significant for IBS and mild hypertension. Past surgical history mitral valve prolapse repair, melanoma of the left leg removed many years ago, vaginal hysterectomy and cystocele repair by myself. Social history patient is a previous smoker one pack per day for 50 years, quit 3 years ago. She is . 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 Family history patient's sister had colon cancer in her 40s, she is a 87-year-old brother with diabetes mellitus recent amputation of the leg noted. No history of cancers of the ovaries, breast, uterus. ALLERGIES include fentanyl to which she reports loss of taste. Home medications as in chart. On exam patient is 5 foot 6 inches, 150 pounds, 148/78, pulse 78, 98.3. HEENT examination reveals good dentition, no thyromegaly, neck soft and supple. Breast exam reveals breasts to be bilaterally symmetric to inspection with no skin dimpling, nipple discharge, at 40 and wrap the or discernible lesions or masses. Chest is clear to auscultation in all seymour anteriorly and posteriorly. Cardiac exam reveals a grade 3/6 murmur, consistent with mitral valve prolapse repair. Abdomen is soft, nontender, active bowel sounds, no rebound or guarding. No CVA tenderness. Extremities reveal no edema, good peripheral pulses. On pelvic exam the vaginal cuff is well suspended. The cuff is smooth. There is no pain to deep palpation. There are no obvious masses in the pelvis. Rectal exam reveals soft brown stool, sample sent for Hemoccult testing. No rectal lesions or masses. Impression: 84-year-old woman being treated by Dr. Crain for pyelonephritis, clinical improvement noted. CT findings discussed with Dr. Nolan, there is suggestion of a 3.7cm and a 2.8cm fluid filled cyst located in the mid-pelvis towards the posterior pelvis above the colon and bladder. Pelvic ultrasound unremarkable. No unusual findings on examination today. Patient is otherwise asymptomatic. No family history of ovarian cancer. Plan: I discussed the patient's case with Dr. Crain. My sense is that this is an incidental finding, however OVA-1 testing has been drawn to better assess patient's risk for ovarian cancer. Today on my examination she is healthy with no symptomatology or risk factors identified. Discharge patient when medically indicated. I will follow the patient up in my office in 2 weeks to review laboratory testing and provide further recommendations as appropriate. Thank you for the consultation.
[2019-09-14] MEDS: SODIUM CHLORIDE 0.9% 1,000 ML IV SCH ×2 (19:46→21:12)
[2019-09-14] MEDS: METOPROLOL TARTRATE 12.5 MG TAB PO SCH (21:11)
[2019-09-14] MEDS: traZODone HCL 100 MG TAB PO PRN (21:14)
[2019-09-15 08:09] VITALS: TEMP 98.4
[2019-09-15] MEDS ORDERED: FUROSEMIDE 10 MG/ML 4 ML VIAL IV STA (08:13)
[2019-09-15] MEDS: ATORVASTATIN 10 MG TAB PO SCH (10:06)
[2019-09-15] MEDS: DULoxetine HCL 60 MG CAPSULE.DR PO SCH (10:06)
[2019-09-15] MEDS: ASPIRIN 81 MG PO SCH (10:06)
[2019-09-15] MEDS ORDERED: ALBUTEROL NEBULIZED 2.5 MG/3 ML INHALATION SCH (12:00)
--- NOTE | 2019-09-15 13:16 | P.DS ---
Providers Date of admission: 09/11/19 17:14 Expected date of discharge: 09/15/19 Attending physician: Joseph Crain Consults: 09/11/19 17:09 Consult Physician Stat Consulting Provider: Kashmir Durbin Consult Reason/Comments: left pyelonephritis Do you want consulting provider notified?: Yes Primary care physician: [facility] Course: This is an 84 years old female with past medical history mitral valve repair in 2018, hypertension, osteoarthritis, coronary artery disease with cath from 2017 suggested intermediate disease in the ostial diagonal branch of LAD, depression, irritable bowel syndrome, and hyperlipidemia. She presented to the emergency department with complaints of nausea, vomiting, and fever for a few days. Renal CT suggests severe polynephritis. Urine and blood cultures are pending at this time. Labs are reviewed WBCs 13.4 hemoglobin 12.3, neutrophils 12.0. D-dimer was slightly elevated on admission 2.8 to patient was ruled out for PE. C-niharika ctive protein also elevated at 240. Repeat labs this morning show sodium 135 potassium 4.3, chloride 99, CO2 32, BUN 25, creatinine 1.05. Upon today's visit patient reports that she is feeling better nausea has subsided. Peak temperature was 99.7F she is afebrile this morning, heart rate 85, blood pressure 100/63, pulse ox 98% on 2 L via nasal cannula. Ultrasound of abdomen did show 2 cystic areas in the pelvis likely ovarian etiology, plan for transvaginal ultrasound for further evaluation. Patient will be admitted to the hospital with consults to pulmonary. 09/12: Patient is denying any new complaints. 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 Blood cultures positive for E. coli and urine culture is still pending. Sensitivity is pending.patient is afebrile, heart rate 88, blood pressure 151/80, pulse ox 95% on 3 L nasal cannula. transvaginal ultrasound will be ordered to evaluate possible ovarian mass/cyst found on CAT scan. Anticipate probable discharge home tomorrow. 09/13: Urine culture and blood culture finalized with E. coli pansensitive except for ampicillin, Unasyn, Augmentin. Antibiotics changed to Rocephin. Patient is been afebrile, heart rate 84, blood pressure 171/80, pulse ox 98% on 2 L nasal cannula. Transvaginal ultrasound shows known bilateral adnexal cysts or masses are not visualized on today's examination due to overlying bowel gas or inflammatory change from known pyelonephritis. Recommend correlation with serum tumor markers. CA [address] Hsieh has been added. Patient's has been updated via phone call by Dr. Crain. Anticipate discharge home tomorrow. 09/14: Patient was seen by Dr. Hsieh yesterday and feels that the imaging finding is incidental. Dr. Hsieh will order OVA-1 test as an outpatient. CA 125 came back low at 2.5. Patient has been afebrile, heart rate 72, blood pressure 150/79, pulse ox currently 97% on 3 L nasal cannula. There is a documented low pulse ox of 82% at 7 PM and patient was placed on 3 L. the patient is not has some fluid overload and Lasix 40 mg IV times one will be ordered. Patient has diuresed well following this. Pulse ox on room air at 91%. Patient will be discharged home today in stable condition. Discharge diagnoses: 1. Sepsis secondary to acute left polynephritis with E coli bacteremia. 2. Elevated d-dimer. CT was negative for PE 3. Hyponatremia. 4. Dehydration. 5. Hx mitral valve prolapse with repair. 6. Coronary artery disease. 7. Hypertension. 8. Hypercholesterolemia. 9. Generalized anxiety disorder. 10. Recurrent depression. 11. Pelvic cyst/mass, incidental finding. 12. COVID-19 ruled out Discharge plan: home Impression and plan of care have been directed as dictated by the signing physician. Dominga Pinto nurse practitioner acting as scribe for signing physician. Patient Condition at Discharge: Good Plan - Discharge Summary Discharge Rx Participant: Yes New Discharge Prescriptions: No Action Metoprolol Tartrate 12.5 mg PO HS Aspirin EC [Ecotrin Low Dose] 81 mg PO DAILY Furosemide [Lasix] 20 mg PO DAILY DULoxetine HCL [Cymbalta] 60 mg PO DAILY Atorvastatin [Lipitor] 10 mg PO DAILY traZODone HCL [Desyrel] 100 mg PO HS PRN PRN Reason: SLEEP Discharge Medication List Aspirin EC [Ecotrin Low Dose] 81 mg PO DAILY 09/11/19 [History] Atorvastatin [Lipitor] 10 mg PO DAILY 09/11/19 [History] DULoxetine HCL [Cymbalta] 60 mg PO DAILY 09/11/19 [History] Furosemide [Lasix] 20 mg PO DAILY 09/11/19 [History] Metoprolol Tartrate 12.5 mg PO HS 09/11/19 [History] traZODone HCL [Desyrel] 100 mg PO HS PRN 09/11/19 [History] Follow up Appointment(s)/Referral(s): Joseph Crain MD [Primary Care Provider] - 1 Week Muriel Hsieh MD [STAFF PHYSICIAN] - 2 Weeks Discharge Disposition: HOME SELF-CARE
[2019-09-15 15:15] VITALS: BP 128/76; PULSE 92; RESP 21
== END 2019-09-15 15:33 | disposition home or self-care (01) | DRG 872 ==
LOC: EC 13:24 → 4SSUR 17:14
PROVIDERS: ADMIT Internal Medicine Geriatric Medicine; ATTEND Internal Medicine Geriatric Medicine
DX: A41.51 Sepsis due to Escherichia coli [E. coli] (principal); E87.1 Hypo-osmolality and hyponatremia; F33.9 Major depressive disorder, recurrent, unspecified; N10 Acute pyelonephritis; E78.00 Pure hypercholesterolemia, unspecified; E78.5 Hyperlipidemia, unspecified; E86.0 Dehydration; E87.70 Fluid overload, unspecified; F41.1 Generalized anxiety disorder; I10 Essential (primary) hypertension; I25.10 Atherosclerotic heart disease of native coronary artery without angina pectoris; K58.0 Irritable bowel syndrome with diarrhea; B96.20 Unspecified Escherichia coli [E. coli] as the cause of diseases classified elsewhere; N20.0 Calculus of kidney; N94.89 Other specified conditions associated with female genital organs and menstrual cycle; Z20.828 Contact with and (suspected) exposure to other viral communicable diseases; R79.1 Abnormal coagulation profile; Z79.82 Long term (current) use of aspirin; Z79.899 Other long term (current) drug therapy; Z80.0 Family history of malignant neoplasm of digestive organs; Z83.3 Family history of diabetes mellitus; Z85.820 Personal history of malignant melanoma of skin; Z87.891 Personal history of nicotine dependence; Z90.710 Acquired absence of both cervix and uterus; Z98.42 Cataract extraction status, left eye; Z98.41 Cataract extraction status, right eye; Z96.653 Presence of artificial knee joint, bilateral; Z88.5 Allergy status to narcotic agent
CPT/HCPCS: 36415; 71045; 71275; 74018; 74150; 76770; 76830; 80048; 80053; 81001; 82150; 82272; 82728; 83605; 83615; 83690; 83735; 84145; 84484; 85025; 85027; 85379; 85610; 85730; 86140; 86304; 87040; 87077; 87086; 87186; 87635; 93005; 94760; 96374; 96375; 99285

== ENCOUNTER 2019-10-07 19:42 | Inpatient (IN) | payer MEDICARE ==
[2019-10-07] MEDS ORDERED: SODIUM CHLORIDE 0.9% 1,000 ML IV STA (20:02)
[2019-10-07] MEDS ORDERED: ACETAMINOPHEN TAB 500 MG TAB PO STA (20:02)
[2019-10-07] MEDS ORDERED: VANCOMYCIN IV PER PHARMACY 1 EACH MISC MISCELLANE PRN (20:04)
--- NOTE | 2019-10-07 20:07 | ED ---
General Adult HPI - General Chief complaint: Abdominal Pain Stated complaint: appenicitis Time Seen by Provider: 10/07/19 19:45 Source: patient, RN notes reviewed, old records reviewed Mode of arrival: ambulatory - History of Present Illness Initial comments: This is an 84-year-old female presents emergency department today complaining of abdominal pain for 2 weeks. Patient states today she had a CAT scan and was told that should acute appendicitis. Dr. rCain and called me and mentioned to me that he she had appendicitis with an abscess formation. He also wanted the patient to get Zosyn and Flagyl and his ankle. Patient states the pain is in the right lower quadrant she denies any nausea or vomiting. She denies any diarrhea. Patient states currently she does not want any pain medicines. Patient states she does not have a fever. Patient denies any chest pain difficulty breathing first breath. - Related Data Home Medications Medication Instructions Recorded Confirmed Aspirin EC [Ecotrin Low Dose] 81 mg PO DAILY 09/11/19 09/11/19 Atorvastatin [Lipitor] 10 mg PO DAILY 09/11/19 09/11/19 DULoxetine HCL [Cymbalta] 60 mg PO DAILY 09/11/19 09/11/19 Furosemide [Lasix] 20 mg PO DAILY 09/11/19 09/11/19 Metoprolol Tartrate 12.5 mg PO HS 09/11/19 09/11/19 traZODone HCL [Desyrel] 100 mg PO HS PRN 09/11/19 09/11/19 Allergies Allergy/AdvReac Type Severity Reaction Status Date / Time fentanyl AdvReac Unknown COULDNT Verified 10/07/19 19:49 EAT. Review of Systems ROS Statement: Those systems with pertinent positive or pertinent negative responses have been documented in the HPI. ROS Other: All systems not noted in ROS Statement are negative. Past Medical History Past Medical History: Cancer, Hyperlipidemia, Hypertension, Mitral Valve Prolapse (MVP), Osteoarthritis (OA) Additional Past Medical History / Comment(s): PROLAPSED MITRAL VALVE, IBS, SKIN CANCER, STATES SLIGHT SOB., SEE CARDIOLOGY H & P. History of Any Multi-Drug Resistant Organisms: None Reported Past Surgical History: Joint Replacement Additional Past Surgical History / Comment(s): REGAN TOTAL KNEES. mirtal valve repair Past Anesthesia/Blood Transfusion Reactions: No Reported Reaction Past Psychological History: Anxiety, Depression Smoking Status: Former smoker Past Alcohol Use History: Daily Past Drug Use History: None Reported - Past Family History Sister(s) Family Medical History: Cancer Additional Family Medical History / Comment(s): BOWEL CANCER General Exam - General Exam Comments Initial Comments: GENERAL: Patient is well-developed and well-nourished. Patient is nontoxic and well- hydrated and is in mild distress. ENT: Neck is soft and supple. No significant lymphadenopathy is noted. Oropharynx is clear. Moist mucous membranes. Neck has full range of motion without eliciting any pain. EYES: The sclera were anicteric and conjunctiva were pink and moist. Extraocular movements were intact and pupils were equal round and reactive to light. Eyelids were unremarkable. PULMONARY: Unlabored respirations. Good breath sounds bilaterally. No audible rales rhonchi or wheezing was noted. CARDIOVASCULAR: There is a regular rate and rhythm without any murmurs gallops or rubs. ABDOMEN: Right lower quadrant abdominal pain with rebound SKIN: Skin is clear with no lesions or rashes and otherwise unremarkable. NEUROLOGIC: Patient is alert and oriented x3. Cranial nerves II through XII are grossly intact. Motor and sensory are also intact. Normal speech, volume and content. Symmetrical smile. MUSCULOSKELETAL: Normal extremities with adequate strength and full range of motion. No lower extremity swelling or edema. No calf tenderness. LYMPHATICS: No significant lymphadenopathy is noted PSYCHIATRIC: Normal psychiatric evaluation. Course Vital Signs 10/07/19 19:45 Temperature 100.1 F H Pulse Rate 103 H Respiratory 18 Rate Blood Pressure 145/92 O2 Sat by Pulse 93 L Oximetry Medical Decision Making - Medical Decision Making I reviewed this morning's lab work as well as a CAT scan it did indicate that the patient had an abscess with appendicitis. I spoke with Dr. Bangura she agreed to admit the patient admitted the patient I wrote admitting orders. I consulted Dr. Matute. Disposition Clinical Impression: Appendicitis with abscess Disposition: ADMITTED IP TO THIS HOSP Referrals: Joseph Crain MD [Primary Care Provider] - 1-2 days Time of Disposition: 20:07
[2019-10-07] MEDS ORDERED: SODIUM CHLORIDE 0.9% 1,000 ML IV ONE (20:08)
[2019-10-07] MEDS ORDERED: VANCOMYCIN 1,250 MG in SODIUM CHLORIDE 0.9% 250 ML IVPB STA (20:09)
[2019-10-07 20:40] LABS: Basophils % (A) 0 %; Eosinophils # (A) 0.1 k/uL (0-0.7); Eosinophils % (A) 1 %; HCT 39.5 % (34.0-46.0); HGB 12.7 gm/dL (11.4-16.0); Lymphocytes # (A) 1.2 k/uL (1.0-4.8); Lymphocytes % (A) 7 %; MCH 31.8 pg (25.0-35.0); MCHC 32.2 g/dL (31.0-37.0); MCV 98.9 fL (80.0-100.0); Mean Platelet Volume 7.5; Monocytes # (A) 0.5 k/uL (0-1.0); Monocytes % (A) 3 %; Neutrophils # (A) 16.3 k/uL (1.3-7.7); Neutrophils % (A) 89 %; Platelet Count 401 k/uL (150-450); RDW 13.9 % (11.5-15.5); WBC 18.3 k/uL (3.8-10.6)
[2019-10-07 20:50] LABS: ALT 9 U/L (4-34); AST 31 U/L (14-36); African American GFR (CKD) 87 (>60 ml/min/1.73 sqM); Albumin 3.3 g/dL (3.5-5.0); Alkaline Phosphatase 94 U/L (38-126); Amylase <30 U/L (30-110); Anion Gap 9 mmol/L; Blood Urea Nitrogen 13 mg/dL (7-17); Calcium 8.3 mg/dL (8.4-10.2); Carbon Dioxide 32 mmol/L (22-30); Chloride 90 mmol/L (98-107); Glucose 101 mg/dL (74-99); Non-African American GFR(CKD) 76 (>60 ml/min/1.73 sqM); Potassium 4.9 mmol/L (3.5-5.1); Sodium 131 mmol/L (137-145); Total Protein 6.3 g/dL (6.3-8.2)
[2019-10-07 20:59] LABS: Appearance,Urine Cloudy (Clear); Bacteria,Urine Occasional /hpf; Bilirubin,Urine Negative (Negative); Blood,Urine Trace (Negative); Color,Urine Yellow; Glucose,Urine (UA) Negative (Negative); Ketones,Urine Negative (Negative); Leukocyte Esterase,Urine Small (Negative); Mucus,Urine Rare /hpf; Nitrite,Urine Negative (Negative); Protein,Urine Trace (Negative); RBC,Urine 7 /hpf (0-5); Squamous Epithelial Cell,Urine 35 /hpf (0-4); Urobilinogen,Urine <2.0 mg/dL (<2.0); WBC,Urine 15 /hpf (0-5)
[2019-10-07 21:00] LABS: Specific Gravity,Urine >1.050 (1.001-1.035)
--- NOTE | 2019-10-07 22:05 | P.GSCN ---
History of Present Illness Consult date: 10/07/19 Reason for Consult: Pelvic abscess History of present illness: 84-year-old female was in the hospital approximately 1 month ago with fevers and shortness of breath. Patient had a CT chest to rule out pulmonary embolism and it was noted that the left kidney appeared inflamed. She later had a CT abdomen to evaluate her kidney and was found to have fairly impressive left-sided pyelonephritis. Patient did have bacteremia at that time. She was treated with antibiotics and has been off and on antibiotics since discharge. She saw a control systems developer this morning because of some ovarian cysts noted on the CAT scan from August. Patient was having significant tenderness she went back to see her primary care physician ordered a third CAT scan. CAT scan today was performed revealing inflammatory changes right hemipelvis with at least 2 abscess collections containing fluid and air. The patient's appendix which was well visualized on the 09/10 CAT scan now was non-visualized for the most part. There may be a tubular structure at the apex of this abscess collection and subacute appendicitis with abscess is thought to be the likely etiology. The patient was told at one point she may have diverticulitis. No significant colonic inflammat ory changes are identified however the abscess is in proximity to the sigmoid colon. Patient has a low-grade fever. She appears comfortable. She states that she is mainly just tired of all of this. She did not really want to come to the hospital today. Currently on antibiotics. Infectious disease was consulted. Patient denies any significant change in bowel habits. Appetite is diminished. Some nausea and no vomiting. Review of Systems The patient denies any acute changes in vision or hearing, no dysphagia or odynophagia, no chest pain or shortness of breath, no dysuria or hematuria, no headache, no runny nose, no rectal bleeding or melena, no unexplained weight loss Past Medical History Past Medical History: Cancer, Hyperlipidemia, Hypertension, Mitral Valve Prolapse (MVP), Osteoarthritis (OA) Additional Past Medical History / Comment(s): PROLAPSED MITRAL VALVE, IBS, SKIN CANCER, STATES SLIGHT SOB., SEE CARDIOLOGY H & P. History of Any Multi-Drug Resistant Organisms: None Reported Past Surgical History: Joint Replacement Additional Past Surgical History / Comment(s): REGAN TOTAL KNEES. mirtal valve repair Past Anesthesia/Blood Transfusion Reactions: No Reported Reaction Past Psychological History: Anxiety, Depression Smoking Status: Former smoker Past Alcohol Use History: Daily Past Drug Use History: None Reported - Past Family History Sister(s) Family Medical History: Cancer Additional Family Medical History / Comment(s): BOWEL CANCER Medications and Allergies Home Medications Medication Instructions Recorded Confirmed Type Aspirin EC [Ecotrin Low Dose] 81 mg PO DAILY 09/11/19 10/07/19 History Atorvastatin [Lipitor] 10 mg PO DAILY 09/11/19 10/07/19 History DULoxetine HCL [Cymbalta] 60 mg PO DAILY 09/11/19 10/07/19 History Furosemide [Lasix] 20 mg PO DAILY 09/11/19 10/07/19 History Metoprolol Tartrate 12.5 mg PO HS 09/11/19 10/07/19 History traZODone HCL [Desyrel] 100 mg PO HS PRN 09/11/19 10/07/19 History Dicyclomine [Bentyl] 10 mg PO TID 10/07/19 10/07/19 History Ondansetron HCl [Zofran] 4 - 8 mg PO BID PRN 10/07/19 10/07/19 History Pantoprazole Sodium [Protonix] 40 mg PO DAILY 10/07/19 10/07/19 History metroNIDAZOLE [Flagyl] 500 mg PO TID 10/07/19 10/07/19 History Allergies Allergy/AdvReac Type Severity Reaction Status Date / Time fentanyl AdvReac Unknown COULDNT Verified 10/07/19 19:49 EAT. Surgical - Exam Vital Signs Temp Pulse Resp BP Pulse Ox 100.1 F H 103 H 18 145/92 93 L 10/07/19 19:45 10/07/19 19:45 10/07/19 19:45 10/07/19 19:45 10/07/19 19:45 Physical exam: General: Well-developed, well-nourished HEENT: Normocephalic, sclerae nonicteric Abdomen: Mild distention, moderate right lower quadrant tenderness Extremities: No edema Neuro: Alert and oriented Results - Labs 10/07/19 20:20 10/07/19 20:20 Abnormal Lab Results - Last 24 Hours (Table) 10/07/19 10/07/19 10/07/19 Range/Units 20:20 20:20 20:20 WBC 18.3 H (3.8-10.6) k/uL Neutrophils # 16.3 H (1.3-7.7) k/uL Sodium 131 L (137-145) mmol/L Chloride 90 L (98-107) mmol/L Carbon Dioxide 32 H (22-30) mmol/L Glucose 101 H (74-99) mg/dL Calcium 8.3 L (8.4-10.2) mg/dL Albumin 3.3 L (3.5-5.0) g/dL Amylase <30 L (30-110) U/L Urine Appearance Cloudy H (Clear) Ur Specific [place] >1.050 H (1.001-1.035) Urine Protein Trace H (Negative) Urine Blood Trace H (Negative) Ur Leukocyte Esterase Small H (Negative) Urine RBC 7 H (0-5) /hpf Urine WBC 15 H (0-5) /hpf Urine WBC Clumps Rare H (None) /hpf Ur Squamous Epith Cells 35 H (0-4) /hpf Urine Bacteria Occasional H (None) /hpf Urine Mucus Rare H (None) /hpf Diabetes panel 10/07/19 Range/Units 20:20 Sodium 131 L (137-145) mmol/L Potassium 4.9 (3.5-5.1) mmol/L Chloride 90 L (98-107) mmol/L Carbon Dioxide 32 H (22-30) mmol/L BUN 13 (7-17) mg/dL Creatinine 0.74 (0.52-1.04) mg/dL Glucose 101 H (74-99) mg/dL Calcium 8.3 L (8.4-10.2) mg/dL AST 31 (14-36) U/L ALT 9 (4-34) U/L Alkaline Phosphatase 94 (38-126) U/L Total Protein 6.3 (6.3-8.2) g/dL Albumin 3.3 L (3.5-5.0) g/dL Calcium panel 10/07/19 Range/Units 20:20 Calcium 8.3 L (8.4-10.2) mg/dL Albumin 3.3 L (3.5-5.0) g/dL Pituitary panel 10/07/19 Range/Units 20:20 Sodium 131 L (137-145) mmol/L Potassium 4.9 (3.5-5.1) mmol/L Chloride 90 L (98-107) mmol/L Carbon Dioxide 32 H (22-30) mmol/L BUN 13 (7-17) mg/dL Creatinine 0.74 (0.52-1.04) mg/dL Glucose 101 H (74-99) mg/dL Calcium 8.3 L (8.4-10.2) mg/dL Adrenal panel 10/07/19 Range/Units 20:20 Sodium 131 L (137-145) mmol/L Potassium 4.9 (3.5-5.1) mmol/L Chloride 90 L (98-107) mmol/L Carbon Dioxide 32 H (22-30) mmol/L BUN 13 (7-17) mg/dL Creatinine 0.74 (0.52-1.04) mg/dL Glucose 101 H (74-99) mg/dL Calcium 8.3 L (8.4-10.2) mg/dL Total Bilirubin 1.0 (0.2-1.3) mg/dL AST 31 (14-36) U/L ALT 9 (4-34) U/L Alkaline Phosphatase 94 (38-126) U/L Total Protein 6.3 (6.3-8.2) g/dL Albumin 3.3 L (3.5-5.0) g/dL Assessment and Plan (1) Appendicitis with abscess Narrative/Plan: 84-year-old female with pelvic abscess identified on CAT scan today. Does not appear amenable to CT drainage. Patient is not interested in that approach since she has been on oral antibiotics for the last few weeks. Case also discussed with the patient's by phone. At this point our plan is to proceed with exploratory laparotomy with drainage pelvic abscess. Plan appendectomy unless other etiology for the patient's pelvic abscess is identified. Potential need for right oophorectomy if ovarian abscess present. Risks of bleeding, infection, recurrent abscess, bladder ureteral and bowel injury, possible need for oophorectomy, wound formation, anesthesia related complications. They understand and wish to proceed at this time. I did offer to proceed with surgery this evening since I was here doing a laparoscopic appendectomy. The patient prefers to wait and requests that we schedule this for tomorrow. Arrangements will be made. Current Visit: Yes Status: Acute Code(s): K35.33 - ACUTE APPENDICITIS WITH PERF AND LOC PERITONITIS, WITH ABSCS SNOMED Code(s): 89782582
[2019-10-07] MEDS ORDERED: ONDANSETRON 4 MG TAB PO PRN (22:07)
[2019-10-07] MEDS: PIPERACILLIN-TAZOBACTAM 3.375 GM in SODIUM CHLORIDE 0.9% 100 ML IVPB SCH (22:22)
--- NOTE | 2019-10-07 22:24 | P.HPIM ---
History of Present Illness H&P Date: 10/07/19 Chief Complaint: Severe abdominal pain, pelvic abscess, subacute appendicitis, recent histor 84-year-old female one of my office patient with known very well for many years who was hospitalized in 09/11/2023 acute pyelonephritis her presentation to demurs department at [facility] that she was complaining of mild shortness of breath with tiredness fatigue and low-grade temperature she was tested for the Jordin 19 was negative patient C-reactive protein was elevated and d-dimer was quite elevated at the time ended up going for CTA of the chest was negative for PE but ended up showing slight abnormality around the kidney in the right side ultrasound was white blood cell was mildly elevated with left shift and urine test was positive patient was diagnosed with pyelonephritis and admitted to the hospital was seen by urology and infectious disease she had positive blood culture for E. coli was treated with IV antibiotic for total of 4 days finding watch his in the hospital consistent with large ovarian cyst in the right side Ca1 25 was performed and was negative patient ended up seen Dr. Hsieh in the hospital will review the CAT scan the transvaginal ultrasound and with the examination decided to order more blood test and to follow patient as an outpatient for possibility of ovarian mass at the time. Patient returned to the office 2 weeks ago with slight left-sided lower abdominal pain with more pelvic pain at the time CAT scan of the abdomen one more time showed sign of diverticulitis patient was placed on oral antibiotic with Cipro and Flagyl patient had felt slightly but better until the antibiotic was stopped she is declining a started feeling more sick to her stomach specially and the mid lower abdominal region and right upper lower quadrant. Patient returned to the office mildly elevated white blood cell was restarted back on Flagyl and was seen Dr. Hsieh today watch she still complaining of increased discomfort her [employer] exam apparently was consistent with benign cyst no sign of revering cancer. Patient was sent to the office from her [employer] office today her exam was more concern about possibility of abscess in the pelvic area from either ruptured diverticulitis or appendicitis had the blood work was sent for urgent CT of the abdomen and pelvis results surprisingly was consistent with appendicitis with appendiceal abscess measure 7 time 2 cm. Patient and were contacted and instructed to go to the emergency department was started on vancomycin, Zosyn, and Flagyl Dr. Matute was consulted patient might go for surgical intervention for laparoscopy appendectomy with possible abscess a drain as well. Patient will be on antibiotic through the night she is more comfortable does not require much pain management for now. Still having low- grade temperature and surprisingly white blood cell was significantly elevated at 18,300 with left shift electrolyte were normal lactic acid was 1.6 normal lipase and amylase UA was slightly but positive. Review of Systems CONSTITUTIONAL: Well-developed no acute respiratory distress. EYES: No icterus sclerae, no conjunctivitis. EARS, NOSE, MOUTH, THROAT, and FACE: No sore throat, lymphadenopathy, carotid bruits or deformity. RESPIRATORY: No SOB cough or wheezes. CARDIOVASCULAR: No CP, Palpitation, PND, Orthopnea, or angina. GASTROINTESTINAL: Positive abdominal pain with change in bowel habit with significant nausea and distention. GENITOURINARY: Recent UTI and pyelonephritis. 2 large ovarian cyst. INTEGUMENT/BREAST: Negative for any muscular injury with mild osteoarthritis.. HEMATOLOGIC/LYMPHATIC: Negative for bleed or purpura. MUSCULOSKELTAL: Negative for Myalgia or arthralgia. NEURLOGICAL: No LOC, Sz or syncope, blurred vision dizziness or abnormality.. BEHAVIORAL/PSYCH: Negative. ENDOCRINE: Negative. Past Medical History Past Medical History: Cancer, Hyperlipidemia, Hypertension, Mitral Valve Prolapse (MVP), Osteoarthritis (OA) Additional Past Medical History / Comment(s): PROLAPSED MITRAL VALVE, IBS, SKIN CANCER, STATES SLIGHT SOB., SEE CARDIOLOGY H & P. History of Any Multi-Drug Resistant Organisms: None Reported Past Surgical History: Joint Replacement Additional Past Surgical History / Comment(s): REGAN TOTAL KNEES. mirtal valve repair Past Anesthesia/Blood Transfusion Reactions: No Reported Reaction Past Psychological History: Anxiety, Depression Smoking Status: Former smoker Past Alcohol Use History: Daily Past Drug Use History: None Reported - Past Family History Sister(s) Family Medical History: Cancer Additional Family Medical History / Comment(s): BOWEL CANCER Medications and Allergies Home Medications Medication Instructions Recorded Confirmed Type Aspirin EC [Ecotrin Low Dose] 81 mg PO DAILY 09/11/19 10/07/19 History Atorvastatin [Lipitor] 10 mg PO DAILY 09/11/19 10/07/19 History DULoxetine HCL [Cymbalta] 60 mg PO DAILY 09/11/19 10/07/19 History Furosemide [Lasix] 20 mg PO DAILY 09/11/19 10/07/19 History Metoprolol Tartrate 12.5 mg PO HS 09/11/19 10/07/19 History traZODone HCL [Desyrel] 100 mg PO HS PRN 09/11/19 10/07/19 History Dicyclomine [Bentyl] 10 mg PO TID 10/07/19 10/07/19 History Ondansetron HCl [Zofran] 4 - 8 mg PO BID PRN 10/07/19 10/07/19 History Pantoprazole Sodium [Protonix] 40 mg PO DAILY 10/07/19 10/07/19 History metroNIDAZOLE [Flagyl] 500 mg PO TID 10/07/19 10/07/19 History Allergies Allergy/AdvReac Type Severity Reaction Status Date / Time fentanyl AdvReac Unknown COULDNT Verified 10/07/19 19:49 EAT. Physical Exam Vitals: Vital Signs Temp Pulse Pulse Resp BP BP Pulse Ox 10/07/19 21:19 98.6 F 86 18 146/74 94 L 10/07/19 20:51 100.1 F H 84 17 128/68 95 10/07/19 19:45 100.1 F H 103 H 18 145/92 93 L Intake and Output 10/07/19 10/07/19 10/07/19 06:59 14:59 22:59 Other: Weight 68.039 kg General Appearance: Alert, cooperative, no distress, appears stated age. Neck HEENT: Supple, no lymphadenopathy, no thyroid enlargement, no carotid bruits. Lungs: Clear to auscultation without crackles or wheezes no rhonchi, no deformity. Chest Wall: Chest wall normal expansion with deep inspiration no tenderness and no deformity was found on exam, no costochondral pain or discomfort. Heart: Regular rate and rhythm, S1, S2 normal, no murmur, rub or gallop. Back: Symmetric, no curvature, ROM normal, no CVA tenderness. Abdomen: Soft positive bowel sounds significant tenderness in the right lower quadrant area without rebound or rigidity not able to feel any mass a reactive lymph node enlargement left side slight discomfort and mid lower abdominal region area has mild discomfort with tenderness as well. Extremities: Extremities normal, atraumatic, no cyanosis or edema. Pulses: 2+ and symmetric. Skin: Skin color, texture, tugor normal, no rashes or lesions. Neurologic: Alert oriented x3 cranial nerves II through XII intact, no motor deficit, no abnormal balance or gait. Results CBC & Chem 7: 10/07/19 20:20 10/07/19 20:20 Labs: Abnormal Lab Results - Last 24 Hours (Table) 10/07/19 10/07/19 10/07/19 Range/Units 20:20 20:20 20:20 WBC 18.3 H (3.8-10.6) k/uL Neutrophils # 16.3 H (1.3-7.7) k/uL Sodium 131 L (137-145) mmol/L Chloride 90 L (98-107) mmol/L Carbon Dioxide 32 H (22-30) mmol/L Glucose 101 H (74-99) mg/dL Calcium 8.3 L (8.4-10.2) mg/dL Albumin 3.3 L (3.5-5.0) g/dL Amylase <30 L (30-110) U/L Urine Appearance Cloudy H (Clear) Ur Specific [place] >1.050 H (1.001-1.035) Urine Protein Trace H (Negative) Urine Blood Trace H (Negative) Ur Leukocyte Esterase Small H (Negative) Urine RBC 7 H (0-5) /hpf Urine WBC 15 H (0-5) /hpf Urine WBC Clumps Rare H (None) /hpf Ur Squamous Epith Cells 35 H (0-4) /hpf Urine Bacteria Occasional H (None) /hpf Urine Mucus Rare H (None) /hpf Thrombosis Risk Factor Assmnt - DVT/VTE Prophylaxis DVT/VTE Prophylaxis: Pharmacologic Prophylaxis ordered, Mechanical Prophylaxis ordered Assessment and Plan Assessment: 1 appendicitis with pelvic abscess: Patient was hospitalized will continue Vanco, Zosyn and Flagyl, surgical consultation, will keep patient nothing by mouth for possible surgery tomorrow morning also patient will be on pain control continue fluid resuscitation as well for now. 2 recent history of pyelonephritis with positive blood culture for E. coli was treated with antibiotic for total of 2 weeks. 3 recent history of diverticulitis from 2 weeks ago patient was treated with Levaquin and Flagyl at the time and Flagyl was continue until today orally. CAT scan is not supportive of any diverticulitis at this point. 4 leukocytosis and sepsis: Lactic acid was negative culture will be done culture was positive last time for E. coli. 5 coronary artery disease: Has been on metoprolol and atorvastatin. 6 chronic history of edema: Patient has been on furosemide which will be helpful tomorrow. 7 hyperlipidemia: On atorvastatin. 8 pelvic cyst/mass CVA was ruled out at this point. 9 history of mitral valve prolapse with repair: Has been doing well. 10 chronic depression: Has been on duloxetine. 11 DVT prophylaxis: Was start patient on heparin subcutaneous I tomorrow. 12 GI prophylaxis: Patient will be on pantoprazole. CODE STATUS: Full code. Admit patient to inpatient status for more than 2 nights.
[2019-10-07] MEDS: metroNIDAZOLE-NS PMX 500 MG in SALINE 1 100ML.BAG IVPB SCH (23:06)
[2019-10-08] MEDS: PIPERACILLIN-TAZOBACTAM 3.375 GM in SODIUM CHLORIDE 0.9% 100 ML IVPB SCH ×3 (03:34→20:14)
[2019-10-08] MEDS: HYDROmorphone 0.5 MG/0.5 ML SYRINGE IVP PRN ×3 (06:12→12:15)
[2019-10-08] MEDS: metroNIDAZOLE-NS PMX 500 MG in SALINE 1 100ML.BAG IVPB SCH ×3 (07:44→23:59)
[2019-10-08] MEDS: FUROSEMIDE 20 MG TAB PO SCH (09:43)
[2019-10-08] MEDS: DICYCLOMINE 10 MG CAP PO SCH ×3 (09:43→20:14)
[2019-10-08] MEDS: ATORVASTATIN 10 MG TAB PO SCH (09:43)
[2019-10-08] MEDS: PANTOPRAZOLE 40 MG TABLET PO SCH (09:43)
[2019-10-08] MEDS: DULoxetine HCL 60 MG CAPSULE.DR PO SCH (09:43)
--- NOTE | 2019-10-08 12:32 | P.PN ---
Subjective Progress Note Date: 10/08/19 84-year-old female one of my office patient with known very well for many years who was hospitalized in 09/11/2023 acute pyelonephritis her presentation to demurs department at [facility] that she was complaining of mild shortness of breath with tiredness fatigue and low-grade temperature she was tested for the Jordin 19 was negative patient C-reactive protein was elevated and d-dimer was quite elevated at the time ended up going for CTA of the chest was negative for PE but ended up showing slight abnormality around the kidney in the right side ultrasound was white blood cell was mildly elevated with left shift and urine test was positive patient was diagnosed with pyelonephritis and admitted to the hospital was seen by urology and infectious disease she had positive blood culture for E. coli was treated with IV antibiotic for total of 4 days finding watch his in the hospital consistent with large ovarian cyst in the right side Ca1 25 was performed and was negative patient ended up seen Dr. Hsieh in the hospital will review the CAT scan the transvaginal ultrasound and with the examination decided to order more blood test and to follow patient as an outpatient for possibility of ovarian mass at the time. Patient returned to the office 2 weeks ago with slight left-sided lower abdominal pain with more pelvic pain at the time CAT scan of the abdomen one more time showed sign of diverticulitis patient was placed on oral antibiotic with Cipro and Flagyl patient had felt slightly but better until the antibiotic was stopped she is declining a started feeling more sick to her stomach specially and the mid lower abdominal region and right upper lower quadrant. Patient returned to the office mildly elevated white blood cell was restarted back on Flagyl and was seen Dr. Hsieh today watch she still complaining of increased discomfort her [employer] exam apparently was consistent with benign cyst no sign of revering cancer. Patient was sent to the office from her [employer] office today her exam was more concern about possibility of abscess in the pelvic area from either ruptured diverticulitis or appendicitis had the blood work was sent for urgent CT of the abdomen and pelvis results surprisingly was consistent with appendicitis with appendiceal abscess measure 7 time 2 cm. Patient and were contacted and instructed to go to the emergency department was started on vancomycin, Zosyn, and Flagyl Dr. Matute was consulted patient might go for surgical intervention for laparoscopy appendectomy with possible abscess a drain as well. Patient will be on antibiotic through the night she is more comfortable does not require much pain management for now. Still having low- grade temperature and surprisingly white blood cell was significantly elevated at 18,300 with left shift electrolyte were normal lactic acid was 1.6 normal lipase and amylase UA was slightly but positive. 10/07: Patient has been seen by Dr. Matute and scheduled for exploratory laparotomy, drainage of pelvic abscess, tentatively scheduled for today, possibly tomorrow depending on surgical scheduling. Patient is complaining of pain today for which Dilaudid will be increased frequency to every 2 hours. She continues to have tenderness to the right lower quadrant. Patient is afebrile, heart rate 77, blood pressure 135/81, pulse ox 93% on room air. Urine culture in progress. Repeat blood work for tomorrow. Patient is currently on IV Zosyn, Flagyl and vancomycin. Dr. Grewal is on consult as well. COVID-19 testing remains pending. Objective - Vital Signs Vital signs: Vital Signs Temp 98.3 F 10/08/19 04:42 Pulse 77 10/08/19 04:42 Resp 18 10/08/19 04:42 BP 135/81 10/08/19 04:42 Pulse Ox 93 L 10/08/19 04:42 Intake & Output 10/07/19 10/08/19 10/08/19 18:59 06:59 18:59 Intake Total 200 Balance 200 Weight 67.5 kg Intake: Intake, IV Titration 200 Amount Sodium Chloride 0.9% 1, 75 000 ml @ 75 mls/hr IV . [id number] Rx#:[id number] Vancomycin 1,250 mg In 125 Sodium Chloride 0.9% 250 ml @ 125 mls/hr IVPB Q16H [facility] Rx#:[id number] Oral 0 Other: Voiding Method Toilet # Voids 3 - Exam Review of Systems CONSTITUTIONAL: Well-developed no acute respiratory distress. Denies fever, denies chills. EYES: No icterus sclerae, no conjunctivitis. EARS, NOSE, MOUTH, THROAT, and FACE: No sore throat, lymphadenopathy, carotid bruits or deformity. RESPIRATORY: No SOB cough or wheezes. CARDIOVASCULAR: No CP, Palpitation, PND, Orthopnea, or angina. GASTROINTESTINAL: Positive abdominal pain with change in bowel habit with sign ificant nausea and distention. GENITOURINARY: Recent UTI and pyelonephritis. 2 large ovarian cyst. INTEGUMENT/BREAST: Negative for any muscular injury with mild osteoarthritis. HEMATOLOGIC/LYMPHATIC: Negative for bleed or purpura. MUSCULOSKELTAL: Negative for Myalgia or arthralgia. NEURLOGICAL: No LOC, Sz or syncope, blurred vision dizziness or abnormality. BEHAVIORAL/PSYCH: Negative. ENDOCRINE: Negative. Physical Examination General Appearance: Alert, cooperative, no distress, appears stated age. Neck HEENT: Supple, no lymphadenopathy, no thyroid enlargement, no carotid bruits. Lungs: Clear to auscultation without crackles or wheezes no rhonchi, no deform ity. Chest Wall: Chest wall normal expansion with deep inspiration no tenderness and no deformity was found on exam, no costochondral pain or discomfort. Heart: Regular rate and rhythm, S1, S2 normal, no murmur, rub or gallop. Back: Symmetric, no curvature, ROM normal, no CVA tenderness. Abdomen: Soft, positive bowel sounds, significant tenderness in the right lower quadrant without rebound or rigidity not able to feel any mass a reactive lymph node enlargement left side slight discomfort and mid lower abdominal region area has mild discomfort with tenderness as well. Extremities: Extremities normal, atraumatic, no cyanosis or edema. Pulses: 2+ and symmetric. Skin: Skin color, texture, tugor normal, no rashes or lesions. Neurologic: Alert oriented x3 cranial nerves II through XII intact, no motor deficit, no abnormal balance or gait. - Labs CBC & Chem 7: 10/07/19 20:20 10/07/19 20:20 Labs: Abnormal Lab Results - Last 24 Hours (Table) 10/07/19 10/07/19 10/07/19 Range/Units 20:20 20:20 20:20 WBC 18.3 H (3.8-10.6) k/uL Neutrophils # 16.3 H (1.3-7.7) k/uL Sodium 131 L (137-145) mmol/L Chloride 90 L (98-107) mmol/L Carbon Dioxide 32 H (22-30) mmol/L Glucose 101 H (74-99) mg/dL Calcium 8.3 L (8.4-10.2) mg/dL Albumin 3.3 L (3.5-5.0) g/dL Amylase <30 L (30-110) U/L Urine Appearance Cloudy H (Clear) Ur Specific [place] >1.050 H (1.001-1.035) Urine Protein Trace H (Negative) Urine Blood Trace H (Negative) Ur Leukocyte Esterase Small H (Negative) Urine RBC 7 H (0-5) /hpf Urine WBC 15 H (0-5) /hpf Urine WBC Clumps Rare H (None) /hpf Ur Squamous Epith Cells 35 H (0-4) /hpf Urine Bacteria Occasional H (None) /hpf Urine Mucus Rare H (None) /hpf Microbiology - Last 24 Hours (Table) 10/07/19 20:20 Urine Culture - Preliminary Urine,Voided Assessment and Plan Plan: 1 appendicitis with pelvic abscess: Patient was hospitalized will continue Vanco, Zosyn and Flagyl, surgical consultation with Dr. Matute appreciated, will keep patient nothing by mouth with plan for exploratory laparotomy, drainage of pelvic abscess. 2 recent history of pyelonephritis with positive blood culture for E. coli was treated with antibiotic for total of 2 weeks. 3 recent history of diverticulitis from 2 weeks ago patient was treated with Levaquin and Flagyl at the time and Flagyl was continue until today orally. CAT scan is not supportive of any diverticulitis at this point. 4 leukocytosis and sepsis: Lactic acid was negative culture will be done culture was positive last time for E. coli. 5 coronary artery disease: Has been on metoprolol and atorvastatin. 6 chronic history of edema: Patient has been on furosemide which will be helpful tomorrow. 7 hyperlipidemia: On atorvastatin. 8 pelvic cyst/mass CVA was ruled out at this point. 9 history of mitral valve prolapse with repair: Has been doing well. 10 chronic depression: Has been on duloxetine. 11 DVT prophylaxis: Was start patient on heparin subcutaneous I tomorrow. 12 GI prophylaxis: Patient will be on pantoprazole. 13 COVID-19 testing is pending CODE STATUS: Full code. Discharge plan: Most likely return home. Impression and plan of care have been directed as dictated by the signing physician. Dominga Pinto nurse practitioner acting as scribe for signing physician.
[2019-10-08] MEDS ORDERED: VANCOMYCIN 1,250 MG in SODIUM CHLORIDE 0.9% 250 ML IVPB SCH (13:00)
--- NOTE | 2019-10-08 13:56 | P.PN ---
Progress Note - Text Progress Note Date: 10/08/19 Patient feels about the same today. White blood cell count elevated at 18. Low-grade fever last night of 100.1. Still having lower abdominal pain right greater than left. Appetite remains diminished. We'll proceed with proposed surgery today. Unlikely possibility of ostomy was once again reviewed. All questions answered.
[2019-10-08] MEDS ORDERED: PROPOFOL 10 MG/ML 20 ML VIAL IV ONE (16:44)
[2019-10-08] MEDS ORDERED: MIDAZOLAM 2 MG/2 ML VIAL ONE (16:44)
[2019-10-08] MEDS ORDERED: NEOSTIGMINE 1 MG/ML 10 ML VIAL ONE (16:44)
[2019-10-08] MEDS ORDERED: PHENYLEPHRINE-0.9% NACL SYG 1 MG/10 ML SYRINGE ONE (16:44)
[2019-10-08] MEDS ORDERED: HYDROmorphone (PF) 1 MG/ML ONE (16:44)
[2019-10-08] MEDS ORDERED: ROCURONIUM BROMIDE 10 MG/ML 5 ML VIAL IV ONE (16:44)
[2019-10-08] MEDS ORDERED: LIDOCAINE 1% INJ 10MG/ML (20 ML MDV) ONE (16:44)
[2019-10-08] MEDS ORDERED: KETOROLAC 30 MG/ML 1 ML VIAL ONE (16:44)
[2019-10-08] MEDS ORDERED: SUCCINYLCHOLINE CHLORIDE 100 MG/5 ML SYR IV ONE (16:44)
[2019-10-08] MEDS ORDERED: ALFENTANIL 500 MCG/ML 2 ML AMP IV ONE (16:44)
[2019-10-08] MEDS ORDERED: GLYCOPYRROLATE 0.2 MG/ML 2 ML VIAL ONE (16:44)
[2019-10-08] MEDS ORDERED: ONDANSETRON 4 MG/2 ML VIAL ONE (16:44)
[2019-10-08] MEDS ORDERED: LACTATED RINGERS 1,000 ML IV ONE ×2 (16:49→17:32)
[2019-10-08] MEDS ORDERED: ceFAZolin 1,000 MG VIAL IVPB ONE (17:00)
[2019-10-08] MEDS ORDERED: HYDROmorphone 1 MG/ML 1 ML SYRINGE IVP PRN (18:44)
--- NOTE | 2019-10-08 18:54 | P.OP ---
Date of Procedure: 10/08/19 Procedure(s) Performed: PREOPERATIVE DIAGNOSIS: Pelvic abscess, suspected ruptured appendix POSTOPERATIVE DIAGNOSIS: Same PROCEDURE: Exploratory laparotomy with partial colectomy, right oophorectomy, drainage pelvic abscess SURGEON: Giovani EBL: 100ML ANESTHESIA: General COMPLICATIONS: None OPERATIVE PROCEDURE: Placement placed in the operating table in the supine position. The patient was placed under general anesthesia. Abdomen was then prepped and draped sterilely. Midline incision made using the scalpel. Excision was extended from the infraumbilical location to the suprapubic location. Dissection through the subcutaneous tissues and fascia took place using electrocautery. Entrance into the peritoneal cavity occurred. Bookwalter retractor was utilized. The pelvis was inspected. There was significant inflammatory changes present that were of a chronic nature. The dissection took place by starting to bluntly dissect away a loop of the proximal ileum that was adherent to the inflammatory process. As I was bluntly dissecting and retracting the small bowel superiorly we entered into a large abscess cavity. Cultures were taken. The patient's right ovarian cyst was already draining pus. This was dissected away from the pelvic sidewall. A piece of stool thought to represent an appendicolith was identified and removed. The appendix itself was only partially visualized and appeared to be for the most part fully necrosed and no longer intact. The base of the cecum unfortunately was significantly inflamed as expected. There was not a stump that could be dissected or oversewn that was free of significant induration. For that reason I decided to proceed with a partial colectomy removing the cecum and terminal ileum. The bowel was divided proximal to the ileocecal valve using a linear 75 stapler. The bowel was then divided beyond the ileocecal valve at the cecum using a linear 75 stapler as well. The antimesenteric portion of the staple line of both the ileum and cecum was excised using electrocautery. The linear 75 stapler was fired along the antimesenteric border creating a [id number] anastomosis antiperistaltic. The defect was then closed using a TX 60 device. The TX 60 stapler line was imbricated using interrupted 3-0 GI silk sutures. A 3-0 GI silk crotch stitch was also placed. A drain was placed deep in the pelvis exiting through the right lateral abdomen. This was sutured in place using a 2- 0 silk stitch. Further irrigation took place with no evidence of bleeding or purulent fluid. The area of small bowel that had initially been dissected was again inspected. There was no evidence of serosal tear although there was significant inflammatory changes of the mesentery and the serosa. There was not felt to be any need to remove this portion of bowel at this time. The midline fascia was then reapproximated using 2 separate double-stranded looped PDS sutures. The subcutaneous tissues were closed using 3-0 Vicryl sutures. The skin was closed using paul. 2 gaps were left along the incision for wick dressings. Sterile dressings were applied. At the end of this procedure the sponge needle and ensure counts were correct. DISPOSITION: Stable to recovery room
[2019-10-08] MEDS: ONDANSETRON 4 MG/2 ML VIAL IVP PRN (19:12)
[2019-10-08] MEDS: HEPARIN SODIUM,PORCINE 5,000 UNIT/ML 1 ML VIAL SQ SCH (20:12)
[2019-10-08] MEDS: FAMOTIDINE 20 MG/2 ML VIAL IV SCH (20:12)
[2019-10-08] MEDS: METOPROLOL TARTRATE 25 MG TAB PO SCH (20:14)
[2019-10-08 20:40] LABS: African American GFR (CKD) >90 (>60 ml/min/1.73 sqM); Anion Gap 11 mmol/L; Blood Urea Nitrogen 10 mg/dL (7-17); Calcium 8.1 mg/dL (8.4-10.2); Carbon Dioxide 26 mmol/L (22-30); Chloride 100 mmol/L (98-107); Glucose 116 mg/dL (74-99); Non-African American GFR(CKD) 78 (>60 ml/min/1.73 sqM); Potassium 4.2 mmol/L (3.5-5.1); Sodium 137 mmol/L (137-145)
--- NOTE | 2019-10-09 01:17 | P.CONS ---
History of Present Illness - Reason for Consult Consult date: 10/08/19 abd abscess Requesting physician: Kimber Bangura - Chief Complaint abd pain x 2-3 weeks - History of Present Illness Patient is 84-year-old female started having a problem with right lower quadrant abdominal pain that been going on for the last 2 to 3 weeks. Marco cribed the pain to be more of a dull aching at times sharp intensity 7-8 out of 10 with no radiation the pain persisted nausea but no vomiting and no diarrhea or any constipation patient apparently did have a worsening of the pain for the patient did have a CT abdominal pelvis in the outpatient setting which was suggestive of pelvic abscess and concern for possible appendicitis patient was called in to come to the hospital for IV antibiotic therapy patient on presentation the hospital did have low-grade fever 100.1 F patient did have white count of 18,000 kidney function was normal UA was mildly positive madsen PCR was negative patient has been admitted to hospital he was started on vancomy katya and Zosyn surgery has seen the patient yesterday and this patient is scheduled for surgery this afternoon for drainage of this abscess, infectious disease was consulted for further management of antibiotic therapy Review of Systems Positive point has been mentioned in HPI rest of the systems are negative Past Medical History Past Medical History: Cancer, Hyperlipidemia, Hypertension, Mitral Valve Prolapse (MVP), Osteoarthritis (OA) Additional Past Medical History / Comment(s): PROLAPSED MITRAL VALVE, IBS, SKIN CANCER, STATES SLIGHT SOB., SEE CARDIOLOGY H & P. History of Any Multi-Drug Resistant Organisms: None Reported Past Surgical History: Joint Replacement Additional Past Surgical History / Comment(s): REGAN TOTAL KNEES. mirtal valve repair Past Anesthesia/Blood Transfusion Reactions: No Reported Reaction Past Psychological History: Anxiety, Depression Smoking Status: Former smoker Past Alcohol Use History: Daily Past Drug Use History: None Reported - Past Family History Sister(s) Family Medical History: Cancer Additional Family Medical History / Comment(s): BOWEL CANCER Medications and Allergies Home Medications Medication Instructions Recorded Confirmed Type Aspirin EC [Ecotrin Low Dose] 81 mg PO DAILY 09/11/19 10/07/19 History Atorvastatin [Lipitor] 10 mg PO DAILY 09/11/19 10/07/19 History DULoxetine HCL [Cymbalta] 60 mg PO DAILY 09/11/19 10/07/19 History Furosemide [Lasix] 20 mg PO DAILY 09/11/19 10/07/19 History Metoprolol Tartrate 12.5 mg PO HS 09/11/19 10/07/19 History traZODone HCL [Desyrel] 100 mg PO HS PRN 09/11/19 10/07/19 History Dicyclomine [Bentyl] 10 mg PO TID 10/07/19 10/07/19 History Ondansetron HCl [Zofran] 4 - 8 mg PO BID PRN 10/07/19 10/07/19 History Pantoprazole Sodium [Protonix] 40 mg PO DAILY 10/07/19 10/07/19 History metroNIDAZOLE [Flagyl] 500 mg PO TID 10/07/19 10/07/19 History Allergies Allergy/AdvReac Type Severity Reaction Status Date / Time fentanyl AdvReac Unknown COULDNT Verified 10/07/19 19:49 EAT. Physical Exam Vitals: Vital Signs Temp Pulse Resp BP BP Pulse Ox 10/08/19 21:32 99 115/73 96 10/08/19 21:02 114 H 120/69 95 10/08/19 20:32 114 H 125/79 95 10/08/19 20:17 116 H 132/81 95 10/08/19 20:12 97 10/08/19 20:02 114 H 114/47 94 L 10/08/19 19:47 97.3 F L 118 H 16 135/78 93 L 10/08/19 19:26 109 H 16 139/66 94 L 10/08/19 19:15 114 H 16 138/64 94 L 10/08/19 19:01 105 H 16 153/67 98 10/08/19 18:47 99.1 F 101 H 16 148/65 97 10/08/19 15:09 72 16 10/08/19 11:18 97.6 F 77 16 131/75 90 L 10/08/19 08:00 77 18 10/08/19 04:42 98.3 F 77 18 135/81 93 L Intake and Output 10/08/19 10/08/19 10/09/19 14:59 22:59 06:59 Intake Total 1450 1400 Output Total 600 Balance 1450 800 Intake: IV 1400 Intake, IV Titration 1450 Amount Piperacillin-Tazobactam 3 200 .375 gm In Sodium Chloride 0.9% 100 ml @ 25 mls/hr IVPB Q8H [facility] Rx#: [id number] Sodium Chloride 0.9% 1, 900 000 ml @ 75 mls/hr IV . [id number] ONE Rx#:[id number] Vancomycin 1,250 mg In 250 Sodium Chloride 0.9% 250 ml @ 125 mls/hr IVPB Q16H [facility] Rx#:[id number] metroNIDAZOLE-NS PMX 500 100 mg In Saline 1 100ml.bag @ 100 mls/hr IVPB Q8HR [facility] Rx#:[id number] Oral 0 Output: Urine 500 Estimated Blood Loss 100 Other: Voiding Method Toilet Toilet Toilet # Voids 3 GENERAL DESCRIPTION: Elderly female lying in bed, no distress. No tachypnea or accessory muscle of respiration use. HEENT: Shows Pallor , no scleral icterus. Oral mucous membrane is dry. NECK: Trachea central, no thyromegaly. LUNGS: Unlabored breathing. Clear to auscultation anteriorly. No wheeze or crackle. HEART: S1, S2, regular rate and rhythm. ABDOMEN: Soft, right lower quadrant no tenderness , no guarding or rigidity EXTREMITIES: No edema of feet. SKIN: No rash, no masses palpable. NEUROLOGICAL: The patient is awake, alert, oriented x3, mood and affect normal. Results CBC & Chem 7: 10/07/19 20:20 10/08/19 20:01 Labs: Abnormal Lab Results - Last 24 Hours (Table) 10/08/19 Range/Units 20:01 Glucose 116 H (74-99) mg/dL Calcium 8.1 L (8.4-10.2) mg/dL Microbiology - Last 24 Hours (Table) 10/07/19 21:20 Blood Culture - Preliminary Blood No Growth after 24 hours 10/07/19 20:20 Urine Culture - Final Urine,Voided Assessment and Plan Assessment: -patient presented hospital with a pelvic abscess which could be more likely related to her ruptured appendicitis in this patient history of abdominal pain of 2 to 3 weeks duration and will need to cover for the enteric gram-negative both aerobes and anaerobes, less likely a gram-positive infection (1) Appendicitis with abscess Current Visit: Yes Status: Acute Code(s): K35.33 - ACUTE APPENDICITIS WITH PERF AND LOC PERITONITIS, WITH ABSCS SNOMED Code(s): 91508235 Plan: 1-Zosyn 3.375 g every 8 hours to continue however discontinue vancomycin decrease risk of nephrotoxicity 2-await surgical drainage of this abscess and deep culture both aerobic and anaerobic 3-gentle IV fluid We will follow on clinical condition and cultures to further adjust medication if needed Thank you for this consultation we will follow the patient along with you Time with Patient: Greater than 30
[2019-10-09] MEDS: PIPERACILLIN-TAZOBACTAM 3.375 GM in SODIUM CHLORIDE 0.9% 100 ML IVPB SCH ×3 (03:56→22:39)
[2019-10-09 07:04] LABS: Basophils % (A) 0 %; Eosinophils % (A) 0 %; HGB 11.6 gm/dL (11.4-16.0); Hypochromasia Marked; Lymphocytes # (A) 0.5 k/uL (1.0-4.8); Lymphocytes % (A) 2 %; MCH 32.8 pg (25.0-35.0); MCHC 31.4 g/dL (31.0-37.0); Macrocytosis Slight; Mean Platelet Volume 7.3; Monocytes # (A) 0.5 k/uL (0-1.0); Monocytes % (A) 2 %; Neutrophils # (A) 21.1 k/uL (1.3-7.7); Neutrophils % (A) 95 %; Platelet Count 396 k/uL (150-450); RBC 3.55 m/uL (3.80-5.40); RDW 14.2 % (11.5-15.5); WBC 22.3 k/uL (3.8-10.6)
[2019-10-09 07:13] LABS: MCV 104.3 fL (80.0-100.0)
[2019-10-09 07:31] LABS: Albumin 2.4 g/dL (3.5-5.0); Calcium 7.7 mg/dL (8.4-10.2); Potassium 5.5 mmol/L (3.5-5.1); Total Bilirubin 0.6 mg/dL (0.2-1.3); Total Protein 4.7 g/dL (6.3-8.2)
[2019-10-09] MEDS: FUROSEMIDE 20 MG TAB PO SCH (09:03)
[2019-10-09] MEDS: DICYCLOMINE 10 MG CAP PO SCH ×3 (09:03→22:39)
[2019-10-09] MEDS: FAMOTIDINE 20 MG/2 ML VIAL IV SCH ×2 (09:03→22:39)
[2019-10-09] MEDS: PANTOPRAZOLE 40 MG TABLET PO SCH (09:03)
[2019-10-09] MEDS: ATORVASTATIN 10 MG TAB PO SCH (09:03)
[2019-10-09] MEDS: DULoxetine HCL 60 MG CAPSULE.DR PO SCH (09:03)
[2019-10-09] MEDS: HEPARIN SODIUM,PORCINE 5,000 UNIT/ML 1 ML VIAL SQ SCH ×2 (09:04→20:29)
[2019-10-09] MEDS: metroNIDAZOLE-NS PMX 500 MG in SALINE 1 100ML.BAG IVPB SCH ×3 (09:04→23:53)
[2019-10-09] MEDS: HYDROmorphone 0.5 MG/0.5 ML SYRINGE IVP PRN ×3 (09:05→18:21)
--- NOTE | 2019-10-09 10:29 | P.PN ---
Progress Note - Text Progress Note Date: 10/09/19 The patient's postoperative day 1 from C colectomy from ruptured appendicitis. Patient is doing fairly well per she's had no significant bowel function. She has some incisional pain. On exam her vital signs are stable. Her abdomen soft. Incisions are clean and intact. Status post bowel resection after perforated appendicitis. Patient's diet will be advanced once her bowel function improved.
--- NOTE | 2019-10-09 14:51 | P.PN ---
Subjective Progress Note Date: 10/09/19 Principal diagnosis: Severe abdominal pain, appendicitis and pelvic abscess, recent history of pyelonephritis, history of diverticulitis, leukocytosis, atherosclerotic heart disease, pelvic cyst/mass, history of CVA. 84-year-old female one of my office patient with known very well for many years who was hospitalized in 09/11/2023 acute pyelonephritis her presentation to demurs department at [facility] that she was complaining of mild shortness of breath with tiredness fatigue and low-grade temperature she was tested for the Jordin 19 was negative patient C-reactive protein was elevated and d-dimer was quite elevated at the time ended up going for CTA of the chest was negative for PE but ended up showing slight abnormality around the kidney in the right side ultrasound was white blood cell was mildly elevated with left shift and urine test was positive patient was diagnosed with pyelonephritis and admitted to the hospital was seen by urology and infectious disease she had positive blood culture for E. coli was treated with IV antibiotic for total of 4 days finding watch his in the hospital consistent with large ovarian cyst in the right side Ca1 25 was performed and was negative patient ended up seen Dr. Hsieh in the hospital will review the CAT scan the transvaginal ultrasound and with the examination decided to order more blood test and to follow patient as an outpatient for possibility of ovarian mass at the time. Patient returned to the office 2 weeks ago with slight left-sided lower abdominal pain with more pelvic pain at the time CAT scan of the abdomen one more time showed sign of diverticulitis patient was placed on oral antibiotic with Cipro and Flagyl patient had felt slightly but better until the antibiotic was stopped she is declining a started feeling more sick to her stomach specially and the mid lower abdominal region and right upper lower quadrant. Patient returned to the office mildly elevated white blood cell was restarted back on Flagyl and was seen Dr. Hsieh today watch she still complaining of increased discomfort her [employer] exam apparently was consistent with benign cyst no sign of revering cancer. Patient was sent to the office from her [employer] office today her exam was more concern about possibility of abscess in the pelvic area from either ruptured diverticulitis or appendicitis had the blood work was sent for urgent CT of the abdomen and pelvis results surprisingly was consistent with appendicitis with appendiceal abscess measure 7 time 2 cm. Patient and were contacted and instructed to go to the emergency department was started on vancomycin, Zosyn, and Flagyl Dr. Matute was consulted patient might go for surgical intervention for laparoscopy appendectomy with possible abscess a drain as well. Patient will be on antibiotic through the night she is more comfortable does not require much pain management for now. Still having low- grade temperature and surprisingly white blood cell was significantly elevated at 18,300 with left shift electrolyte were normal lactic acid was 1.6 normal lipase and amylase UA was slightly but positive. 10/07: Patient has been seen by Dr. Matute and scheduled for exploratory laparotomy, drainage of pelvic abscess, tentatively scheduled for today, possibly tomorrow depending on surgical scheduling. Patient is complaining of pain today for which Dilaudid will be increased frequency to every 2 hours. She continues to have tenderness to the right lower quadrant. Patient is afebrile, heart rate 77, blood pressure 135/81, pulse ox 93% on room air. Urine culture in progress. Repeat blood work for tomorrow. Patient is currently on IV Zosyn, Flagyl and vancomycin. Dr. Grewal is on consult as well. COVID-19 testing remains pending. 10/08: Patient ended up going for surgery with the laparoscopy ache appendectomy and ended up having out of the cecum removed, still have drainage tube and dressing had no bleeding at this point that her pain has improved significantly. Objective - Vital Signs Vital signs: Vital Signs Temp 97.1 F L 10/09/19 12:07 Pulse 77 10/09/19 12:07 Resp 17 10/09/19 12:07 BP 127/72 10/09/19 12:07 Pulse Ox 94 L 10/09/19 12:07 Intake & Output 10/08/19 10/09/19 10/09/19 18:59 06:59 18:59 Intake Total 2650 200 Output Total 600 285 200 Balance 2049200 Intake: IV 1200 200 Intake, IV Titration 1450 Amount Piperacillin-Tazobactam 3 200 .375 gm In Sodium Chloride 0.9% 100 ml @ 25 mls/hr IVPB Q8H [facility] Rx#: [id number] Sodium Chloride 0.9% 1, 900 000 ml @ 75 mls/hr IV . [id number] [facility] Rx#:[id number] Vancomycin 1,250 mg In 250 Sodium Chloride 0.9% 250 ml @ 125 mls/hr IVPB Q16H [facility] Rx#:[id number] metroNIDAZOLE-NS PMX 500 100 mg In Saline 1 100ml.bag @ 100 mls/hr IVPB Q8HR [facility] Rx#:[id number] Oral 0 0 Output: Drainage 85 Anterior Abdomen 85 Urine 500 200 200 Estimated Blood Loss 100 Other: Voiding Method Toilet Toilet # Voids 3 3 - Exam Review of Systems CONSTITUTIONAL: Well-developed no acute respiratory distress. Denies fever, denies chills. EYES: No icterus sclerae, no conjunctivitis. EARS, NOSE, MOUTH, THROAT, and FACE: No sore throat, lymphadenopathy, carotid bruits or deformity. RESPIRATORY: No SOB cough or wheezes. CARDIOVASCULAR: No CP, Palpitation, PND, Orthopnea, or angina. GASTROINTESTINAL: Positive abdominal pain with change in bowel habit with significant nausea and distention. GENITOURINARY: Recent UTI and pyelonephritis. 2 large ovarian cyst. INTEGUMENT/BREAST: Negative for any muscular injury with mild osteoarthritis. HEMATOLOGIC/LYMPHATIC: Negative for bleed or purpura. MUSCULOSKELTAL: Negative for Myalgia or arthralgia. NEURLOGICAL: No LOC, Sz or syncope, blurred vision dizziness or abnormality. BEHAVIORAL/PSYCH: Negative. ENDOCRINE: Negative. Physical Examination General Appearance: Alert, cooperative, no distress, appears stated age. Neck HEENT: Supple, no lymphadenopathy, no thyroid enlargement, no carotid bruits. Lungs: Clear to auscultation without crackles or wheezes no rhonchi, no deformity. Chest Wall: Chest wall normal expansion with deep inspiration no tenderness and no deformity was found on exam, no costochondral pain or discomfort. Heart: Regular rate and rhythm, S1, S2 normal, no murmur, rub or gallop. Back: Symmetric, no curvature, ROM normal, no CVA tenderness. Abdomen: Surgical incision on the abdominal area looks fine with no hemorrhage, no bowel sound at this point still slightly but tender in the right lower quadrant. Extremities: Extremities normal, atraumatic, no cyanosis or edema. Pulses: 2+ and symmetric. Skin: Skin color, texture, tugor normal, no rashes or lesions. Neurologic: Alert oriented x3 cranial nerves II through XII intact, no motor deficit, no abnormal balance or gait. - Labs CBC & Chem 7: 10/09/19 06:51 10/09/19 06:51 Labs: Abnormal Lab Results - Last 24 Hours (Table) 10/08/19 10/09/19 10/09/19 Range/Units 20:01 06:51 06:51 WBC 22.3 H (3.8-10.6) k/uL RBC 3.55 L (3.80-5.40) m/uL MCV 104.3 H D (80.0-100.0) fL Neutrophils # 21.1 H (1.3-7.7) k/uL Lymphocytes # 0.5 L (1.0-4.8) k/uL Potassium 5.5 H (3.5-5.1) mmol/L Glucose 116 H (74-99) mg/dL Calcium 8.1 L 7.7 L (8.4-10.2) mg/dL Total Protein 4.7 L (6.3-8.2) g/dL Albumin 2.4 L (3.5-5.0) g/dL Microbiology - Last 24 Hours (Table) 10/08/19 17:52 Gram Stain - Preliminary Other - Other Wound Culture - Preliminary 10/08/19 17:52 Anaerobic Culture - Preliminary Other - Other 10/07/19 21:20 Blood Culture - Preliminary Blood No Growth after 24 hours 10/07/19 20:20 Urine Culture - Final Urine,Voided Assessment and Plan Assessment: 1 appendicitis with pelvic abscess: Patient was hospitalized will continue Vanco, Zosyn and Flagyl, patient ended up going for surgical intervention with appendectomy and drainage of the abscess and resection of part of the cecum. 2 recent history of pyelonephritis with positive blood culture for E. coli was treated with antibiotic for total of 2 weeks. 3 recent history of diverticulitis from 2 weeks ago patient was treated with Levaquin and Flagyl at the time and Flagyl was continue until today orally. CAT scan is not supportive of any diverticulitis at this point. 4 leukocytosis and sepsis: Lactic acid was negative culture will be done culture was positive last time for E. coli. 5 coronary artery disease: Has been on metoprolol and atorvastatin. 6 chronic history of edema: Patient has been on furosemide which will be helpful tomorrow. 7 hyperlipidemia: On atorvastatin. 8 pelvic cyst/mass CA was ruled out at this point. 9 history of mitral valve prolapse with repair: Has been doing well. 10 chronic depression: Has been on duloxetine. Pain management: Patient is doing very well still on smaller dose of Dilaudid as needed. Discharge expectation: Will add PTOT in the next 24 hours patient might need to go to rehab for short time.
--- NOTE | 2019-10-09 19:49 | PN ---
PROGRESS NOTE DATE OF SERVICE: 10/09/2019 REASON FOR FOLLOWUP: Pelvic abscess from ruptured appendix. INTERVAL HISTORY: The patient taken to OR last night. The patient is status post exploratory laparotomy with partial colectomy, right oophorectomy and drainage of pelvic abscess. The patient tolerated the procedure. The patient's pain is currently controlled. Denies having any chest pain or shortness of breath. No nausea, no vomiting. PHYSICAL EXAMINATION: Blood pressure 127/72 with a pulse of 77, temperature is 97.1. She is 94% on 2 L nasal cannula. General description is an elderly female lying in bed in no distress. Respiratory system: Unlabored breathing, clear to auscultation anteriorly. Heart S1, S2. Regular rate and rhythm. Abdomen soft, no tenderness. LABS: Hemoglobin is 11.4, white count 22.3, BUN of 15, creatinine 0.94. Abdominal cultures currently pending. DIAGNOSTIC IMPRESSION AND PLAN: Patient with abdominal abscess from a ruptured appendicitis status post laparotomy, ileocolectomy and drainage of the abscess. Will await for the culture to finalize. Continue patient on Zosyn. White count slightly jumped up and it will be monitored closely and continue supportive care. MMODL / IJN: [id number] /
[2019-10-09] MEDS: METOPROLOL TARTRATE 25 MG TAB PO SCH (20:34)
[2019-10-09] MEDS: traZODone HCL 100 MG TAB PO PRN (22:43)
[2019-10-10] MEDS: HYDROmorphone 0.5 MG/0.5 ML SYRINGE IVP PRN ×3 (00:01→17:26)
[2019-10-10] MEDS: PIPERACILLIN-TAZOBACTAM 3.375 GM in SODIUM CHLORIDE 0.9% 100 ML IVPB SCH ×3 (04:34→19:33)
[2019-10-10 06:38] LABS: Basophils % (A) 0 %; Eosinophils # (A) 0.1 k/uL (0-0.7); Eosinophils % (A) 1 %; HCT 36.1 % (34.0-46.0); HGB 11.2 gm/dL (11.4-16.0); Hypochromasia Moderate; Lymphocytes # (A) 0.7 k/uL (1.0-4.8); Lymphocytes % (A) 4 %; MCH 31.9 pg (25.0-35.0); MCHC 31.1 g/dL (31.0-37.0); MCV 102.6 fL (80.0-100.0); Macrocytosis Slight; Mean Platelet Volume 7.5; Monocytes # (A) 0.5 k/uL (0-1.0); Monocytes % (A) 3 %; Neutrophils # (A) 15.8 k/uL (1.3-7.7); Neutrophils % (A) 92 %; Platelet Count 447 k/uL (150-450); RBC 3.52 m/uL (3.80-5.40); RDW 14.2 % (11.5-15.5); WBC 17.2 k/uL (3.8-10.6)
[2019-10-10 06:45] LABS: ALT 9 U/L (4-34); AST 20 U/L (14-36); African American GFR (CKD) >90 (>60 ml/min/1.73 sqM); Albumin 2.3 g/dL (3.5-5.0); Alkaline Phosphatase 75 U/L (38-126); Anion Gap 5 mmol/L; Blood Urea Nitrogen 15 mg/dL (7-17); Calcium 7.6 mg/dL (8.4-10.2); Carbon Dioxide 29 mmol/L (22-30); Chloride 104 mmol/L (98-107); Glucose 127 mg/dL (74-99); Non-African American GFR(CKD) 80 (>60 ml/min/1.73 sqM); Potassium 3.9 mmol/L (3.5-5.1); Sodium 138 mmol/L (137-145); Total Bilirubin 0.6 mg/dL (0.2-1.3); Total Protein 4.8 g/dL (6.3-8.2)
[2019-10-10] MEDS: ONDANSETRON 4 MG/2 ML VIAL IVP PRN (07:29)
[2019-10-10] MEDS: metroNIDAZOLE-NS PMX 500 MG in SALINE 1 100ML.BAG IVPB SCH ×3 (07:50→23:32)
[2019-10-10] MEDS: ATORVASTATIN 10 MG TAB PO SCH (07:51)
[2019-10-10] MEDS: PANTOPRAZOLE 40 MG TABLET PO SCH (07:52)
[2019-10-10] MEDS: DICYCLOMINE 10 MG CAP PO SCH ×3 (07:52→21:42)
[2019-10-10] MEDS: FUROSEMIDE 20 MG TAB PO SCH (07:52)
[2019-10-10] MEDS: HEPARIN SODIUM,PORCINE 5,000 UNIT/ML 1 ML VIAL SQ SCH ×2 (07:52→21:40)
[2019-10-10] MEDS: FAMOTIDINE 20 MG/2 ML VIAL IV SCH ×2 (07:52→21:40)
[2019-10-10] MEDS: DULoxetine HCL 60 MG CAPSULE.DR PO SCH (07:52)
--- NOTE | 2019-10-10 10:15 | P.PN ---
Subjective Progress Note Date: 10/10/19 Principal diagnosis: Severe abdominal pain, appendicitis and pelvic abscess, recent history of pyelonephritis, history of diverticulitis, leukocytosis, atherosclerotic heart disease, pelvic cyst/mass, history of CVA. 84-year-old female one of my office patient with known very well for many years who was hospitalized in 09/11/2023 acute pyelonephritis her presentation to demurs department at [facility] that she was complaining of mild shortness of breath with tiredness fatigue and low-grade temperature she was tested for the Jordin 19 was negative patient C-reactive protein was elevated and d-dimer was quite elevated at the time ended up going for CTA of the chest was negative for PE but ended up showing slight abnormality around the kidney in the right side ultrasound was white blood cell was mildly elevated with left shift and urine test was positive patient was diagnosed with pyelonephritis and admitted to the hospital was seen by urology and infectious disease she had positive blood culture for E. coli was treated with IV antibiotic for total of 4 days finding watch his in the hospital consistent with large ovarian cyst in the right side Ca1 25 was performed and was negative patient ended up seen Dr. Hsieh in the hospital will review the CAT scan the transvaginal ultrasound and with the examination decided to order more blood test and to follow patient as an outpatient for possibility of ovarian mass at the time. Patient returned to the office 2 weeks ago with slight left-sided lower abdominal pain with more pelvic pain at the time CAT scan of the abdomen one more time showed sign of diverticulitis patient was placed on oral antibiotic with Cipro and Flagyl patient had felt slightly but better until the antibiotic was stopped she is declining a started feeling more sick to her stomach specially and the mid lower abdominal region and right upper lower quadrant. Patient returned to the office mildly elevated white blood cell was restarted back on Flagyl and was seen Dr. 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 Patient was sent to the office from her HYDRATION PLANT OPERATOR office today her exam was more concern about possibility of abscess in the pelvic area from either ruptured diverticulitis or appendicitis had the blood work was sent for urgent CT of the abdomen and pelvis results surprisingly was consistent with appendicitis with appendiceal abscess measure 7 time 2 cm. Patient and were contacted and instructed to go to the emergency department was started on vancomycin, Zosyn, and Flagyl Dr. Matute was consulted patient might go for surgical intervention for laparoscopy appendectomy with possible abscess a drain as well. Patient will be on antibiotic through the night she is more comfortable does not require much pain management for now. Still having low- grade temperature and surprisingly white blood cell was significantly elevated at 18,300 with left shift electrolyte were normal lactic acid was 1.6 normal lipase and amylase UA was slightly but positive. 10/07: Patient has been seen by Dr. Matute and scheduled for exploratory laparotomy, drainage of pelvic abscess, tentatively scheduled for today, possibly tomorrow depending on surgical scheduling. Patient is complaining of pain today for which Dilaudid will be increased frequency to every 2 hours. She continues to have tenderness to the right lower quadrant. Patient is afebrile, heart rate 77, blood pressure 135/81, pulse ox 93% on room air. Urine culture in progress. Repeat blood work for tomorrow. Patient is currently on IV Zosyn, Flagyl and vancomycin. Dr. Grewal is on consult as well. COVID-19 testing remains pending. 10/08: Patient ended up going for surgery with the laparoscopy ache appendectomy and ended up having out of the cecum removed, still have drainage tube and dressing had no bleeding at this point that her pain has improved significantly. 10/09: Patient is doing much better, pain is under control, white blood cell improved from yesterday, hemodynamically is very stable and still passing some gas but no bowel movement yet. We'll continue PTOT continue clear liquid diet for now. Objective - Vital Signs Vital signs: Vital Signs Temp 97.9 F 10/10/19 04:30 Pulse 84 10/10/19 04:30 Resp 14 10/10/19 04:30 BP 156/71 10/10/19 04:30 Pulse Ox 95 10/10/19 04:30 Intake & Output 10/09/19 10/10/19 10/10/19 18:59 06:59 18:59 Intake Total 240 Output Total 400 725 Balance -400 -485 Intake: Oral 240 Output: Drainage 50 Anterior Abdomen 50 Urine 400 675 Uretheral (Naranjo) 675 Other: Voiding Method Toilet # Voids 3 - Exam Review of Systems CONSTITUTIONAL: Well-developed no acute respiratory distress. Denies fever, denies chills. EYES: No icterus sclerae, no conjunctivitis. EARS, NOSE, MOUTH, THROAT, and FACE: No sore throat, lymphadenopathy, carotid bruits or deformity. RESPIRATORY: No SOB cough or wheezes. CARDIOVASCULAR: No CP, Palpitation, PND, Orthopnea, or angina. GASTROINTESTINAL: Positive abdominal pain with change in bowel habit with significant nausea and distention. GENITOURINARY: Recent UTI and pyelonephritis. 2 large ovarian cyst. INTEGUMENT/BREAST: Negative for any muscular injury with mild osteoarthritis. HEMATOLOGIC/LYMPHATIC: Negative for bleed or purpura. MUSCULOSKELTAL: Negative for Myalgia or arthralgia. NEURLOGICAL: No LOC, Sz or syncope, blurred vision dizziness or abnormality. BEHAVIORAL/PSYCH: Negative. ENDOCRINE: Negative. Physical Examination General Appearance: Alert, cooperative, no distress, appears stated age. Neck HEENT: Supple, no lymphadenopathy, no thyroid enlargement, no carotid bruits. Lungs: Clear to auscultation without crackles or wheezes no rhonchi, no deformity. Chest Wall: Chest wall normal expansion with deep inspiration no tenderness and no deformity was found on exam, no costochondral pain or discomfort. Heart: Regular rate and rhythm, S1, S2 normal, no murmur, rub or gallop. Back: Symmetric, no curvature, ROM normal, no CVA tenderness. Abdomen: Surgical incision on the abdominal area looks fine with no hemorrhage, no bowel sound at this point still slightly but tender in the right lower quadrant. Extremities: Extremities normal, atraumatic, no cyanosis or edema. Pulses: 2+ and symmetric. Skin: Skin color, texture, tugor normal, no rashes or lesions. Neurologic: Alert oriented x3 cranial nerves II through XII intact, no motor deficit, no abnormal balance or gait. - Labs CBC & Chem 7: 10/10/19 06:01 10/10/19 06:01 Labs: Abnormal Lab Results - Last 24 Hours (Table) 10/10/19 10/10/19 Range/Units 06:01 06:01 WBC 17.2 H (3.8-10.6) k/uL RBC 3.52 L (3.80-5.40) m/uL Hgb 11.2 L (11.4-16.0) gm/dL MCV 102.6 H (80.0-100.0) fL Neutrophils # 15.8 H (1.3-7.7) k/uL Lymphocytes # 0.7 L (1.0-4.8) k/uL Glucose 127 H (74-99) mg/dL Calcium 7.6 L (8.4-10.2) mg/dL Total Protein 4.8 L (6.3-8.2) g/dL Albumin 2.3 L (3.5-5.0) g/dL Microbiology - Last 24 Hours (Table) 10/07/19 21:20 Blood Culture - Preliminary Blood No Growth after 48 hours 10/08/19 17:52 Gram Stain - Preliminary Other - Other Wound Culture - Preliminary Gram Neg Bacilli Assessment and Plan Assessment: 1 appendicitis with pelvic abscess: Patient was hospitalized will continue Vanco, Zosyn and Flagyl, patient ended up going for surgical intervention with appendectomy and drainage of the abscess and resection of part of the cecum. Much better today since the surgery she is more comfortable no sign of infection and culture is negative. 2 recent history of pyelonephritis with positive blood culture for E. coli was treated with antibiotic for total of 2 weeks. 3 recent history of diverticulitis from 2 weeks ago patient was treated with Levaquin and Flagyl at the time and Flagyl was continue until today orally. CAT scan is not supportive of any diverticulitis at this point. 4 leukocytosis and sepsis: Lactic acid was negative culture will be done culture was positive last time for E. coli. 5 coronary artery disease: Has been on metoprolol and atorvastatin. 6 chronic history of edema: Patient has been on furosemide which will be helpful tomorrow. 7 hyperlipidemia: On atorvastatin. 8 pelvic cyst/mass CA was ruled out at this point. 9 history of mitral valve prolapse with repair: Has been doing well. 10 chronic depression: Has been on duloxetine. Pain management: Patient is doing very well still on smaller dose of Dilaudid as needed. Patient is doing very well continue current IV antibiotic continue current management repeat lab tomorrow. Advance diet to clear and full liquid in the next 24 hours.
--- NOTE | 2019-10-10 10:43 | P.PN ---
Progress Note - Text Progress Note Date: 10/10/19 The patient feels better. She really has had no significant bowel function. On exam her vital signs are stable. Abdomen soft. Incision sites clean dry tach. Status post partial sacrectomy for chronic appendicitis with abscess. Patient will have her diet advanced once her bowel function has returned.
[2019-10-10] MEDS: METOPROLOL TARTRATE 25 MG TAB PO SCH (21:41)
--- NOTE | 2019-10-10 22:21 | PN ---
PROGRESS NOTE DATE OF SERVICE: 10/10/2019 REASON FOR FOLLOWUP: Abdominal abscess. INTERVAL HISTORY: The patient is currently afebrile. The patient is breathing comfortably. The patient denies having any chest pain. No shortness of breath or cough. Abdominal pain is currently controlled. No nausea, vomiting and no diarrhea. PHYSICAL EXAMINATION: Blood pressure 119/73 with a pulse of 80, temperature 98.7. She is 92% on 2 L nasal cannula. General description is an elderly female lying in bed in no distress. Respiratory system: Unlabored breathing, clear to auscultation anteriorly. Heart S1, S2. Regular rate and rhythm. Abdomen soft, no tenderness. LABS: White count is down to 17, 000. Abdominal culture with an E coli that is sensitive pathogen. DIAGNOSTIC IMPRESSION AND PLAN: Patient with abdominal abscess with an E coli that is sensitive. Antibiotic adjusted to Unasyn 3 grams q.6 hours and monitor clinical course closely. Continue supportive care. MMODL / IJN: [id number] /
[2019-10-11] MEDS: HYDROmorphone 0.5 MG/0.5 ML SYRINGE IVP PRN ×4 (00:05→17:50)
[2019-10-11] MEDS: AMPICILLIN-SULBACTAM 3 GM in SODIUM CHLORIDE 0.9% 100 ML IVPB SCH ×5 (00:56→23:17)
[2019-10-11 06:18] LABS: Basophils % (A) 0 %; Eosinophils # (A) 0.2 k/uL (0-0.7); Eosinophils % (A) 1 %; HCT 35.6 % (34.0-46.0); Hypochromasia Moderate; Lymphocytes # (A) 0.8 k/uL (1.0-4.8); Lymphocytes % (A) 6 %; MCH 31.9 pg (25.0-35.0); MCV 102.8 fL (80.0-100.0); Macrocytosis Slight; Mean Platelet Volume 7.1; Monocytes # (A) 0.4 k/uL (0-1.0); Monocytes % (A) 3 %; Neutrophils # (A) 11.8 k/uL (1.3-7.7); Neutrophils % (A) 89 %; Platelet Count 478 k/uL (150-450); RBC 3.46 m/uL (3.80-5.40); RDW 14.2 % (11.5-15.5); WBC 13.3 k/uL (3.8-10.6)
[2019-10-11] MEDS ORDERED: HYDROmorphone 1 MG/ML 1 ML SYRINGE IM PRN (08:51)
[2019-10-11] MEDS: metroNIDAZOLE-NS PMX 500 MG in SALINE 1 100ML.BAG IVPB SCH ×3 (08:55→23:53)
--- NOTE | 2019-10-11 08:57 | P.PN ---
Subjective Progress Note Date: 10/11/19 Principal diagnosis: Severe abdominal pain, appendicitis and pelvic abscess, recent history of pyelonephritis, history of diverticulitis, leukocytosis, atherosclerotic heart disease, pelvic cyst/mass, history of CVA. 84-year-old female one of my office patient with known very well for many years who was hospitalized in 09/11/2023 acute pyelonephritis her presentation to demurs department at [facility] that she was complaining of mild shortness of breath with tiredness fatigue and low-grade temperature she was tested for the Jordin 19 was negative patient C-reactive protein was elevated and d-dimer was quite elevated at the time ended up going for CTA of the chest was negative for PE but ended up showing slight abnormality around the kidney in the right side ultrasound was white blood cell was mildly elevated with left shift and urine test was positive patient was diagnosed with pyelonephritis and admitted to the hospital was seen by urology and infectious disease she had positive blood culture for E. coli was treated with IV antibiotic for total of 4 days finding watch his in the hospital consistent with large ovarian cyst in the right side Ca1 25 was performed and was negative patient ended up seen Dr. Hsieh in the hospital will review the CAT scan the transvaginal ultrasound and with the examination decided to order more blood test and to follow patient as an outpatient for possibility of ovarian mass at the time. Patient returned to the office 2 weeks ago with slight left-sided lower abdominal pain with more pelvic pain at the time CAT scan of the abdomen one more time showed sign of diverticulitis patient was placed on oral antibiotic with Cipro and Flagyl patient had felt slightly but better until the antibiotic was stopped she is declining a started feeling more sick to her stomach specially and the mid lower abdominal region and right upper lower quadrant. Patient returned to the office mildly elevated white blood cell was restarted back on Flagyl and was seen Dr. 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 Patient was sent to the office from her EDGE TRIMMING MACHINE OPERATOR office today her exam was more concern about possibility of abscess in the pelvic area from either ruptured diverticulitis or appendicitis had the blood work was sent for urgent CT of the abdomen and pelvis results surprisingly was consistent with appendicitis with appendiceal abscess measure 7 time 2 cm. Patient and were contacted and instructed to go to the emergency department was started on vancomycin, Zosyn, and Flagyl Dr. Matute was consulted patient might go for surgical intervention for laparoscopy appendectomy with possible abscess a drain as well. Patient will be on antibiotic through the night she is more comfortable does not require much pain management for now. Still having low- grade temperature and surprisingly white blood cell was significantly elevated at 18,300 with left shift electrolyte were normal lactic acid was 1.6 normal lipase and amylase UA was slightly but positive. 10/07: Patient has been seen by Dr. Matute and scheduled for exploratory laparotomy, drainage of pelvic abscess, tentatively scheduled for today, possibly tomorrow depending on surgical scheduling. Patient is complaining of pain today for which Dilaudid will be increased frequency to every 2 hours. She continues to have tenderness to the right lower quadrant. Patient is afebrile, heart rate 77, blood pressure 135/81, pulse ox 93% on room air. Urine culture in progress. Repeat blood work for tomorrow. Patient is currently on IV Zosyn, Flagyl and vancomycin. Dr. Grewal is on consult as well. COVID-19 testing remains pending. 10/08: Patient ended up going for surgery with the laparoscopy ache appendectomy and ended up having out of the cecum removed, still have drainage tube and dressing had no bleeding at this point that her pain has improved significantly. 10/09: Patient is doing much better, pain is under control, white blood cell improved from yesterday, hemodynamically is very stable and still passing some gas but no bowel movement yet. We'll continue PTOT continue clear liquid diet for now. 10/10: Patient is doing better, no bowel movement yet, still on full liquid diet, pain is not well-controlled will increase her Dilaudid to 1 mg every 3 hours as needed. Fully catheter will be removed today increase activity incision looks fine but with no bowel sounds and abdomen slightly bit distended causing more discomfort. Objective - Vital Signs Vital signs: Vital Signs Temp 98.8 F 10/11/19 05:00 Pulse 104 H 10/11/19 05:00 Resp 16 10/11/19 05:00 BP 120/74 10/11/19 05:00 Pulse Ox 91 L 10/11/19 05:00 Intake & Output 10/10/19 10/11/19 10/11/19 18:59 06:59 18:59 Intake Total 480 Output Total 550 800 Balance -550 -320 Intake: Oral 480 Output: Urine 550 800 Uretheral (Naranjo) 350 800 Other: Voiding Method Toilet Indwelling Catheter # Voids 3 - Exam Review of Systems CONSTITUTIONAL: Well-developed no acute respiratory distress. Denies fever, denies chills. EYES: No icterus sclerae, no conjunctivitis. EARS, NOSE, MOUTH, THROAT, and FACE: No sore throat, lymphadenopathy, carotid bruits or deformity. RESPIRATORY: No SOB cough or wheezes. CARDIOVASCULAR: No CP, Palpitation, PND, Orthopnea, or angina. GASTROINTESTINAL: Positive abdominal pain with change in bowel habit with significant nausea and distention. GENITOURINARY: Recent UTI and pyelonephritis. 2 large ovarian cyst. INTEGUMENT/BREAST: Negative for any muscular injury with mild osteoarthritis. HEMATOLOGIC/LYMPHATIC: Negative for bleed or purpura. MUSCULOSKELTAL: Negative for Myalgia or arthralgia. NEURLOGICAL: No LOC, Sz or syncope, blurred vision dizziness or abnormality. BEHAVIORAL/PSYCH: Negative. ENDOCRINE: Negative. Physical Examination General Appearance: Alert, cooperative, no distress, appears stated age. Neck HEENT: Supple, no lymphadenopathy, no thyroid enlargement, no carotid bruits. Lungs: Clear to auscultation without crackles or wheezes no rhonchi, no deformity. Chest Wall: Chest wall normal expansion with deep inspiration no tenderness and no deformity was found on exam, no costochondral pain or discomfort. Heart: Regular rate and rhythm, S1, S2 normal, no murmur, rub or gallop. Back: Symmetric, no curvature, ROM normal, no CVA tenderness. Abdomen: Surgical incision on the abdominal area looks fine with no hemorrhage, no bowel sound at this point still slightly but tender in the right lower quadrant. Extremities: Extremities normal, atraumatic, no cyanosis or edema. Pulses: 2+ and symmetric. Skin: Skin color, texture, tugor normal, no rashes or lesions. Neurologic: Alert oriented x3 cranial nerves II through XII intact, no motor deficit, no abnormal balance or gait. - Labs CBC & Chem 7: 10/11/19 05:57 10/10/19 06:01 Labs: Abnormal Lab Results - Last 24 Hours (Table) 10/11/19 Range/Units 05:57 WBC 13.3 H (3.8-10.6) k/uL RBC 3.46 L (3.80-5.40) m/uL Hgb 11.0 L (11.4-16.0) gm/dL MCV 102.8 H (80.0-100.0) fL Plt Count 478 H (150-450) k/uL Neutrophils # 11.8 H (1.3-7.7) k/uL Lymphocytes # 0.8 L (1.0-4.8) k/uL Microbiology - Last 24 Hours (Table) 10/07/19 21:20 Blood Culture - Preliminary Blood No Growth after 72 hours 10/08/19 17:52 Anaerobic Culture - Preliminary Other - Other 10/08/19 17:52 Gram Stain - Final Other - Other Wound Culture - Final Escherichia coli Assessment and Plan Assessment: 1 appendicitis with pelvic abscess: Patient was hospitalized will continue Vanco, Zosyn and Flagyl, continue IV antibiotics, continue IV hydration since surgery bowel sound has not recovered yet. 2 recent history of pyelonephritis with positive blood culture for E. coli was treated with antibiotic for total of 2 weeks. 3 recent history of diverticulitis from 2 weeks ago patient was treated with Levaquin and Flagyl at the time and Flagyl was continue until today orally. CAT scan is not supportive of any diverticulitis at this point. 4 leukocytosis and sepsis: Lactic acid was negative culture will be done culture was positive last time for E. coli. 5 coronary artery disease: Has been on metoprolol and atorvastatin. 6 chronic history of edema: Patient has been on furosemide which will be helpful tomorrow. 7 hyperlipidemia: On atorvastatin. 8 pelvic cyst/mass CA was ruled out at this point. 9 history of mitral valve prolapse with repair: Has been doing well. 10 chronic depression: Has been on duloxetine. Pain management: Increase Dilaudid up to 1 mg every 3 hours as needed and will add oral hydrocodone. Patient is doing very well continue current IV antibiotic continue current management repeat lab tomorrow. Advance diet to clear and full liquid in the next 24 hours. Family update: Has been was contacted and update about his , expected discharge in 48-72 hours.
[2019-10-11] MEDS: DICYCLOMINE 10 MG CAP PO SCH ×3 (08:59→21:30)
[2019-10-11] MEDS: PANTOPRAZOLE 40 MG TABLET PO SCH (08:59)
[2019-10-11] MEDS: DULoxetine HCL 60 MG CAPSULE.DR PO SCH (08:59)
[2019-10-11] MEDS: FAMOTIDINE 20 MG/2 ML VIAL IV SCH ×2 (08:59→21:30)
[2019-10-11] MEDS: ATORVASTATIN 10 MG TAB PO SCH (08:59)
[2019-10-11] MEDS: HEPARIN SODIUM,PORCINE 5,000 UNIT/ML 1 ML VIAL SQ SCH ×2 (08:59→21:30)
[2019-10-11] MEDS: FUROSEMIDE 20 MG TAB PO SCH (08:59)
[2019-10-11] MEDS ORDERED: HYDROmorphone 1 MG/ML 1 ML SYRINGE IVP PRN (09:08)
--- NOTE | 2019-10-11 11:34 | P.PN ---
Progress Note - Text Progress Note Date: 10/11/19 The patient feels better. She states she's not had any significant flatus. She's had some sips of clear liquids today. On exam her vital signs are stable. Abdomen soft. Incision site is clean dry intact. STEPHON drain has mainly serosanguineous fluid. Status post a colectomy for perforated appendicitis with abscess. Patient remained on clear liquid diet until her bowel function returns.
[2019-10-11] MEDS: ONDANSETRON 4 MG/2 ML VIAL IVP PRN (13:27)
--- NOTE | 2019-10-11 16:24 | PN ---
PROGRESS NOTE DATE OF SERVICE: 10/11/2019 REASON FOR FOLLOWUP: Abdominal abscess from ruptured appendicitis. INTERVAL HISTORY: The patient is currently afebrile. The patient is breathing comfortably. The patient's abdominal pain is currently controlled. No nausea, vomiting. Has been started on some clear liquids which the patient has been tolerating so far. No chest pain, shortness of breath or cough. PHYSICAL EXAMINATION: Blood pressure 128/77, pulse of 99, temperature 98.4. She is 95% on 2 L. General description is an elderly female up in the chair in no distress. Respiratory system: Unlabored breathing, clear to auscultation anteriorly. Heart S1, S2. Regular rate and rhythm. Abdomen soft, no tenderness. LABS: Hemoglobin 11.1, white count 13.3, creatinine 0.70. DIAGNOSTIC IMPRESSION AND PLAN: Patient with abdominal abscess from ruptured appendicitis, status post drainage of the abscess and colectomy. Abdominal culture positive for E coli. Patient is covered with Unasyn. White count showing a downward trend. To continue to monitor clinical course closely. MMODL / IJN: [id number] /
[2019-10-11] MEDS: METOPROLOL TARTRATE 25 MG TAB PO SCH (21:30)
[2019-10-11] MEDS: traZODone HCL 100 MG TAB PO PRN (21:34)
[2019-10-12] MEDS: AMPICILLIN-SULBACTAM 3 GM in SODIUM CHLORIDE 0.9% 100 ML IVPB SCH ×4 (05:38→23:42)
[2019-10-12 07:40] LABS: Basophils % (A) 0 %; Eosinophils # (A) 0.1 k/uL (0-0.7); Eosinophils % (A) 1 %; HCT 33.5 % (34.0-46.0); HGB 10.4 gm/dL (11.4-16.0); Hypochromasia Marked; Lymphocytes # (A) 0.8 k/uL (1.0-4.8); Lymphocytes % (A) 7 %; MCHC 31.1 g/dL (31.0-37.0); MCV 102.7 fL (80.0-100.0); Macrocytosis Slight; Mean Platelet Volume 7.2; Monocytes # (A) 0.4 k/uL (0-1.0); Monocytes % (A) 4 %; Neutrophils # (A) 9.5 k/uL (1.3-7.7); Neutrophils % (A) 87 %; Platelet Count 452 k/uL (150-450); RBC 3.27 m/uL (3.80-5.40); RDW 14.2 % (11.5-15.5); WBC 10.9 k/uL (3.8-10.6)
[2019-10-12 07:45] LABS: Albumin 2.3 g/dL (3.5-5.0); Calcium 7.6 mg/dL (8.4-10.2); Potassium 3.9 mmol/L (3.5-5.1); Total Bilirubin 0.4 mg/dL (0.2-1.3); Total Protein 4.7 g/dL (6.3-8.2)
[2019-10-12] MEDS: HEPARIN SODIUM,PORCINE 5,000 UNIT/ML 1 ML VIAL SQ SCH ×2 (08:41→21:03)
[2019-10-12] MEDS: DULoxetine HCL 60 MG CAPSULE.DR PO SCH (08:41)
[2019-10-12] MEDS: FUROSEMIDE 20 MG TAB PO SCH (08:41)
[2019-10-12] MEDS: DICYCLOMINE 10 MG CAP PO SCH ×3 (08:41→21:03)
[2019-10-12] MEDS: FAMOTIDINE 20 MG/2 ML VIAL IV SCH (08:41)
[2019-10-12] MEDS: ATORVASTATIN 10 MG TAB PO SCH (08:41)
[2019-10-12] MEDS: PANTOPRAZOLE 40 MG TABLET PO SCH (08:41)
[2019-10-12] MEDS: metroNIDAZOLE-NS PMX 500 MG in SALINE 1 100ML.BAG IVPB SCH ×2 (08:41→15:59)
--- NOTE | 2019-10-12 09:24 | P.PN ---
Subjective Progress Note Date: 10/12/19 Principal diagnosis: Severe abdominal pain, appendicitis and pelvic abscess, recent history of pyelonephritis, history of diverticulitis, leukocytosis, atherosclerotic heart disease, pelvic cyst/mass, history of CVA. 84-year-old female one of my office patient with known very well for many years who was hospitalized in 09/11/2023 acute pyelonephritis her presentation to demurs department at [facility] that she was complaining of mild shortness of breath with tiredness fatigue and low-grade temperature she was tested for the Jordin 19 was negative patient C-reactive protein was elevated and d-dimer was quite elevated at the time ended up going for CTA of the chest was negative for PE but ended up showing slight abnormality around the kidney in the right side ultrasound was white blood cell was mildly elevated with left shift and urine test was positive patient was diagnosed with pyelonephritis and admitted to the hospital was seen by urology and infectious disease she had positive blood culture for E. coli was treated with IV antibiotic for total of 4 days finding watch his in the hospital consistent with large ovarian cyst in the right side Ca1 25 was performed and was negative patient ended up seen Dr. Hsieh in the hospital will review the CAT scan the transvaginal ultrasound and with the examination decided to order more blood test and to follow patient as an outpatient for possibility of ovarian mass at the time. Patient returned to the office 2 weeks ago with slight left-sided lower abdominal pain with more pelvic pain at the time CAT scan of the abdomen one more time showed sign of diverticulitis patient was placed on oral antibiotic with Cipro and Flagyl patient had felt slightly but better until the antibiotic was stopped she is declining a started feeling more sick to her stomach specially and the mid lower abdominal region and right upper lower quadrant. Patient returned to the office mildly elevated white blood cell was restarted back on Flagyl and was seen Dr. Hsieh today watch she still complaining of increased discomfort her [facility] [employer] exam apparently was consistent with benign cyst no sign of revering cancer. Patient was sent to the office from her [facility] office today her exam was more concern about possibility of abscess in the pelvic area from either ruptured diverticulitis or appendicitis had the blood work was sent for urgent CT of the abdomen and pelvis results surprisingly was consistent with appendicitis with appendiceal abscess measure 7 time 2 cm. Patient and were contacted and instructed to go to the emergency department was started on vancomycin, Zosyn, and Flagyl Dr. Matute was consulted patient might go for surgical intervention for laparoscopy appendectomy with possible abscess a drain as well. Patient will be on antibiotic through the night she is more comfortable does not require much pain management for now. Still having low- grade temperature and surprisingly white blood cell was significantly elevated at 18,300 with left shift electrolyte were normal lactic acid was 1.6 normal lipase and amylase UA was slightly but positive. 10/07: Patient has been seen by Dr. Matute and scheduled for exploratory laparotomy, drainage of pelvic abscess, tentatively scheduled for today, possibly tomorrow depending on surgical scheduling. Patient is complaining of pain today for which Dilaudid will be increased frequency to every 2 hours. She continues to have tenderness to the right lower quadrant. Patient is afebrile, heart rate 77, blood pressure 135/81, pulse ox 93% on room air. Urine culture in progress. Repeat blood work for tomorrow. Patient is currently on IV Zosyn, Flagyl and vancomycin. Dr. Grewal is on consult as well. COVID-19 testing remains pending. 10/08: Patient ended up going for surgery with the laparoscopy ache appendectomy and ended up having out of the cecum removed, still have drainage tube and dressing had no bleeding at this point that her pain has improved significantly. 10/09: Patient is doing much better, pain is under control, white blood cell improved from yesterday, hemodynamically is very stable and still passing some gas but no bowel movement yet. We'll continue PTOT continue clear liquid diet for now. 10/10: Patient is doing better, no bowel movement yet, still on full liquid diet, pain is not well-controlled will increase her Dilaudid to 1 mg every 3 hours as needed. Fully catheter will be removed today increase activity incision looks fine but with no bowel sounds and abdomen slightly bit distended causing more discomfort. 10/11: Patient was able to make it out of bed her pain is well managed, blood oxygen level slightly bit low we'll continue O2 as needed. Talked to patient's and her about possibility of rehab which will be due probably around or Friday. Objective - Vital Signs Vital signs: Vital Signs Temp 97.8 F 10/12/19 04:15 Pulse 82 10/12/19 04:15 Resp 12 10/12/19 04:15 BP 111/67 10/12/19 04:15 Pulse Ox 94 L 10/12/19 04:15 Intake & Output 10/11/19 10/12/19 10/12/19 18:59 06:59 18:59 Output Total 200 30 Balance -200 -30 Output: Drainage 30 Anterior Abdomen 30 Urine 200 Other: Voiding Method Toilet Toilet # Voids 1 2 - Exam Review of Systems CONSTITUTIONAL: Well-developed no acute respiratory distress. Denies fever, denies chills. EYES: No icterus sclerae, no conjunctivitis. EARS, NOSE, MOUTH, THROAT, and FACE: No sore throat, lymphadenopathy, carotid bruits or deformity. RESPIRATORY: No SOB cough or wheezes. CARDIOVASCULAR: No CP, Palpitation, PND, Orthopnea, or angina. GASTROINTESTINAL: Positive abdominal pain with change in bowel habit with significant nausea and distention. GENITOURINARY: Recent UTI and pyelonephritis. 2 large ovarian cyst. INTEGUMENT/BREAST: Negative for any muscular injury with mild osteoarthritis. HEMATOLOGIC/LYMPHATIC: Negative for bleed or purpura. MUSCULOSKELTAL: Negative for Myalgia or arthralgia. NEURLOGICAL: No LOC, Sz or syncope, blurred vision dizziness or abnormality. BEHAVIORAL/PSYCH: Negative. ENDOCRINE: Negative. Physical Examination General Appearance: Alert, cooperative, no distress, appears stated age. Neck HEENT: Supple, no lymphadenopathy, no thyroid enlargement, no carotid bruits. Lungs: Clear to auscultation without crackles or wheezes no rhonchi, no deformity. Chest Wall: Chest wall normal expansion with deep inspiration no tenderness and no deformity was found on exam, no costochondral pain or discomfort. Heart: Regular rate and rhythm, S1, S2 normal, no murmur, rub or gallop. Back: Symmetric, no curvature, ROM normal, no CVA tenderness. Abdomen: Surgical incision on the abdominal area looks fine with no hemorrhage, no bowel sound at this point still slightly but tender in the right lower quadrant. Extremities: Extremities normal, atraumatic, no cyanosis or edema. Pulses: 2+ and symmetric. Skin: Skin color, texture, tugor normal, no rashes or lesions. Neurologic: Alert oriented x3 cranial nerves II through XII intact, no motor deficit, no abnormal balance or gait. - Labs CBC & Chem 7: 05/26/20 06:54 10/12/19 06:54 Labs: Abnormal Lab Results - Last 24 Hours (Table) 10/12/19 10/12/19 Range/Units 06:54 06:54 WBC 10.9 H (3.8-10.6) k/uL RBC 3.27 L (3.80-5.40) m/uL Hgb 10.4 L (11.4-16.0) gm/dL Hct 33.5 L (34.0-46.0) % MCV 102.7 H (80.0-100.0) fL Plt Count 452 H (150-450) k/uL Neutrophils # 9.5 H (1.3-7.7) k/uL Lymphocytes # 0.8 L (1.0-4.8) k/uL Glucose 123 H (74-99) mg/dL Calcium 7.6 L (8.4-10.2) mg/dL Total Protein 4.7 L (6.3-8.2) g/dL Albumin 2.3 L (3.5-5.0) g/dL Microbiology - Last 24 Hours (Table) 10/07/19 21:20 Blood Culture - Preliminary Blood No Growth after 96 hours Assessment and Plan Assessment: 1 appendicitis with pelvic abscess: Patient was hospitalized will continue Vanco, Zosyn and Flagyl, continue IV antibiotics, continue IV hydration since surgery bowel sound has not recovered yet. 2 recent history of pyelonephritis with positive blood culture for E. coli was treated with antibiotic for total of 2 weeks. 3 recent history of diverticulitis from 2 weeks ago patient was treated with L evaquin and Flagyl at the time and Flagyl was continue until today orally. CAT scan is not supportive of any diverticulitis at this point. 4 leukocytosis and sepsis: Lactic acid was negative culture will be done culture was positive last time for E. coli. 5 coronary artery disease: Has been on metoprolol and atorvastatin. 6 chronic history of edema: Patient has been on furosemide which will be helpful tomorrow. 7 hyperlipidemia: On atorvastatin. 8 pelvic cyst/mass CA was ruled out at this point. 9 history of mitral valve prolapse with repair: Has been doing well. 10 chronic depression: Has been on duloxetine. Pain management: Increase Dilaudid up to 1 mg every 3 hours as needed and will add oral hydrocodone. Patient is doing very well continue current IV antibiotic continue current management repeat lab tomorrow. Advance diet to clear and full liquid in the next 24 hours. Family update: Has been was contacted and update about his , expected discharge in 48-72 hours.
--- NOTE | 2019-10-12 09:56 | P.PN ---
<VilledaGloria Frantz - Last Filed: 10/12/19 09:49> Subjective Progress Note Date: 10/12/19 CHIEF COMPLAINT: Abdominal pain HISTORY OF PRESENT ILLNESS: 84-year-old female who is status post exploratory laparotomy with partial colectomy, right nephrectomy, and drainage of pelvic abscess with Dr. Matute on 10/08/2019. Patient examined this morning. She is sitting up in the chair. Patient was placed on a full liquid diet. She denies passing any flatus. She does report occasional nausea. Denies vomiting. Her abdomen appears distended this morning. She states her pain is tolerable. PHYSICAL EXAM: VITAL SIGNS: Reviewed. GENERAL: Well-developed in no acute distress. HEENT: No sclera icterus. Extraocular movements grossly intact. Moist buccal mucosa. Head is atraumatic, normocephalic. ABDOMEN: Soft. Distended. Dressing clean dry intact. STEPHON intact with serosanguineous drainage. NEUROLOGIC: Alert and oriented. Cranial nerves II through XII grossly intact. ASSESSMENT: 1. Ruptured appendicitis, status post exploratory laparotomy with partial colectomy, right nephrectomy, and drainage of pelvic abscess PLAN: -Downgrade diet back to clear liquids as patient is not passing any flatus, has occasional nausea, and has abdominal distention this morning -Begin reglan 10mg IV Q 6 hours -Increase activity as tolerated. PT/OT has been added -Pain control -Incentive spirometer -Monitor STEPHON drain output Nurse practitioner note has been reviewed by physician. Signing provider agrees with the documented findings, assessment, and plan of care. Objective - Vital Signs Vital signs: Vital Signs Temp 97.8 F 10/12/19 04:15 Pulse 82 10/12/19 04:15 Resp 12 10/12/19 04:15 BP 111/67 10/12/19 04:15 Pulse Ox 94 L 10/12/19 04:15 Intake & Output 10/11/19 10/12/19 10/12/19 18:59 06:59 18:59 Output Total 200 30 Balance -200 -30 Output: Drainage 30 Anterior Abdomen 30 Urine 200 Other: Voiding Method Toilet Toilet # Voids 1 2 - Labs CBC & Chem 7: 10/12/19 06:54 10/12/19 06:54 Labs: Abnormal Lab Results - Last 24 Hours (Table) 10/12/19 10/12/19 Range/Units 06:54 06:54 WBC 10.9 H (3.8-10.6) k/uL RBC 3.27 L (3.80-5.40) m/uL Hgb 10.4 L (11.4-16.0) gm/dL Hct 33.5 L (34.0-46.0) % MCV 102.7 H (80.0-100.0) fL Plt Count 452 H (150-450) k/uL Neutrophils # 9.5 H (1.3-7.7) k/uL Lymphocytes # 0.8 L (1.0-4.8) k/uL Glucose 123 H (74-99) mg/dL Calcium 7.6 L (8.4-10.2) mg/dL Total Protein 4.7 L (6.3-8.2) g/dL Albumin 2.3 L (3.5-5.0) g/dL Microbiology - Last 24 Hours (Table) 10/07/19 21:20 Blood Culture - Preliminary Blood No Growth after 96 hours <John Matute - Last Filed: 10/12/19 13:04> Subjective As above. Patient with abdominal bloating and some nausea. She did pass gas today. X-ray does show ileus pattern. Will make nothing by mouth for now. Continue Reglan as ordered. Add Dulcolax as well. We'll change abdominal dressing and the 2 Wick sites. Objective - Vital Signs Vital signs: Vital Signs Temp 97.2 F L 10/12/19 12:23 Pulse 85 10/12/19 12:23 Resp 17 10/12/19 12:23 BP 120/74 10/12/19 12:23 Pulse Ox 96 10/12/19 12:23 Intake & Output 10/11/19 10/12/19 10/12/19 18:59 06:59 18:59 Output Total 200 30 Balance -200 -30 Output: Drainage 30 Anterior Abdomen 30 Urine 200 Other: Voiding Method Toilet Toilet Toilet # Voids 1 2 - Labs CBC & Chem 7: 10/12/19 06:54 10/12/19 06:54 Labs: Abnormal Lab Results - Last 24 Hours (Table) 10/12/19 10/12/19 Range/Units 06:54 06:54 WBC 10.9 H (3.8-10.6) k/uL RBC 3.27 L (3.80-5.40) m/uL Hgb 10.4 L (11.4-16.0) gm/dL Hct 33.5 L (34.0-46.0) % MCV 102.7 H (80.0-100.0) fL Plt Count 452 H (150-450) k/uL Neutrophils # 9.5 H (1.3-7.7) k/uL Lymphocytes # 0.8 L (1.0-4.8) k/uL Glucose 123 H (74-99) mg/dL Calcium 7.6 L (8.4-10.2) mg/dL Total Protein 4.7 L (6.3-8.2) g/dL Albumin 2.3 L (3.5-5.0) g/dL Microbiology - Last 24 Hours (Table) 10/07/19 21:20 Blood Culture - Preliminary Blood No Growth after 96 hours Assessment and Plan (1) Appendicitis with abscess Current Visit: Yes Status: Acute Code(s): K35.33 - ACUTE APPENDICITIS WITH PERF AND LOC PERITONITIS, WITH ABSCS SNOMED Code(s): 37055753
[2019-10-12] MEDS: METOCLOPRAMIDE 5 MG/ML 2 ML VIAL IVP SCH ×2 (11:34→15:59)
--- NOTE | 2019-10-12 13:28 | XR ---
EXAMINATION TYPE: XR abdomen complete w decub DATE OF EXAM: 10/12/2019 COMPARISON: CT dated 10/07/2019 HISTORY: Peritoneal abscess TECHNIQUE: Supine, upright, and left side down lateral decubitus views of the abdomen are obtained. FINDINGS: There is a drain right lower quadrant. Surgical paul are present in the midline. Divert icular change associated with the sigmoid colon. Right colon appears somewhat distended, there is con trast within the colon. Lung bases show subsegmental atelectatic changes, postop change noted to the heart. There is no evident pneumoperitoneum. Air-fluid levels are present on the upright exam. No unusual calcifications. Aorta shows dense appearance. Multilevel spondylosis noted in the visuali zed spine. IMPRESSION: Findings likely represent ileus, difficult to exclude obstruction due to the dilated loops in the rig ht lower quadrant and persistent contrast within the colon.
[2019-10-12 13:57] LABS: Hepatitis A Antibody IgM Non-Reactive (Non-Reactive); Hepatitis B Core IgM Non-Reactive (Non-Reactive); Hepatitis B Surface Antigen Non-Reactive (Non-Reactive); Hepatitis C IgG Antibody Non-Reactive (Non-Reactive)
--- NOTE | 2019-10-12 15:44 | PN ---
PROGRESS NOTE DATE OF SERVICE: 10/12/2019 REASON FOR FOLLOWUP: Abdominal abscess from a perforated appendix. INTERVAL HISTORY: The patient is currently afebrile. The patient is breathing comfortably. Denies having any chest pain, shortness of breath or cough. PHYSICAL EXAMINATION: Blood pressure 120/74 with a pulse of 85, temperature is 97.2. She is 96% on 2 L nasal cannula. General description is an elderly female, lying in bed in no distress. RESPIRATORY SYSTEM: Unlabored breathing, clear to auscultation anteriorly. HEART: S1, S2. Regular rate and rhythm. ABDOMEN: Soft, seemed to be more distended. EXTREMITIES: No edema of the feet. LABS: Hemoglobin is 10.4, white count of 12.9, BUN of 17, creatinine 0.80. DIAGNOSTIC IMPRESSION AND PLAN: Patient with abdominal abscess from perforated appendix, status post laparotomy, partial colectomy on O2, significant abdominal distention, concern for possible postop ileus. X-rays will be obtained. Continue with Unasyn and monitor clinical course closely. MMODL / IJN: [id number] /
[2019-10-12] MEDS: BISACODYL 10 MG SUPP RECTAL SCH (15:59)
[2019-10-12] MEDS: METOPROLOL TARTRATE 25 MG TAB PO SCH (21:03)
[2019-10-12] MEDS: traZODone HCL 100 MG TAB PO PRN (21:06)
[2019-10-12] MEDS: HYDROmorphone 0.5 MG/0.5 ML SYRINGE IVP PRN (22:51)
[2019-10-13] MEDS: metroNIDAZOLE-NS PMX 500 MG in SALINE 1 100ML.BAG IVPB SCH ×3 (00:17→16:43)
[2019-10-13] MEDS: METOCLOPRAMIDE 5 MG/ML 2 ML VIAL IVP SCH ×4 (00:17→19:58)
[2019-10-13] MEDS: AMPICILLIN-SULBACTAM 3 GM in SODIUM CHLORIDE 0.9% 100 ML IVPB SCH ×3 (06:06→19:59)
[2019-10-13] MEDS: HEPARIN SODIUM,PORCINE 5,000 UNIT/ML 1 ML VIAL SQ SCH ×2 (08:36→21:55)
[2019-10-13] MEDS: PANTOPRAZOLE 40 MG TABLET PO SCH (08:37)
[2019-10-13] MEDS: ATORVASTATIN 10 MG TAB PO SCH (08:37)
[2019-10-13] MEDS: FUROSEMIDE 20 MG TAB PO SCH (08:37)
[2019-10-13] MEDS: DULoxetine HCL 60 MG CAPSULE.DR PO SCH (08:37)
[2019-10-13] MEDS: DICYCLOMINE 10 MG CAP PO SCH ×3 (08:37→21:49)
[2019-10-13] MEDS: BISACODYL 10 MG SUPP RECTAL SCH (08:38)
[2019-10-13 08:46] LABS: Basophils % (A) 0 %; Eosinophils # (A) 0.1 k/uL (0-0.7); Eosinophils % (A) 1 %; HCT 34.4 % (34.0-46.0); HGB 10.5 gm/dL (11.4-16.0); Hypochromasia Moderate; Lymphocytes % (A) 9 %; MCH 31.4 pg (25.0-35.0); MCHC 30.6 g/dL (31.0-37.0); MCV 102.9 fL (80.0-100.0); Macrocytosis Slight; Mean Platelet Volume 7.1; Monocytes # (A) 0.4 k/uL (0-1.0); Monocytes % (A) 4 %; Neutrophils # (A) 9.2 k/uL (1.3-7.7); Neutrophils % (A) 85 %; Platelet Count 547 k/uL (150-450); RBC 3.35 m/uL (3.80-5.40); RDW 14.3 % (11.5-15.5); WBC 10.9 k/uL (3.8-10.6)
[2019-10-13] MEDS ORDERED: FAMOTIDINE 20 MG/2 ML VIAL IV SCH (09:00)
[2019-10-13 09:04] LABS: Albumin 2.4 g/dL (3.5-5.0); Calcium 7.7 mg/dL (8.4-10.2); Potassium 3.5 mmol/L (3.5-5.1); Total Bilirubin 0.5 mg/dL (0.2-1.3); Total Protein 4.7 g/dL (6.3-8.2)
--- NOTE | 2019-10-13 10:03 | P.PN ---
<RonalGloria Frantz - Last Filed: 10/13/19 10:03> Subjective Progress Note Date: 10/13/19 CHIEF COMPLAINT: Abdominal pain HISTORY OF PRESENT ILLNESS: 84-year-old female who is status post exploratory laparotomy with partial colectomy, right oophorectomy, and drainage of pelvic abscess with Dr. Matute on 10/08/2019. Patient examined this morning. She is sitting up in the chair. Patient reports her abdominal pain is tolerable. She denies feeling bloated. She is passing flatus. She reports having a bowel movement yesterday. No nausea or vomiting today. PHYSICAL EXAM: VITAL SIGNS: Reviewed. GENERAL: Well-developed in no acute distress. HEENT: No sclera icterus. Extraocular movements grossly intact. Moist buccal mucosa. Head is atraumatic, normocephalic. ABDOMEN: Soft. Distended. Dressing clean dry intact. STEPHON intact with serosanguineous drainage. NEUROLOGIC: Alert and oriented. Cranial nerves II through XII grossly intact. ASSESSMENT: 1. Ruptured appendicitis, status post exploratory laparotomy with partial colec gill, right nephrectomy, and drainage of pelvic abscess PLAN: -Trial clear liquid diet -Continue reglan 10mg IV Q 6 hours and Dulcolax suppository -Increase activity as tolerated. PT/OT following -Pain control -Incentive spirometer -Monitor STEPHON drain output Nurse practitioner note has been reviewed by physician. Signing provider agrees with the documented findings, assessment, and plan of care. Objective - Vital Signs Vital signs: Vital Signs Temp 98.0 F 10/13/19 04:30 Pulse 91 10/13/19 04:30 Resp 12 10/13/19 04:30 BP 109/63 10/13/19 04:30 Pulse Ox 92 L 10/13/19 04:30 Intake & Output 10/12/19 10/13/19 10/13/19 18:59 06:59 18:59 Intake Total 500 Output Total 0 Balance 500 Intake: IV 200 ns@20 200 Intake, IV Titration 300 Amount Ampicillin-Sulbactam 3 gm 200 In Sodium Chloride 0.9% 100 ml @ 200 mls/hr IVPB Q6HR [facility] Rx#:[id number] metroNIDAZOLE-NS PMX 500 100 mg In Saline 1 100ml.bag @ 100 mls/hr IVPB Q8HR [facility] Rx#:[id number] Oral 0 Output: Drainage 0 Anterior Abdomen 0 Other: Voiding Method Toilet Toilet Toilet # Voids 3 - Labs CBC & Chem 7: 10/13/19 08:12 10/13/19 08:12 Labs: Abnormal Lab Results - Last 24 Hours (Table) 10/13/19 10/13/19 Range/Units 08:12 08:12 WBC 10.9 H (3.8-10.6) k/uL RBC 3.35 L (3.80-5.40) m/uL Hgb 10.5 L (11.4-16.0) gm/dL MCV 102.9 H (80.0-100.0) fL MCHC 30.6 L (31.0-37.0) g/dL Plt Count 547 H (150-450) k/uL Neutrophils # 9.2 H (1.3-7.7) k/uL Calcium 7.7 L (8.4-10.2) mg/dL Total Protein 4.7 L (6.3-8.2) g/dL Albumin 2.4 L (3.5-5.0) g/dL Microbiology - Last 24 Hours (Table) 10/07/19 21:20 Blood Culture - Preliminary Blood No Growth after 120 hours <John Matute - Last Filed: 10/13/19 12:44> Subjective As above. Patient feels better today. Denies bloating. Says her pain is improved. She is passing gas today and did have a bowel movement yesterday. Abdomen less distended on examination. Will increase diet to full liquids for dinner. Continue increasing activity Objective - Vital Signs Vital signs: Vital Signs Temp 97.9 F 10/13/19 12:06 Pulse 84 10/13/19 12:06 Resp 16 10/13/19 12:06 BP 133/82 10/13/19 12:06 Pulse Ox 95 10/13/19 12:06 Intake & Output 10/12/19 10/13/19 10/13/19 18:59 06:59 18:59 Intake Total 500 Output Total 0 Balance 500 Intake: IV 200 ns@20 200 Intake, IV Titration 300 Amount Ampicillin-Sulbactam 3 gm 200 In Sodium Chloride 0.9% 100 ml @ 200 mls/hr IVPB Q6HR [facility] Rx#:[id number] metroNIDAZOLE-NS PMX 500 100 mg In Saline 1 100ml.bag @ 100 mls/hr IVPB Q8HR [facility] Rx#:[id number] Oral 0 Output: Drainage 0 Anterior Abdomen 0 Other: Voiding Method Toilet Toilet Toilet # Voids 3 - Labs CBC & Chem 7: 10/13/19 08:12 10/13/19 08:12 Labs: Abnormal Lab Results - Last 24 Hours (Table) 10/13/19 10/13/19 Range/Units 08:12 08:12 WBC 10.9 H (3.8-10.6) k/uL RBC 3.35 L (3.80-5.40) m/uL Hgb 10.5 L (11.4-16.0) gm/dL MCV 102.9 H (80.0-100.0) fL MCHC 30.6 L (31.0-37.0) g/dL Plt Count 547 H (150-450) k/uL Neutrophils # 9.2 H (1.3-7.7) k/uL Calcium 7.7 L (8.4-10.2) mg/dL Total Protein 4.7 L (6.3-8.2) g/dL Albumin 2.4 L (3.5-5.0) g/dL Microbiology - Last 24 Hours (Table) 10/07/19 21:20 Blood Culture - Preliminary Blood No Growth after 120 hours Assessment and Plan (1) Appendicitis with abscess Current Visit: Yes Status: Acute Code(s): K35.33 - ACUTE APPENDICITIS WITH PERF AND LOC PERITONITIS, WITH ABSCS SNOMED Code(s): 79702851
--- NOTE | 2019-10-13 10:58 | P.PN ---
Subjective Progress Note Date: 10/13/19 84-year-old female one of my office patient with known very well for many years who was hospitalized in 09/11/2023 acute pyelonephritis her presentation to demurs department at [facility] that she was complaining of mild shortness of breath with tiredness fatigue and low-grade temperature she was tested for the Jordin 19 was negative patient C-reactive protein was elevated and d-dimer was quite elevated at the time ended up going for CTA of the chest was negative for PE but ended up showing slight abnormality around the kidney in the right side ultrasound was white blood cell was mildly elevated with left shift and urine test was positive patient was diagnosed with pyelonephritis and admitted to the hospital was seen by urology and infectious disease she had positive blood culture for E. coli was treated with IV antibiotic for total of 4 days finding watch his in the hospital consistent with large ovarian cyst in the right side Ca1 25 was performed and was negative patient ended up seen Dr. Hsieh in the hospital will review the CAT scan the transvaginal ultrasound and with the examination decided to order more blood test and to follow patient as an outpatient for possibility of ovarian mass at the time. Patient returned to the office 2 weeks ago with slight left-sided lower abdominal pain with more pelvic pain at the time CAT scan of the abdomen one more time showed sign of diverticulitis patient was placed on oral antibiotic with Cipro and Flagyl patient had felt slightly but better until the antibiotic was stopped she is declining a started feeling more sick to her stomach specially and the mid lower abdominal region and right upper lower quadrant. Patient returned to the office mildly elevated white blood cell was restarted back on Flagyl and was seen Dr. Hsieh today watch she still complaining of increased discomfort her [employer] exam apparently was consistent with benign cyst no sign of revering cancer. Patient was sent to the office from her [facility] [facility] office today her exam was more concern about possibility of abscess in the pelvic area from either ruptured diverticulitis or appendicitis had the blood work was sent for urgent CT of the abdomen and pelvis results surprisingly was consistent with appendicitis with appendiceal abscess measure 7 time 2 cm. Patient and were contacted and instructed to go to the emergency department was started on vancomycin, Zosyn, and Flagyl Dr. Matute was consulted patient might go for surgical intervention for laparoscopy appendectomy with possible abscess a drain as well. Patient will be on antibiotic through the night she is more comfortable does not require much pain management for now. Still having low- grade temperature and surprisingly white blood cell was significantly elevated at 18,300 with left shift electrolyte were normal lactic acid was 1.6 normal lipase and amylase UA was slightly but positive. 10/07: Patient has been seen by Dr. Matute and scheduled for exploratory laparotomy, drainage of pelvic abscess, tentatively scheduled for today, possibly tomorrow depending on surgical scheduling. Patient is complaining of pain today for which Dilaudid will be increased frequency to every 2 hours. She continues to have tenderness to the right lower quadrant. Patient is afebrile, heart rate 77, blood pressure 135/81, pulse ox 93% on room air. Urine culture in progress. Repeat blood work for tomorrow. Patient is currently on IV Zosyn, Flagyl and vancomycin. Dr. Grewal is on consult as well. COVID-19 testing remains pending. 10/08: Patient ended up going for surgery with the laparoscopy ache appendectomy and ended up having out of the cecum removed, still have drainage tube and dressing had no bleeding at this point that her pain has improved significantly. 10/09: Patient is doing much better, pain is under control, white blood cell improved from yesterday, hemodynamically is very stable and still passing some gas but no bowel movement yet. We'll continue PTOT continue clear liquid diet for now. 10/10: Patient is doing better, no bowel movement yet, still on full liquid diet, pain is not well-controlled will increase her Dilaudid to 1 mg every 3 hours as needed. Fully catheter will be removed today increase activity incision looks fine but with no bowel sounds and abdomen slightly bit distended causing more discomfort. 10/11: Patient was able to make it out of bed her pain is well managed, blood oxygen level slightly bit low we'll continue O2 as needed. Talked to patient's and her about possibility of rehab which will be due probably around or Friday. 10/12: Patient states that she has passing gas but has not had a bowel movement. Abdomen is softer today. She remains with drain in place. Abdominal x-ray from yesterday afternoon revealed likely ileus, difficult to exclude obstruction due to dilated loops in the right lower quadrant and persistent contrast within the colon. She has only reaching 500 on incentive spirometry. Patient has been afebrile, heart rate 91, blood pressure 109/63, pulse ox 92-97% on 2 L nasal cannula. Repeat blood work reveals WBC 10.9, hemoglobin 10.5, platelets 547. Electrolytes and renal function normal, calcium 7.7, albumin 2.4. Liver function tests are normal. Patient has been nothing by mouth and start a clear liquid diet today. Plan is to increase activity, PT and OT are following. Patient is planning to go to [facility] for subacute rehab. Anticipate this will occur on or Friday Objective - Vital Signs Vital signs: Vital Signs Temp 98.0 F 10/13/19 04:30 Pulse 91 10/13/19 04:30 Resp 12 10/13/19 04:30 BP 109/63 10/13/19 04:30 Pulse Ox 92 L 10/13/19 04:30 Intake & Output 10/12/19 10/13/19 10/13/19 18:59 06:59 18:59 Intake Total 500 Output Total 0 Balance 500 Intake: IV 200 ns@20 200 Intake, IV Titration 300 Amount Ampicillin-Sulbactam 3 gm 200 In Sodium Chloride 0.9% 100 ml @ 200 mls/hr IVPB Q6HR ISSAC Rx#:[id number] metroNIDAZOLE-NS PMX 500 100 mg In Saline 1 100ml.bag @ 100 mls/hr IVPB Q8HR ISSAC Rx#:[id number] Oral 0 Output: Drainage 0 Anterior Abdomen 0 Other: Voiding Method Toilet Toilet # Voids 3 - Exam Review of Systems CONSTITUTIONAL: Well-developed no acute respiratory distress. Denies fever, denies chills. EYES: No icterus sclerae, no conjunctivitis. EARS, NOSE, MOUTH, THROAT, and FACE: No sore throat, lymphadenopathy, carotid bruits or deformity. RESPIRATORY: No SOB cough or wheezes. CARDIOVASCULAR: No CP, Palpitation, PND, Orthopnea, or angina. GASTROINTESTINAL: Positive abdominal pain with change in bowel habit with significant nausea and distention. GENITOURINARY: Recent UTI and pyelonephritis. 2 large ovarian cyst. INTEGUMENT/BREAST: Negative for any muscular injury with mild osteoarthritis. HEMATOLOGIC/LYMPHATIC: Negative for bleed or purpura. MUSCULOSKELTAL: Negative for Myalgia or arthralgia. NEURLOGICAL: No LOC, Sz or syncope, blurred vision dizziness or abnormality. BEHAVIORAL/PSYCH: Negative. ENDOCRINE: Negative. Physical Examination General Appearance: Alert, cooperative, no distress, appears stated age. Neck HEENT: Supple, no lymphadenopathy, no thyroid enlargement, no carotid brui ts. Lungs: Clear to auscultation without crackles or wheezes no rhonchi, no deformity. Chest Wall: Chest wall normal expansion with deep inspiration no tenderness and no deformity was found on exam, no costochondral pain or discomfort. Heart: Regular rate and rhythm, S1, S2 normal, no murmur, rub or gallop. Back: Symmetric, no curvature, ROM normal, no CVA tenderness. Abdomen: Soft, positive bowel sounds, minimal tenderness in the right lower quadrant without rebound or rigidity, dry dressing in place and STEPHON drain in place with serosanguineous drainage Extremities: Extremities normal, atraumatic, no cyanosis or edema. Pulses: 2+ and symmetric. Skin: Skin color, texture, tugor normal, no rashes or lesions. Neurologic: Alert oriented x3 cranial nerves II through XII intact, no motor deficit, no abnormal balance or gait. - Labs CBC & Chem 7: 10/13/19 08:12 10/13/19 08:12 Labs: Microbiology - Last 24 Hours (Table) 10/07/19 21:20 Blood Culture - Preliminary Blood No Growth after 120 hours Assessment and Plan Plan: 1 appendicitis with pelvic abscess status post exploratory laparotomy with partial colectomy, right oophorectomy, drainage pelvic abscess. Patient to start trial of clear liquid diet today. Continue current pain management, incentive spirometry to reduce incidence of atelectasis and hospital-acquired pneumonia, increase activity, continue physical therapy. Continue Unasyn and Flagyl, Bentyl, Reglan. 2 recent history of pyelonephritis with positive blood culture for E. coli was treated with antibiotic for total of 2 weeks. 3 recent history of diverticulitis from 2 weeks ago patient was treated with Levaquin and Flagyl at the time and Flagyl was continue until today orally. CAT scan is not supportive of any diverticulitis at this point. 4 leukocytosis and sepsis: Lactic acid was negative culture will be done culture was positive last time for E. coli. 5 coronary artery disease: Has been on metoprolol and atorvastatin. 6 chronic history of edema: Patient has been on furosemide which will be helpful tomorrow. 7 hyperlipidemia: On atorvastatin. 8 pelvic cyst/mass CVA was ruled out at this point. 9 history of mitral valve prolapse with repair: Has been doing well. 10 recurrent depression: Has been on duloxetine. 11 DVT prophylaxis. Heparin subcu. 12 GI prophylaxis: Patient will be on pantoprazole. 13 COVID-19 infection not present CODE STATUS: Full code. Discharge plan: [facility] on or Friday. Impression and plan of care have been directed as dictated by the signing physician. Dominga Pinto nurse practitioner acting as scribe for signing physician.
[2019-10-13 15:37] VITALS: BMI 24.7
--- NOTE | 2019-10-13 16:44 | PN ---
PROGRESS NOTE DATE OF SERVICE: 10/13/2019 REASON FOR FOLLOWUP: Abdominal abscess from a perforated appendicitis. INTERVAL HISTORY: The patient is currently afebrile. The patient is breathing comfortably. The patient denies having any chest pain or shortness of breath or cough. No nausea or vomiting. Some abdominal discomfort. Did not have any bowel movement. PHYSICAL EXAMINATION: Blood pressure 133/82 with a pulse of 84, temperature 97.9. She is 95% on 2 L nasal cannula. General description is an elderly female lying in bed in no distress. RESPIRATORY SYSTEM: Unlabored breathing. Clear to auscultation anteriorly. HEART: S1, S2. Regular rate and rhythm. ABDOMEN: Soft. Mildly distended. No guarding or rigidity. LABS: Hemoglobin is 10.5, white count 10.9, BUN of 12, creatinine 0.76. Abdominal culture with E coli. DIAGNOSTIC IMPRESSION AND PLAN: Patient with abdominal abscess from a perforated appendicitis, status post laparotomy, partial colectomy and drainage of the abscess. Culture positive for E coli sensitive pathogen. Patient is covered with Unasyn 3 grams q.6; to continue. Waiting for the ileus to resolve before discharge home. Monitor her clinical course closely. MMODL / IJN: [id number] /
[2019-10-13] MEDS: traZODone HCL 100 MG TAB PO PRN (21:49)
[2019-10-13] MEDS: METOPROLOL TARTRATE 25 MG TAB PO SCH (21:50)
[2019-10-13] MEDS: HYDROmorphone 0.5 MG/0.5 ML SYRINGE IVP PRN (21:54)
[2019-10-14] MEDS: metroNIDAZOLE-NS PMX 500 MG in SALINE 1 100ML.BAG IVPB SCH ×3 (00:12→16:50)
[2019-10-14] MEDS: METOCLOPRAMIDE 5 MG/ML 2 ML VIAL IVP SCH ×2 (01:21→05:46)
[2019-10-14] MEDS: AMPICILLIN-SULBACTAM 3 GM in SODIUM CHLORIDE 0.9% 100 ML IVPB SCH ×4 (01:22→18:30)
[2019-10-14] MEDS: HEPARIN SODIUM,PORCINE 5,000 UNIT/ML 1 ML VIAL SQ SCH ×2 (09:18→21:37)
[2019-10-14] MEDS: FUROSEMIDE 20 MG TAB PO SCH (09:19)
[2019-10-14] MEDS: DICYCLOMINE 10 MG CAP PO SCH ×3 (09:19→21:38)
[2019-10-14] MEDS: PANTOPRAZOLE 40 MG TABLET PO SCH (09:19)
[2019-10-14] MEDS: ATORVASTATIN 10 MG TAB PO SCH (09:19)
[2019-10-14] MEDS: BISACODYL 10 MG SUPP RECTAL SCH (09:19)
[2019-10-14] MEDS: DULoxetine HCL 60 MG CAPSULE.DR PO SCH (09:19)
[2019-10-14] MEDS ORDERED: METOCLOPRAMIDE 5 MG/ML 2 ML VIAL IVP PRN (09:52)
[2019-10-14] MEDS ORDERED: HYDROcodone/APAP 5-325MG 1 EACH TAB PO PRN (09:53)
[2019-10-14] MEDS ORDERED: ACETAMINOPHEN TAB 325 MG TAB PO PRN (09:55)
--- NOTE | 2019-10-14 09:56 | P.PN ---
<RonalGloria Frantz - Last Filed: 10/14/19 09:54> Subjective Progress Note Date: 10/14/19 CHIEF COMPLAINT: Abdominal pain HISTORY OF PRESENT ILLNESS: 84-year-old female who is status post exploratory laparotomy with partial colectomy, right oophorectomy, and drainage of pelvic abscess with Dr. Matute on 10/08/2019. Patient examined this morning. She is sitting up in the chair. Denies abdominal pain. She is tolerating full liquid diet. No nausea or vomiting. She is passing flatus. She had a couple loose bowel movements this morning. PHYSICAL EXAM: VITAL SIGNS: Reviewed. GENERAL: Well-developed in no acute distress. HEENT: No sclera icterus. Extraocular movements grossly intact. Moist buccal mucosa. Head is atraumatic, normocephalic. ABDOMEN: Soft. Abdomen less distended. Dressing with small amount of shadowing present. STEPHON intact with serosanguineous drainage. NEUROLOGIC: Alert and oriented. Cranial nerves II through XII grossly intact. ASSESSMENT: 1. Ruptured appendicitis, status post exploratory laparotomy with partial colectomy, right nephrectomy, and drainage of pelvic abscess PLAN: -Advance diet to soft diet -Change reglan to PRN due to loose stools this morning -Increase activity as tolerated. PT/OT following -Pain control -Incentive spirometer -Monitor STEPHON drain output Nurse practitioner note has been reviewed by physician. Signing provider agrees with the documented findings, assessment, and plan of care. Objective - Vital Signs Vital signs: Vital Signs Temp 98.0 F 10/14/19 04:27 Pulse 92 10/14/19 04:27 Resp 16 10/14/19 04:27 BP 125/76 10/14/19 04:27 Pulse Ox 92 L 10/14/19 09:05 Intake & Output 10/13/19 10/14/19 10/14/19 18:59 06:59 18:59 Intake Total 200 300 Balance 200 300 Weight 67.5 kg Intake: Intake, IV Titration 200 300 Amount Ampicillin-Sulbactam 3 gm 200 200 In Sodium Chloride 0.9% 100 ml @ 200 mls/hr IVPB Q6HR ISSAC Rx#:[id number] metroNIDAZOLE-NS PMX 500 100 mg In Saline 1 100ml.bag @ 100 mls/hr IVPB Q8HR ISSAC Rx#:[id number] Other: Voiding Method Toilet Toilet Toilet # Voids 3 1 - Labs CBC & Chem 7: 10/13/19 08:12 10/13/19 08:12 Labs: Microbiology - Last 24 Hours (Table) 10/07/19 21:20 Blood Culture - Final Blood No Growth after 144 hours 10/08/19 17:52 Anaerobic Culture - Final Other - Other <John Matute - Last Filed: 10/14/19 13:51> Subjective As well. Having loose stools. Pain slightly improved. Still mildly distended mild right-sided tenderness. Continue antibiotics. Monitor symptoms and exam. Possible rehab tomorrow. Objective - Vital Signs Vital signs: Vital Signs Temp 98.2 F 10/14/19 11:30 Pulse 88 10/14/19 11:30 Resp 16 10/14/19 11:30 BP 108/66 10/14/19 11:30 Pulse Ox 92 L 10/14/19 11:35 Intake & Output 10/13/19 10/14/19 10/14/19 18:59 06:59 18:59 Intake Total 200 300 Balance 200 300 Weight 67.5 kg Intake: Intake, IV Titration 200 300 Amount Ampicillin-Sulbactam 3 gm 200 200 In Sodium Chloride 0.9% 100 ml @ 200 mls/hr IVPB Q6HR ISSAC Rx#:[id number] metroNIDAZOLE-NS PMX 500 100 mg In Saline 1 100ml.bag @ 100 mls/hr IVPB Q8HR ISSAC Rx#:[id number] Other: Voiding Method Toilet Toilet Toilet # Voids 3 1 - Labs CBC & Chem 7: 10/13/19 08:12 10/13/19 08:12 Labs: Microbiology - Last 24 Hours (Table) 10/07/19 21:20 Blood Culture - Final Blood No Growth after 144 hours 10/08/19 17:52 Anaerobic Culture - Final Other - Other Assessment and Plan (1) Appendicitis with abscess Current Visit: Yes Status: Acute Code(s): K35.33 - ACUTE APPENDICITIS WITH PERF AND LOC PERITONITIS, WITH ABSCS SNOMED Code(s): 34569194
--- NOTE | 2019-10-14 13:55 | PN ---
PROGRESS NOTE DATE OF SERVICE: 10/14/2019 REASON FOR FOLLOWUP: Abdominal abscess from perforated appendix. INTERVAL HISTORY: The patient is currently afebrile. The patient is breathing comfortably. The patient denies having any chest pain. No shortness of breath. Cough and abdominal pain is currently controlled. No nausea, no vomiting. No bowel movement. PHYSICAL EXAMINATION: Blood pressure is 108/66, pulse of 88, temperature 98.2. She is 92% on 3 L nasal cannula. General description is an elderly female, lying in bed in no distress. RESPIRATORY SYSTEM: Unlabored breathing, clear to auscultation anteriorly. HEART: S1, S2. Regular rate and rhythm. ABDOMEN: Soft, nondistended. No guarding or rigidity.: LABS: No new labs have been obtained today. DIAGNOSTIC IMPRESSION AND PLAN: Patient with abdominal abscess from a perforated appendix, status post partial laparotomy, Culture with sensitive pathogen. Patient is covered with Unasyn in lieu of ileus and slow clinical response. Would recommend getting a midline for outpatient IV Rocephin and Flagyl and close outpatient followup. MMODL / IJN: [id number] /
--- NOTE | 2019-10-14 14:48 | P.PN ---
Subjective Progress Note Date: 10/14/19 84-year-old female one of my office patient with known very well for many years who was hospitalized in 09/11/2023 acute pyelonephritis her presentation to demurs department at [facility] that she was complaining of mild shortness of breath with tiredness fatigue and low-grade temperature she was tested for the Jordin 19 was negative patient C-reactive protein was elevated and d-dimer was quite elevated at the time ended up going for CTA of the chest was negative for PE but ended up showing slight abnormality around the kidney in the right side ultrasound was white blood cell was mildly elevated with left shift and urine test was positive patient was diagnosed with pyelonephritis and admitted to the hospital was seen by urology and infectious disease she had positive blood culture for E. coli was treated with IV antibiotic for total of 4 days finding watch his in the hospital consistent with large ovarian cyst in the right side Ca1 25 was performed and was negative patient ended up seen Dr. Hsieh in the hospital will review the CAT scan the transvaginal ultrasound and with the examination decided to order more blood test and to follow patient as an outpatient for possibility of ovarian mass at the time. Patient returned to the office 2 weeks ago with slight left-sided lower abdominal pain with more pelvic pain at the time CAT scan of the abdomen one more time showed sign of diverticulitis patient was placed on oral antibiotic with Cipro and Flagyl patient had felt slightly but better until the antibiotic was stopped she is declining a started feeling more sick to her stomach specially and the mid lower abdominal region and right upper lower quadrant. Patient returned to the office mildly elevated white blood cell was restarted back on Flagyl and was seen Dr. Hsieh today watch she still complaining of increased discomfort her REGULATORY AFFAIRS COORDINATOR exam apparently was consistent with benign cyst no sign of revering cancer. Patient was sent to the office from her REGULATORY AFFAIRS COORDINATOR office today her exam was more concern about possibility of abscess in the pelvic area from either ruptured diverticulitis or appendicitis had the blood work was sent for urgent CT of the abdomen and pelvis results surprisingly was consistent with appendicitis with appendiceal abscess measure 7 time 2 cm. Patient and were contacted and instructed to go to the emergency department was started on vancomycin, Zosyn, and Flagyl Dr. Matute was consulted patient might go for surgical intervention for laparoscopy appendectomy with possible abscess a drain as well. Patient will be on antibiotic through the night she is more comfortable does not require much pain management for now. Still having low- grade temperature and surprisingly white blood cell was significantly elevated at 18,300 with left shift electrolyte were normal lactic acid was 1.6 normal lipase and amylase UA was slightly but positive. 10/07: Patient has been seen by Dr. Matute and scheduled for exploratory laparotomy, drainage of pelvic abscess, tentatively scheduled for today, possibly tomorrow depending on surgical scheduling. Patient is complaining of pain today for which Dilaudid will be increased frequency to every 2 hours. She continues to have tenderness to the right lower quadrant. Patient is afebrile, heart rate 77, blood pressure 135/81, pulse ox 93% on room air. Urine culture in progress. Repeat blood work for tomorrow. Patient is currently on IV Zosyn, Flagyl and vancomycin. Dr. Grewal is on consult as well. COVID-19 testing remains pending. 10/08: Patient ended up going for surgery with the laparoscopy ache appendectomy and ended up having out of the cecum removed, still have drainage tube and dressing had no bleeding at this point that her pain has improved significantly. 10/09: Patient is doing much better, pain is under control, white blood cell improved from yesterday, hemodynamically is very stable and still passing some gas but no bowel movement yet. We'll continue PTOT continue clear liquid diet for now. 10/10: Patient is doing better, no bowel movement yet, still on full liquid diet, pain is not well-controlled will increase her Dilaudid to 1 mg every 3 hours as needed. Fully catheter will be removed today increase activity incision looks fine but with no bowel sounds and abdomen slightly bit distended causing more discomfort. 10/11: Patient was able to make it out of bed her pain is well managed, blood oxygen level slightly bit low we'll continue O2 as needed. Talked to patient's and her about possibility of rehab which will be due probably around or Friday. 10/12: Patient states that she has passing gas but has not had a bowel movement. Abdomen is softer today. She remains with drain in place. Abdominal x-ray from yesterday afternoon revealed likely ileus, difficult to exclude obstruction due to dilated loops in the right lower quadrant and persistent contrast within the colon. She has only reaching 500 on incentive spirometry. Patient has been afebrile, heart rate 91, blood pressure 109/63, pulse ox 92-97% on 2 L nasal cannula. Repeat blood work reveals WBC 10.9, hemoglobin 10.5, platelets 547. Electrolytes and renal function normal, calcium 7.7, albumin 2.4. Liver function tests are normal. Patient has been nothing by mouth and start a clear liquid diet today. Plan is to increase activity, PT and OT are following. Patient is planning to go to [facility] for subacute rehab. Anticipate this will occur on or Friday 10/13: Patient had a large bowel movement this morning. Her diet was advanced to full liquid diet last evening. She has been afebrile, heart rate 92, blood pressure 125/76, pulse ox 93% on 2 L nasal cannula. Wound culture is positive for E. coli. Patient is currently on Unasyn and Flagyl and followed by Dr. Grewal. Anticipate she will be ready for discharge to [facility] on Friday. Objective - Vital Signs Vital signs: Vital Signs Temp 98.0 F 10/14/19 04:27 Pulse 92 10/14/19 04:27 Resp 16 10/14/19 04:27 BP 125/76 10/14/19 04:27 Pulse Ox 93 L 10/14/19 04:27 Intake & Output 10/13/19 10/14/19 10/14/19 18:59 06:59 18:59 Intake Total 200 300 Balance 200 300 Weight 67.5 kg Intake: Intake, IV Titration 200 300 Amount Ampicillin-Sulbactam 3 gm 200 200 In Sodium Chloride 0.9% 100 ml @ 200 mls/hr IVPB Q6HR [facility] Rx#:[id number] metroNIDAZOLE-NS PMX 500 100 mg In Saline 1 100ml.bag @ 100 mls/hr IVPB Q8HR [facility] Rx#:[id number] Other: Voiding Method Toilet Toilet # Voids 3 1 - Exam Review of Systems CONSTITUTIONAL: Well-developed no acute respiratory distress. Denies fever, denies chills. EYES: No icterus sclerae, no conjunctivitis. EARS, NOSE, MOUTH, THROAT, and FACE: No sore throat, lymphadenopathy, carotid bruits or deformity. RESPIRATORY: No SOB cough or wheezes. CARDIOVASCULAR: No CP, Palpitation, PND, Orthopnea, or angina. GASTROINTESTINAL: Denies abdominal pain with change in bowel habit denies nausea denies distention. GENITOURINARY: Recent UTI and pyelonephritis. 2 large ovarian cyst. INTEGUMENT/BREAST: Negative for any muscular injury with mild osteoarthritis. HEMATOLOGIC/LYMPHATIC: Negative for bleed or purpura. MUSCULOSKELTAL: Negative for Myalgia or arthralgia. NEURLOGICAL: No LOC, Sz or syncope, blurred vision dizziness or abnormality. BEHAVIORAL/PSYCH: Negative. ENDOCRINE: Negative. Physical Examination General Appearance: Alert, cooperative, no distress, appears stated age. Patient ambulatory from the bathroom with gait steady. Neck HEENT: Supple, no lymphadenopathy, no thyroid enlargement, no carotid bruits. Lungs: Clear to auscultation without crackles or wheezes no rhonchi, no deformity. Chest Wall: Chest wall normal expansion with deep inspiration no tenderness and no deformity was found on exam, no costochondral pain or discomfort. Heart: Regular rate and rhythm, S1, S2 normal, no murmur, rub or gallop. Back: Symmetric, no curvature, ROM normal, no CVA tenderness. Abdomen: Soft, positive bowel sounds, minimal tenderness in the right lower quadrant without rebound or rigidity, dry dressing in place and STEPHON drain in place with serosanguineous drainage Extremities: Extremities normal, atraumatic, no cyanosis or edema. Pulses: 2+ and symmetric. Skin: Skin color, texture, tugor normal, no rashes or lesions. Neurologic: Alert oriented x3 cranial nerves II through XII intact, no motor deficit, no abnormal balance or gait. - Labs CBC & Chem 7: 10/13/19 08:12 10/13/19 08:12 Labs: Abnormal Lab Results - Last 24 Hours (Table) 10/13/19 10/13/19 Range/Units 08:12 08:12 WBC 10.9 H (3.8-10.6) k/uL RBC 3.35 L (3.80-5.40) m/uL Hgb 10.5 L (11.4-16.0) gm/dL MCV 102.9 H (80.0-100.0) fL MCHC 30.6 L (31.0-37.0) g/dL Plt Count 547 H (150-450) k/uL Neutrophils # 9.2 H (1.3-7.7) k/uL Calcium 7.7 L (8.4-10.2) mg/dL Total Protein 4.7 L (6.3-8.2) g/dL Albumin 2.4 L (3.5-5.0) g/dL Microbiology - Last 24 Hours (Table) 10/07/19 21:20 Blood Culture - Final Blood No Growth after 144 hours 10/08/19 17:52 Anaerobic Culture - Final Other - Other Assessment and Plan Plan: 1 appendicitis with pelvic abscess status post exploratory laparotomy with partial colectomy, right oophorectomy, drainage pelvic abscess. Patient to start trial of clear liquid diet today. Continue current pain management, incentive spirometry to reduce incidence of atelectasis and hospital-acquired pneumonia, increase activity, continue physical therapy. Continue Unasyn and Flagyl, Bentyl, Reglan. Wound culture positive for E. coli. 2 recent history of pyelonephritis with positive blood culture for E. coli was treated with antibiotic for total of 2 weeks. 3 recent history of diverticulitis from 2 weeks ago patient was treated with Lev aquin and Flagyl at the time and Flagyl was continue until today orally. CAT scan is not supportive of any diverticulitis at this point. 4 leukocytosis and sepsis: Lactic acid was negative culture will be done culture was positive last time for E. coli. 5 coronary artery disease: Has been on metoprolol and atorvastatin. 6 chronic history of edema: Patient has been on furosemide which will be helpful tomorrow. 7 hyperlipidemia: On atorvastatin. 8 pelvic cyst/mass CVA was ruled out at this point. 9 history of mitral valve prolapse with repair: Has been doing well. 10 recurrent depression: Has been on duloxetine. 11 DVT prophylaxis. Heparin subcu. 12 GI prophylaxis: Patient will be on pantoprazole. 13 COVID-19 infection not present CODE STATUS: Full code. Discharge plan: on Friday. Impression and plan of care have been directed as dictated by the signing physician. Dominga Pinto nurse practitioner acting as scribe for signing physician.
--- NOTE | 2019-10-14 15:01 | CDI ---
Documentation Clarification Form Date: 10/14/2019 02:33:05 PM From: Kathia Maldonado RN CCDS Admit Date: 10/07/2019 08:09:00 PM Patient Name: Cira Candelario Visit Number: [id number] Discharge Date: ATTENTION: The Clinical Documentation Specialists (CDI) and [facility] Coding Staff appreciate your assistance in clarifying documentation. Please respond to the clarification below the line at the bottom and electronically sign. The CDI & [facility] Coding staff will review the response and follow-up if needed. Please note: Queries are made part of the Legal Health Record. If you have any questions, please contact the author of this message via ITS. Dr. John Matute Concern for possible postop ileus is documented in the ID progress note 10/11. Patients Admitting Diagnosis: Pelvic abscess, suspected ruptured appendix Post-Operative Diagnosis: Pelvic abscess, suspected ruptured appendix Procedure performed: Exploratory laparotomy with &partial colectomy, right oophorectomy, drainage pelvic abscess History/Risk Factors: 84-year-old female presents to the ED with abdominal pain for two weeks. A CAT Scan was done out patient with results of appendicitis with abscess formation. Medical History HLD, HTN and IBS Clinical Indicators: 10/11 Abd Xray likely represent ileus, difficult to exclude obstruction due to the dilated loops in the right Treatment: 10/11 NPO, d/cd 10/12 In order to accurately reflect this patients severity of illness, please clarify if the Postop Ileus: -has been ruled out -is a complication of surgical procedure -is an expected outcome of the surgical procedure -is related to co-morbid condition(s) of -Other please specify -Unable to determine (Last Revision: June 2019) Ileus was present and is an expected outcome of abdominal surgery. MTDD
[2019-10-14] MEDS: METOPROLOL TARTRATE 25 MG TAB PO SCH (21:37)
[2019-10-14] MEDS: traZODone HCL 100 MG TAB PO PRN (21:38)
[2019-10-15] MEDS: AMPICILLIN-SULBACTAM 3 GM in SODIUM CHLORIDE 0.9% 100 ML IVPB SCH ×3 (00:15→12:38)
[2019-10-15] MEDS: metroNIDAZOLE-NS PMX 500 MG in SALINE 1 100ML.BAG IVPB SCH (03:11)
[2019-10-15 05:55] VITALS: BP 155/77; PULSE 85; RESP 18; TEMP 98.2
[2019-10-15 07:22] LABS: HCT 30.1 % (34.0-46.0); HGB 9.5 gm/dL (11.4-16.0); Hypochromasia Slight; MCH 31.5 pg (25.0-35.0); MCHC 31.5 g/dL (31.0-37.0); MCV 99.9 fL (80.0-100.0); Macrocytosis Slight; Mean Platelet Volume 7.4; Platelet Count 510 k/uL (150-450); RBC 3.01 m/uL (3.80-5.40); RDW 14.6 % (11.5-15.5); WBC 7.5 k/uL (3.8-10.6)
[2019-10-15 07:38] LABS: ALT 8 U/L (4-34); AST 17 U/L (14-36); African American GFR (CKD) >90 (>60 ml/min/1.73 sqM); Albumin 1.9 g/dL (3.5-5.0); Alkaline Phosphatase 48 U/L (38-126); Anion Gap 2 mmol/L; Blood Urea Nitrogen 6 mg/dL (7-17); Calcium 7.1 mg/dL (8.4-10.2); Carbon Dioxide 34 mmol/L (22-30); Chloride 103 mmol/L (98-107); Glucose 107 mg/dL (74-99); Non-African American GFR(CKD) 84 (>60 ml/min/1.73 sqM); Sodium 139 mmol/L (137-145); Total Bilirubin 0.3 mg/dL (0.2-1.3)
--- NOTE | 2019-10-15 07:56 | P.DS ---
Providers Date of admission: 10/07/19 20:09 Expected date of discharge: 10/15/19 Attending physician: Kimber Bangura MD Consults: 10/07/19 20:08 Consult Physician Urgent Consulting Provider: John Matute Consult Reason/Comments: Appendicitis with abscess Do you want consulting provider notified?: Yes 10/07/19 20:27 Consult Physician Urgent Consulting Provider: Juan Grewal Consult Reason/Comments: Appendicitis with abscess Do you want consulting provider notified?: Yes Primary care physician: [facility] Course: 84-year-old female one of my office patient with known very well for many years who was hospitalized in 09/11/2023 acute pyelonephritis [facility] that she was complaining of mild shortness of breath with tiredness fatigue and low-grade temperature she was tested for the Jordin 19 was negative patient C-reactive protein was elevated and d-dimer was quite elevated at the time ended up going for CTA of the chest was negative for PE but ended up showing slight abnormality around the kidney in the right side ultrasound was white blood cell was mildly elevated with left shift and urine test was positive patient was diagnosed with pyelonephritis and admitted to the hospital was seen by urology and infectious disease she had positive blood culture for E. coli was treated with IV a ntibiotic for total of 4 days finding watch his in the hospital consistent with large ovarian cyst in the right side Ca1 25 was performed and was negative patient ended up seen Dr. Hsieh in the hospital will review the CAT scan the transvaginal ultrasound and with the examination decided to order more blood test and to follow patient as an outpatient for possibility of ovarian mass at the time. Patient returned to the office 2 weeks ago with slight left-sided lower abdominal pain with more pelvic pain at the time CAT scan of the abdomen one more time showed sign of diverticulitis patient was placed on oral antibiotic with Cipro and Flagyl patient had felt slightly but better until the antibiotic was stopped she is declining a started feeling more sick to her stomach specially and the mid lower abdominal region and right upper lower quadrant. Patient returned to the office mildly elevated white blood cell was restarted back on Flagyl and was seen Dr. Hsieh today watch she still complaining of increased discomfort her DIE DESIGNER exam apparently was consistent with benign cyst no sign of revering cancer. Patient was sent to the office from her DIE DESIGNER office today her exam was more concern about possibility of abscess in the pelvic area from either ruptured diverticulitis or appendicitis had the blood work was sent for urgent CT of the abdomen and pelvis results surprisingly was consistent with appendicitis with appendiceal abscess measure 7 time 2 cm. Patient and were contacted and instructed to go to the emergency department was started on vancomycin, Zosyn, and Flagyl Dr. Matute was consulted patient might go for surgical intervention for laparoscopy appendectomy with possible abscess a drain as well. Patient will be on antibiotic through the night she is more comfortab le does not require much pain management for now. Still having low-grade temperature and surprisingly white blood cell was significantly elevated at 18,300 with left shift electrolyte were normal lactic acid was 1.6 normal lipase and amylase UA was slightly but positive. 10/07: Patient has been seen by Dr. Matute and scheduled for exploratory laparotomy, drainage of pelvic abscess, tentatively scheduled for today, possibly tomorrow depending on surgical scheduling. Patient is complaining of pain today for which Dilaudid will be increased frequency to every 2 hours. She continues to have tenderness to the right lower quadrant. Patient is afebrile, heart rate 77, blood pressure 135/81, pulse ox 93% on room air. Urine culture in progress. Repeat blood work for tomorrow. Patient is currently on IV Zosyn, Flagyl and vancomycin. Dr. Grewal is on consult as well. COVID-19 testing remains pending. 10/08: Patient ended up going for surgery with the laparoscopy ache appendectomy and ended up having out of the cecum removed, still have drainage tube and dressing had no bleeding at this point that her pain has improved significantly. 10/09: Patient is doing much better, pain is under control, white blood cell improved from yesterday, hemodynamically is very stable and still passing some gas but no bowel movement yet. We'll continue PTOT continue clear liquid diet for now. 10/10: Patient is doing better, no bowel movement yet, still on full liquid diet, pain is not well-controlled will increase her Dilaudid to 1 mg every 3 hours as needed. Fully catheter will be removed today increase activity incision looks fine but with no bowel sounds and abdomen slightly bit distended causing more discomfort. 10/11: Patient was able to make it out of bed her pain is well managed, blood o xygen level slightly bit low we'll continue O2 as needed. Talked to patient's and her about possibility of rehab which will be due probably around or Friday. 10/12: Patient states that she has passing gas but has not had a bowel movement. Abdomen is softer today. She remains with drain in place. Abdominal x-ray from yesterday afternoon revealed likely ileus, difficult to exclude obstruction due to dilated loops in the right lower quadrant and persistent contrast within the colon. She has only reaching 500 on incentive spirometry. Patient has been afebrile, heart rate 91, blood pressure 109/63, pulse ox 92-97% on 2 L nasal cannula. Repeat blood work reveals WBC 10.9, hemoglobin 10.5, platelets 547. Electrolytes and renal function normal, calcium 7.7, albumin 2.4. Liver function tests are normal. Patient has been nothing by mouth and start a clear liquid diet today. Plan is to increase activity, PT and OT are following. Patient is planning to go to [facility] for subacute rehab. Anticipate this will occur on or Friday 10/13: Patient had a large bowel movement this morning. Her diet was advanced to full liquid diet last evening. She has been afebrile, heart rate 92, blood pressure 125/76, pulse ox 93% on 2 L nasal cannula. Wound culture is positive for E. coli. Patient is currently on Unasyn and Flagyl and followed by Dr. Grewal. Anticipate she will be ready for discharge to [facility] on Friday. 10/14: Patient relates that she is feeling somewhat depressed this morning. It has been coming on and she has been treated for depression as an outpatient. We will plan to keep her Cymbalta at the same dose of 60 mg daily and added and Remeron at bedtime. Patient is also on trazodone at bedtime as needed which will be continued. Otherwise, patient is doing well. Abdominal pain is resolved. She denies having any nausea or vomiting and she is passing flatus. She is tolerating diet. STEPHON drain is to be discontinued prior to discharge. Dr. Grewal is recommended IV antibiotics and been Was placed yesterday. Patient has been accepted to [facility] and will be discharged to [facility] once all arrangements are completed. Discharge diagnoses: 1 appendicitis with pelvic abscess status post exploratory laparotomy with partial colectomy, right oophorectomy, drainage pelvic abscess. 2 recent history of pyelonephritis with positive blood culture for E. coli was treated with antibiotic for total of 2 weeks. 3 recent history of diverticulitis from 2 weeks ago patient was treated with Levaquin and Flagyl. 4 leukocytosis and sepsis. 5 coronary artery disease. 6 chronic history of edema. 7 hyperlipidemia. 8 pelvic cyst/mass CVA was ruled out. 9 history of mitral valve prolapse with repair. 10 recurrent depression. 11 COVID-19 infection not present Discharge plan: [facility] on Friday under the care of Dr. Crain. Impression and plan of care have been directed as dictated by the signing physician. Dominga Pinto nurse practitioner acting as scribe for signing physician. Patient Condition at Discharge: Good Plan - Discharge Summary Discharge Rx Participant: No New Discharge Prescriptions: New HYDROcodone/APAP 5-325MG [[place] 5-325] 1 each PO Q4HR PRN #18 tab PRN Reason: Pain Mirtazapine [Remeron] 7.5 mg PO HS #30 tab cefTRIAXone [Rocephin] 1 gm IVPB Q24H #7 bag metroNIDAZOLE [Flagyl] 500 mg PO Q8HR #21 tab Continue Metoprolol Tartrate 12.5 mg PO HS Aspirin EC [Ecotrin Low Dose] 81 mg PO DAILY Furosemide [Lasix] 20 mg PO DAILY DULoxetine HCL [Cymbalta] 60 mg PO DAILY Atorvastatin [Lipitor] 10 mg PO DAILY traZODone HCL [Desyrel] 100 mg PO HS PRN PRN Reason: Insomnia Dicyclomine [Bentyl] 10 mg PO TID Pantoprazole Sodium [Protonix] 40 mg PO DAILY metroNIDAZOLE [Flagyl] 500 mg PO TID #21 tab Discontinued Ondansetron HCl [Zofran] 4 - 8 mg PO BID PRN PRN Reason: Nausea And Vomiting Discharge Medication List Aspirin EC [Ecotrin Low Dose] 81 mg PO DAILY 09/11/19 [History] Atorvastatin [Lipitor] 10 mg PO DAILY 09/11/19 [History] DULoxetine HCL [Cymbalta] 60 mg PO DAILY 09/11/19 [History] Furosemide [Lasix] 20 mg PO DAILY 09/11/19 [History] Metoprolol Tartrate 12.5 mg PO HS 09/11/19 [History] traZODone HCL [Desyrel] 100 mg PO HS PRN 09/11/19 [History] Dicyclomine [Bentyl] 10 mg PO TID 10/07/19 [History] Pantoprazole Sodium [Protonix] 40 mg PO DAILY 10/07/19 [History] HYDROcodone/APAP 5-325MG [[place] 5-325] 1 each PO Q4HR PRN #18 tab 10/15/19 [Rx] Mirtazapine [Remeron] 7.5 mg PO HS #30 tab 10/15/19 [Rx] cefTRIAXone [Rocephin] 1 gm IVPB Q24H #7 bag 10/15/19 [Rx] metroNIDAZOLE [Flagyl] 500 mg PO Q8HR #21 tab 10/15/19 [Rx] metroNIDAZOLE [Flagyl] 500 mg PO TID #21 tab 10/15/19 [Rx] Follow up Appointment(s)/Referral(s): John Matute MD [Medical Doctor] - 10/20/19 1:40 pm Joseph Crain MD [Primary Care Provider] - 1 Week (at [facility]) Juan Grewal MD [STAFF PHYSICIAN] - 2 Weeks Discharge Disposition: TRANSFER TO SNF/ECF
[2019-10-15] MEDS: FUROSEMIDE 20 MG TAB PO SCH (09:54)
[2019-10-15] MEDS: PANTOPRAZOLE 40 MG TABLET PO SCH (09:54)
[2019-10-15] MEDS: BISACODYL 10 MG SUPP RECTAL SCH (09:55)
[2019-10-15] MEDS: DULoxetine HCL 60 MG CAPSULE.DR PO SCH (09:55)
[2019-10-15] MEDS: DICYCLOMINE 10 MG CAP PO SCH (09:55)
[2019-10-15] MEDS: ATORVASTATIN 10 MG TAB PO SCH (09:55)
[2019-10-15] MEDS: HEPARIN SODIUM,PORCINE 5,000 UNIT/ML 1 ML VIAL SQ SCH (09:57)
[2019-10-15] MEDS: POTASSIUM CHLORIDE ER 20 MEQ TAB.ER PO SCH ×2 (10:07→12:38)
--- NOTE | 2019-10-15 10:56 | P.PN ---
<Gloria Villeda - Last Filed: 10/15/19 10:54> Subjective Progress Note Date: 10/15/19 CHIEF COMPLAINT: Abdominal pain HISTORY OF PRESENT ILLNESS: 84-year-old female who is status post exploratory laparotomy with partial colectomy, right oophorectomy, and drainage of pelvic abscess with Dr. Matute on 10/08/2019. Patient examined this morning. Denies abdominal pain. She is tolerating diet. No nausea or vomiting. She is passing flatus. She is having some loose bowel movements but states it is improving since yesterday. PHYSICAL EXAM: VITAL SIGNS: Reviewed. GENERAL: Well-developed in no acute distress. HEENT: No sclera icterus. Extraocular movements grossly intact. Moist buccal mucosa. Head is atraumatic, normocephalic. ABDOMEN: Soft. Minimal distention. Dressing with small amount of shadowing present. STEPHON intact with serosanguineous drainage. NEUROLOGIC: Alert and oriented. Cranial nerves II through XII grossly intact. ASSESSMENT: 1. Ruptured appendicitis, status post exploratory laparotomy with partial colectomy, right nephrectomy, and drainage of pelvic abscess PLAN: -Continue diet as tolerated -Pain control -Incentive spirometer -Stable for discharge today from a surgical standpoint -Discontinue STEPHON drain prior to discharge -Patient to follow-up with Dr. Matute in one week. Nurse practitioner note has been reviewed by physician. Signing provider agrees with the documented findings, assessment, and plan of care. Objective - Vital Signs Vital signs: Vital Signs Temp 98.2 F 10/15/19 04:32 Pulse 85 10/15/19 04:32 Resp 18 10/15/19 04:32 BP 155/77 10/15/19 04:32 Pulse Ox 97 10/15/19 04:32 Intake & Output 10/14/19 10/15/19 10/15/19 18:59 06:59 18:59 Intake Total 70 Balance 70 Weight 67.5 kg Intake: IV 70 ns@20 70 Other: Voiding Method Toilet Toilet Toilet # Voids 4 3 3 # Bowel Movements 4 3 - Labs CBC & Chem 7: 10/15/19 06:50 10/15/19 06:50 Labs: Abnormal Lab Results - Last 24 Hours (Table) 10/15/19 10/15/19 Range/Units 06:50 06:50 RBC 3.01 L (3.80-5.40) m/uL Hgb 9.5 L (11.4-16.0) gm/dL Hct 30.1 L (34.0-46.0) % Plt Count 510 H (150-450) k/uL Potassium 3.0 L (3.5-5.1) mmol/L Carbon Dioxide 34 H (22-30) mmol/L BUN 6 L (7-17) mg/dL Glucose 107 H (74-99) mg/dL Calcium 7.1 L (8.4-10.2) mg/dL Total Protein 4.0 L (6.3-8.2) g/dL Albumin 1.9 L (3.5-5.0) g/dL <John Matute - Last Filed: 10/15/19 11:50> Subjective As above. Patient doing well. Pain is improved. Tolerating diet. Good bowel function. We'll discharge. Follow-up one week. Objective - Vital Signs Vital signs: Vital Signs Temp 98.2 F 10/15/19 04:32 Pulse 85 10/15/19 04:32 Resp 18 10/15/19 04:32 BP 155/77 10/15/19 04:32 Pulse Ox 97 10/15/19 04:32 Intake & Output 10/14/19 10/15/19 10/15/19 18:59 06:59 18:59 Intake Total 70 Balance 70 Weight 67.5 kg Intake: IV 70 ns@20 70 Other: Voiding Method Toilet Toilet Toilet # Voids 4 3 3 # Bowel Movements 4 3 - Labs CBC & Chem 7: 10/15/19 06:50 10/15/19 06:50 Labs: Abnormal Lab Results - Last 24 Hours (Table) 10/15/19 10/15/19 Range/Units 06:50 06:50 RBC 3.01 L (3.80-5.40) m/uL Hgb 9.5 L (11.4-16.0) gm/dL Hct 30.1 L (34.0-46.0) % Plt Count 510 H (150-450) k/uL Potassium 3.0 L (3.5-5.1) mmol/L Carbon Dioxide 34 H (22-30) mmol/L BUN 6 L (7-17) mg/dL Glucose 107 H (74-99) mg/dL Calcium 7.1 L (8.4-10.2) mg/dL Total Protein 4.0 L (6.3-8.2) g/dL Albumin 1.9 L (3.5-5.0) g/dL Assessment and Plan (1) Appendicitis with abscess Current Visit: Yes Status: Acute Code(s): K35.33 - ACUTE APPENDICITIS WITH PERF AND LOC PERITONITIS, WITH ABSCS SNOMED Code(s): 24109420
--- NOTE | 2019-10-15 14:14 | PN ---
PROGRESS NOTE DATE OF SERVICE: 09/25/2019 REASON FOR FOLLOWUP: Abdominal abscess from perforated appendix. INTERVAL HISTORY: The patient is currently afebrile. The patient is breathing comfortably, hemodynamically stable. No vomiting or diarrhea has been reported. Patient does have hematuria. PHYSICAL EXAMINATION: On examination, her blood pressure is 155/77 with a pulse of 85, temperature 98.2. She is 97% on 2 L nasal cannula. General description is an elderly female, lying in bed in no distress. RESPIRATORY SYSTEM: Unlabored breathing, clear to auscultation anteriorly. HEART: S1, S2. Regular rate and rhythm. ABDOMEN: Soft, no tenderness. LABS: Hemoglobin 9.5, white count 7.5, creatinine 0.61. DIAGNOSTIC IMPRESSION AND PLAN: Patient abdominal abscess from perforated appendix, status post laparotomy and partial colectomy. Culture with sensitive E coli. The patient has been just Rocephin 1 gram daily along with oral Flagyl 500 mg 3 times a day for about a week and close outpatient followup. MMODL / IJN: [id number] /
== END 2019-10-15 13:02 | DRG 853 ==
LOC: EC 19:42 → 5NMEDONC 20:09
PROVIDERS: ADMIT Internal Medicine; ATTEND Internal Medicine
PROC: 0DBB0ZZ Excision of Ileum, Open Approach (ICD-10-PCS; principal; 2019-10-08 10:50)
PROC: 0UT00ZZ Resection of Right Ovary, Open Approach (ICD-10-PCS; principal; 2019-10-08 10:50)
PROC: 0UT50ZZ Resection of Right Fallopian Tube, Open Approach (ICD-10-PCS; principal; 2019-10-08 10:50)
PROC: 0W9J00Z Drainage of Pelvic Cavity with Drainage Device, Open Approach (ICD-10-PCS; principal; 2019-10-08 10:50)
PROC: 0DBH0ZZ Excision of Cecum, Open Approach (ICD-10-PCS; principal; 2019-10-08 10:50)
DX: A41.51 Sepsis due to Escherichia coli [E. coli] (principal); K35.33 Acute appendicitis with perforation, localized peritonitis, and gangrene, with abscess; F33.9 Major depressive disorder, recurrent, unspecified; K56.7 Ileus, unspecified; E78.5 Hyperlipidemia, unspecified; F41.9 Anxiety disorder, unspecified; I10 Essential (primary) hypertension; I25.10 Atherosclerotic heart disease of native coronary artery without angina pectoris; I34.1 Nonrheumatic mitral (valve) prolapse; N83.209 Unspecified ovarian cyst, unspecified side; K58.9 Irritable bowel syndrome, unspecified; M19.90 Unspecified osteoarthritis, unspecified site; K21.9 Gastro-esophageal reflux disease without esophagitis; K57.90 Diverticulosis of intestine, part unspecified, without perforation or abscess without bleeding; Z11.59 Encounter for screening for other viral diseases; Z79.82 Long term (current) use of aspirin; Z79.899 Other long term (current) drug therapy; Z87.891 Personal history of nicotine dependence; Z85.828 Personal history of other malignant neoplasm of skin; Z88.5 Allergy status to narcotic agent; Z80.0 Family history of malignant neoplasm of digestive organs
CPT/HCPCS: 36410; 74021; 76937; 80048; 80053; 80074; 81001; 82150; 83605; 83690; 85025; 85027; 87040; 87070; 87075; 87077; 87086; 87186; 87205; 87635; 88305; 88307; 94760; 99285

== ENCOUNTER → 2019-10-07 | Outpatient (CLI) | payer MEDICARE ==
--- NOTE | 2019-10-07 19:10 | CT ---
EXAMINATION TYPE: CT abdomen pelvis w con DATE OF EXAM: 10/07/2019 COMPARISON: 09/11/2019 HISTORY: Lower abdominal pain x1 week CT DLP: 745.7 mGycm Automated exposure control for dose reduction was used. TECHNIQUE: Helical acquisition of images was performed from the lung bases through the pelvis. CONTRAST: Performed with Oral Contrast and with IV Contrast, patient injected with 100 mL of Isovue 3 00. FINDINGS: LUNG BASES: No significant abnormality is appreciated. LIVER/GB: No significant abnormality is appreciated. PANCREAS: No significant abnormality is seen. SPLEEN: No significant abnormality is seen. ADRENALS: No significant abnormality is seen. KIDNEYS: No significant abnormality is seen. The previously seen left pyelonephritis contrast enhance ment pattern is no longer visualized. The left kidney now has normal appearance. Upper and lower arvind ecting systems are negative. PERITONEAL CAVITY: No pneumoperitoneum. No free peritoneal fluid. RETROPERITONEAL ADENOPATHY: None visualized REPRODUCTIVE ORGANS: No significant abnormality is seen URINARY BLADDER: No significant abnormality is seen. PELVIC ADENOPATHY: None visualized. OSSEOUS STRUCTURES: No significant abnormality is seen. BOWEL: New since the previous CT one month ago is a complex predominantly cystic mass in the deep pe lvic right lower quadrant, in retrocecal/midline shift position. This mass has three dominant fluid-l abraham components and measures approximately 7 cm mean diameter. The distal 2 cm of the appendix can be seen and is distended and demonstrates mural enhancement. There are a few tiny bubbles of gas within this predominantly fluid collection. The upper margin of the mass is at the level of the sacral promo ntory and the lower margin of the mass is at the level of the bladder dome. There is no associated fr ee fluid within the peritoneal cavity of the pelvis or the abdomen. OTHER: There are no acute vascular findings. Generalized atherosclerotic nonaneurysmal changes apprec iated. IMPRESSION: APPENDICITIS WITH APPENDICEAL ABSCESS DISCUSSED, WITH NO BOWEL OBSTRUCTION, FREE PERITONEAL FLUID, OR PNEUMOPERITONEUM.
== END | disposition home or self-care (01) ==
LOC: RADCTMAIN 16:14
PROVIDERS: ATTEND Nurse Practitioner Gerontology
DX: K35.33 Acute appendicitis with perforation, localized peritonitis, and gangrene, with abscess (principal)
CPT/HCPCS: 74177; 36415; Q9967

== ENCOUNTER → 2019-12-01 | Outpatient (CLI) | payer MEDICARE ==
--- NOTE | 2019-12-01 15:07 | US ---
EXAMINATION TYPE: US venous doppler duplex LE LT DATE OF EXAM: 12/01/2019 2:57 PM COMPARISON: NONE CLINICAL HISTORY: R06.9 edema. Edema. No redness. No injury. Not on blood thinners. SIDE PERFORMED: Left TECHNIQUE: The lower extremity deep venous system is examined utilizing real time linear array sonog sergo with graded compression, doppler sonography and color-flow sonography. VESSELS IMAGED: External Iliac Vein (EIV) Common Femoral Vein Deep Femoral Vein Greater Saphenous Vein * Femoral Vein Popliteal Vein Small Saphenous Vein * Proximal Calf Veins (* superficial vessels) Left Leg: Negative for DVT IMPRESSION: No evidence for DVT at this time.
== END | disposition home or self-care (01) ==
LOC: RADUSWWP 14:20
PROVIDERS: ATTEND Internal Medicine Geriatric Medicine
DX: R60.9 Edema, unspecified (principal)

== ENCOUNTER → 2020-02-01 | Outpatient (CLI) | payer MEDICARE ==
--- NOTE | 2020-02-01 19:31 | BD ---
EXAMINATION TYPE: Axial Bone Density DATE OF EXAM: 02/01/2020 COMPARISON: NONE CLINICAL HISTORY: Postmenopausal screening Height: 64 Weight: 150.6 FRAX RISK QUESTIONS: Alcohol (3 or more units per day): no Family History (Parent hip fracture): yes mother Glucocorticoids (More than 3mos): no (Ex: prednisone, prednisolone, methylprednisolone, dexamethasone, and hydrocortisone). History of Fracture in Adulthood: yes Secondary Osteoporosis: 1. Type 1 Diabetes: no 2. Hyperthyroidism: no 3. Menopause before 45: no 4. Malnutrition: no 5. Chronic liver disease: no Rheumatoid Arthritis: yes Current Tobacco Use: no RISK FACTORS HISTORY OF: History of Wrist Fracture: right wrist When: 2016 Surgery to Spine/Hip(right/left)/Wrist (right/left): no Family History of Osteoporosis: yes Active: no Diet low in dairy products/other sources of calcium: no Postmenopausal woman: age 51 Lost more than 2 inches in height since high school: no MEDICATIONS: Additional History: EXAM MEASUREMENTS: Bone mineral densitometry was performed using the [email or web address] System. Bone mineral density as measured about the Lumbar spine is: ----- L1-L4(G/cm2): 1.127 T Score Values are as follows: ----- L2: 0.1 ----- L3: 0.0 ----- L4: -1.1 ----- L1-L4: -0.4 Bone mineral density has: decreased -7.2 % since study of: 05.16.2015 Bone mineral density about the R hip (g/cm2): 1.019 Bone mineral density about the L hip (g/cm2): 0.793 T Score values are as follows: -----R Neck: -0.1 -----L Neck: -1.8 -----R Total: -1.1 -----L Total: -1.4 Bone mineral density has: decreased -2.9 % since study of: 05.16.2015 IMPRESSION: Osteopenia (T Score between -2.5 and -1). There is slightly increased risk of fracture and the patient may be considered for treatment. Re-Screen 2-5 years. NOTE: T-SCORE=SD OF THE YOUNG ADULT MEAN.
--- NOTE | 2020-02-03 14:25 | MM ---
Reason for exam: screening (asymptomatic). Last mammogram was performed 2 years and 9 months ago. History: Patient is postmenopausal and has history of other cancer at age 68. Took hormonal contraceptives for 4 years beginning at age 24. Physical Findings: A clinical breast exam by your physician is recommended on an annual basis and results should be correlated with mammographic findings. MG 3D Screening Mammo W/Cad Bilateral CC and MLO view(s) were taken. XCCL view(s) were taken of the left breast. Prior study comparison: May 16, 2017, bilateral MG 3d screening mammo w/cad. May 16, 2015, bilateral MG screening mammo w CAD. The breast tissue is heterogeneously dense. This may lower the sensitivity of mammography. Focal asymmetry left anterior MLO view. This finding is changed when compared with previous exams. ASSESSMENT: Incomplete: need additional imaging evaluation, BI-RAD 0 RECOMMENDATION: Special view mammogram of the left breast. If lesion persists on supplemental views, image directed ultrasound is recommended. [facility] will attempt to contact patient to return for supplemental views and ultrasound if indicated.
== END | disposition home or self-care (01) ==
LOC: RADMAMWWP 15:08
PROVIDERS: ATTEND Internal Medicine Geriatric Medicine
DX: Z12.31 Encounter for screening mammogram for malignant neoplasm of breast (principal); M85.80 Other specified disorders of bone density and structure, unspecified site; M81.0 Age-related osteoporosis without current pathological fracture
CPT/HCPCS: 77063; 77067; 77080

== ENCOUNTER → 2020-02-09 | Outpatient (CLI) | payer MEDICARE ==
--- NOTE | 2020-02-09 10:22 | MM ---
Reason for exam: additional evaluation requested from abnormal screening. Last mammogram was performed less than 1 month ago. History: Patient is postmenopausal and has history of other cancer at age 68. Took hormonal contraceptives for 4 years beginning at age 24. Physical Findings: Nurse did not find any significant physical abnormalities on exam. MG 3D Work Up W/Cad LT Spot compression LM and spot compression MLO view(s) were taken of the left breast. Prior study comparison: February 01, 2020, bilateral MG 3d screening mammo w/cad. May 16, 2017, bilateral MG 3d screening mammo w/cad. There is no discrete abnormality including area of concern. These results were verbally communicated with the patient and result sheet given to the patient on 02/09/20. ASSESSMENT: Negative, BI-RAD 1 RECOMMENDATION: Return to routine screening mammogram schedule for both breasts.
== END | disposition home or self-care (01) ==
LOC: RADMAMWWP 09:47
PROVIDERS: ATTEND Internal Medicine Geriatric Medicine
DX: R92.8 Other abnormal and inconclusive findings on diagnostic imaging of breast (principal)
CPT/HCPCS: 77065; G0279; 77061

== ENCOUNTER 2020-10-01 12:27 | Emergency (ER) | payer MEDICARE ==
[2020-10-01 12:40] VITALS: RESP 18; TEMP 99.2
[2020-10-01] MEDS ORDERED: DIPH,PERTUS(ACELL)TETVAC-LF 0.5 ML VIAL IM ONE (13:39)
--- NOTE | 2020-10-01 13:46 | ED ---
General Adult HPI - General Chief complaint: Extremity Injury, Upper Stated complaint: Hand laceration Time Seen by Provider: 10/01/20 12:51 Source: patient, RN notes reviewed Mode of arrival: ambulatory Limitations: no limitations - History of Present Illness Initial comments: 85-year-old female with a past medical history of hyperlipidemia, hypertension presents to the emergency room for a chief complaint of left hand laceration. Patient reports she drank too much call last night and sustained a skin tear to her left hand. She is not sure how she did this. Does not recall. She does not think she fell. She does not have bruises elsewhere. She did not hit her head.Patient has no other complaints at this time including shortness of breath, chest pain, abdominal pain, nausea or vomiting, headache, or visual changes. - Related Data Home Medications Medication Instructions Recorded Confirmed Aspirin EC [Ecotrin Low Dose] 81 mg PO DAILY 09/11/19 10/07/19 Atorvastatin [Lipitor] 10 mg PO DAILY 09/11/19 10/07/19 DULoxetine HCL [Cymbalta] 60 mg PO DAILY 09/11/19 10/07/19 Furosemide [Lasix] 20 mg PO DAILY 09/11/19 10/07/19 Metoprolol Tartrate 12.5 mg PO HS 09/11/19 10/07/19 traZODone HCL [Desyrel] 100 mg PO HS PRN 09/11/19 10/07/19 Dicyclomine [Bentyl] 10 mg PO TID 10/07/19 10/07/19 Pantoprazole Sodium [Protonix] 40 mg PO DAILY 10/07/19 10/07/19 Previous Rx's Medication Instructions Recorded HYDROcodone/APAP 5-325MG [[place] 1 each PO Q4HR PRN #18 tab 10/15/19 5-325] Mirtazapine [Remeron] 7.5 mg PO HS #30 tab 10/15/19 cefTRIAXone [Rocephin] 1 gm IVPB Q24H #7 bag 10/15/19 metroNIDAZOLE [Flagyl] 500 mg PO Q8HR #21 tab 10/15/19 metroNIDAZOLE [Flagyl] 500 mg PO TID #21 tab 10/15/19 Allergies Allergy/AdvReac Type Severity Reaction Status Date / Time fentanyl AdvReac Unknown COULDNT Verified 10/01/20 12:35 EAT. Review of Systems ROS Statement: Those systems with pertinent positive or pertinent negative responses have been documented in the HPI. ROS Other: All systems not noted in ROS Statement are negative. Past Medical History Past Medical History: Cancer, Hyperlipidemia, Hypertension, Mitral Valve Prolapse (MVP), Osteoarthritis (OA) Additional Past Medical History / Comment(s): PROLAPSED MITRAL VALVE, IBS, SKIN CANCER, STATES SLIGHT SOB., SEE CARDIOLOGY H & P. History of Any Multi-Drug Resistant Organisms: None Reported Past Surgical History: Joint Replacement Additional Past Surgical History / Comment(s): REGAN TOTAL KNEES. mirtal valve repair Past Anesthesia/Blood Transfusion Reactions: No Reported Reaction Past Psychological History: Anxiety, Depression Smoking Status: Never smoker Past Alcohol Use History: Daily Past Drug Use History: None Reported - Past Family History Sister(s) Family Medical History: Cancer Additional Family Medical History / Comment(s): BOWEL CANCER General Exam Limitations: no limitations General appearance: alert, in no apparent distress Head exam: Present: atraumatic Eye exam: Present: normal appearance, PERRL, EOMI. Absent: scleral icterus, conjunctival injection, periorbital swelling ENT exam: Present: normal exam, mucous membranes moist Neck exam: Present: normal inspection, full ROM. Absent: tenderness, meningismus, lymphadenopathy Respiratory exam: Present: normal lung sounds bilaterally. Absent: respiratory distress, wheezes, rales, rhonchi, stridor Cardiovascular Exam: Present: regular rate, normal rhythm, normal heart sounds. Absent: systolic murmur, diastolic murmur, rubs, gallop, clicks Extremities exam: Present: normal capillary refill (cap refill < 2 seconds, radial pulse 2+ LUE), other (2 cm skin tear to the dorsal aspect of the left hand along the fifth metacarpal. Bleeding controlled.) Course Vital Signs 10/01/20 12:36 Temperature 99.2 F Pulse Rate 99 Respiratory 18 Rate Blood Pressure 190/113 O2 Sat by Pulse 92 L Oximetry Medical Decision Making - Medical Decision Making Patient skin tear was Steri-Stripped. Patient's repeat blood pressure is 175/104. Patient is not sure if she takes blood pressure medication or she has hypertension. Patient does take metoprolol according to her recent discharge one year ago. Patient is denying any symptoms such as chest pain, shortness of breath, headache, back pain. It at this time not emergently requiring blood pressure treatment. She does see her primary care doctor in 2 days and will follow up with that appointment and discuss her hypertension. She will return here for any worsening symptoms. Disposition Clinical Impression: Skin tear, Hypertension Disposition: HOME SELF-CARE Condition: Good Instructions (If sedation given, give patient instructions): Hypertension (ED), Skin Tear (ED) Additional Instructions: Under presents infection such as spreading or streaking redness, drainage, or fever. Steri-Strips will fall off on their own. Try to keep them dry for the next few days. Follow-up with your doctor and discuss your high blood pressure on Friday at your appointment. Return to the emergency room for any worsening symptoms. Is patient prescribed a controlled substance at d/c from ED?: No Referrals: Joseph Crain MD [Primary Care Provider] - 1-2 days Time of Disposition: 13:44
[2020-10-01 13:48] VITALS: BP 173/105; PULSE 97
== END 2020-10-01 13:58 | disposition home or self-care (01) ==
LOC: EC 12:27
DX: S61.412A Laceration without foreign body of left hand, initial encounter (principal); E78.5 Hyperlipidemia, unspecified; I10 Essential (primary) hypertension; F32.9 Major depressive disorder, single episode, unspecified; F41.9 Anxiety disorder, unspecified; M19.90 Unspecified osteoarthritis, unspecified site; Z79.82 Long term (current) use of aspirin; Z85.828 Personal history of other malignant neoplasm of skin; X58.XXXA Exposure to other specified factors, initial encounter; Z23 Encounter for immunization
CPT/HCPCS: 90471; 90715; 99282

== ENCOUNTER 2021-11-04 12:11 | Emergency (ER) | payer MEDICARE ==
[2021-11-04 12:17] VITALS: RESP 18
[2021-11-04] MEDS ORDERED: LIDOCAINE 1% INJ 10MG/ML (5 ML VIAL-PF) SQ ONE (12:22)
[2021-11-04] MEDS ORDERED: AMOXIC-POT CLAV 875-125MG 1 EACH TAB PO STA (12:22)
[2021-11-04] MEDS ORDERED: DIPH,PERTUS(ACELL)TETVAC-LF 0.5 ML VIAL IM ONE (12:22)
--- NOTE | 2021-11-04 13:54 | ED ---
Animal Bite HPI - General Chief Complaint: Animal Bite Stated Complaint: dog bite Time Seen by Provider: 11/04/21 12:18 Source: patient Mode of arrival: ambulatory Limitations: no limitations - History of Present Illness Initial Comments: Patient is an 86-year-old female presenting with chief complaint of dog bite. Patient states that her dog bit her last night on the left hand when she was trying to pick it up. Patient went to bed and then in the morning and realized that the cough may require further medical attention. Patient does not remember the date of her last tetanus. Patient still has full range of motion of the hand and fingers, no numbness or tingling. There is no redness, swelling, warmth. There is a 2 cm laceration between the second and third digits. - Related Data Home Medications Medication Instructions Recorded Confirmed Aspirin EC [Ecotrin Low Dose] 81 mg PO DAILY 09/11/19 10/07/19 Atorvastatin [Lipitor] 10 mg PO DAILY 09/11/19 10/07/19 DULoxetine HCL [Cymbalta] 60 mg PO DAILY 09/11/19 10/07/19 Furosemide [Lasix] 20 mg PO DAILY 09/11/19 10/07/19 Metoprolol Tartrate 12.5 mg PO HS 09/11/19 10/07/19 traZODone HCL [Desyrel] 100 mg PO HS PRN 09/11/19 10/07/19 Dicyclomine [Bentyl] 10 mg PO TID 10/07/19 10/07/19 Pantoprazole Sodium [Protonix] 40 mg PO DAILY 10/07/19 10/07/19 Previous Rx's Medication Instructions Recorded HYDROcodone/APAP 5-325MG [[place] 1 each PO Q4HR PRN #18 tab 10/15/19 5-325] Mirtazapine [Remeron] 7.5 mg PO HS #30 tab 10/15/19 cefTRIAXone [Rocephin] 1 gm IVPB Q24H #7 bag 10/15/19 metroNIDAZOLE [Flagyl] 500 mg PO Q8HR #21 tab 10/15/19 metroNIDAZOLE [Flagyl] 500 mg PO TID #21 tab 10/15/19 Allergies Allergy/AdvReac Type Severity Reaction Status Date / Time fentanyl AdvReac Unknown COULDNT Verified 11/04/21 12:17 EAT. Review of Systems ROS Statement: Those systems with pertinent positive or pertinent negative responses have been documented in the HPI. ROS Other: All systems not noted in ROS Statement are negative. Past Medical History Past Medical History: Cancer, Hyperlipidemia, Hypertension, Mitral Valve Prolapse (MVP), Osteoarthritis (OA) Additional Past Medical History / Comment(s): PROLAPSED MITRAL VALVE, IBS, SKIN CANCER, STATES SLIGHT SOB., SEE CARDIOLOGY H & P. History of Any Multi-Drug Resistant Organisms: None Reported Past Surgical History: Joint Replacement Additional Past Surgical History / Comment(s): REGAN TOTAL KNEES. mirtal valve repair Past Anesthesia/Blood Transfusion Reactions: No Reported Reaction Past Psychological History: Anxiety, Depression Smoking Status: Never smoker Past Alcohol Use History: Daily Past Drug Use History: None Reported - Past Family History Sister(s) Family Medical History: Cancer Additional Family Medical History / Comment(s): BOWEL CANCER General Exam Limitations: no limitations General appearance: alert, in no apparent distress Head exam: Present: atraumatic, normocephalic, normal inspection Eye exam: Present: normal appearance, EOMI. Absent: scleral icterus, periorbital swelling Neck exam: Present: normal inspection Left Hand Wrist exam: Present: full ROM, laceration (2 cm laceration between the second and third digits). Absent: tenderness, swelling, erythema Neuro motor exam: Present: wrist extension intact, fingers 2-5 abduction intact Vascular: Absent: vascular compromise Neurological exam: Present: alert, oriented X3, CN II-XII intact Psychiatric exam: Present: normal affect, normal mood Skin exam: Present: warm, dry, intact, normal color. Absent: rash Course Vital Signs 11/04/21 11/04/21 12:14 14:36 Temperature 97.8 F 98.1 F Pulse Rate 97 74 Respiratory 18 18 Rate Blood Pressure 135/71 186/103 O2 Sat by Pulse 99 96 Oximetry Procedures - Laceration Laceration #1 Consent Obtained: verbal consent Indication: laceration Site: hand Size (cm): 2 Description: linear Depth: simple, single layer Anesthetic Used: lidocaine 1%, without epi Anesthesia Technique: local infiltration Amount (mls): 2 Pre-repair: wound explored, irrigated extensively, deep structures intact Type of Sutures: nylon Size of Sutures: 4-0 Number of Sutures: 2 (2 sutures were loosely pain to loosely approximate the wound edges) Technique: simple, interrupted Patient Tolerated Procedure: well Medical Decision Making - Medical Decision Making Patient is an 86-year-old female presenting with chief complaint of dog bite. Patient states that her dog bit her last night when she tried to pick her up. She sustained a laceration between the second and third digits. There is no redness, swelling, discharge, warmth. She has full range of motion of the hand and fingers, full sensation is intact, good capillary refill. X-ray was obtained which shows no foreign body. Patient's tetanus was updated. The wound was flushed with 1 L of sterile water. Due to the depth of the wound and location, 2 loose sutures were applied to loosely approximate the edges, space is still left to prevent trapping any pathogens, I discussed this decision with my attending. I educated the patient on wound care and signs of infection. Report back to ER with any new or worsening symptoms. I discussed return parameters alarm symptoms. Sutures may be removed in 10-14 days, this may be done here at the ER, he by her PCP, gradual local urgent care. I answered all questions. Patient conveyed verbal understanding and agreed to the plan. I di scussed this case with my attending Dr. Cárdenas. - Radiology Data Radiology results: report reviewed, image reviewed No acute osseous pathology. X-ray is suggesting foreign body, however this is not near the site of the laceration and likely unrelated. Disposition Clinical Impression: Dog bite Disposition: HOME SELF-CARE Condition: Good Instructions (If sedation given, give patient instructions): Animal Bite (ED) Additional Instructions: Follow-up with PCP in one to 2 days. Report back to ER if any new or worsening symptoms, including but not limited to redness, swelling, discharge, difficulty moving finger or hand, fever, chills, warmth. 2 sutures were loosely applied to help with wound closure, there is gap left in order to prevent infection. This will result in a scar, however this is necessary to prevent infection of the hand. Sutures may be removed in 10-14 days, this may be done at your PCP, local urgent care, or this ER. Take Motrin and Tylenol for pain control. Keep the wound clean. Is patient prescribed a controlled substance at d/c from ED?: No Referrals: Joseph Crain MD [Primary Care Provider] - 1-2 days Time of Disposition: 14:01
--- NOTE | 2021-11-04 13:55 | XR ---
EXAMINATION TYPE: XR hand complete LT DATE OF EXAM: 11/04/2021 1:07 PM INDICATION: Patient age:Female; 86 years old; Reason for study: dog bite COMPARISON: None TECHNIQUE: 3 views of the left hand were obtained. FINDINGS: Focus of increased density measuring 1 mm seen near the distal interphalangeal joint of the left fifth digit. No evidence of fracture. Multifocal osteoarthrosis changes throughout the joints o f the hand. IMPRESSION: 1. No acute osseous pathology. 2. Focus of increased density near the left hand distal interphalangeal joint ulnar aspect correlate for foreign body.
[2021-11-04 14:38] VITALS: BP 186/103; PULSE 74; TEMP 98.1
== END 2021-11-04 14:38 | disposition home or self-care (01) ==
LOC: EC 12:11
DX: S61.452A Open bite of left hand, initial encounter (principal); I10 Essential (primary) hypertension; E78.5 Hyperlipidemia, unspecified; M19.90 Unspecified osteoarthritis, unspecified site; Z79.82 Long term (current) use of aspirin; Z79.899 Other long term (current) drug therapy; Z88.5 Allergy status to narcotic agent; Z23 Encounter for immunization; W54.0XXA Bitten by dog, initial encounter
CPT/HCPCS: 73130; 90715; 99283; 90471; 12001; J2001

== ENCOUNTER 2022-10-08 13:04 | Emergency (ER) | payer MEDICARE ==
[2022-10-08 13:13] VITALS: TEMP 97.7
[2022-10-08] MEDS ORDERED: BACITRACIN OINT 1 EACH PACKET TOPICAL ONE (13:52)
--- NOTE | 2022-10-08 13:54 | ED ---
General Adult HPI - General Chief complaint: Dizziness Stated complaint: dizziness Time Seen by Provider: 10/08/22 13:29 Source: patient, family, RN notes reviewed, old records reviewed Mode of arrival: wheelchair Limitations: no limitations - History of Present Illness Initial comments: This is a nontoxic-appearing a sexual female presents alert and oriented 4 with daughter and complaining of tailbone pain after a fall 6 days ago. Patient states that she takes a lot of medication and did have a alcoholic beverage which she contributes to the fall. She states that she did not hit her head or lose consciousness. Her was home at the time. She states that she does have an altered gait that's been ongoing for several weeks. Last seen her primary care Dr Crain a couple of weeks ago but did not mention this. She does have history of hypertension, hyperlipidemia, mitral valve prolapse, osteoarthritis, irritable bowel syndrome. -: days(s) (6) Location: buttocks (tailbone) Radiation: non-radiation Consistency: intermittent Associated Symptoms: other (unstesady gait) Treatments Prior to Arrival: other (excedrin) - Related Data Home Medications Medication Instructions Recorded Confirmed Furosemide [Lasix] 20 mg PO DAILY 09/11/19 10/08/22 Metoprolol Tartrate 12.5 mg PO BID 09/11/19 10/08/22 traZODone HCL [Desyrel] 100 mg PO HS 09/11/19 10/08/22 Dicyclomine [Bentyl] 10 mg PO TID PRN 10/07/19 10/08/22 Pantoprazole Sodium [Protonix] 40 mg PO DAILY 10/07/19 10/08/22 Atorvastatin [Lipitor] 40 mg PO DAILY 12/26/21 10/08/22 DULoxetine HCL [Cymbalta] 30 mg PO HS 12/26/21 10/08/22 amLODIPine [Norvasc] 5 mg PO DAILY 12/26/21 10/08/22 L.acidoph,Paracasei, B.lactis 1 cap PO DAILY 10/08/22 10/08/22 [Probiotic] amLODIPine [Norvasc] 5 mg PO DAILY 10/08/22 10/08/22 Allergies Allergy/AdvReac Type Severity Reaction Status Date / Time fentanyl AdvReac Unknown COULDNT Verified 10/08/22 14:41 EAT. Review of Systems ROS Statement: Those systems with pertinent positive or pertinent negative responses have been documented in the HPI. ROS Other: All systems not noted in ROS Statement are negative. Past Medical History Past Medical History: Cancer, Hyperlipidemia, Hypertension, Mitral Valve Prolapse (MVP), Osteoarthritis (OA) Additional Past Medical History / Comment(s): PROLAPSED MITRAL VALVE, IBS, SKIN CANCER, STATES SLIGHT SOB., SEE CARDIOLOGY H & P. History of Any Multi-Drug Resistant Organisms: None Reported Past Surgical History: Joint Replacement Additional Past Surgical History / Comment(s): REGAN TOTAL KNEES. mirtal valve repair Past Anesthesia/Blood Transfusion Reactions: No Reported Reaction Past Psychological History: Anxiety, Depression Smoking Status: Never smoker Past Alcohol Use History: Daily Past Drug Use History: None Reported - Past Family History Sister(s) Family Medical History: Cancer Additional Family Medical History / Comment(s): BOWEL CANCER Father Family Medical History: Myocardial Infarction (PR) Mother Family Medical History: No Reported History Additional Family Medical History / Comment(s): Mother lived to be 99yrs old. General Exam Limitations: no limitations General appearance: alert Head exam: Present: other (linear abrasion right parietal) Eye exam: Present: normal appearance, PERRL, EOMI. Absent: scleral icterus, conjunctival injection, periorbital swelling, periorbital tenderness ENT exam: Present: mucous membranes moist Neck exam: Present: full ROM. Absent: tenderness, meningismus Respiratory exam: Absent: respiratory distress, accessory muscle use Cardiovascular Exam: Present: regular rate GI/Abdominal exam: Present: soft. Absent: distended, tenderness, guarding, rebound, rigid Extremities exam: Present: full ROM, normal capillary refill. Absent: tenderness, pedal edema, calf tenderness Back exam: Present: other (linear bruising right flank). Absent: tenderness, CVA tenderness (R), CVA tenderness (L), paraspinal tenderness, vertebral tenderness, rash noted Neurological exam: Present: alert, oriented X3, CN II-XII intact, abnormal gait (unsteady) Psychiatric exam: Present: normal affect, normal mood Skin exam: Present: warm, dry, normal color. Absent: cyanosis, diaphoretic, petechiae, pallor Course Vital Signs 10/08/22 10/08/22 10/08/22 13:09 15:00 15:52 Temperature 97.7 F Pulse Rate 85 83 Pulse Rate [ 82 Right Sitting Pulse Oximetery ] Pulse Rate [ 89 Right Standing Pulse Oximetery ] Pulse Rate [ 81 Right Supine Pulse Oximetery ] Respiratory 16 18 15 Rate Blood Pressure 179/97 Blood Pressure 187/92 [Left Arm Sitting] Blood Pressure 165/77 [Left Arm Supine] Blood Pressure 163/114 [Left Arm] O2 Sat by Pulse 91 L 95 Oximetry 10/08/22 15:55 Temperature Pulse Rate 80 Pulse Rate [ Right Sitting Pulse Oximetery ] Pulse Rate [ Right Standing Pulse Oximetery ] Pulse Rate [ Right Supine Pulse Oximetery ] Respiratory 20 Rate Blood Pressure 155/86 Blood Pressure [Left Arm Sitting] Blood Pressure [Left Arm Supine] Blood Pressure [Left Arm] O2 Sat by Pulse 95 Oximetry EKG Findings - EKG Comments: EKG Findings:: EKG interpreted by me shows sinus rhythm with occasional PVCs. Ventricular rate 77, MD interval 0.177, QRS 0.152, QTC 0.471. Right bundle- branch block noted on EKG compared 12/26/2021. Medical Decision Making - Medical Decision Making Was pt. sent in by a medical professional or institution (, PA, CAMP PROGRAM DIRECTOR, urgent care, hospital, or correction...) When possible be specific @ -No Did you speak to anyone other than the patient for history (EMS, parent, family, police, friend...)? What history was obtained from this source @ - and daughter at bedside states her gait is normal baseline for her at this time. states he was home when she fell and did not lose consciousness. Patient does not take any blood thinners per . Did you review nursing and triage notes (agree or disagree)? Why? @ -I reviewed and agree with nursing and triage notes Were old charts reviewed (outside hosp., previous admission, EMS record, old EKG, old radiological studies, urgent care reports/EKG's, correction records)? Report findings @ -Old EKG dated 12/26/21. Differential Diagnosis (chest pain, altered mental status, abdominal pain women, abdominal pain men, vaginal bleeding, weakness, fever, dyspnea, syncope, headache, dizziness, GI bleed, back pain, seizure, CVA, palpatations, mental health, musculoskeletal)? @ -Differential Weakness: Hypoglycemia, shock, sepsis, hyponatremia, anemia, infection, PR, ETOH, adverse medicine reaction, overdose, stroke, this is not meant to be an all-inclusive list. Differential Dizziness: Benign paroxysmal positional Vertigo, Menieres disease, otitis media, acoustic neuroma, vertebrobasilar insufficiency, cerebellar stroke, encephalitis, hypovolemic, arrhythmia, coronary artery syndrome, anemia, this is not meant to be an all-inclusive list EKG interpreted by me (3pts min.). @ -Yes. EKG interpreted by me shows sinus rhythm with occasional PVCs. Ventricular rate 77, MD interval 0.177, QRS 0.152, QTC 0.471. Right bundle- branch block noted on EKG compared 12/26/2021. X-rays interpreted by me (1pt min.). @ -Yes xr ribs shows no evidence of fracture. Sternal wires noted. CT interpreted by me (1pt min.). @ -Yes CT of the brain interpreted by me shows no intracranial bleed or midline shift. No cervical spine fracture. U/S interpreted by me (1pt. min.). @ -None done What testing was considered but not performed or refused? (CT, X-rays, U/S, labs)? Why? @ -None What meds were considered but not given or refused? Why? @ -Patient was offered pain medication and declined. Did you discuss the management of the patient with other professionals (professionals i.e. , PA, CAMP PROGRAM DIRECTOR, lab, RT, psych nurse, social science teacher, automatic cigar wrapper tender, teacher, juvenile officer, registered nurse hh case manager)? Give summary @ -No Was smoking cessation discussed for >3mins.? @ -No Was critical care preformed (if so, how long)? @ -No Were there social determinants of health that impacted care today? How? (Homelessness, low income, unemployed, alcoholism, drug addiction, transportation, low edu. Level, literacy, decrease access to med. care, prison, rehab)? @ -No Was there de-escalation of care discussed even if they declined (Discuss DNR or withdrawal of care, Hospice)? DNR status @ -No What co-morbidities impacted this encounter? (DM, HTN, Smoking, COPD, CAD, Cancer, CVA, ARF, Chemo, Hep., AIDS, mental health diagnosis, sleep apnea, morbid obesity)? @ -She does have history of hypertension, hyperlipidemia, mitral valve prolapse, osteoarthritis, irritable bowel syndrome. Was patient admitted / discharged? Hospital course, mention meds given and route, prescriptions, significant lab abnormalities, going to OR and other pertinent info. @ -Discharged. This is a nontoxic-appearing 87 year olf female, alert and oriented 4, with daughter and complaining of tailbone pain after a fall 6 days ago. Patient states that she takes a lot of medication and did have a alcoholic beverage which she contributes to the fall. She states that she did not hit her head or lose consciousness. Her was home at the time. She states that she does have an altered gait that's been ongoing for several weeks. Last seen her primary care Dr Crain a couple of weeks ago but did not mention this. Patient was offered pain medication prior to arrival and declined. Labs unremarkable. EKG interpreted by me shows sinus rhythm with occasional PVCs. Ventricular rate 77, MD interval 0.177, QRS 0.152, QTC 0.471. Right bundle-branch block noted on EKG compared 12/26/2021. Troponin negative at 0.012. CT of the brain interpreted by me shows no intracranial bleed or midline shift. I did speak with Dr. Parra regarding CT who states there is some cerebral edema noted, likely from fall. Patient gait unsteady however states this has been ongoing for several months and her gait is baseline. Patient, and family member were offered admission and declined. Case management at bedside states can get patient into see her primary care doctor this Friday with physical therapy and occupational therapy to the house. Patient and family are agreeable to this plan of care. Case was discussed with Dr. Kan Undiagnosed new problem with uncertain prognosis? @ -No Drug Therapy requiring intensive monitoring for toxicity (Heparin, Nitro, Insulin, Cardizem)? @ -No Were any procedures done? @ -No Diagnosis/symptom? @ -Fall, coccyx pain, scalp abrasion, altered gait, dizziness Acute, or Chronic, or Acute on Chronic? @ -Acute Uncomplicated (without systemic symptoms) or Complicated (systemic symptoms)? @ -Uncomplicated Side effects of treatment? @ -No Exacerbation, Progression, or Severe Exacerbation? @ -No Poses a threat to life or bodily function? How? (Chest pain, USA, PR, pneumonia, PE, COPD, DKA, ARF, appy, cholecystitis, CVA, Diverticulitis, Homicidal, Suicidal, threat to staff... and all critical care pts) @ -No - Lab Data Result diagrams: 10/08/22 14:03 10/08/22 14:03 Lab Results 10/08/22 10/08/22 10/08/22 Range/Units 14:03 14:03 14:03 WBC 6.0 (3.8-10.6) k/uL RBC 4.24 (3.80-5.40) m/uL Hgb 13.9 (11.4-16.0) gm/dL Hct 42.2 (34.0-46.0) % MCV 99.6 (80.0-100.0) fL MCH 32.7 (25.0-35.0) pg MCHC 32.9 (31.0-37.0) g/dL RDW 13.9 (11.5-15.5) % Plt Count 260 (150-450) k/uL MPV 7.5 Neutrophils % 72 % Lymphocytes % 17 % Monocytes % 5 % Eosinophils % 2 % Basophils % 0 % Neutrophils # 4.4 (1.3-7.7) k/uL Lymphocytes # 1.0 (1.0-4.8) k/uL Monocytes # 0.3 (0-1.0) k/uL Eosinophils # 0.1 (0-0.7) k/uL Basophils # 0.0 (0-0.2) k/uL Sodium 142 (137-145) mmol/L Potassium 3.5 (3.5-5.1) mmol/L Chloride 106 (98-107) mmol/L Carbon Dioxide 31 H (22-30) mmol/L Anion Gap 5 mmol/L BUN 24 H (7-17) mg/dL Creatinine 0.83 (0.52-1.04) mg/dL Est GFR (CKD-EPI)AfAm 74 (>60 ml/min/1.73 sqM) Est GFR (CKD-EPI)NonAf 64 (>60 ml/min/1.73 sqM) Glucose 108 H (74-99) mg/dL Calcium 8.6 (8.4-10.2) mg/dL Total Bilirubin 0.7 (0.2-1.3) mg/dL AST 28 (14-36) U/L ALT 27 (4-34) U/L Alkaline Phosphatase 90 (38-126) U/L Troponin I <0.012 (0.000-0.034) ng/mL Total Protein 6.4 (6.3-8.2) g/dL Albumin 3.9 (3.5-5.0) g/dL Disposition Clinical Impression: Fall, Ataxia, Dizziness, Abrasion of scalp Disposition: HOME SELF-CARE Condition: Good Instructions (If sedation given, give patient instructions): Fall Prevention for Older Adults (ED), Abrasion (ED), Dizziness (ED) Additional Instructions: You were offered admission today and declined. Please follow-up with Dr. Crain on Friday as scheduled for you. Physical therapy and occupational therapy will be in contact with you. Please use your walker or cane at home to help steady your gait. Tylenol as needed for any pain. Sit on an inflatable ring for tailbone pain. Return to the emergency room with any new or concerning symptoms. Is patient prescribed a controlled substance at d/c from ED?: No Referrals: Joseph Crain MD [Primary Care Provider] - 10/11/22 2:00 pm (Your appointment is with CORTES Wu.) [facility], [NON-STAFF] - 1-2 days (Contact if any further questions regarding home care and therapy. ) Time of Disposition: 15:39
[2022-10-08 14:12] LABS: Basophils % (A) 0 %; Eosinophils # (A) 0.1 k/uL (0-0.7); Eosinophils % (A) 2 %; HCT 42.2 % (34.0-46.0); HGB 13.9 gm/dL (11.4-16.0); Lymphocytes % (A) 17 %; MCH 32.7 pg (25.0-35.0); MCHC 32.9 g/dL (31.0-37.0); MCV 99.6 fL (80.0-100.0); Mean Platelet Volume 7.5; Monocytes # (A) 0.3 k/uL (0-1.0); Monocytes % (A) 5 %; Neutrophils # (A) 4.4 k/uL (1.3-7.7); Neutrophils % (A) 72 %; Platelet Count 260 k/uL (150-450); RBC 4.24 m/uL (3.80-5.40); RDW 13.9 % (11.5-15.5)
[2022-10-08 14:22] LABS: Albumin 3.9 g/dL (3.5-5.0); Calcium 8.6 mg/dL (8.4-10.2); Potassium 3.5 mmol/L (3.5-5.1); Total Bilirubin 0.7 mg/dL (0.2-1.3); Total Protein 6.4 g/dL (6.3-8.2)
--- NOTE | 2022-10-08 14:59 | CT ---
EXAMINATION TYPE: CT brain cspine wo con CT DLP: 1352.8 mGycm, Automated exposure control for dose reduction was used. DATE OF EXAM: 10/08/2022 2:46 PM COMPARISON: 12/26/2021 CLINICAL INDICATION:Female, 87 years old with history of pain; dizziness and weakness. recent falls D LP 1352.8 TECHNIQUE: Brain: Multiple axial CT images of the brain were obtained without IV contrast. Cspine: Axial CT images from the skull base to the inferior aspect of T2 we obtained without intraven ous contrast. Coronal and sagittal reformatted images were also reviewed. FINDINGS: Brain: Extra-axial spaces: No abnormal extra-axial fluid collections. Ventricular system: Dilatation in proportion to cerebral atrophy. Cerebral parenchyma: Cerebral atrophy. No acute intraparenchymal hemorrhage or mass effect. The sierra -white junction is well differentiated. Scattered hypoattenuating areas are seen within the white mat ter. Cerebellum: Unremarkable. Mass effect: No evidence of midline shift. Intracranial vasculature: Atherosclerotic calcifications of the intracranial vessels. Soft tissues: Normal. Calvarium/osseous structures: No depressed skull fracture. Paranasal sinuses and mastoid air cells: Mild scattered mucosal thickening and or secretions. Visualized orbits: Bilateral aphakia Cervical spine: Fracture: No acute fractures. There is multiple remote left posterior rib fractures visualized. Osseous structures: Multilevel degenerative disc disease changes with endplate spurring and disc oste ophyte complex's. Sternotomy wires are present. Vertebral alignment: Within normal limits. Spinal canal/Neural Foramina: Disc osteophyte complexes at C5-C6 and C6-C7 with at least mild spinal canal stenosis. Facet joint uncovertebral joint arthropathy scattered throughout the cervical spine w ith varying degrees of neural foraminal stenosis. Worse in the lower cervical spine bilaterally exten ding from C4-C5 through C6-C7. Neck soft tissues: Prevertebral soft tissues are within normal limits. Other: The airway is patent. The lung apices are clear. IMPRESSION: 1. No acute intracranial process or significant change from prior. 2. Nonspecific white matter changes, likely secondary to chronic small vessel ischemic disease. 3. No evidence of cervical spine fracture. 4. Moderate multilevel degenerative disc disease.
--- NOTE | 2022-10-08 15:00 | XR ---
EXAMINATION TYPE: XR ribs RT DATE OF EXAM: 10/08/2022 COMPARISON: 09/11/2019 HISTORY: 87-year-old female with fall and posterior bruising, rib pain TECHNIQUE: 4 views FINDINGS: Limited by osteopenia. No obvious displaced right rib fractures seen. Annuloplasty ring and median sternotomy. IMPRESSION: Limited by osteopenia. No obvious displaced right rib fracture is seen.
[2022-10-08 15:58] VITALS: BP 155/86; PULSE 80; RESP 20
== END 2022-10-08 16:06 | disposition home or self-care (01) ==
LOC: EC 13:04
DX: S00.01XA Abrasion of scalp, initial encounter (principal); R27.0 Ataxia, unspecified; M85.80 Other specified disorders of bone density and structure, unspecified site; E78.5 Hyperlipidemia, unspecified; I10 Essential (primary) hypertension; F41.9 Anxiety disorder, unspecified; F32.A Depression, unspecified; Z79.899 Other long term (current) drug therapy; Z88.5 Allergy status to narcotic agent; W18.30XA Fall on same level, unspecified, initial encounter
CPT/HCPCS: 36415; 70450; 72125; 80053; 84484; 85025; 93005; 99285

== ENCOUNTER 2022-12-14 13:37 | Emergency (ER) | payer MEDICARE ==
[2022-12-14] MEDS ORDERED: SODIUM CHLORIDE 0.9% 1,000 ML IV STA (14:17)
[2022-12-14] MEDS ORDERED: ONDANSETRON 4 MG/2 ML VIAL IVP STA (14:17)
[2022-12-14 15:03] LABS: Basophils % (A) 0 %; Eosinophils # (A) 0.1 k/uL (0-0.7); Eosinophils % (A) 1 %; HCT 40.9 % (34.0-46.0); HGB 13.9 gm/dL (11.4-16.0); Lymphocytes # (A) 0.8 k/uL (1.0-4.8); Lymphocytes % (A) 18 %; MCH 34.3 pg (25.0-35.0); MCHC 34.1 g/dL (31.0-37.0); MCV 100.6 fL (80.0-100.0); Macrocytosis Slight; Mean Platelet Volume 7.7; Monocytes # (A) 0.3 k/uL (0-1.0); Monocytes % (A) 6 %; Neutrophils # (A) 3.1 k/uL (1.3-7.7); Neutrophils % (A) 72 %; Platelet Count 191 k/uL (150-450); RBC 4.07 m/uL (3.80-5.40); RDW 14.8 % (11.5-15.5); WBC 4.3 k/uL (3.8-10.6)
--- NOTE | 2022-12-14 15:03 | XR ---
EXAMINATION TYPE: XR chest 2V DATE OF EXAM: 12/14/2022 2:56 PM COMPARISON: Chest radiographs from 09/11/2019, CTA chest 09/11/2019 TECHNIQUE: XR chest 2V Frontal and lateral views of the chest. CLINICAL INDICATION:Female, 87 years old with history of abdominal pain; FINDINGS: Lungs/Pleura: There is no evidence of pleural effusion, focal consolidation, or pneumothorax. Chronic senescent parenchymal change. Pulmonary vascularity: Unremarkable. Heart/mediastinum: Cardiomediastinal silhouette is prominent in size. Cardiac valvular prosthesis. L eft atrial occlusion device. Musculoskeletal: No acute osseous pathology. Midline sternotomy wires are noted and stable. Degenerat birgit changes of the thoracic spine. IMPRESSION: Chronic changes without evidence for acute process.
[2022-12-14 15:24] LABS: ALT 31 U/L (4-34); AST 47 U/L (14-36); African American GFR (CKD) 80 (>60 ml/min/1.73 sqM); Alkaline Phosphatase 94 U/L (38-126); Amylase 51 U/L (30-110); Anion Gap 7 mmol/L; Blood Urea Nitrogen 20 mg/dL (7-17); Calcium 8.5 mg/dL (8.4-10.2); Carbon Dioxide 23 mmol/L (22-30); Chloride 108 mmol/L (98-107); Glucose 99 mg/dL (74-99); Lipase 105 U/L (23-300); Non-African American GFR(CKD) 69 (>60 ml/min/1.73 sqM); Sodium 138 mmol/L (137-145); Total Bilirubin 1.5 mg/dL (0.2-1.3); Total Protein 6.7 g/dL (6.3-8.2)
[2022-12-14 15:25] LABS: Potassium 4.4 mmol/L (3.5-5.1)
[2022-12-14 15:43] VITALS: RESP 16; TEMP 97.7
[2022-12-14 15:48] VITALS: BP 141/74; PULSE 66
--- NOTE | 2022-12-14 16:16 | ED ---
General Adult HPI - General Chief complaint: Nausea/Vomiting/Diarrhea Stated complaint: Nausea Time Seen by Provider: 12/14/22 14:03 Source: patient, RN notes reviewed, old records reviewed Mode of arrival: wheelchair Limitations: physical limitation - History of Present Illness Initial comments: Patient is an 87-year-old female who presents emergency Department complaining of nausea, cold symptoms. He isn't complaining of general mild cough. Denies fever. Denies sick contacts. Denies sore throat. Denies abdominal pain. Denies episodes of emesis. Denies constipation or diarrhea. Denies chest pain. Denies shortness of breath. Has no other acute complaints at this time. Presents over concern for the mild nausea as well as her cold-like symptoms. Unknown if she has a viral syndrome. - Related Data Home Medications Medication Instructions Recorded Confirmed Furosemide [Lasix] 20 mg PO DAILY 09/11/19 10/08/22 Metoprolol Tartrate 12.5 mg PO BID 09/11/19 10/08/22 traZODone HCL [Desyrel] 100 mg PO HS 09/11/19 10/08/22 Dicyclomine [Bentyl] 10 mg PO TID PRN 10/07/19 10/08/22 Pantoprazole Sodium [Protonix] 40 mg PO DAILY 10/07/19 10/08/22 Atorvastatin [Lipitor] 40 mg PO DAILY 12/26/21 10/08/22 DULoxetine HCL [Cymbalta] 30 mg PO HS 12/26/21 10/08/22 amLODIPine [Norvasc] 5 mg PO DAILY 12/26/21 10/08/22 L.acidoph,Paracasei, B.lactis 1 cap PO DAILY 10/08/22 10/08/22 [Probiotic] amLODIPine [Norvasc] 5 mg PO DAILY 10/08/22 10/08/22 Previous Rx's Medication Instructions Recorded Azithromycin [Zithromax] 0 mg PO DIRECTED #6 tab 12/14/22 Allergies Allergy/AdvReac Type Severity Reaction Status Date / Time fentanyl AdvReac Unknown COULDNT Verified 12/14/22 13:41 EAT. Review of Systems ROS Statement: Those systems with pertinent positive or pertinent negative responses have been documented in the HPI. Review of Systems: CONST: Denies fever EYES: Denies blurry vision ENT: Endorses nasal congestion C/V: Denies Chest pain RESP: Denies shortness of breath GI: Denies abdominal pain : Denies dysuria SKIN: Denies rash. MSK: Denies joint pain. NEURO: Denies headache ROS Other: All systems not noted in ROS Statement are negative. Past Medical History Past Medical History: Cancer, Hyperlipidemia, Hypertension, Mitral Valve Prolapse (MVP), Osteoarthritis (OA) Additional Past Medical History / Comment(s): PROLAPSED MITRAL VALVE, IBS, SKIN CANCER, STATES SLIGHT SOB., SEE CARDIOLOGY H & P. History of Any Multi-Drug Resistant Organisms: None Reported Past Surgical History: Joint Replacement Additional Past Surgical History / Comment(s): REGAN TOTAL KNEES. mirtal valve repair Past Anesthesia/Blood Transfusion Reactions: No Reported Reaction Past Psychological History: Anxiety, Depression Smoking Status: Never smoker Past Alcohol Use History: Daily Past Drug Use History: None Reported - Past Family History Sister(s) Family Medical History: Cancer Additional Family Medical History / Comment(s): BOWEL CANCER Father Family Medical History: Myocardial Infarction ([place]) Mother Family Medical History: No Reported History Additional Family Medical History / Comment(s): Mother lived to be 99yrs old. General Exam - General Exam Comments Initial Comments: General: Appears in no acute distress. HEAD: Normal with no signs of head trauma. EYES: PERRLA, EOMI, conjunctiva normal, no discharge. ENT: Hearing grossly intact, normal oropharynx. RESPIRATORY: Clear breath sounds bilaterally. No wheezes, rales, or rhonchi. C/V: Regular rate and rhythm. S1 and S2 auscultated, no edema, peripheral pulses 2+ and intact throughout ABD: Abd is soft, nontender, nondistended EXT: Normal range of motion, no obvious deformity SKIN: No rashes or lesions observed on exposed skin. NEURO: Alert and oriented x 4. Cranial nerves II-XII intact. No focal sensory or strength deficits. Limitations: physical limitation Course Vital Signs 12/14/22 12/14/22 12/14/22 13:39 14:01 15:43 Temperature 99.0 F 97.7 F Pulse Rate 113 H 72 86 Respiratory 18 18 16 Rate Blood Pressure 158/89 140/80 O2 Sat by Pulse 91 L 93 L 94 L Oximetry 12/14/22 15:48 Temperature Pulse Rate 66 Respiratory 16 Rate Blood Pressure 141/74 O2 Sat by Pulse 94 L Oximetry Medical Decision Making - Medical Decision Making Was pt. sent in by a medical professional or institution ([facility], [facility], urgent care, hospital, or fdc...) When possible be specific @ -No Did you speak to anyone other than the patient for history (EMS, parent, family, police, friend...)? What history was obtained from this source @ -No Did you review nursing and triage notes (agree or disagree)? Why? @ -I reviewed and agree with nursing and triage notes Were old charts reviewed (outside hosp., previous admission, EMS record, old EKG, old radiological studies, urgent care reports/EKG's, fdc records)? Report findings @ -No old charts were reviewed Differential Diagnosis (chest pain, altered mental status, abdominal pain women, abdominal pain men, vaginal bleeding, weakness, fever, dyspnea, syncope, headache, dizziness, GI bleed, back pain, seizure, CVA, palpatations, mental health, musculoskeletal)? @ -Viral syndrome, dehydration, COVID-19 infection, UTI. This list is not all- inclusive. EKG interpreted by me (3pts min.). @ -As above X-rays interpreted by me (1pt min.). @ -Chest x-ray reveals no obvious acute cardiopulmonary process. CT interpreted by me (1pt min.). @ -None done U/S interpreted by me (1pt. min.). @ -None done What testing was considered but not performed or refused? (CT, X-rays, U/S, labs)? Why? @ -None What meds were considered but not given or refused? Why? @ -None Did you discuss the management of the patient with other professionals (professionals i.e. [facility]DA Saunders, [employer], lab, RT, psych nurse, social service liaison, signal manager, teacher, jailer/training officer, case manager specialist)? Give summary @ -No Was smoking cessation discussed for >3mins.? @ -No Was critical care preformed (if so, how long)? @ -No Were there social determinants of health that impacted care today? How? (Homelessness, low income, unemployed, alcoholism, drug addiction, transportation, low edu. Level, literacy, decrease access to med. care, long-term, rehab)? @ -No Was there de-escalation of care discussed even if they declined (Discuss DNR or withdrawal of care, Hospice)? DNR status @ -No What co-morbidities impacted this encounter? (DM, HTN, Smoking, COPD, CAD, Cancer, CVA, ARF, Chemo, Hep., AIDS, mental health diagnosis, sleep apnea, morbid obesity)? @ -None Was patient admitted / discharged? Hospital course, mention meds given and route, prescriptions, significant lab abnormalities, going to OR and other pert inent info. @ -Based on the patient's presentation and physical exam, I'm concerned for was likely viral syndrome. Patient but cannot rule out other etiology at this time. We'll obtain basic labs, vital swabs, urinalysis. Screening EKG and chest x-ray will also be obtained. She'll be symptomatically treated with IV fluids as well as IV Zofran. Patient was in agreement this plan. Vital signs are within acceptable limits. EKG showed no signs of ischemia. Patient's labs are within acceptable limits. Vital signs negative. Urinalysis is still pending. Chest x-ray unremarkable. On reevaluation, patient's asking to leave. She feels improved. We are still waiting for the urinalysis but she states she can follow-up with her PCP as needed. I believe this is reasonable. Strict return precautions were discussed. We did discuss antibiotics and she will be empirically placed on azithromycin at this time for her upper respiratory symptoms due to her age. She was in agreement this plan. I will provide the patient with a prescription for azithromycin. I instructed the patient to follow up with their PCP in the next 1-3 days. I explained that the patient should return to the emergency department if they experience any worsening symptoms. Strict return precautions were discussed with the patient. The patient expressed understanding of these instructions. I answered all questions that the patient had. The patient was discharged home in good co ndition with their prescriptions and follow up information. Undiagnosed new problem with uncertain prognosis? @ -No Drug Therapy requiring intensive monitoring for toxicity (Heparin, Nitro, Insulin, Cardizem)? @ -No Were any procedures done? @ -No Diagnosis/symptom? @ -Viral syndrome, nausea, URI Acute, or Chronic, or Acute on Chronic? @ -Acute Uncomplicated (without systemic symptoms) or Complicated (systemic symptoms)? @ -Uncomplicated Side effects of treatment? @ -No Exacerbation, Progression, or Severe Exacerbation? @ -No Poses a threat to life or bodily function? How? (Chest pain, [place], [place], pneumonia, PE, COPD, DKA, ARF, appy, cholecystitis, CVA, Diverticulitis, Homicidal, Suicidal, threat to staff... and all critical care pts) @ -No - Lab Data Result diagrams: 12/14/22 14:34 12/14/22 14:34 Lab Results 12/14/22 12/14/22 12/14/22 Range/Units 14:34 14:34 14:34 WBC 4.3 (3.8-10.6) k/uL RBC 4.07 (3.80-5.40) m/uL Hgb 13.9 (11.4-16.0) gm/dL Hct 40.9 (34.0-46.0) % MCV 100.6 H (80.0-100.0) fL MCH 34.3 (25.0-35.0) pg MCHC 34.1 (31.0-37.0) g/dL RDW 14.8 (11.5-15.5) % Plt Count 191 (150-450) k/uL MPV 7.7 Neutrophils % 72 % Lymphocytes % 18 % Monocytes % 6 % Eosinophils % 1 % Basophils % 0 % Neutrophils # 3.1 (1.3-7.7) k/uL Lymphocytes # 0.8 L (1.0-4.8) k/uL Monocytes # 0.3 (0-1.0) k/uL Eosinophils # 0.1 (0-0.7) k/uL Basophils # 0.0 (0-0.2) k/uL Macrocytosis Slight Sodium 138 (137-145) mmol/L Potassium 4.4 (3.5-5.1) mmol/L Chloride 108 H (98-107) mmol/L Carbon Dioxide 23 (22-30) mmol/L Anion Gap 7 mmol/L BUN 20 H (7-17) mg/dL Creatinine 0.78 (0.52-1.04) mg/dL Est GFR (CKD-EPI)AfAm 80 (>60 ml/min/1.73 sqM) Est GFR (CKD-EPI)NonAf 69 (>60 ml/min/1.73 sqM) Glucose 99 (74-99) mg/dL Plasma Lactic Acid Aayush 1.4 (0.7-2.0) mmol/L Calcium 8.5 (8.4-10.2) mg/dL Total Bilirubin 1.5 H (0.2-1.3) mg/dL AST 47 H (14-36) U/L ALT 31 (4-34) U/L Alkaline Phosphatase 94 (38-126) U/L Total Protein 6.7 (6.3-8.2) g/dL Albumin 4.0 (3.5-5.0) g/dL Amylase 51 (30-110) U/L Lipase 105 (23-300) U/L Influenza Type A (PCR) (Not Detectd) Influenza Type B (PCR) (Not Detectd) RSV (PCR) (Not Detectd) SARS-CoV-2 (PCR) (Not Detectd) 12/14/22 Range/Units 14:34 WBC (3.8-10.6) k/uL RBC (3.80-5.40) m/uL Hgb (11.4-16.0) gm/dL Hct (34.0-46.0) % MCV (80.0-100.0) fL MCH (25.0-35.0) pg MCHC (31.0-37.0) g/dL RDW (11.5-15.5) % Plt Count (150-450) k/uL MPV Neutrophils % % Lymphocytes % % Monocytes % % Eosinophils % % Basophils % % Neutrophils # (1.3-7.7) k/uL Lymphocytes # (1.0-4.8) k/uL Monocytes # (0-1.0) k/uL Eosinophils # (0-0.7) k/uL Basophils # (0-0.2) k/uL Macrocytosis Sodium (137-145) mmol/L Potassium (3.5-5.1) mmol/L Chloride (98-107) mmol/L Carbon Dioxide (22-30) mmol/L Anion Gap mmol/L BUN (7-17) mg/dL Creatinine (0.52-1.04) mg/dL Est GFR (CKD-EPI)AfAm (>60 ml/min/1.73 sqM) Est GFR (CKD-EPI)NonAf (>60 ml/min/1.73 sqM) Glucose (74-99) mg/dL Plasma Lactic Acid Aayush (0.7-2.0) mmol/L Calcium (8.4-10.2) mg/dL Total Bilirubin (0.2-1.3) mg/dL AST (14-36) U/L ALT (4-34) U/L Alkaline Phosphatase (38-126) U/L Total Protein (6.3-8.2) g/dL Albumin (3.5-5.0) g/dL Amylase (30-110) U/L Lipase (23-300) U/L Influenza Type A (PCR) Not Detected (Not Detectd) Influenza Type B (PCR) Not Detected (Not Detectd) RSV (PCR) Not Detected (Not Detectd) SARS-CoV-2 (PCR) Not Detected (Not Detectd) - EKG Data -: EKG Interpreted by Me EKG Comments: 12-lead Electrocardiogram Interpretation Note EKG was reviewed and interpreted by myself. 12-lead ECG performed at 1347 is interpreted by me as revealing ectopic atrial rhythm at a rate of 81 beats per minute. Right bundle branch block pathology. Mild right axis deviation. There were no ST or T wave abnormalities to suggest myocardial ischemia or injury. R wave progression across the precordium was satisfactory. By my interpretation this EKG is non-diagnostic for acute ischemia. When compared with With prior EKGs from September 2022, no significant change. Disposition Clinical Impression: Viral syndrome, URI, acute Disposition: HOME SELF-CARE Condition: Good Instructions (If sedation given, give patient instructions): Viral Syndrome (ED) Prescriptions: Azithromycin [Zithromax] 0 mg PO DIRECTED #6 tab Is patient prescribed a controlled substance at d/c from ED?: No Referrals: Joseph Crain MD [Primary Care Provider] - 1-2 days Time of Disposition: 16:06
== END 2022-12-14 16:23 | disposition home or self-care (01) ==
LOC: EC 13:37
DX: B34.9 Viral infection, unspecified (principal); J06.9 Acute upper respiratory infection, unspecified; E78.5 Hyperlipidemia, unspecified; I10 Essential (primary) hypertension; F41.9 Anxiety disorder, unspecified; F32.A Depression, unspecified; Z79.899 Other long term (current) drug therapy; Z88.5 Allergy status to narcotic agent; Z20.822 Contact with and (suspected) exposure to COVID-19
CPT/HCPCS: 36415; 93005; 80053; 82150; 83605; 83690; 85025; 87636; 71046; 99284; 96374; 96361; J2405

== ENCOUNTER → 2023-02-01 | Outpatient (CLI) | payer MEDICARE ==
--- NOTE | 2023-02-01 16:34 | MR ---
EXAMINATION TYPE: MR brain wo/w con DATE OF EXAM: 02/01/2023 COMPARISON: CT brain October 08, 2022 and older studies through 2818 HISTORY: Memory issues, normal pressure hydrocephalus TECHNIQUE: Multiplanar, multisequence images of the brain and brainstem is performed without and with IV contras t, utilizing 6.5 mL intravenous Gadavist . FINDINGS: Diffusion weighted images demonstrate no evidence of a recent infarct or other diffusion ab normality. There is mild to moderate ventricular and sulcal prominence redemonstrated. There are foc al and confluent areas of T2 hyperintensity seen bilaterally greatest at periventricular levels ident ified. Midline structures demonstrate normal morphology. The craniocervical junction appears within normal limits. Post contrast images demonstrate no abnormal enhancement. The dural venous sinuses appear pa tent. Bilateral aphakia is redemonstrated. Increased fluid signal right mastoid air cells is present. There is dependent fluid in the left maxillary sinus at the site of prior polyp or cyst. IMPRESSION: 1. There is [id number] diffuse cerebral atrophy and advanced chronic small vessel ischemic rodríguez ge. No abnormal enhancement. Ventricle size not out of proportion to degree of sulcal effacement and not significantly changed back through 2018 CT to suggest normal pressure hydrocephalus. 2. Possible acute on chronic left maxillary sinusitis, correlate clinically. 3. Possible right-sided acute mastoiditis, correlate clinically with point tenderness at this level.
== END | disposition home or self-care (01) ==
LOC: RADMRIMAIN 14:21
PROVIDERS: ATTEND Internal Medicine Geriatric Medicine
DX: G91.2 (Idiopathic) normal pressure hydrocephalus (principal); G31.9 Degenerative disease of nervous system, unspecified; I67.82 Cerebral ischemia
CPT/HCPCS: 70553; A9585

== ENCOUNTER → 2023-02-28 | Outpatient (CLI) | payer MEDICARE ==
--- NOTE | 2023-02-28 13:13 | BD ---
EXAMINATION TYPE: Axial Bone Density DATE OF EXAM: 02/28/2023 CLINICAL HISTORY: 87 years old Female. ICD-10 CODE: M81.0 OSTEOPOROSIS Height: 63in Weight: 140lb FRAX RISK QUESTIONS: Family History (Parent hip fracture): yes History of Fracture in Adulthood: yes Secondary Osteoporosis: RISK FACTORS HISTORY OF: History of Wrist Fracture: yes, pt can't recall which one When: unknown Family History of Osteoporosis: yes Active: no Postmenopausal woman: yes Lost more than 2 inches in height since high school: unsure MEDICATIONS: Additional Medications: none Additional History: pt can't recall her health history EXAM MEASUREMENTS: Bone mineral densitometry was performed using the [employer] System. Bone mineral density as measured about the Lumbar spine is: ----- L1-L4(G/cm2): 1.154 T Score Values are as follows: ----- L1: -0.8 ----- L2: 0.3 ----- L3: 0.6 ----- L4: -0.7 ----- L1-L4: -0.2 Z Score Values are as follows: ----- L1: 1.2 ----- L2: 2.2 ----- L3: 2.5 ----- L4: 1.3 ----- L1-L4: 1.8 Bone mineral density has: Increased 5.2% since study of: 02-01-2020 Bone mineral density about the R hip (g/cm2): 0.843 Bone mineral density about the L hip (g/cm2): 0.772 T Score values are as follows: -----R Neck: -1.1 -----L Neck: -2.0 -----R Total: -1.3 -----L Total: -1.9 Z Score values are as follows: -----R Neck: 1.4 -----L Neck: 0.5 -----R Total: 1.1 -----L Total: 0.5 Bone mineral density has: Decreased -5.2% since study of: 02-01-2020 FRAX%s: The graph provided illustrates a 37.8% chance for a major osteoporotic fx and a 24.8% chance for the hips probability for fx in 10 years time. IMPRESSION: Osteopenia (T Score between -2.5 and -1). There is slightly increased risk of fracture and the patient may be considered for treatment. Re-Screen 2-5 years. NOTE: T-SCORE=SD OF THE YOUNG ADULT MEAN.
--- NOTE | 2023-03-04 14:25 | MM ---
Reason for Exam: Screening (asymptomatic). Last mammogram was performed 3 year(s) and 1 month(s) ago. Patient History: Menarche at age 14. First Full-Term at age 26. Hysterectomy at age 71. Postmenopausal. Patient has history of breast feeding. Other cancer, age 68. Hormonal Contraceptives for 4 years from age 24 until age 28. Prior Study Comparison: 05/16/2017 Bilateral Screening Mammogram, [facility]. 02/01/2020 Bilateral Screening Mammogram, [facility]. 02/09/2020 Left Diagnostic Mammogram, [facility]. Tissue Density: There are scattered fibroglandular densities. Findings: Analyzed By CAD. Pattern appears symmetrical and stable. No significant interval change is evident. No suspicious groups of microcalcifications, spiculated or lobular masses, architectural distortion or other secondary signs of malignancy are mammographically apparent. Overall Assessment: Benign, BI-RAD 2 Management: Screening Mammogram of both breasts in 1 year. A negative mammogram report should not preclude additional follow up of suspicious palpable abnormalities. Patient should continue monthly self breast exam. A clinical breast exam by your physician is recommended on an annual basis and results should be correlated with mammographic findings. Electronically signed and approved by: Don Nielsen D.O. Radiologis
== END | disposition home or self-care (01) ==
LOC: RADBDWWP 12:29
PROVIDERS: ATTEND Internal Medicine Geriatric Medicine
DX: Z12.31 Encounter for screening mammogram for malignant neoplasm of breast (principal); M81.0 Age-related osteoporosis without current pathological fracture; M85.89 Other specified disorders of bone density and structure, multiple sites; Z78.0 Asymptomatic menopausal state
CPT/HCPCS: 77063; 77067; 77080

== ENCOUNTER 2023-08-16 16:48 | Emergency (ER) | payer MEDICARE ==
[2023-08-16 17:07] VITALS: RESP 18; TEMP 98.3
--- NOTE | 2023-08-16 17:09 | ED ---
Abdominal Pain HPI - General Chief Complaint: Abdominal Pain Stated Complaint: right side abd pain Time Seen by Provider: 08/16/23 16:58 Source: patient Mode of arrival: ambulatory Limitations: no limitations - History of Present Illness Initial Comments: 87-year-old female presenting to the ED with a chief complaint of abdominal pain. Has a past surgical history significant for appendectomy. Patient states that since 3 days ago has had intermittent right lower abdominal pain. Is unsure unable to tell me how often pain occurs and how long this lasts. No known alleviating or provoking factors. Patient reports her last regular bowel movement was yesterday. Denies dysuria, frequency, urgency, hematuria. No changes in bowel habits. Denies fever or chills. Denies chest pains or shortness of breath. No other complaints at this time. - Related Data Home Medications Medication Instructions Recorded Confirmed Furosemide [Lasix] 20 mg PO DAILY 09/11/19 10/08/22 Metoprolol Tartrate 12.5 mg PO BID 09/11/19 10/08/22 traZODone HCL [Desyrel] 100 mg PO HS 09/11/19 10/08/22 Dicyclomine [Bentyl] 10 mg PO TID PRN 10/07/19 10/08/22 Pantoprazole Sodium [Protonix] 40 mg PO DAILY 10/07/19 10/08/22 Atorvastatin [Lipitor] 40 mg PO DAILY 12/26/21 10/08/22 DULoxetine HCL [Cymbalta] 30 mg PO HS 12/26/21 10/08/22 amLODIPine [Norvasc] 5 mg PO DAILY 12/26/21 10/08/22 L.acidoph,Paracasei, B.lactis 1 cap PO DAILY 10/08/22 10/08/22 [Probiotic] amLODIPine [Norvasc] 5 mg PO DAILY 10/08/22 10/08/22 Previous Rx's Medication Instructions Recorded Azithromycin [Zithromax] 0 mg PO DIRECTED #6 tab 12/14/22 Allergies Allergy/AdvReac Type Severity Reaction Status Date / Time fentanyl AdvReac Unknown COULDNT Verified 08/16/23 16:53 EAT. Review of Systems ROS Statement: Those systems with pertinent positive or pertinent negative responses have been documented in the HPI. ROS Other: All systems not noted in ROS Statement are negative. Past Medical History Past Medical History: Cancer, Hyperlipidemia, Hypertension, Mitral Valve Prolapse (MVP), Osteoarthritis (OA) Additional Past Medical History / Comment(s): PROLAPSED MITRAL VALVE, IBS, SKIN CANCER, STATES SLIGHT SOB., SEE CARDIOLOGY H & P. History of Any Multi-Drug Resistant Organisms: None Reported Past Surgical History: Joint Replacement Additional Past Surgical History / Comment(s): REGAN TOTAL KNEES. mirtal valve repair Past Anesthesia/Blood Transfusion Reactions: No Reported Reaction Past Psychological History: Anxiety, Depression Smoking Status: Never smoker Past Alcohol Use History: Daily Past Drug Use History: None Reported - Past Family History Sister(s) Family Medical History: Cancer Additional Family Medical History / Comment(s): BOWEL CANCER Father Family Medical History: Myocardial Infarction ([place]) Mother Family Medical History: No Reported History Additional Family Medical History / Comment(s): Mother lived to be 99yrs old. General Exam Limitations: no limitations General appearance: alert, in no apparent distress Eye exam: Present: normal appearance Neck exam: Present: normal inspection Respiratory exam: Present: normal lung sounds bilaterally Cardiovascular Exam: Present: regular rate GI/Abdominal exam: Present: soft, normal bowel sounds, other (No CVA tenderness to percussion bilaterally.). Absent: distended, tenderness, guarding, rebound, rigid Neurological exam: Present: alert, oriented X3 Skin exam: Present: warm, dry Course Vital Signs 08/16/23 16:51 Temperature 98.3 F Pulse Rate 98 Respiratory 18 Rate Blood Pressure 135/80 O2 Sat by Pulse 99 Oximetry Medical Decision Making - Medical Decision Making Was pt. sent in by a medical professional or institution (, PA, DIRECTOR EXECUTIVE COMMUNICATIONS, urgent care, hospital, or retirement...) When possible be specific @ -No Did you speak to anyone other than the patient for history (EMS, parent, family, police, friend...)? What history was obtained from this source @ -No Did you review nursing and triage notes (agree or disagree)? Why? @ -I reviewed and agree with nursing and triage notes Were old charts reviewed (outside hosp., previous admission, EMS record, old EKG, old radiological studies, urgent care reports/EKG's, retirement records)? Report findings @ -No old charts were reviewed Differential Diagnosis (chest pain, altered mental status, abdominal pain women, abdominal pain men, vaginal bleeding, weakness, fever, dyspnea, syncope, headache, dizziness, GI bleed, back pain, seizure, CVA, palpatations, mental health, musculoskeletal)? @ -Differential Abdominal Pain Women: Appendicitis, Cholecystitis, diverticulosis, ischemic bowel, pancreatitis, hepatitis, UTI, gastroenteritis, AAA, incarcerated hernia, bowel obstruction, constipation, inflammatory bowel, hepatitis, peptic ulcer disease, splenic infarction, perforated viscus, vulvitis, ovarian torsion, PID, kidney stone, placenta abruption, this is not meant to be an all-inclusive list EKG interpreted by me (3pts min.). @ -None X-rays interpreted by me (1pt min.). @ -None done CT interpreted by me (1pt min.). @ -CT abdomen pelvis interpreted by me revealed no evidence of acute process. U/S interpreted by me (1pt. min.). @ -None done What testing was considered but not performed or refused? (CT, X-rays, U/S, labs)? Why? @ -Urinalysis was to be performed however patient states that she is "kidney shy" and is unable to provide us a urine sample. Patient reports that she does not want to wait to try and provide us a urine sample and would like to go home. What meds were considered but not given or refused? Why? @ -None Did you discuss the management of the patient with other professionals (professionals i.e. , PA, DIRECTOR EXECUTIVE COMMUNICATIONS, lab, RT, psych nurse, social media senior associate, claims adjuster, teacher, investment officer, case aide)? Give summary @ -No Was smoking cessation discussed for >3mins.? @ -No Was critical care preformed (if so, how long)? @ -No Were there social determinants of health that impacted care today? How? (Homelessness, low income, unemployed, alcoholism, drug addiction, transportation, low edu. Level, literacy, decrease access to med. care, custodial, rehab)? @ -No Was there de-escalation of care discussed even if they declined (Discuss DNR or withdrawal of care, Hospice)? DNR status @ -No What co-morbidities impacted this encounter? (DM, HTN, Smoking, COPD, CAD, Cancer, CVA, ARF, Chemo, Hep., AIDS, mental health diagnosis, sleep apnea, morbid obesity)? @ -None Was patient admitted / discharged? Hospital course, mention meds given and route, prescriptions, significant lab abnormalities, going to OR and other pertinent info. @ -Discharge 87-year-old female presenting to the ED with complaints of right lower intermittent abdominal pain for the past 3 days. At this time, patient reports she is currently pain-free. There are no associated symptoms with this. Abdominal exam shows no tenderness to palpation with no rebound guarding or rigidity normal bowel sounds. No flank tenderness to percussion bilaterally. Laboratory studies reviewed. Labs including CBC CMP unremarkable. vital signs stable afebrile. Discharged home in stable condition with instructions to follow-up closely with her primary care provider. Discussed return precautions with patient and family who verbalized agreement. Undiagnosed new problem with uncertain prognosis? @ -No Drug Therapy requiring intensive monitoring for toxicity (Heparin, Nitro, Insulin, Cardizem)? @ -No Were any procedures done? @ -No Diagnosis/symptom? @ -Abdominal pain, now resolved Acute, or Chronic, or Acute on Chronic? @ -Acute Uncomplicated (without systemic symptoms) or Complicated (systemic symptoms)? @ -Uncomplicated Side effects of treatment? @ -No Exacerbation, Progression, or Severe Exacerbation? @ -No Poses a threat to life or bodily function? How? (Chest pain, [place], [place], pneumonia, PE, COPD, DKA, ARF, appy, cholecystitis, CVA, Diverticulitis, Homicidal, Suic idal, threat to staff... and all critical care pts) @ -No - Lab Data Result diagrams: 08/16/23 17:19 08/16/23 17:19 Lab Results 08/16/23 08/16/23 Range/Units 17:19 17:19 WBC 4.0 (3.8-10.6) k/uL RBC 4.79 (3.80-5.40) m/uL Hgb 14.4 (11.4-16.0) gm/dL Hct 45.5 (34.0-46.0) % MCV 94.9 (80.0-100.0) fL MCH 30.0 (25.0-35.0) pg MCHC 31.6 (31.0-37.0) g/dL RDW 13.6 (11.5-15.5) % Plt Count 241 (150-450) k/uL MPV 7.3 Neutrophils % 69 % Lymphocytes % 19 % Monocytes % 6 % Eosinophils % 3 % Basophils % 0 % Neutrophils # 2.8 (1.3-7.7) k/uL Lymphocytes # 0.8 L (1.0-4.8) k/uL Monocytes # 0.3 (0-1.0) k/uL Eosinophils # 0.1 (0-0.7) k/uL Basophils # 0.0 (0-0.2) k/uL Sodium 139 (137-145) mmol/L Potassium 4.1 (3.5-5.1) mmol/L Chloride 104 (98-107) mmol/L Carbon Dioxide 27 (22-30) mmol/L Anion Gap 8 mmol/L BUN 23 H (7-17) mg/dL Creatinine 0.98 (0.52-1.04) mg/dL Est GFR (CKD-EPI)AfAm 60 (>60 ml/min/1.73 sqM) Est GFR (CKD-EPI)NonAf 52 (>60 ml/min/1.73 sqM) Glucose 155 H (74-99) mg/dL Calcium 8.7 (8.4-10.2) mg/dL Total Bilirubin 1.0 (0.2-1.3) mg/dL AST 39 H (14-36) U/L ALT 32 (4-34) U/L Alkaline Phosphatase 110 (38-126) U/L Total Protein 7.1 (6.3-8.2) g/dL Albumin 4.2 (3.5-5.0) g/dL Amylase 90 (30-110) U/L Lipase 50 (23-300) U/L Disposition Clinical Impression: Abdominal pain Disposition: HOME SELF-CARE Condition: Good Instructions (If sedation given, give patient instructions): Abdominal Pain (ED) Additional Instructions: Please return to the Emergency Department if symptoms worsen or any other concerns. Please follow-up with your primary care provider and please have urinalysis performed at follow-up. Is patient prescribed a controlled substance at d/c from ED?: No Referrals: Joseph Crain MD [Primary Care Provider] - 1-2 days Time of Disposition: 18:53
[2023-08-16] MEDS: SODIUM CHLORIDE 0.9% 1,000 ML IV STA (17:19)
[2023-08-16 17:32] LABS: Basophils % (A) 0 %; Eosinophils # (A) 0.1 k/uL (0-0.7); Eosinophils % (A) 3 %; HCT 45.5 % (34.0-46.0); HGB 14.4 gm/dL (11.4-16.0); Lymphocytes # (A) 0.8 k/uL (1.0-4.8); Lymphocytes % (A) 19 %; MCHC 31.6 g/dL (31.0-37.0); MCV 94.9 fL (80.0-100.0); Mean Platelet Volume 7.3; Monocytes # (A) 0.3 k/uL (0-1.0); Monocytes % (A) 6 %; Neutrophils # (A) 2.8 k/uL (1.3-7.7); Neutrophils % (A) 69 %; Platelet Count 241 k/uL (150-450); RBC 4.79 m/uL (3.80-5.40); RDW 13.6 % (11.5-15.5)
[2023-08-16 17:40] LABS: ALT 32 U/L (4-34); AST 39 U/L (14-36); African American GFR (CKD) 60 (>60 ml/min/1.73 sqM); Albumin 4.2 g/dL (3.5-5.0); Alkaline Phosphatase 110 U/L (38-126); Amylase 90 U/L (30-110); Anion Gap 8 mmol/L; Blood Urea Nitrogen 23 mg/dL (7-17); Calcium 8.7 mg/dL (8.4-10.2); Carbon Dioxide 27 mmol/L (22-30); Chloride 104 mmol/L (98-107); Glucose 155 mg/dL (74-99); Lipase 50 U/L (23-300); Non-African American GFR(CKD) 52 (>60 ml/min/1.73 sqM); Sodium 139 mmol/L (137-145); Total Protein 7.1 g/dL (6.3-8.2)
[2023-08-16 17:48] LABS: Potassium 4.1 mmol/L (3.5-5.1)
--- NOTE | 2023-08-16 18:34 | CT ---
EXAMINATION TYPE: CT abdomen pelvis w con DATE OF EXAM: 08/16/2023 COMPARISON: 10/07/2019 INDICATION: RLQ abdominal pain hx of appy DLP: 784.2 mGycm, Automated exposure control for dose reduction was used. CONTRAST: 80 mL of Isovue 300. Study performed without Oral Contrast TECHNIQUE: Axial images were obtained from above the diaphragm to the pubic rami in the axial plane a t 5 mm thick sections. Reconstructed images are reviewed on the computer in the coronal plane. FINDINGS: Limited CT sections are obtained the lung bases. The lung bases are clear. Coronary artery calcific ations present CT ABDOMEN: Liver: Scattered cysts are present through the liver. Spleen: Normal Pancreas: Somewhat atrophic Adrenal glands: The adrenal glands are normal. Gallbladder: Normal Kidneys: No masses are evident. No hydronephrosis is present. No cysts are present. Delayed images were obtained through the kidneys, which remain unremarkable. Aorta: Vascular calcification is within the aorta. Inferior vena cava: Normal. CT PELVIS: Loops of bowel within the abdomen and pelvis are normal. Scattered diverticuli within sigmoid colon There are loops of bowel which are incompletely distended or lack oral contrast limiting their eval uation. Appendix: Prior appendectomy Urinary bladder: Normal. Genitourinary structures: There is 3.4 cm left ovarian cyst Osseous structures: No suspicious lytic or sclerotic lesions. IMPRESSION: 1. 3.4 cm left ovarian cyst. 2. Multiple hepatic cysts. 3. Prior pelvic abscess is not evident
[2023-08-16 19:53] VITALS: BP 128/67; PULSE 68
== END 2023-08-16 19:24 | disposition home or self-care (01) ==
LOC: EC 16:48
DX: N83.202 Unspecified ovarian cyst, left side (principal); K76.89 Other specified diseases of liver; Z88.5 Allergy status to narcotic agent
CPT/HCPCS: 36415; 80053; 82150; 83690; 85025; 74177; 99284; 96360; Q9967

== ENCOUNTER → 2023-08-21 | Outpatient (CLI) | payer MEDICARE ==
--- NOTE | 2023-08-21 15:37 | CT ---
EXAMINATION TYPE: CT brain wo con DATE OF EXAM: 08/21/2023 COMPARISON: 10/08/2022 INDICATION: FELL YESTERDAY DLP: 1126.5 mGycm, Automated exposure control for dose reduction was used. CONTRAST: None CT of the brain is performed utilizing 3 mm thick sections through the posterior fossa and 3 mm thick sections through the remaining calvarium. Study is performed within 24 hours of arrival to the hosp ital. No abnormal hyperdensity is present to suggest an acute intracranial hemorrhage. No mass lesion is evident. No acute infarcts are evident. Patchy periventricular white matter hypodensity is present, likely on the basis of chronic white matter ischemic changes. Ventricles and sulci are appropriate for the patient age. Paranasal sinuses and mastoid air cells within the [id number] are clear. IMPRESSION: 1. No acute intracranial process. Follow-up MRI can be performed as clinically indicated. 2. Patchy to confluent periventricular white matter ischemic type changes with atrophy. Findings appe ar stable from prior exam.
== END | disposition home or self-care (01) ==
LOC: RADCTMAIN 15:05
PROVIDERS: ATTEND Internal Medicine Geriatric Medicine
DX: S09.90XA Unspecified injury of head, initial encounter (principal); I67.82 Cerebral ischemia; Z04.3 Encounter for examination and observation following other accident; X58.XXXA Exposure to other specified factors, initial encounter
CPT/HCPCS: 70450

== ENCOUNTER 2024-10-24 17:45 | Emergency (ER) | payer MEDICARE ==
[2024-10-24 17:52] VITALS: TEMP 98.5
[2024-10-24 18:11] VITALS: BP 120/70; PULSE 72; RESP 20
--- NOTE | 2024-10-24 18:16 | ED ---
Recheck HPI - General Chief Complaint: Recheck/Abnormal Lab/Rx Stated Complaint: L Arm Discoloration/Pain Time Seen by Provider: 10/24/24 17:59 Source: patient, RN notes reviewed Mode of arrival: ambulatory Limitations: no limitations - History of Present Illness Initial Comments: 89-year-old female presenting to the emergency department for complaints of ecchymosis to her left digits. Patient states that she fell and tripped on Friday where she was diagnosed with a radial fracture and went to data integrity specialist where she had a cast placed on Friday. Patient is accompanied by her daughter her daughter is concerned that there is bruising of the patient's hand. Patient currently states that she is not having any pain denies paresthesias and is able to move her fingers. Denies blood thinner use. - Related Data Home Medications Medication Instructions Recorded Confirmed Furosemide [Lasix] 20 mg PO DAILY 09/11/19 08/16/23 Metoprolol Tartrate 12.5 mg PO DAILY 09/11/19 08/16/23 traZODone HCL [Desyrel] 100 mg PO HS 09/11/19 08/16/23 Dicyclomine [Bentyl] 10 mg PO TID 10/07/19 08/16/23 Pantoprazole Sodium [Protonix] 40 mg PO DAILY 10/07/19 08/16/23 Atorvastatin [Lipitor] 40 mg PO DAILY 12/26/21 08/16/23 DULoxetine HCL [Cymbalta] 30 mg PO DAILY 12/26/21 08/16/23 amLODIPine [Norvasc] 5 mg PO DAILY 12/26/21 08/16/23 Calcium Carbonate/Vitamin D3 1 tab PO DAILY 08/16/23 08/16/23 [Oyster Shell 250-Vit D3 3.125 Mcg (125 Iu)] Ergocalciferol (Vitamin D2) 1,250 mcg PO Q7D 08/16/23 08/16/23 [Drisdol (50,000 Iu)] Folic Acid 1 mg PO DAILY 08/16/23 08/16/23 Allergies Allergy/AdvReac Type Severity Reaction Status Date / Time fentanyl AdvReac Unknown COULDNT Verified 10/24/24 17:52 EAT. Review of Systems ROS Statement: Those systems with pertinent positive or pertinent negative responses have been documented in the HPI. ROS Other: All systems not noted in ROS Statement are negative. Past Medical History Past Medical History: Cancer, Hyperlipidemia, Hypertension, Mitral Valve Prolapse (MVP), Osteoarthritis (OA) Additional Past Medical History / Comment(s): PROLAPSED MITRAL VALVE, IBS, SKIN CANCER, STATES SLIGHT SOB., SEE CARDIOLOGY H & P. History of Any Multi-Drug Resistant Organisms: None Reported Past Surgical History: Joint Replacement Additional Past Surgical History / Comment(s): REGAN TOTAL KNEES. mirtal valve repair Past Anesthesia/Blood Transfusion Reactions: No Reported Reaction Past Psychological History: Anxiety, Depression Smoking Status: Never smoker Past Alcohol Use History: Daily Past Drug Use History: None Reported - Past Family History Sister(s) Family Medical History: Cancer Additional Family Medical History / Comment(s): BOWEL CANCER Father Family Medical History: Myocardial Infarction ([place]) Mother Family Medical History: No Reported History Additional Family Medical History / Comment(s): Mother lived to be 99yrs old. General Exam Limitations: no limitations General appearance: alert, in no apparent distress ENT exam: Present: normal exam, mucous membranes moist Neck exam: Present: normal inspection. Absent: tenderness, meningismus, lymphadenopathy Respiratory exam: Present: normal lung sounds bilaterally. Absent: respiratory distress, wheezes, rales, rhonchi, stridor Cardiovascular Exam: Present: regular rate, normal rhythm, normal heart sounds. Absent: systolic murmur, diastolic murmur, rubs, gallop, clicks GI/Abdominal exam: Present: soft, normal bowel sounds. Absent: distended, tenderness, guarding, rebound, rigid Left Hand Wrist exam: Present: ecchymosis. Absent: full ROM, tenderness Vascular: Present: normal capillary refill. Absent: vascular compromise Course Vital Signs 10/24/24 10/24/24 17:49 17:52 Temperature 98.5 F Pulse Rate 76 72 Respiratory 18 20 Rate Blood Pressure 129/72 120/70 O2 Sat by Pulse 93 L 95 Oximetry Medical Decision Making - Medical Decision Making Was pt. sent in by a medical professional or institution (, PA, DRAIN TILE PRESS OPERATOR, urgent care, hospital, or care home...) When possible be specific @ -No Did you speak to anyone other than the patient for history (EMS, parent, family, police, friend...)? What history was obtained from this source @ -No Did you review nursing and triage notes (agree or disagree)? Why? @ -I reviewed and agree with nursing and triage notes Were old charts reviewed (outside hosp., previous admission, EMS record, old EKG, old radiological studies, urgent care reports/EKG's, care home records)? Report findings @ -No old charts were reviewed Differential Diagnosis (chest pain, altered mental status, abdominal pain women, abdominal pain men, vaginal bleeding, weakness, fever, dyspnea, syncope, headache, dizziness, GI bleed, back pain, seizure, CVA, palpatations, mental health, musculoskeletal)? @ -Differential Musculoskeletal Muscular strain, contusion, ligament sprain, fracture, arthritis, septic arthritis, bursitis, cellulitis, muscle spasm, nerve compression, DVT, arterial occlusion, herpes zoster, electrolyte abnormality, tumor.... This is not meant to be in all inclusive list EKG interpreted by me (3pts min.). @ -None X-rays interpreted by me (1pt min.). @ -None done CT interpreted by me (1pt min.). @ -None done U/S interpreted by me (1pt. min.). @ -None done What testing was considered but not performed or refused? (CT, X-rays, U/S, labs)? Why? @ -None What meds were considered but not given or refused? Why? @ -None Did you discuss the management of the patient with other professionals (professionals i.e. , PA, DRAIN TILE PRESS OPERATOR, lab, RT, psych nurse, health and social care teacher, ropeman, teacher, community relations officer, skilled nursing case manager)? Give summary @ -No Was smoking cessation discussed for >3mins.? @ -No Was critical care preformed (if so, how long)? @ -No Were there social determinants of health that impacted care today? How? (Homelessness, low income, unemployed, alcoholism, drug addiction, transportation, low edu. Level, literacy, decrease access to med. care, [facility], rehab)? @ -No Was there de-escalation of care discussed even if they declined (Discuss DNR or withdrawal of care, Hospice)? DNR status @ -No What co-morbidities impacted this encounter? (DM, HTN, Smoking, COPD, CAD, Cancer, CVA, ARF, Chemo, Hep., AIDS, mental health diagnosis, sleep apnea, morbid obesity)? @ -None Was patient admitted / discharged? Hospital course, mention meds given and route, prescriptions, significant lab abnormalities, going to OR and other p ertinent info. @ -Discharge. 89-year-old female presenting with bruising of the left hand. The left extremity, upper, is warm to the touch, good capillary refill, full mobility of the digits. Discussion with patient and daughter at bedside that ecchymosis is to be expected after an injury and there is no concern for compartment syndrome. Recommend follow-up as scheduled. Patient was offered pain medication was declined. Case discussed with Dr. Navarro Undiagnosed new problem with uncertain prognosis? @ -No Drug Therapy requiring intensive monitoring for toxicity (Heparin, Nitro, Insulin, Cardizem)? @ -No Were any procedures done? @ -No Diagnosis/symptom? @ -Ecchymosis of hand Acute, or Chronic, or Acute on Chronic? @ -Acute Uncomplicated (without systemic symptoms) or Complicated (systemic symptoms)? @ -Uncomplicated Side effects of treatment? @ -No Exacerbation, Progression, or Severe Exacerbation? @ -No Poses a threat to life or bodily function? How? (Chest pain, [place], [place], pneumonia, PE, COPD, DKA, ARF, appy, cholecystitis, CVA, Diverticulitis, Homicidal, Suicidal, threat to staff... and all critical care pts) @ -No Disposition Clinical Impression: Traumatic ecchymosis of hand Disposition: HOME SELF-CARE Condition: Stable Instructions (If sedation given, give patient instructions): Wrist Fracture in Adults (ED), Ecchymosis (ED) Additional Instructions: Please return to the Emergency Department if symptoms worsen or any other concerns. Is patient prescribed a controlled substance at d/c from ED?: No Referrals: Joseph Crain MD [Primary Care Provider] - 1-2 days Time of Disposition: 18:16
== END 2024-10-24 18:34 | disposition home or self-care (01) ==
LOC: EC 17:45
DX: S60.222A Contusion of left hand, initial encounter (principal); Z88.5 Allergy status to narcotic agent; W01.0XXA Fall on same level from slipping, tripping and stumbling without subsequent striking against object, initial encounter
CPT/HCPCS: 99283